=== PATIENT | male | born 1970 | race Asian ===

== ENCOUNTER 2020-07-27 16:44 | Emergency (ER) | payer OTHER, SELFPAY ==
--- NOTE | 2020-07-27 | XR_ITS ---
EXAMINATION: XR CHEST CLINICAL INFORMATION: Chest wall pain. COMPARISON: CT of the chest 07/19/2019 TECHNIQUE: 2 views of the chest were obtained. FINDINGS: No significant abnormality is noted involving the heart, lungs, mediastinum, bony thorax or soft tissues. XR/XR chest 2V IMPRESSION: Unremarkable examination.
[2020-07-27 17:39] VITALS: BP 149/79; PULSE 87; RESP 16; TEMP 36.7; O2SAT 98; BMI 29.5
--- NOTE | 2020-07-27 21:04 | CT_ITS ---
Indication: Pain, hiccups EXAMINATION: Contrast enhanced CT of the chest abdomen pelvis. 85 mL Omnipaque 350. Radiation dose 840 Axial imaging with coronal and sagittal reformatted images. Comparison previous 11/03/2019 and 04/21/2019 CT chest; The thoracic inlet is felt to be within normal limits. The axillary regions are unremarkable. No mediastinal adenopathy. Hilar regions are within normal limits. Imaging lung gandhi. Mild filling defect in the distal right bronchus new from previous. May represent secretion. Measures 1 cm x 6 mm Right lung; No significant infiltrate or effusion. Left lung; No significant infiltrate or effusion. Upper abdomen; Corrugated appearance to the liver. Consistent with cirrhosis. No obvious lesion. The spleen is within normal limits Pancreas within normal limits. Adrenal glands within normal limits. The kidneys are in the neck nephrographic phase. No suspicious finding. The bladder is within normal limits. The abdominal wall shows beginnings of right inguinal hernia stable from previous. The bowel pattern is nonobstructing. No free fluid. The appendix is within normal limits. Prominent prostate is once again noted. The vascular structures are nonaneurysmal. There is no bulky adenopathy. There is no free fluid. Review of the bone windows does not demonstrate evidence for bony lesion. Once again sclerotic change involving the articulating femoral head on the left. This may be degenerative. A vascular necrosis. Consideration. Not significantly changed from previous. CT/CT abdomen pelvis w con IMPRESSION: No acute finding. In the chest no significant infiltrate seen. There is however a density in the distal trachea on the right which could represent a mucosal lesion given the history. Differential would include secretions. This is new from 07/19/2019. Otherwise chronic basilar markings. No acute finding in the abdomen pelvis. Corrugated contour of the liver most consistent with cirrhosis. Sclerotic change in the left femoral head may represent degeneration versus osteonecrosis. Stable from previous
--- NOTE | 2020-07-27 21:04 | ECG_ITS ---
Test Reason : CHEST PAIN Blood Pressure : / mmHG Vent. Rate : 074 BPM Atrial Rate : 074 BPM P-R Int : 138 ms QRS Dur : 080 ms QT Int : 392 ms P-R-T Axes : 053 054 045 degrees QTc Int : 435 ms Normal sinus rhythm Normal ECG No previous ECGs available Referred By: Olga Stubbs Electronically Signed By:SRINIVASA THOMPSON MD
--- NOTE | 2020-07-27 21:27 | ED_ITS ---
HPI - General Adult General Chief complaint: General Medical Stated complaint: hiccups x6days Time Seen by Provider: 07/27/20 18:29 Source: patient Mode of arrival: ambulatory Limitations: no limitations History of Present Illness HPI narrative: hiccups onset 6 days ago, moderate pain, no radiation, started after eating a sandwhich and drinking sprite, worsened hiccups with eating, no relieving factors, no prior episodes Associated symptoms: denies other symptoms Treatments prior to arrival: none Related Data Previous Rx's Medication Instructions Recorded metoclopramide HCl [Reglan] 10 mg PO Q4-6H PRN #30 tab 07/28/20 pantoprazole 40 mg PO DAILY 14 Days #14 tab 07/28/20 Allergies Allergy/AdvReac Type Severity Reaction Status Date / Time ENVIRONMENTAL Allergy Unknown ITCHY/WATERY Uncoded 07/27/20 17:50 EYES Review of Systems Review of Systems: Constitutional : No Weight loss, No Fever, No Chills ENT/Mouth : No sore throat, No Rhinorrhea Eyes: No Swelling, No Redness Cardiovascular : No Chest Pain, No SOB, NoEdema Respiratory : No Cough, No Sputum, No Wheezing Gastrointestinal : Positive Nausea, no Vomiting, no Diarrhea, positive abdominal Pain, No Hematochezia, No Melena Genitourinary : No Dysuria, No Urinary Frequency, No Hematuria, No Urgency Musculoskeletal : No joint pain, No Myalgias, No Joint Swelling Skin : No Skin Lesions, No rash Neuro : No Weakness, No Numbness, No Dizziness, No Headache Psych : No Anxiety/Panic, No Depression Heme/Lymph: No Bruising, No Lymphadenopathy Endocrine : No Polyuria, No Polydipsia All other systems reviewed and are negative. [facility] Past Medical History Attestation statement: The following information was validated with the patient. Medical History No known health problems Social History Social History (Updated 07/27/20 @ 21:28 by Olga Stubbs DO) Smoking Status: Never smoker Use of substances other than those prescribed or required for medical reasons: No Advance Directives: No Advance Directives Information Provided: Yes Physical Exam Vital Signs: Vital Signs: Vital Signs Temp Pulse Resp BP Pulse Ox 07/28/20 01:17 70 114/76 95 07/27/20 23:59 73 16 127/84 97 10/29/20 21:58 81 18 151/92 H 99 07/27/20 17:39 98.0 F 87 16 149/79 H 98 Body Mass Index 29.5 Appearance: Alert. Oriented X3. No acute distress. hiccups intermittent in interview with some belching Eyes: Pupils equal, round and reactive to light. ENT: Pharynx normal. Neck: Normal inspection. Neck supple. CVS: Normal heart rate and rhythm. Pulses normal. Respiratory: No respiratory distress. Breath sounds normal. Abdomen: Soft and mild epigastric ttp Skin: Skin warm and dry. Normal skin color. Normal skin turgor. Extremities: No lower extremity edema. No calf ttp Neuro: Oriented X 3. No motor deficit. No sensory deficit. Course Course Course Narrative: given H2 radha, IV ativan at this time will try reglan and protonix asleep, hiccups stoppped, LFTs at baseline no acute findings on labs, CT scan ?secretion but no hypoxia no WBC count no fevers no cough - will need PCP and thoracic follow up will place on PPI and reglan Medical Decision Making [facility] Narrative Medical decision making narrative: hiccups with some epigastric pain and feeling like spasm in chest - no history of this in past, started after sandlexyich and sprhien, will obtain labs, EKG, CT scans of chest/abdomen for mass, IV ativan Lab Data Result diagrams: 07/27/20 21:49 07/27/20 22:22 Labs: Lab Results 07/27/20 07/27/20 07/27/20 Range/Units 21:49 21:49 21:49 WBC 10.3 (4.8-10.8) X10*3/uL RBC 5.55 (4.60-5.80) X10*6/uL Hgb 15.9 (14.0-18.0) g/dl Hct 47.0 (42-52) % MCV 84.7 (80-98) fL MCH 28.6 (27.0-33.0) pg MCHC 33.8 (31.0-36.0) g/dl RDW 13.9 (11.0-16.0) % Plt Count 209 (160-400) X10*3/uL MPV 11.3 (9.4-12.4) fL Immature Gran % (Auto) 0.6 H (0.0-0.4) % Neut % (Auto) 77.1 H (45-73) % Lymph % (Auto) 13.9 L (20-40) % [place] % (Auto) 8.3 (2-11) % Eos % (Auto) 0.0 (0-4) % Baso % (Auto) 0.1 (0-2) % Lymph # (Auto) 1.4 (1.2-4.9) X10*3/uL [place] # (Auto) 0.9 (0.1-1.2) X10*3/uL Eos # (Auto) 0.0 (0.0-0.4) X10*3/uL Baso # (Auto) 0.0 (0.0-0.2) X10*3/uL Abs Immat Gran (auto) 0.06 H (0.00-0.03) X10*3/uL Absolute Neuts (auto) 8.0 (2.0-8.3) X10*3/uL Absolute Nucleated RBC 0.000 (0.0-0.012) X10*3/uL Nucleated RBC % (auto) 0.0 (0.0-0.2) /100WBC Sodium Cancelled Potassium Cancelled Chloride Cancelled Carbon Dioxide Cancelled Anion Gap Cancelled BUN Cancelled Creatinine Cancelled Estim Creat Clear Calc Cancelled Estimated GFR Cancelled Random Glucose Cancelled Calcium Cancelled Magnesium Cancelled Total Bilirubin Cancelled Direct Bilirubin Cancelled AST Cancelled ALT Cancelled Alkaline Phosphatase Cancelled Troponin I High Sens < 3.5 (<3.5-35.0) ng/L Total Protein Cancelled Albumin Cancelled Lipase Cancelled 07/27/20 07/27/20 Range/Units 22:22 22:22 WBC (4.8-10.8) X10*3/uL RBC (4.60-5.80) X10*6/uL Hgb (14.0-18.0) g/dl Hct (42-52) % MCV (80-98) fL MCH (27.0-33.0) pg MCHC (31.0-36.0) g/dl RDW (11.0-16.0) % Plt Count (160-400) X10*3/uL MPV (9.4-12.4) fL Immature Gran % (Auto) (0.0-0.4) % Neut % (Auto) (45-73) % Lymph % (Auto) (20-40) % [place] % (Auto) (2-11) % Eos % (Auto) (0-4) % Baso % (Auto) (0-2) % Lymph # (Auto) (1.2-4.9) X10*3/uL [place] # (Auto) (0.1-1.2) X10*3/uL Eos # (Auto) (0.0-0.4) X10*3/uL Baso # (Auto) (0.0-0.2) X10*3/uL Abs Immat Gran (auto) (0.00-0.03) X10*3/uL Absolute Neuts (auto) (2.0-8.3) X10*3/uL Absolute Nucleated RBC (0.0-0.012) X10*3/uL Nucleated RBC % (auto) (0.0-0.2) /100WBC Sodium 137 Potassium 4.5 Chloride 107 Carbon Dioxide 21 L Anion Gap 14 BUN 24 H Creatinine 0.92 Estim Creat Clear Calc 96.0 Estimated GFR > 60 Random Glucose 226 H Calcium 8.6 Magnesium 2.5 Total Bilirubin 3.1 H Direct Bilirubin 1.0 H AST 54 H ALT 80 H Alkaline Phosphatase 161 H Troponin I High Sens (<3.5-35.0) ng/L Total Protein 7.0 Albumin 4.1 Lipase 26 ECG Data Attestation: I personally reviewed and interpreted this ECG as follows: Interpretation: Rate: 74 Rhythm: NSR [place]: normal Normal P waves. Normal RASHAAD. Normal QRS complex. ST T wave : normal qTC: normal prior studies: artifact noted, no acute ischemia The study has been interpreted contemporaneously by me. . Discharge Plan Discharge Clinical Impression: Hiccups Patient Disposition: Home, Self-Care Instructions: Hiccups (ED) Additional Instructions: FINDINGS OF CHEST AND ABDOMEN CT SCAN In the chest no significant infiltrate seen. There is however a density in the distal trachea on the right which could represent a mucosal lesion given the history. Differential would include secretions. This is new from 07/19/2019. Otherwise chronic basilar markings. No acute finding in the abdomen pelvis. Corrugated contour of the liver most consistent with cirrhosis. Sclerotic change in the left femoral head may represent degeneration versus osteonecrosis. Stable from previous given the possible density in distal trachea you will need to see your doctor and thoracic surgery to have this further evaluated Prescriptions: New pantoprazole 40 mg tablet,delayed release (DR/EC) 40 mg PO DAILY 14 Days Qty: 14 RF: 0 metoclopramide HCl [Reglan] 10 mg tablet 10 mg PO Q4-6H PRN (Reason: hiccups) Qty: 30 RF: 0 Referrals: Jacki Echavarria MD [Primary Care Provider] - 2 days (call for appointment given lesion seen in trachea) Mari Bell MD [Physician] - 1 week (call for appointment) Stand Alone Forms: Work/School Release Interventions: ED Discharge Assessment Last Done: 07/28/20 01:18 Discharge Date/Time: 07/28/20 01:19
[2020-07-27] MEDS: Famotidine/PF 20 MG/2 ML VIAL IVPUSH (21:42)
[2020-07-27] MEDS: LORazepam 2 MG/ML VIAL 1 MG IVPUSH (21:42)
[2020-07-27 21:55] LABS: MANUAL DIFF FLAG NO
[2020-07-27 21:56] LABS: Basophils Percent Auto 0.1 % (0-2); Hemoglobin 15.9 g/dl (14.0-18.0); Imm Gran Abs Auto 0.06 X10*3/uL (0.00-0.03); Imm Gran Pct Auto 0.6 % (0.0-0.4); Lymphocytes Absolute Auto 1.4 X10*3/uL (1.2-4.9); Lymphocytes Percent Auto 13.9 % (20-40); Mean Corpuscular HGB Conc 33.8 g/dl (31.0-36.0); Mean Corpuscular Hemoglobin 28.6 pg (27.0-33.0); Mean Corpuscular Volume 84.7 fL (80-98); Mean Platelet Volume 11.3 fL (9.4-12.4); Monocytes Absolute Auto 0.9 X10*3/uL (0.1-1.2); Monocytes Percent Auto 8.3 % (2-11); Neutrophils Percent Auto 77.1 % (45-73); Platelet Count 209 X10*3/uL (160-400); Red Blood Count 5.55 X10*6/uL (4.60-5.80); Red Cell Distribution Width 13.9 % (11.0-16.0); White Blood Count 10.3 X10*3/uL (4.8-10.8)
[2020-07-27 21:58] VITALS: BP 151/92; PULSE 81; RESP 18; O2SAT 99
[2020-07-27] MEDS: Pantoprazole Sodium 40 MG/10 ML VIAL IVPUSH (22:10)
[2020-07-27] MEDS: Metoclopramide HCl 10 MG/2 ML VIAL IVPUSH (22:10)
[2020-07-27 22:21] LABS: Troponin-I High Sensitivity < 3.5 ng/L (<3.5-35.0)
--- NOTE | 2020-07-27 22:53 | PC.NURSE ---
pt sleeping, had to shake shoulder hard to wake him. hiccups stopped aprox 20 minutes ago before he fell asleep.
[2020-07-27 23:04] LABS: Alanine Aminotransferase 80 U/L (0-40); Albumin Level 4.1 g/dL (3.5-5.0); Alkaline Phosphatase 161 U/L (39-117); Aspartate Amino Transferase 54 U/L (5-37); Bilirubin Total 3.1 mg/dL (0.0-1.0)
[2020-07-27 23:10] LABS: Anion Gap 14 (12-20); Blood Urea Nitrogen 24 mg/dL (9-16); Calcium 8.6 mg/dL (8.4-10.2); Carbon Dioxide 21 mmol/L (22-29); Chloride 107 mmol/L (96-108); Estimated Glomerular Filt Rate > 60; Glucose Random 226 mg/dL (60-115); Lipase 26 U/L (8-78); Magnesium 2.5 mg/dL (1.6-2.6); Potassium 4.5 mmol/l (3.3-5.1); Sodium 137 mmol/L (135-145)
[2020-07-27] MEDS: iohexoL 350 MG/ML 100 ML INFUS..BTL IV (23:49)
[2020-07-27 23:59] VITALS: BP 127/84; PULSE 73; RESP 16; O2SAT 97
--- NOTE | 2020-07-27 23:59 | PC.NURSE ---
awaiting ct results, pt has been sleeping for the past few hours.
[2020-07-28 01:17] VITALS: BP 114/76; PULSE 70; O2SAT 95
== END 2020-07-28 01:19 | disposition home or self-care (01) ==
PROVIDERS: Emergency Provider Emergency Medicine; PCP Internal Medicine
DX: R06.6 Hiccough (principal); Z79.899 Other long term (current) drug therapy
CPT/HCPCS: 36415; 71046; 71260; 74177; 80048; 80076; 83690; 83735; 84484; 85025; 93005; 96374; 96375; 99284; J2060; J2765; Q9967

== ENCOUNTER → 2020-12-19 09:31 | Outpatient (BNVA) | payer OTHER, SELFPAY | PROVIDERS: PCP Internal Medicine; Visit Provider Surgery | DX: D17.9 Benign lipomatous neoplasm, unspecified (principal) | CPT/HCPCS: 99212 ==

== ENCOUNTER 2020-12-25 09:04 | Day surgery (SDC) | payer OTHER, SELFPAY ==
[2020-12-25] VITALS (8 sets, daily range): BP systolic 144–172; BP diastolic 89–103; PULSE 65–91; RESP 10–20; TEMP 36.3–36.8; O2SAT 97–100; BMI 29.5
[2020-12-25] MEDS: Lactated Ringers 1,000 ML 100 ML IVCONT (09:31)
--- NOTE | 2020-12-25 10:08 | P.CONAN_ITS ---
HPI - Anesthesia Eval Consult details Narrative: 50 yo male patient here for excision of recurrent cyst right post erior neck PMFSH Active Problems Active Problems: All Active Problems (Updated 12/19/20 @ 10:02 by Venkatesh Bal MD) Lipoma (Acute) Past Medical History Medical History (Updated 12/25/20 @ 10:23 by Kaelyn Car) H/O gastroesophageal reflux (GERD) No known health problems Family History Family History Father No problems noted. Mother CVD (cardiovascular disease) Stroke Diabetes mellitus Brother Diabetes mellitus Sister Diabetes mellitus Family history of problems with anesthesia: No Surgical History Surgical History H/O excision of mass (03/24/15) H/O hemorrhoidectomy (02/13/12) H/O hernia repair (1999) History of esophagogastroduodenoscopy (EGD) (02/13/12) Hx of tonsillectomy (1998) Status post excision of lipoma (04/22/19) History of Problems with Anesthesia: No Social History Social History Alcohol intake: never Smoking Status: Never smoker Use of substances other than those prescribed or required for medical reasons: No Have you been hit, kicked, punched, or otherwise hurt by someone within the past year? If so, by whom?: No Advance Directives: No Advance Directives Information Provided: No Meds Allergies Allergy/AdvReac Type Severity Reaction Status Date / Time No Known Allergies Allergy Verified 12/25/20 09:56 Active Medications: Current Medications Generic Name Dose Route Start Last Admin Trade Name Freq PRN Reason Stop Dose Admin Lactated Ringer's 1,000 mls @ 50 mls/hr 12/25/20 07:45 Lr IV .Q20H CORNELIO Lactated Ringer's 1,000 mls @ 100 mls/hr 12/25/20 07:45 12/25/20 09:31 Lr IVCONT 100 mls/hr .Q10H CORNELIO Administration Exam Exam Date and Time: December 25, 2020 1008 Height,Weight and Vital Signs: Height 5 ft 6 in Weight 83 kg Last Vital Signs Temp 98.3 F 12/25/20 09:16 Pulse 71 12/25/20 09:16 Resp 20 12/25/20 09:16 BP 144/95 H 12/25/20 09:16 Pulse Ox 99 12/25/20 09:16 Airway Mallampati Class: II TM Dist: >3cm Neck ROM: Full Heart: RRR Lungs: CTAB Assessment and Plan Assessment Anesthesia Assessment: Anesthesia Plan Discussed and Chart Reviewed Final Anesthetic Review NPO: Yes ASA Class: II Final Preanesthetic Review: No Changes in Pt Med Stat, Meds/Allgs Chart Reviewed, Consent Obtained/Reviewed and Anes Risks/Benef Reviewed Patient Risk: Low Procedure Risk: Low Assessment/Block/Sedation in SS: Assess/Block/Sedation-SS Anesthetic Plan Anesthetic Plan: GA Disposition: Standard PACU
--- NOTE | 2020-12-25 10:16 | MHC.SHP ---
Pre-Procedural Eval Section A The patient is an INPATIENT: No Changes since office visit: Yes Patient answered all questions; No Cold of Flu in the past 2 weeks, No New Medical Problems and No Changes in Medication The History & Physical has been completed within 30 days and I have reviewed it.: Yes Section B Chief Complaint: benign lipomatous neoplasm Allergies: Allergies Allergy/AdvReac Type Severity Reaction Status Date / Time No Known Allergies Allergy Verified 12/25/20 09:56 Plan Diagnosis/Plan: Unchanged I have reviewed the history and physical and performed a pertinent physical examination on my patient. No changes have occurred unless specified.
--- NOTE | 2020-12-25 11:42 | P.OP_ITS ---
Operative Note Operative Note Date of Service: 12/25/20 Narrative: Preoperative diagnosis: Recurrent lipoma posterior right neck Postoperative diagnosis: Same Procedure: Excision of recurrent lipoma posterior right neck Surgeon: Venkatesh Bal MD Window Unit Air Conditioning Mechanic: Louann Lindsey PA-C Anesthesia: General LMA Indications for procedure: 50-year-old male with a previous history of lipoma, of the posterior right neck previously excised now presenting with a recurrent lipoma of the same location measure approximately 3 cm in diameter. Operative findings: Recurrence lipoma of the posterior right neck measuring 3 cm in diameter with scar surrounding Specimen:. Lipoma per steroid neck Estimated blood loss: 5 mL Complications: None Procedure details: Patient was brought to the OR placed in a supine position. After administering general anesthesia he was placed in a left lateral decubitus position. The skin over the lipoma was prepped with ChloraPrep and draped in a sterile fashion. A surgical time-out was called the consent confirmed. Patient received preoperative antibiotics and Venodyne boots were in place. Local anesthesia consisting of 0.75% Sensorcaine with epinephrine was then infiltrated over the lipoma. A transverse incision was then created with a scalpel carried out through subcutaneous tissue. Sharp dissection was then used to dissect the lipoma from the surrounding subcutaneous tissue. The lesion was excised and sent to pathology for additional examination. Hemostasis was assured using electrocautery. Deep subcutaneous tissue was closed using interrupted 3 0 Polysorb sutures. Dermis was reapproximated using interrupted 3 0 Polysorb sutures. Skin was then closed using a running subcuticular 4-0 Polysorb suture. Steri-Strips 2 x 2 gauze and Tegaderm were then applied. The patient tolerated the procedure well. Sponge, instrument, needle counts reported as correct. Patient was transferred to PACU in stable condition.
--- NOTE | 2020-12-25 11:54 | P.BOP_ITS ---
Brief Operative Note Date of Service: 12/25/20 Pre-op diagnosis: recurrent posterior neck lipoma Post-op diagnosis: same Procedure: excision of recurrent posterior neck lipoma Surgeon: GABRIELA TINOCO MD Anesthesia: GLMA Primer Press Operator: Louann Lindsey Estimated blood loss (mL): 5 Pathology: other (POSTERIOR NECK LIPOMA) Condition: stable Disposition: PACU
[2020-12-25] MEDS: oxyCODONE HCl Immed Release 5 MG TABLET PO (12:38)
[2020-12-25] MEDS: Acetaminophen 325 MG TABLET 650 MG PO (12:38)
== END 2020-12-25 13:44 | disposition home or self-care (01) ==
PROVIDERS: PCP Internal Medicine; Visit Provider Surgery
PROC: (CPT 21552; principal; 2020-12-25 10:30)
DX: D17.0 Benign lipomatous neoplasm of skin and subcutaneous tissue of head, face and neck (principal)
CPT/HCPCS: 21552; 88304; J0690; J1100; J1885; J2250; J2405; J3010

== ENCOUNTER → 2021-01-03 09:48 | Outpatient (BNVA) | payer OTHER, SELFPAY | PROVIDERS: PCP Internal Medicine; Visit Provider Surgery | DX: D17.9 Benign lipomatous neoplasm, unspecified (principal) | CPT/HCPCS: 99212 ==

== ENCOUNTER 2021-01-22 11:25 | Outpatient (REF) | payer OTHER, SELFPAY | END 2021-01-22 11:26 | disposition home or self-care (01) | LOC: HO.LAB 11:25 | PROVIDERS: Visit Provider Internal Medicine | DX: Z20.822 Contact with and (suspected) exposure to COVID-19 (principal) | CPT/HCPCS: C9803; U0003; U0005 ==

== ENCOUNTER 2021-03-21 16:08 | Outpatient (REF) | payer OTHER, SELFPAY ==
[2021-03-21 16:43] LABS: MANUAL DIFF FLAG NO
[2021-03-21 16:44] LABS: Basophils Percent Auto 0.1 % (0-2); Eosinophils Percent Auto 0.1 % (0-4); Hematocrit 41.1 % (42-52); Hemoglobin 13.9 g/dl (14.0-18.0); Imm Gran Abs Auto 0.02 X10*3/uL (0.00-0.03); Imm Gran Pct Auto 0.2 % (0.0-0.4); Lymphocytes Absolute Auto 1.6 X10*3/uL (1.2-4.9); Lymphocytes Percent Auto 19.5 % (20-40); Mean Corpuscular HGB Conc 33.8 g/dl (31.0-36.0); Mean Corpuscular Hemoglobin 29.7 pg (27.0-33.0); Mean Corpuscular Volume 87.8 fL (80-98); Mean Platelet Volume 11.7 fL (9.4-12.4); Monocytes Absolute Auto 0.5 X10*3/uL (0.1-1.2); Monocytes Percent Auto 5.7 % (2-11); Neutrophils Percent Auto 74.4 % (45-73); Platelet Count 166 X10*3/uL (160-400); Red Blood Count 4.68 X10*6/uL (4.60-5.80); Red Cell Distribution Width 14.1 % (11.0-16.0); White Blood Count 8.1 X10*3/uL (4.8-10.8)
[2021-03-21 17:11] LABS: Alanine Aminotransferase 104 U/L (0-40); Aspartate Amino Transferase 92 U/L (5-37)
[2021-03-21 17:30] LABS: Thyroid Stimulating Hormone 0.19 uIU/mL (0.32-4.0)
== END 2021-03-21 16:09 | disposition home or self-care (01) ==
LOC: HO.LAB 16:08
PROVIDERS: PCP Internal Medicine; Visit Provider Pediatrics
DX: R53.83 Other fatigue (principal)
CPT/HCPCS: 36415; 84439; 84443; 84450; 84460; 85025

== ENCOUNTER 2021-04-10 09:00 | Outpatient (REF) | payer OTHER, SELFPAY ==
--- NOTE | ~2021-04-10 | CT_ITS ---
EXAMINATION: CT CHEST WITHOUT CONTRAST CLINICAL INFORMATION: Localized enlarged lymph nodes. COMPARISON: CT chest 07/27/2020. TECHNIQUE: Multidetector volumetric CT imaging of the chest was done. Axial MIP volume rendering provided. Sagittal and coronal reformatted images were obtained. This CT examination was performed using dose optimization techniques as appropriate, variously including the following: *Automated exposure control *Adjustment of mA and/or kV according to patient size (this includes techniques or standardized protocols for targeted exams where dose is matched to indication/reason for exam; i.e. extremities or head) *Use of iterative reconstruction technique DLP: 145 mGy-cm FINDINGS: POULTRY FIELD SERVICE TECHNICIAN: Unremarkable food safety coordinator. LUNGS: The lungs are well-expanded and clear of acute pneumonic process. There is bibasilar, right middle lobe and lingular atelectatic changes. No pulmonary nodules, mass or consolidation seen. MEDIASTINUM: The central trachea and bronchi are widely patent. The heart size and the great vessels are normal caliber. There is atherosclerotic calcification of left coronary artery. The thyroid lobes are symmetrical and normal. The thyroid lobes are symmetrical and normal. PLEURA: There is no pleural effusion. No pleural mass or thickening. AXILLA: No abnormal lymphadenopathy. UPPER ABDOMEN: Visualized liver, spleen, pancreas and bilateral adrenal glands are unremarkable. OSSEOUS STRUCTURES: No lytic or sclerotic process seen. There is mild ventral spondylosis upper dorsal spine. CT/CT chest wo con IMPRESSION: Bibasilar, right middle lobe and lingular atelectasis. No pulmonary nodule, mass or consolidation. The bronchial tree is widely patent without any focal secretions or thickening.
== END 2021-04-10 09:01 | disposition home or self-care (01) ==
LOC: HO.CT 09:00
PROVIDERS: Visit Provider Surgery
DX: R59.0 Localized enlarged lymph nodes (principal)
CPT/HCPCS: 71250

== ENCOUNTER → 2021-04-19 11:21 | Outpatient (BNVA) | payer OTHER, SELFPAY | PROVIDERS: PCP Internal Medicine; Referring Provider Internal Medicine; Visit Provider Surgery | DX: K64.8 Other hemorrhoids (principal) | CPT/HCPCS: 99212 ==

== ENCOUNTER → 2021-04-20 10:27 | Outpatient (BNVA) | payer OTHER, SELFPAY | PROVIDERS: PCP Internal Medicine; Visit Provider Surgery | DX: R59.0 Localized enlarged lymph nodes (principal); R91.8 Other nonspecific abnormal finding of lung field; Z79.899 Other long term (current) drug therapy | CPT/HCPCS: 99212 ==

== ENCOUNTER 2021-05-14 08:24 | Day surgery (SDC) | payer OTHER, SELFPAY ==
[2021-05-04 11:25] VITALS: BMI 28.1
--- NOTE | 2021-05-14 08:59 | P.CONAN_ITS ---
REPLACED BY [facility] Active Problems Active Problems: All Active Problems (Updated 05/04/21 @ 11:23 by Cindy faith) Lipoma (Acute) Internal hemorrhoids (Acute) Mediastinal lymphadenopathy (Acute) Multiple pulmonary nodules (Acute) Past Medical History Medical History Endobronchial mass H/O gastroesophageal reflux (GERD) Hilar enlargement Family History Family History Father No problems noted. Mother CVD (cardiovascular disease) Stroke Diabetes mellitus Brother Diabetes mellitus Sister Diabetes mellitus Family history of problems with anesthesia: No Surgical History Surgical History H/O excision of mass (03/24/15) H/O hemorrhoidectomy (02/13/12) H/O hernia repair (1999) History of esophagogastroduodenoscopy (EGD) (02/13/12) Hx of tonsillectomy (1998) Status post excision of lipoma (04/22/19) History of Problems with Anesthesia: No Social History Social History Alcohol intake: never Patient Tobacco Use Status: Never used Tobacco Advance Directives Information Provided: No Meds Allergies Allergy/AdvReac Type Severity Reaction Status Date / Time No Known Allergies Allergy Verified 04/20/21 10:51 Active Medications: Current Medications Generic Name Dose Route Start Last Admin Trade Name Freq PRN Reason Stop Dose Admin Lactated Ringer's 1,000 mls @ 100 mls/hr 05/14/21 09:00 Lr IVCONT .Q10H CORNELIO Cefotetan Disodium 2 gm/ 50 mls @ 100 mls/hr 05/14/21 08:57 Sodium Chloride IV 05/14/21 09:26 PREOP ONE Exam Exam Date and Time: May 14, 2021 0859 Height,Weight and Vital Signs: Height 5 ft 6 in Weight 79.093 kg Airway Mallampati Class: II TM Dist: >3cm Neck ROM: Full Assessment and Plan Assessment Anesthesia Assessment: Anesthesia Plan Discussed and Chart Reviewed Final Anesthetic Review Family History of Problems with Anesthesia: No History of Problems with Anesthesia: No NPO: Yes ASA Class: II Final Preanesthetic Review: No Changes in Pt Med Stat, Meds/Allgs Chart Reviewed, Consent Obtained/Reviewed and Anes Risks/Benef Reviewed Patient Risk: Low Procedure Risk: Low Assessment/Block/Sedation in SS: Assess/Block/Sedation-SS Anesthetic Plan Anesthetic Plan: GA Disposition: Standard PACU
[2021-05-14 09:15] VITALS: BP 134/90; PULSE 71; RESP 16; TEMP 35.9; O2SAT 97
[2021-05-14] MEDS: Lactated Ringers 1,000 ML 100 ML IVCONT (09:31)
--- NOTE | 2021-05-14 09:58 | MHC.SHP ---
Pre-Procedural Eval Section A Date of Service: 05/14/21 The patient is an INPATIENT: No Changes since office visit: Yes Patient answered all questions; No Cold of Flu in the past 2 weeks, No New Medical Problems and No Changes in Medication The History & Physical has been completed within 30 days and I have reviewed it.: Yes Section B Chief Complaint: hemorrhoids Allergies: Allergies Allergy/AdvReac Type Severity Reaction Status Date / Time No Known Allergies Allergy Verified 04/20/21 10:51 Plan Diagnosis/Plan: Unchanged I have reviewed the history and physical and performed a pertinent physical examination on my patient. No changes have occurred unless specified.
--- NOTE | 2021-05-14 10:46 | P.OP_ITS ---
Operative Note Operative Note Date of Service: 05/14/21 Narrative: Preoperative diagnosis: Bleeding prolapsing hemorrhoid grade 3 Postoperative diagnosis: Same Procedure: Hemorrhoidectomy Surgeon: Venkatesh Bal MD Clothing Pattern Preparer: No physician Anesthesia: General LMA Indications for procedure: 50-year-old male patient presenting with recurrent history of bleeding hemorrhoids found on examination to have a prolapsing bleeding internal hemorrhoid grade 3 with ulceration. He presents today for hemorrhoidectomy. Operative findings: Single large hemorrhoid located in the anterior anal wall which easily prolapse through the anal canal but is able to be reduced with light pressure. No active bleeding was noted at the time of surgery. Specimen: Hemorrhoid Estimated blood loss: 10 mL Complications: None Procedure details: Patient was brought to the OR placed in a supine position. He was then placed in a prone position and administered general anesthesia with LMA. The patient's perianal skin was prepped with Betadine and draped in a sterile fashion. A surgical time-out was called and the consent confirmed. Preoperative antibiotics were administered and Venodyne boots were in place. Local anesthesia consisting of 0.25% Sensorcaine with epinephrine was then infiltrated in the perianal skin. Digital rectal examination was performed. No external hemorrhoids were identified. No anal fissure be identified. There was mild hypertrophy of the anal sphincter. Prostate was not enlarged. No palpable rectal masses could be identified. Anoscopic examination was then performed a single enlarged hemorrhoid as noted above was identified in the anterior anal wall. No bleeding was noted at the time of surgery. No other internal hemorrhoids were identified. This was grasped with a triangular clamp and the hemorrhoid clamped using a Keysha clamp. A 2-0 Biosyn suture was then used placed at the base of the hemorrhoid and a baseball-type stitch placed below the Keysha clamp. The hemorrhoid was excised above the Keysha clamp and sent to pathology for further examination. A Keysha clamp was removed and a running locked continuation of the running suture performed from distal to proximal and the suture tied proximally. Excellent hemostasis was noted. Wounds were examined, irrigated and no further hemorrhoids or bleeding could be identified. A packing consisting of a 4 x 4 gauze wrapped in a Xeroform and covered with a Surgicel pad was then applied. This was then with a ABD pad. The patient tolerated the procedure well. Sponge, instrument, and needle counts reported as correct. The patient was transferred to PACU in stable condition.
[2021-05-14 10:55] VITALS: BP 137/75; PULSE 93; RESP 16; TEMP 36.3; O2SAT 96
[2021-05-14 11:00] VITALS: BP 125/74; PULSE 90; RESP 16; O2SAT 95
--- NOTE | 2021-05-14 11:02 | P.OP_ITS ---
Operative Note Operative Note Date of Service: 05/14/21 Narrative: Preoperative diagnosis: Bleeding internal hemorrhoids Postoperative diagnosis: Same Procedure: Hemorrhoidectomy Surgeon: Venkatesh Bal MD Stained Glass Glazier Helper: No physician Anesthesia: General LMA Indications for procedure: 50-year-old male patient presenting with a history of bleeding hemorrhoids prolapsing through the inguinal canal. On examination patient was found to have a single bleeding internal hemorrhoid in the anterior anal wall. He presents today for hemorrhoidectomy. Operative findings: Prolapsing internal hemorrhoid Specimen: Hemorrhoid Estimated blood loss: 10 mL Complications: None Procedure details: Patient was brought to the OR placed in a supine position. He was then rotated into a prone position. General LMA anesthesia was then administered. The perianal skin was prepped with Betadine and draped in a sterile fashion. A surgical time-out was called the consent confirmed. Patient received preoperative antibiotics and Venodyne boots were in place. Local anesthesia consisting of 0.25% Sensorcaine was then infiltrated in the perianal skin. Rectal examination was then performed. No external hemorrhoids were identified. No anal fissure could be identified. Anal sphincter was noted to be somewhat hypertrophic. A small anoscope was then inserted. A single hemorrhoid was noted in the anterior LL anal wall. The bleeding was noted at the time of surgery. Was grasped with a triangular clamp and then with a Keysha clamp below this. A Biosyn suture was then used base all type stitch below the Keysha clamp. The hemorrhoid was then excised above the clamp and a running lock stitch from distal to proximal performed. This was then tied proximally at the base of the hemorrhoid. The specimen was passed off the table and sent to pathology for further examination. Wounds were checked for hemostasis and irrigated with saline solution. Excellent hemostasis was identified. A packing was applied into the canal consisting of a 4 x 4 gauze wrapped with a Xeroform followed by Surgicel. This was left in place to maintain hemostasis. Additional local anesthesia was infiltrated circumferentially and an ABD pad applied. The patient tolerated the procedure well. Sponge, instrument, and needle counts reported as correct. The patient was transferred to PACU in stable condition.
[2021-05-14 11:05] VITALS: BP 124/71; PULSE 90; RESP 16; O2SAT 97
[2021-05-14 11:10] VITALS: BP 123/77; PULSE 91; RESP 16; O2SAT 96
[2021-05-14 11:25] VITALS: BP 145/80; PULSE 77; RESP 16; TEMP 36.3; O2SAT 98
--- NOTE | 2021-05-18 16:21 | W.PM.OPN ---
Operative Note Operative Note Date of Service: 05/14/21 Narrative: Preoperative diagnosis: Bleeding prolapsing internal hemorrhoids Postoperative diagnosis: Same Procedure: Hemorrhoidectomy Surgeon: Venkatesh Bal MD Inventory Controller: No physician Anesthesia: General Indications for procedure: 50-year-old male patient with complaints of bleeding prolapsing hemorrhoids found on examination to have a hemorrhoid at the anterior anal wall. Operative findings: Enlarged inflamed internal hemorrhoid located in the anterior anal wall. No other hemorrhoids, fissure, abscess identified. Specimen: Internal hemorrhoid Estimated blood loss: 10 mL Complications: None Procedure details: Patient was brought to the OR placed in a prone position. He was administered general anesthesia. The patient's perianal skin was prepped with Betadine and draped in a sterile fashion. A surgical time-out was called the consent confirmed. Patient received preoperative antibiotics and Venodyne boots were in place. Digital rectal examination was performed. No thrombosed hemorrhoid, anal fissure, or perianal abscess is identified. Anoscopic examination was then performed and a single hemorrhoid noted in the anterior anal wall. This was noted to be inflamed but not actively bleeding. Hemorrhoid was grasped with a triangular clamp and a Keysha clamp placed below at the base. A chromic suture was placed at the base of the hemorrhoid and a running lock stitch placed below the Keysha clamp. The hemorrhoid was then excised over the Keysha clamp and a Keysha clamp removed. The suture was then used to over sew the base of the hemorrhoid as a running locked suture. This was then tied to the initial not proximally. Excellent hemostasis was achieved. The wounds were irrigated and observe for any bleeding. A packing of Surgicel followed by Xeroform followed by a dry 4 x 4 gauze was applied. This was then covered with an ABD pad. The patient tolerated the procedure well. Sponge, instrument, needle counts reported as correct. The patient was transferred to PACU in stable condition.
== END 2021-05-14 12:00 ==
LOC: HO.SSS 08:25
PROVIDERS: PCP Internal Medicine; Visit Provider Surgery
PROC: (CPT 46255; principal; 2021-05-14 10:00)
DX: K64.8 Other hemorrhoids (principal); K74.60 Unspecified cirrhosis of liver; K21.9 Gastro-esophageal reflux disease without esophagitis
CPT/HCPCS: 46255; 88304; J1100; J2250; J2405; J3010

== ENCOUNTER → 2021-05-22 09:03 | Outpatient (BNVA) | payer OTHER, SELFPAY | PROVIDERS: PCP Internal Medicine; Referring Provider Internal Medicine; Visit Provider Surgery | DX: Z48.815 Encounter for surgical aftercare following surgery on the digestive system (principal); Z87.19 Personal history of other diseases of the digestive system | CPT/HCPCS: 99212 ==

== ENCOUNTER → 2021-05-29 13:02 | Outpatient (BNVA) | payer OTHER, SELFPAY | PROVIDERS: PCP Internal Medicine; Visit Provider Surgery | DX: Z48.815 Encounter for surgical aftercare following surgery on the digestive system (principal); Z87.19 Personal history of other diseases of the digestive system | CPT/HCPCS: 99212 ==

== ENCOUNTER 2021-06-11 09:22 | Outpatient (REF) | payer OTHER, SELFPAY | END 2021-06-11 09:23 | disposition home or self-care (01) | LOC: HO.LAB 09:22 | PROVIDERS: PCP Internal Medicine; Visit Provider Internal Medicine | DX: Z20.822 Contact with and (suspected) exposure to COVID-19 (principal) | CPT/HCPCS: C9803; U0003; U0005 ==

== ENCOUNTER 2021-10-29 11:48 | Outpatient (REF) | payer OTHER, SELFPAY ==
[2021-10-29 13:46] LABS: Estimated Average Glucose 128 mg/dL; Hemoglobin A1c % 6.1 %
[2021-10-29 14:00] LABS: Anion Gap 12 (12-20); Blood Urea Nitrogen 15 mg/dL (9-16); Calcium 9.8 mg/dL (8.4-10.2); Carbon Dioxide 27 mmol/L (22-29); Chloride 107 mmol/L (96-108); Cholesterol 195 mg/dL; Estimated Glomerular Filt Rate > 60; Glucose Random 119 mg/dL (60-115); Potassium 4.7 mmol/L (3.3-5.1); Sodium 141 mmol/L (135-145)
[2021-10-29 14:33] LABS: Prostate Specific Antigen Scr 0.58 ng/mL (<0.05-4.0)
[2021-10-29 14:42] LABS: Free T4 (Free Thyroxine) 1.11 ng/dL (0.71-1.85); Thyroid Stimulating Hormone 0.78 uIU/mL (0.32-4.0)
== END 2021-10-29 11:49 | disposition home or self-care (01) ==
LOC: HO.10HDL 11:48
PROVIDERS: Visit Provider Internal Medicine
DX: Z12.5 Encounter for screening for malignant neoplasm of prostate (principal); R63.4 Abnormal weight loss; R73.03 Prediabetes; R79.89 Other specified abnormal findings of blood chemistry
CPT/HCPCS: 36415; 80048; 82465; 82550; 83036; 84153; 84439; 84443; 86140

== ENCOUNTER 2022-02-21 15:17 | Outpatient (REF) | payer OTHER, SELFPAY ==
[2022-02-21 15:30] LABS: MANUAL DIFF FLAG NO
[2022-02-21 15:57] LABS: Basophils Percent Auto 0.5 % (0-2); Eosinophils Absolute Auto 0.1 X10*3/uL (0.0-0.4); Eosinophils Percent Auto 1.5 % (0-4); Hematocrit 44.4 % (42.0-52.0); Hemoglobin 14.2 g/dl (14.0-18.0); Imm Gran Abs Auto 0.03 X10*3/uL (0.00-0.03); Imm Gran Pct Auto 0.4 % (0.0-0.4); Lymphocytes Absolute Auto 2.8 X10*3/uL (1.2-4.9); Lymphocytes Percent Auto 32.7 % (20-40); Mean Corpuscular Hemoglobin 28.5 pg (27.0-33.0); Mean Platelet Volume 11.3 fL (9.4-12.4); Monocytes Absolute Auto 0.7 X10*3/uL (0.1-1.2); Monocytes Percent Auto 8.8 % (2-11); Neutrophils Absolute Auto 4.7 x10*3/uL (2.0-8.3); Neutrophils Percent Auto 56.1 % (45-73); Platelet Count 183 X10*3/uL (160-400); Red Blood Count 4.99 X10*6/uL (4.60-5.80); Red Cell Distribution Width 13.7 % (11.0-16.0); White Blood Count 8.4 X10*3/uL (4.8-10.8)
[2022-02-21 16:18] LABS: Alanine Aminotransferase 101 U/L (0-40); Albumin Level 4.1 g/dL (3.5-5.0); Alkaline Phosphatase 228 U/L (39-117); Anion Gap 14 (12-20); Aspartate Amino Transferase 73 U/L (5-37); Bilirubin Total 3.1 mg/dL (0.0-1.0); Blood Urea Nitrogen 10 mg/dL (9-16); Calcium 10.1 mg/dL (8.4-10.2); Carbon Dioxide 27 mmol/L (22-29); Chloride 107 mmol/L (96-108); Estimated Glomerular Filt Rate > 60; Glucose Random 130 mg/dL (60-115); Potassium 4.9 mmol/L (3.3-5.1); Sodium 143 mmol/L (135-145); Total Protein 6.9 g/dL (6.5-8.0)
== END 2022-02-21 15:18 | disposition home or self-care (01) ==
LOC: HO.LAB 15:17
PROVIDERS: PCP Internal Medicine; Visit Provider Internal Medicine
DX: Z01.818 Encounter for other preprocedural examination (principal); K21.9 Gastro-esophageal reflux disease without esophagitis
CPT/HCPCS: 36415; 80053; 85025

== ENCOUNTER 2022-11-07 11:16 | Outpatient (REF) | payer OTHER, SELFPAY ==
--- NOTE | ~2022-11-07 | XR_ITS ---
EXAMINATION: XR SINUSES CLINICAL INFORMATION: Sinus pain. COMPARISON: None TECHNIQUE: Diaz, Lemos, lateral, and SMV views of the paranasal sinuses are submitted. FINDINGS: The paranasal sinuses are well aerated and clear. There is frontal and right maxillary sinus mucosal thickening. The ethmoid and sphenoid sinuses are clear. No fractures are identified. There is a mild rightward nasal septal deviation. No radiodense foreign bodies. XR/XR sinus min 3V IMPRESSION: Findings are consistent with frontal and right maxillary sinusitis.
[2022-11-07 11:41] LABS: MANUAL DIFF FLAG NO
[2022-11-07 12:22] LABS: Basophils Percent Auto 0.2 % (0-2); Eosinophils Absolute Auto 0.1 X10*3/uL (0.0-0.4); Hematocrit 31.8 % (42.0-52.0); Hemoglobin 11.1 g/dl (14.0-18.0); Imm Gran Abs Auto 0.01 X10*3/uL (0.00-0.03); Imm Gran Pct Auto 0.2 % (0.0-0.4); Lymphocytes Absolute Auto 2.3 X10*3/uL (1.2-4.9); Lymphocytes Percent Auto 57.1 % (20-40); Mean Corpuscular HGB Conc 34.9 g/dl (31.0-36.0); Mean Corpuscular Hemoglobin 28.5 pg (27.0-33.0); Mean Corpuscular Volume 81.5 fL (80.0-98.0); Mean Platelet Volume 10.1 fL (9.4-12.4); Monocytes Absolute Auto 0.4 X10*3/uL (0.1-1.2); Monocytes Percent Auto 9.6 % (2-11); Neutrophils Absolute Auto 1.3 x10*3/uL (2.0-8.3); Neutrophils Percent Auto 30.9 % (45-73); Platelet Count 201 X10*3/uL (160-400); White Blood Count 4.1 X10*3/uL (4.8-10.8)
[2022-11-07 12:53] LABS: Estimated Average Glucose 111 mg/dL; Hemoglobin A1c % 5.5 %
[2022-11-07 13:08] LABS: Alanine Aminotransferase 52 U/L (0-40); Alkaline Phosphatase 796 U/L (39-117); Anion Gap 17 (12-20); Aspartate Amino Transferase 93 U/L (5-37); Bilirubin Total 1.2 mg/dL (0.0-1.0); Blood Urea Nitrogen 13 mg/dL (9-16); C Reactive Protein 1.54 mg/dL (< or = 0.50); Calcium 9.3 mg/dL (8.4-10.2); Carbon Dioxide 24 mmol/L (22-29); Chloride 91 mmol/L (96-108); Estimated Glomerular Filt Rate 50; Glucose Random 127 mg/dL (60-115); Potassium 3.9 mmol/L (3.3-5.1); Sodium 128 mmol/L (135-145); Total Protein 6.7 g/dL (6.5-8.0)
== END 2022-11-07 11:17 | disposition home or self-care (01) ==
LOC: HO.LAB 11:16
PROVIDERS: PCP Internal Medicine; Visit Provider Internal Medicine
DX: R79.89 Other specified abnormal findings of blood chemistry (principal); E11.22 Type 2 diabetes mellitus with diabetic chronic kidney disease; N18.9 Chronic kidney disease, unspecified; J34.89 Other specified disorders of nose and nasal sinuses
CPT/HCPCS: 36415; 70220; 80053; 83036; 85025; 86140

== ENCOUNTER 2023-01-22 12:23 | Outpatient (REF) | payer OTHER, SELFPAY ==
[2023-01-22 13:38] LABS: MANUAL DIFF FLAG NO
[2023-01-22 13:46] LABS: Basophils Percent Auto 0.5 % (0-2); Eosinophils Percent Auto 0.7 % (0-4); Imm Gran Abs Auto 0.01 X10*3/uL (0.00-0.03); Imm Gran Pct Auto 0.2 % (0.0-0.4); Lymphocytes Absolute Auto 1.9 X10*3/uL (1.2-4.9); Mean Corpuscular HGB Conc 31.7 g/dl (31.0-36.0); Mean Corpuscular Hemoglobin 32.6 pg (27.0-33.0); Mean Platelet Volume 9.9 fL (9.4-12.4); Monocytes Absolute Auto 0.5 X10*3/uL (0.1-1.2); Monocytes Percent Auto 11.3 % (2-11); Neutrophils Absolute Auto 1.9 x10*3/uL (2.0-8.3); Neutrophils Percent Auto 43.3 % (45-73); Platelet Count 221 X10*3/uL (160-400); Red Cell Distribution Width 15.4 % (11.0-16.0); White Blood Count 4.4 X10*3/uL (4.8-10.8)
[2023-01-22 13:47] LABS: Estimated Average Glucose 94 mg/dL; Hemoglobin A1c % 4.9 %
[2023-01-22 14:02] LABS: Hematocrit 27.8 % (42.0-52.0); Hemoglobin 8.8 g/dl (14.0-18.0)
[2023-01-22 14:13] LABS: Alanine Aminotransferase 41 U/L (0-40); Albumin Level 3.5 g/dL (3.5-5.0); Alkaline Phosphatase 817 U/L (39-117); Anion Gap 16 (12-20); Aspartate Amino Transferase 80 U/L (5-37); Blood Urea Nitrogen 30 mg/dL (9-16); Calcium 9.1 mg/dL (8.4-10.2); Carbon Dioxide 25 mmol/L (22-29); Chloride 101 mmol/L (96-108); Estimated Glomerular Filt Rate 42; Glucose Random 104 mg/dL (60-115); Iron 99 mcg/dL (45-160); Percent Iron Saturation 36 % (15-50); Potassium 4.6 mmol/L (3.3-5.1); Sodium 137 mmol/L (135-145); Total Iron Binding Capacity 276 mcg/dL (228-428); Total Protein 6.1 g/dL (6.5-8.0); Unsaturated Iron Binding 177 ug/dL
[2023-01-22 14:35] LABS: Vitamin B12 856 pg/mL (200-900); Vitamin D 25-OH Total 19.3 ng/mL (>30)
== END 2023-01-22 12:24 | disposition home or self-care (01) ==
LOC: HO.10HDL 12:23
PROVIDERS: Visit Provider Internal Medicine
DX: K74.60 Unspecified cirrhosis of liver (principal); E11.9 Type 2 diabetes mellitus without complications; D64.9 Anemia, unspecified; N18.9 Chronic kidney disease, unspecified
CPT/HCPCS: 36415; 80053; 82306; 82607; 83036; 83540; 85025; 87070; 87205

== ENCOUNTER → 2023-01-31 06:58 | Day surgery (SDC) | payer OTHER, SELFPAY ==
--- OUTSIDE RECORDS SUMMARY | 2023-01-31 07:00 | XMS_ITS | Continuity of Care Document ---
Author Name Unknown Organization [facility] Address [address] [place] [address]- Care Team Providers Care Jigman Name Role Phone Nayely QUARLES, Pop Primary Care Physician Encounter [facility] Date(s): 10/19/20 - 11/18/20 [facility] [address], [place] [address] Attending Physician: Santana Marin Admitting Physician: Santana Marin Referring Physician: AdmtrSantana Allergies, Adverse Reactions, Alerts Substance Reaction Severity Status NKA Active Immunizations Given and Recorded Vaccine Date Status Refusal Reason pneumococcal 23-valent vaccine 1 04/11/13 Given Meningococcal Conjugate Vaccine 2 03/28/10 Given Poliovirus Vaccine, Inactivated 03/28/10 Given Typhoid Vaccine, Inactivated 03/28/10 Given Hepatitis A Adult Vaccine 3 03/28/10 Given 1Early/Late Reason: Other : administered at 12:30 2Admin Note: menactra 3Admin Note: HEP a #1 Medications acetaminophen 325 mg oral tablet By Mouth, Every 4 hours, PRN Headache, 0 Refills, Maintenance, Tablet Start Date: 04/13/13 Status: Ordered Omeprazole By Mouth, Daily, 0 Refills, Maintenance, 10/02/20 15:07:00 EST, Partial fill upon patient request if the prescription is for a schedule II opioid drug. Start Date: 10/02/20 Status: Ordered Social History Social History Type Response Smoking Status Never (less than 100 in lifetime) entered on: 07/16/20 Sex
== END ==
PROVIDERS: PCP Internal Medicine; Visit Provider Radiology Diagnostic Radiology
DX: K74.60 Unspecified cirrhosis of liver (principal); Z53.29 Procedure and treatment not carried out because of patient's decision for other reasons

== ENCOUNTER → 2023-02-25 06:34 | Day surgery (SDC) | payer OTHER, SELFPAY ==
--- NOTE | 2023-02-21 11:43 | HO.ANESPROP2 ---
Documented by User: Miriam Wilson NP 02/21/23 11:50 HPI - Anesthesia Eval Consult details Narrative: 52yo M for Upper Endoscopy, Peg Removal cirrhosis r/t BAEZ s/p paracentesis 01/30/23 PMFSH Active Problems Active Problems: All Active Problems (Updated 05/14/21 @ 09:10 by Sarah Greco RN) Lipoma (Acute) Internal hemorrhoids (Acute) Mediastinal lymphadenopathy (Acute) Multiple pulmonary nodules (Acute) Past Medical History Medical History (Updated 05/14/21 @ 09:10 by Sarah Greco RN) Cirrhosis of liver Endobronchial mass H/O gastroesophageal reflux (GERD) Hilar enlargement Family History Family History Father No problems noted. Mother CVD (cardiovascular disease) Stroke Diabetes mellitus Brother Diabetes mellitus Sister Diabetes mellitus Family history of problems with anesthesia: No Surgical History Surgical History H/O excision of mass (03/24/15) H/O hemorrhoidectomy (02/13/12) H/O hernia repair (1999) History of esophagogastroduodenoscopy (EGD) (02/13/12) Hx of tonsillectomy (1998) Status post excision of lipoma (04/22/19) History of Problems with Anesthesia: No Social History Social History Alcohol intake: never Patient Tobacco Use Status: Never used Tobacco Use of substances other than those prescribed or required for medical reasons: No Are you DNR?: No Advance Directives: No Advance Directives Information Provided: Yes Meds Allergies Allergy/AdvReac Type Severity Reaction Status Date / Time No Known Allergies Allergy Verified 04/20/21 10:51 Exam Exam Date and Time: February 21, 2023 1143 Pertinent Lab Results Pertinent Lab Results: Laboratory Tests 01/22/23 01/22/23 12:30 12:30 WBC 4.4 L Hgb 8.8 L D Hct 27.8 L Plt Count 221 Sodium 137 Potassium 4.6 Chloride 101 Carbon Dioxide 25 BUN 30 H Creatinine 1.72 H Assessment and Plan Assessment Anesthesia Assessment: Chart Reviewed Final Anesthetic Review Family History of Problems with Anesthesia: No History of Problems with Anesthesia: No Documented by User: Edmar More MD 02/25/23 07:17 [facility] Past Medical History Medical History (Updated 05/14/21 @ 09:10 by Sarah Greco RN) Cirrhosis of liver Endobronchial mass H/O gastroesophageal reflux (GERD) Hilar enlargement Family History Family History Father No problems noted. Mother CVD (cardiovascular disease) Stroke Diabetes mellitus Brother Diabetes mellitus Sister Diabetes mellitus Surgical History Surgical History H/O excision of mass (03/24/15) H/O hemorrhoidectomy (02/13/12) H/O hernia repair (1999) History of esophagogastroduodenoscopy (EGD) (02/13/12) Hx of tonsillectomy (1998) Status post excision of lipoma (04/22/19) Social History Social History Alcohol intake: never Patient Tobacco Use Status: Never used Tobacco Use of substances other than those prescribed or required for medical reasons: No Are you DNR?: No Advance Directives: No Advance Directives Information Provided: Yes Meds Allergies Allergy/AdvReac Type Severity Reaction Status Date / Time No Known Allergies Allergy Verified 04/20/21 10:51 Exam Airway Mallampati Class: II TM Dist: >3cm Neck ROM: Limited Heart: rr Lungs: cta Assessment and Plan Final Anesthetic Review NPO: Yes ASA Class: III Final Preanesthetic Review: No Changes in Pt Med Stat, Meds/Allgs Chart Reviewed and Anes Risks/Benef Reviewed Patient Risk: Intermediate Procedure Risk: Intermediate Anesthetic Plan Anesthetic Plan: MAC: and Agree w/ Assess. and Plan Disposition: Standard PACU
--- OUTSIDE RECORDS SUMMARY | 2023-02-25 06:35 | XMS_ITS ---
Author Name Po Tapia Address [address] [place] [address] Organization [facility] Address [address] [place] [address] Care Team Providers Care Breaker Hand Name Role Phone Po Tapia Unavailable [phone] PROBLEMS Type Condition ICD9-CM Code UBB40-WD Code Onset Dates Condition Status SNOMED Code Problem Unspecified cirrhosis of liver K74.60 Active Problem Attention to G-tube Z43.1 Active ALLERGIES No Known Allergies ENCOUNTERS Encounter Location Date Diagnosis [facility] Outpatient [address] [place] [id number] January, [facility] [address] [facility] [address] [place] [id number] January, Attention to G-tube Z43.1 and Unspecified cirrhosis of liver K74.60 [facility] [address] [place] [phone] Dec, IMMUNIZATIONS No Known Immunizations SOCIAL HISTORY Qualifiers Date Never Smoker REASON FOR REFERRAL FUNCTIONAL STATUS PLAN OF CARE Activity Details VITAL SIGNS Weight 120 lbs 2023-02-11 Height 66 in 2023-02-11 BMI 19.37 kg/m2 2023-02-11 Temperature 97.8 degrees Fahrenheit Blood pressure systolic 000 mm Hg Blood pressure diastolic 00 mm Hg 2023-01 MEDICATIONS Medication Instructions Dosage Frequency Start Date End Date Duration Status Simethicone 80 MG Orally Four times a day 1 tablet after meals and at bedtime as needed 6h Active Multi Vitamin - Orally Once a day 1 tablet 24h 30 day(s) Active GaviLAX 17 GM/SCOOP 30 Active Thiamine HCl 100 MG 30 Active Furosemide 20 MG 3 TABLETS BY G TUBE ROUTE DAILY 30 Active Sodium Chloride 6 % as directed Active Acetaminophen 325 MG Orally every 4 hrs 1 tablet as needed 4h Active Alcohol Swabs - as directed Active Cresemba 186 MG 30 Active Calcium Carbonate 1250 (500 Ca) MG Orally Twice a day 1 tablet with food 12h 30 day(s) Active metFORMIN HCl 500 MG 90 Not-Taki ng Eliquis 5 MG 30 Act kaylyn Minocycline HCl 100 MG Orally Once a day 1 capsule 24h 10 day(s) Active Chlorhexidine Gluconate 0.12 % as directed A ctive traMADol HCl 50 MG Orally Once a day 1 tablet as needed 24h Active Famotidine 20 MG 30 Active Pantoprazole Sodium 40 MG 90 Active Bisacodyl 10 MG 30 Active Ciprofloxacin HCl 500 MG 30 Active Loratadine 10 MG Orally Once a day 1 tablet 24h 30 day(s) Active Thera M Plus - TAKE 1 TABLET BY G TUBE ROUTE NIGHTLY. 30 Active Vitamin D (Ergocalciferol) 50 MCG (1999 [place]) 30 Act kaylyn Ursodiol 300 MG 30 Active PROCEDURES Procedure Date Ordered Result Body Site BP SCR NOT PRFRM REC REASON NOS February 11, 2023 TOBACCO NON-USER February 11, 2023 DOC MEDS VERIFIED W/PT OR RE February 11, 2023 PT W/DX PAST HX TOTAL COLECTOMY/CRC February 11, 2023 RESULTS No Results REASON FOR VISIT attention to g-tube, Patient presents today for cirrhosis, removal of gtube Insurance Providers Health Insurance Type Health Plan Insurance Address Health Plan Insurance Phone Health Plan Insurance Name Health Plan Coverage Dates Member ID Patient Relationship to Subscriber Patient Address Patient Phone Patient Name Patient Date of Subscriber ID Subscriber Name Subscriber Date of Group No [employer] [facility] [address] [address] [facility] [id number] [facility] [employer] [facility] self [place] [id number]
[2023-02-25 06:56] VITALS: BMI 18.6
[2023-02-25 07:01] VITALS: BP 106/76; PULSE 72; RESP 18; TEMP 36.4; O2SAT 99
--- NOTE | 2023-02-25 07:16 | PC.NURSE ---
pt with g tube in hand wrapped in paper towel, balloon in tact, states accidentally fell out yesterday at 2pm, core text to Dr. Tapia & photo of gtube and peg site (which was pink around site) small bowers stainingon dressing from home, dressing changed and pt advised per dr. tapia to change dressings as needed after applying antibacterial ointment. decision to d/c procedure. team aware.
--- NOTE | 2023-02-25 07:21 | PC.NURSE ---
and see md as needed. no iv started. vss.
== END ==
PROVIDERS: PCP Internal Medicine; Visit Provider Internal Medicine
DX: Z43.1 Encounter for attention to gastrostomy (principal); Z53.8 Procedure and treatment not carried out for other reasons; K74.60 Unspecified cirrhosis of liver

== ENCOUNTER → 2023-04-03 08:11 | Outpatient (BNVA) | payer OTHER, SELFPAY | PROVIDERS: PCP Internal Medicine; Visit Provider Surgery | DX: K64.8 Other hemorrhoids (principal); K40.90 Unilateral inguinal hernia, without obstruction or gangrene, not specified as recurrent; K42.0 Umbilical hernia with obstruction, without gangrene | CPT/HCPCS: 99212 ==

== ENCOUNTER 2023-04-21 09:07 | Day surgery (SDC) | payer OTHER, SELFPAY ==
--- NOTE | 2023-04-04 08:43 | HO.ANESPROP2 ---
HPI - Anesthesia Eval Consult details Narrative: 52yo M for Hernia Repair Inguinal with mesh, Hernia Repair Umbilical with mesh Cirrhosis d/t BAEZ Hx endobronchial mass: Per thoracic CT scan was done on 04/10/2021 shows known nodules no lymphadenopathy and no endobronchial lesions PMFSH Active Problems Active Problems: All Active Problems (Updated 04/03/23 @ 08:44 by Venkatesh Bal MD) Umbilical hernia, incarcerated (Acute) Reducible right inguinal hernia (Acute) Lipoma (Acute) Internal hemorrhoids (Acute) Mediastinal lymphadenopathy (Acute) Multiple pulmonary nodules (Acute) Past Medical History Medical History Cirrhosis of liver Endobronchial mass H/O gastroesophageal reflux (GERD) Hilar enlargement Family History Family History Father No problems noted. Mother CVD (cardiovascular disease) Stroke Diabetes mellitus Brother Diabetes mellitus Sister Diabetes mellitus Family history of problems with anesthesia: No Surgical History Surgical History H/O excision of mass (03/24/15) H/O hemorrhoidectomy (02/13/12) H/O hernia repair (1999) History of back surgery History of esophagogastroduodenoscopy (EGD) (02/13/12) Hx of tonsillectomy (1998) Status post excision of lipoma (04/22/19) History of Problems with Anesthesia: No Social History Social History Alcohol intake: never Patient Tobacco Use Status: Never used Tobacco Meds Allergies Allergy/AdvReac Type Severity Reaction Status Date / Time No Known Allergies Allergy Verified 04/03/23 08:20 Home Medications Medication Instructions Recorded Confirmed Last Taken Type furosemide 20 mg tablet 20 mg PO BID 04/03/23 04/03/23 Unknown History isavuconazonium sulfate 186 mg 372 mg PO DAILY 04/03/23 04/03/23 Unknown History capsule (Cresemba) Exam Exam Date and Time: April 04, 2023 0843 Assessment and Plan Assessment Anesthesia Assessment: Chart Reviewed Final Anesthetic Review Family History of Problems with Anesthesia: No History of Problems with Anesthesia: No
[2023-04-07 06:49] VITALS: BMI 27.8
--- NOTE | 2023-04-18 10:05 | HO.ANESPROP2 ---
Documented by User: Miriam Wilson NP 04/18/23 10:08 HPI - Anesthesia Eval Consult details Narrative: 52yo M for Hernia Repair Inguinal with mesh, Hernia Repair Umbilical with mesh Hx endobronchial mass, resolved by CT Cirrhosis PMFSH Active Problems Active Problems: All Active Problems (Updated 04/03/23 @ 08:44 by Venkatesh Bal MD) Umbilical hernia, incarcerated (Acute) Reducible right inguinal hernia (Acute) Lipoma (Acute) Internal hemorrhoids (Acute) Mediastinal lymphadenopathy (Acute) Multiple pulmonary nodules (Acute) Past Medical History Medical History Cirrhosis of liver Endobronchial mass H/O gastroesophageal reflux (GERD) Hilar enlargement Family History Family History Father No problems noted. Mother CVD (cardiovascular disease) Stroke Diabetes mellitus Brother Diabetes mellitus Sister Diabetes mellitus Family history of problems with anesthesia: No Surgical History Surgical History H/O excision of mass (03/24/15) H/O hemorrhoidectomy (02/13/12) H/O hernia repair (1999) History of back surgery History of esophagogastroduodenoscopy (EGD) (02/13/12) Hx of tonsillectomy (1998) Status post excision of lipoma (04/22/19) History of Problems with Anesthesia: No Social History Social History Alcohol intake: never Patient Tobacco Use Status: Never used Tobacco Use of substances other than those prescribed or required for medical reasons: No Are you DNR?: No Advance Directives: No Advance Directives Information Provided: Yes Recently lost weight without trying: Yes How much weight loss: 24-33 pounds Meds Allergies Allergy/AdvReac Type Severity Reaction Status Date / Time No Known Allergies Allergy Verified 04/03/23 08:20 Home Medications Medication Instructions Recorded Confirmed Last Taken Type furosemide 20 mg tablet 20 mg PO BID 04/03/23 04/03/23 Unknown History isavuconazonium sulfate 186 mg 372 mg PO DAILY 04/03/23 04/03/23 Unknown History capsule (Cresemba) Exam Exam Date and Time: April 18, 2023 1005 Height,Weight and Vital Signs: Height 5 ft 6 in Weight 78.106 kg Assessment and Plan Assessment Anesthesia Assessment: Chart Reviewed Final Anesthetic Review Family History of Problems with Anesthesia: No History of Problems with Anesthesia: No Documented by User: Susana Garcia MD 04/21/23 10:43 PMFSH Past Medical History Medical History Cirrhosis of liver Endobronchial mass H/O gastroesophageal reflux (GERD) Hilar enlargement Family History Family History Father No problems noted. Mother CVD (cardiovascular disease) Stroke Diabetes mellitus Brother Diabetes mellitus Sister Diabetes mellitus Surgical History Surgical History H/O excision of mass (03/24/15) H/O hemorrhoidectomy (02/13/12) H/O hernia repair (1999) History of back surgery History of esophagogastroduodenoscopy (EGD) (02/13/12) Hx of tonsillectomy (1998) Status post excision of lipoma (04/22/19) Social History Social History Alcohol intake: never Patient Tobacco Use Status: Never used Tobacco Use of substances other than those prescribed or required for medical reasons: No Are you DNR?: No Advance Directives: No Advance Directives Information Provided: Yes Recently lost weight without trying: Yes How much weight loss: 24-33 pounds Meds Allergies Allergy/AdvReac Type Severity Reaction Status Date / Time No Known Allergies Allergy Verified 04/03/23 08:20 Home Medications Medication Instructions Recorded Confirmed Last Taken Type furosemide 20 mg tablet 20 mg PO BID 04/03/23 04/03/23 Unknown History isavuconazonium sulfate 186 mg 372 mg PO DAILY 04/03/23 04/03/23 Unknown History capsule (Cresemba) Exam Airway Mallampati Class: II TM Dist: >3cm Neck ROM: Full Heart: rrr Lungs: cta Assessment and Plan Assessment Anesthesia Assessment: Anesthesia Plan Discussed Final Anesthetic Review NPO: Yes ASA Class: II Final Preanesthetic Review: No Changes in Pt Med Stat, Meds/Allgs Chart Reviewed, Consent Obtained/Reviewed and Anes Risks/Benef Reviewed Patient Risk: Low Procedure Risk: Low Anesthetic Plan Anesthetic Plan: GA Disposition: Standard PACU
[2023-04-21] VITALS (11 sets, daily range): BP systolic 124–160; BP diastolic 68–90; PULSE 59–74; RESP 14–18; TEMP 36.2–36.3; O2SAT 100; BMI 19.9
--- OUTSIDE RECORDS SUMMARY | 2023-04-21 09:08 | XMS_ITS | Continuity of Care Document ---
Author Name Unknown Organization [facility] Address [address] [place] [address]- Care Team Providers Care Carpenter Wooden Tank Erecting Name Role Phone Pop Adler MD Primary Care Physician Encounter [facility] Date(s): 07/16/20 - 07/16/[address] [address]- [facility] Encounter Diagnosis Acute bilateral low back pain with right-sided sciatica(Final) - 07/16/20 Discharge Disposition: A-D/C Home Attending Physician: Jeremiah Bai MD Admitting Physician: Jeremiah Bai MD Referring Physician: Not on Staff, Referring MD Allergies, Adverse Reactions, Alerts Substance Reaction Severity [...] Maintenance, Tablet Start Date: 04/13/13 Status: Ordered Bactrim DS Tablet 2, tablet, By Mouth, 2 times a day, Maintenance, 04/13/13 8:03:33 Start Date: 04/13/13 Status: Ordered Results Radiology Reports * Exam Date Time Procedure Performing Provider Status 07/16/20 1:41 PM Lumbar Spine Min 4 Views Sumanth Frias; [place] (Verified) Notes: (Lumbar Spine Min 4 Views) Reason For Exam: Trauma RESULT: Lumbar Spine Min 4 Views Examination: Lumbar spine performed on 07/16/2020. History: Hx of Present Illness: pt reported having lower abck pain 10 days. denied injury. fell down couple stairs 4 days ago. landed on his lower back. worsening lower back pain, milena R sided. radiaitng to his buttock. to his leg when strecheht; Reason: Trauma; Clinical Question(s): Other: Findings: Frontal, lateral, bilateral oblique views of the lumbar spine are compared to a CT dated 08/16/2012. There are five lumbar type nonrib-bearing vertebral bodies. Loss of superior endplate height at theL1 level has progressed slightly since the prior study. No acute fractures or dislocations are present. IMPRESSION: Slight progression of the previously seen L1 superior endplate compression fracture. No acute osseous abnormality is redemonstrated. WSN: [id number] Ordering Physician: Jeremiah Bai Dictated By: Farhana Contreras MD Dictated Date/Time: 07/16/20 1:44 pm Reviewed By: Farhana Contreras MD Signed By: Farhana Contreras MD Signed Date/Time: 07/16/20 1:44 pm Transcribed By: JAMILA Transcribed Date/Time: 07/16/20 1:43 pm Vital Signs Most recent to oldest [Reference Range]: 1 2 Height 172 cm (07/16/20 1:11 PM) Weight 84.5 kg (07/16/20 1:11 PM) Oxygen Saturation [94-100 %] 99 % (07/16/20 1:11 PM) 100 % (07/16/20 1:10 PM) Pulse Rate [55-90 bpm] 89 bpm (07/16/20 1:11 PM) 78 bpm (07/16/20 1:10 PM) Blood Pressure [90-138/55-84 mm Hg] 136/ 85mm Hg (07/16/20 1:10 PM) Respiratory Rate [16-30 br/min] 17 br/mi n (07/16/20 1:11 PM) 17 br/min (07/16/20 1:10 PM) Temperature [96.8-100.4 DegF] 98.2 DegF (07/16/20 1:10 PM) Mode of Delivery (Oxygen) Room air (07/16/20 1:10 PM) Temperature Route Temporal (07/16/20 1:10 PM) Dry Weight 84.5 kg (07/16/20 1:11 PM) Weight Obtained Via Standing scale (07/16/20 1:11 PM) Social History Social History Type Response Smoking Status Never (less than 100 in lifetime) entered on: 07/16/20 Sex
--- OUTSIDE RECORDS SUMMARY | 2023-04-21 09:08 | XMS_ITS | Continuity of Care Document ---
Author Name Unknown Organization [facility] Address [address] [place] [id number]- Care Team Providers Care Manager Intensive Care Name Role Phone Pop Adler MD Primary Care Physician Encounter [facility] Date(s): 09/14/20 - 10/21/[address] [address] Attending Physician: Po Pagan MD Admitting Physician: Po Pagan MD Allergies, Adverse Reactions, Alerts Substance Reaction [...]
--- OUTSIDE RECORDS SUMMARY | 2023-04-21 09:08 | XMS_ITS | Continuity of Care Document ---
Author Name Unknown Organization [facility] ter Address [address] [place] [address]- Care Team Providers Care Electronic Bench Technician Name Role Phone Jb Stewart MD Primary Care Phys[id number] 09/[facility]/21 - 09/03/[address] [address]- Discharge Disposition: A-D/C Home Attending Physician: Tommy Peterson MD Admitting Physician: Tommy Peterson MD Referring Physician: Not on Staff, Referring [...] Maintenance, Tablet Start Date: 04/13/13 Status: Ordered lidocaine 5% topical film 1 patch, Topically, Daily, PRN Pain , Mild, remove after 12 hours, # 13 each, 0 Refills, Maintenance, 09/02/21 23:21:00 EST, Film, [id number], Partial fill upon patient request if the prescription is for a schedule II opioid drug., 1 patch Top... Start Date: 09/02/21 Status: Ordered Omeprazole By Mouth, Daily, 0 Refills, Maintenance, 10/02/20 15:07:00 EST, Partial fill upon patient request if the prescription is for a schedule II opioid drug. Start Date: 10/02/20 Status: Ordered Vital Signs Most recent to oldest [Reference Range]: 1 2 Oxygen Saturation [94-100 %] 98 % (09/02/21 11:55 PM) 98 % (09/02/21 9:35 PM) Pulse Rate [55-90 bpm] 84 bpm (09/02/21 11:55 PM) 86 bpm (09/02/21 9:35 PM) Blood Pressure [90-138/55-84 mm Hg] 154/ 88mm Hg *H* (09/02/21 11:55 PM) 145/86mm Hg *H* (09/02/21 9:35 PM) Respiratory Rate [16-30 br/min] 18 br/mi n (09/02/21 11:55 PM) 18 br/min (09/02/21 9:35 PM) Temperature [96.8-100.4 DegF] 98.8 DegF (09/02/21 11:55 PM) 97.9 DegF (09/02/21 9:35 PM) Mode of Delivery (Oxygen) Room air (09/02/21 11:55 PM) Room air (09/02/21 9:35 PM) Blood pressure sites Arm, right (09/02/21 11:55 PM) Arm, right (09/02/21 9:35 PM) Temperature Route Oral (09/02/21 11:55 PM) Oral (09/02/21 9:35 PM) Social History Social History Type Response Smoking Status Never (less than 100 in lifetime) entered on: 07/16/20 Sex
--- OUTSIDE RECORDS SUMMARY | 2023-04-21 09:08 | XMS_ITS | Continuity of Care Document ---
Author Name Unknown Organization [facility] Address [address] [place] [address] christine, [address] [place] [address]- Care Team Providers Care Fitting Room Maintenance Mechanic Name Role Phone Nayely QUARLES, Pop Primary Care Physician [place] [facility] [place] 09/12/20 - 10/12/20 [facility] [address] [place] [address], [address] [place] [address]- Allergies, Adverse Reactions, Alerts Substance Reaction Severity [...]
--- OUTSIDE RECORDS SUMMARY | 2023-04-21 09:08 | XMS_ITS | Continuity of Care Document ---
Author Name Unknown Organization [facility] ter Address [address] [place] [address]- Care Team Providers Care Cell Reliner Name Role Phone Nayely QUARLES, Pop Primary Care Physician [place] [facility] [place](s[place] 11/30/19 - 11/30/[address] [address]- [facility] Encounter Diagnosis CAP (community acquired pneumonia)(Final) - 11/30/19 Discharge Disposition: A-D/C Home Attending Physician: Zev William MD Admitting Physician: Zev William MD Referring Physician: Not on Staff, Referring [...] Maintenance, Tablet Start Date: 04/13/13 Status: Ordered amoxicillin 500 mg oral capsule 2 capsule = 1,000 mg, By Mouth, 3 times a day, for 7 days, # 42 capsule, 0 Refills, Acute 12/07/19 15:23:00 EDT, 11/30/19 15:23:00 EST, Capsule, [id number], 80, kg, 11/30/19 14:35:00 EST, DryWeight Start Date: 11/30/19 Stop Date: 12/07/19 Status: Ordered Bactrim DS Tablet 2, tablet, By Mouth, 2 times a day, Maintenance, 04/13/13 8:03:33 Start Date: 04/13/13 Status: Ordered doxycycline hyclate 100 mg oral capsule 1 capsule = 100 mg, By Mouth, 2 times a day, for 7 days, # 14 capsule, 0 Refills, Acute 12/07/19 15:22:00 EDT, 11/30/19 15:22:00 EST, Capsule, [id number], 80, kg, 11/30/19 14:35:00 EST, Dry Weight Start Date: 11/30/19 Stop Date: 12/07/19 Status: Ordered Results Radiology Reports * Exam Date Time Procedure Performing Provider Status 11/30/19 2:29 PM Chest 2 Views Frontal and Lat Heather Phillip; [place] (Verified) Notes: (Chest 2 Views Frontal and Lat) Reason For Exam: Fever;Cough RESULT: Chest 2 Views Frontal and Lat Chest 2 Views Frontal and Lat INDICATION: Recently diagnosed Influenza virus. Clinical question: Pneumonia. COMPARISON: None. FINDINGS: LINES AND TUBES: None. LUNGS AND PLEURA: Right lower lobe hazy opacity. No pleural effusion. No pneumothorax. HEART, MEDIASTINUM AND SELENE: Heart is normal in size. Normal mediastinal and hilar contour. BONES AND SOFT TISSUES: No acute abnormality. IMPRESSION: Right lower lobe pneumonia. A Document Only message has been documented in the [employer] system forReferring Not on Staff on 11/30/2019 2:39 PM, Message ID [id number]. I have personally reviewed the images and I agree with this report. WSN: [id number] Dictated By: Marcelo Lennon MD Dictated Date/Time: 11/30/19 2:39 pm Reviewed By: Mandeep Patricio MD Signed By: Mandeep Patricio MD Signed Date/Time: 11/30/19 2:44 pm Transcribed By: JAMILA Transcribed Date/Time: 11/30/19 2:35 pm Vital Signs Most recent to oldest [Reference Range]: 1 2 3 Weight 80.0 kg (11/30/19 2:35 PM) 80.0 kg (11/30/19 11:35 AM) Oxygen Saturation [94-100 %] 99 % (11/30/19 2:35 PM) 100 % (11/30/19 11:35 AM) 100 % (11/30/19 11:29 AM) Pulse Rate [55-90 bpm] 75 bpm (11/30/19 2:35 PM) 97 bpm *H* (11/30/19 11:35 AM) 103 bpm *H* (11/30/19 11:29 AM) Blood Pressure [90-138/55-84 mm Hg] 154/96mm Hg *H* (11/30/19 2:35 PM) 159/82mm Hg *H* (11/30/19 11:35 AM) Respiratory Rate [16-30 br/min] 16 br/min (11/30/19 2:35 PM) 16 br/min (11/30/19 11:35 AM) 17 br/min (11/30/19 11:29 AM) Temperature [96.8-100.4 DegF] 98.4 DegF (11/30/19 2:35 PM) 98.0 DegF (11/30/19 11:35 AM) Mode of Delivery (Oxygen) Room air (11/30/19 2:35 PM) Room air (11/30/19 11:35 AM) Blood pressure sites Arm, left (11/30/19 2:35 PM) Arm, left (11/30/19 11:35 AM) Temperature Route Oral (11/30/19 2:35 PM) Oral (11/30/19 11:35 AM) Dry Weight 80.0 kg (11/30/19 2:35 PM) 80.0 kg (11/30/19 11:35 AM)
--- OUTSIDE RECORDS SUMMARY | 2023-04-21 09:08 | XMS_ITS | Continuity of Care Document ---
Author Name Unknown Organization [facility] Address [address] [place] [address] christine, [address] [place] [address]- Care Team Providers Care School Cafeteria Cook Head Name Role Phone Nayely QUARLES, Pop Primary Care Physician [place] [facility] [place]03[place]20 - 10/10/20 [facility] [address] [place] [address], [address] [place] [address]- Attending Physician: Rusty Sparks MD Referring Physician: Yvonne Martinez Allergies, Adverse Reactions, Alerts Substance Reaction Severity [...] Most recent to oldest [Reference Range]: 1 Height 172 cm (10/02/20 3:06 PM) Weight 84.5 kg (10/02/20 3:06 PM) Body Mass Index [18.5-24.99] 28.56 *H* (10/02/20 3:06 PM) Social History Social History Type Response Smoking Status Never (less than 100 in lifetime) entered on: 07/16/20 Sex
--- OUTSIDE RECORDS SUMMARY | 2023-04-21 09:08 | XMS_ITS | Continuity of Care Document ---
Author Name Unknown Organization [facility] ter Address [address] [place] [address]- Care Team Providers Care Legal Referee Name Role Phone Pop Adler MD Primary Care Physician [place] [facility] [place] Date(s[place] 07/22/20 - 07/22/[address] [address]- [facility] Discharge Disposition: A-D/C Walkout Attending Physician: Not on Staff, Attending MD Admitting Physician: Not on Staff, Admitting MD Referring Physician: Not on Staff, Referring [...] Maintenance, Tablet Start Date: 04/13/13 Status: Ordered Vital Signs Most recent to oldest [Reference Range]: 1 2 Oxygen Saturation [94-100 %] 100 % (07/22/20 3:55 PM) 97 % (07/22/20 1:01 PM) Pulse Rate [55-90 bpm] 74 bpm (07/22/20 3:55 PM) 85 bpm (07/22/20 1:01 PM) Blood Pressure [90-138/55-84 mm Hg] 140/ 78mm Hg *H* (07/22/20 3:55 PM) 146/82mm Hg *H* (07/22/20 1:01 PM) Respiratory Rate [16-30 br/min] 20 br/mi n (07/22/20 3:55 PM) 16 br/min (07/22/20 1:01 PM) Temperature [96.8-100.4 DegF] 97.8 DegF (07/22/20 3:55 PM) 97.9 DegF (07/22/20 1:01 PM) Mode of Delivery (Oxygen) Room air (07/22/20 3:55 PM) Room air (07/22/20 1:01 PM) Blood pressure sites Arm, left (07/22/20 3:55 PM) Arm, right (07/22/20 1:01 PM) Temperature Route Oral (07/22/20 3:55 PM) Oral (07/22/20 1:01 PM) Social History Social History Type Response Smoking Status Never (less than 100 in lifetime) entered on: 07/16/20 Sex
--- OUTSIDE RECORDS SUMMARY | 2023-04-21 09:08 | XMS_ITS | Continuity of Care Document ---
Author Name Unknown Organization [facility] Address [address] [place] [address] christine, [address] [place] [address]- Care Team Providers Care Director Hematology Name Role Phone Nayely QUARLES, Pop Primary Care Physician [phone] Encounter [facility] [place] Date(s): 10/10/20 - 11/09/20 [facility] [address] [place] [address], [address] [place] [address]- Allergies, Adverse Reactions, Alerts Substance Reaction Severity [...]
--- OUTSIDE RECORDS SUMMARY | 2023-04-21 09:08 | XMS_ITS | Continuity of Care Document ---
Author Name Unknown Organization [facility] ter Address [address] [place] [address]- Care Team Providers Care Rim Fire Priming Tool Setter Name Role Phone Pop Adler MD Primary Care Physician [phone] Encounter [facility] [place] Date(s): 10/03/20 - 12/06/[address] [address] Attending Physician: Rusty Sparks MD Admitting Physician: Rusty Sparks MD Allergies, Adverse Reactions, Alerts Substance Reaction [...]
--- OUTSIDE RECORDS SUMMARY | 2023-04-21 09:08 | XMS_ITS | Continuity of Care Document ---
Author Name Unknown Organization [facility] Address [address] [place] [address] christine, [address] [place] [address]- Care Team Providers Care Veterinary Radiologist Name Role Phone Nayely QUARLES, Pop Primary Care Physician [phone] Encounter [facility] [place] Date(s): 12/05/20 - 01/04/21 [facility] [address] [place] [address], [address] [place] [address]- Attending Physician: Admtr, Santana Admitting Physician: Admtr, Ar8 Referring Physician: Admtr, Ar8 Allergies, Adverse Reactions, Alerts Substance Reaction Severity [...]
--- OUTSIDE RECORDS SUMMARY | 2023-04-21 09:08 | XMS_ITS ---
Author Name Po Tapia Address [address] [place] [address] Organization [facility] Address [address] [place] [address] Care Team Providers Care Computer Operator Name Role Phone Po Tapia Unavailable [phone] PROBLEMS Type Condition ICD9-CM Code [id number] Code Onset Dates Condition Status SNOMED Code Problem Unspecified cirrhosis of liver K74.60 Active Problem Attention to G-tube Z43.1 Active ALLERGIES No Known Allergies ENCOUNTERS Encounter Location Date Diagnosis [facility] [address] [place] [phone] January, [facility] [address] [place] [address] January, [facility] [address] [place] [phone] January, Attention to G-tube Z43.1 and Unspecified cirrhosis of liver K74.60 [facility] [address] [place] [phone] Dec, IMMUNIZATIONS No Known Immunizations SOCIAL HISTORY Qualifiers Date Never Smoker REASON FOR REFERRAL FUNCTIONAL STATUS PLAN OF CARE Activity Details VITAL SIGNS Weight 120 lbs 2023-02-11 Height 66 in 2023-02-11 BMI 19.37 kg/m2 2023-02-11 Temperature 97.8 degrees Fahrenheit Blood pressure systolic 000 mm Hg Blood pressure diastolic 00 mm Hg 2023-01 MEDICATIONS Medication Instructions Dosage Frequency Start Date End Date Duration Status Alcohol Swabs - as directed Active Ciprofloxacin HCl 500 MG 30 Active Bisacodyl 10 MG 30 Active Thera M Plus - TAKE 1 TABLET BY G TUBE ROUTE NIGHTLY. 30 Active metFORMIN HCl 500 MG 90 Not-Taki ng GaviLAX 17 GM/SCOOP 30 Active Vitamin D (Ergocalciferol) 50 MCG (1999) 30 Act kaylyn Chlorhexidine Gluconate 0.12 % as directed A ctive Pantoprazole Sodium 40 MG 90 Active traMADol HCl 50 MG Orally Once a day 1 tablet as needed 24h Active Famotidine 20 MG 30 Active Calcium Carbonate 1250 (500 Ca) MG Orally Twice a day 1 tablet with food 12h 30 day(s) Active Simethicone 80 MG Orally Four times a day 1 tablet after meals and at bedtime as needed 6h Active Minocycline HCl 100 MG Orally Once a day 1 capsule 24h 10 day(s) Active Multi Vitamin - Orally Once a day 1 tablet 24h 30 day(s) Active Loratadine 10 MG Orally Once a day 1 tablet 24h 30 day(s) Active Ursodiol 300 MG 30 Active Cresemba 186 MG 30 Active Thiamine HCl 100 MG 30 Active Sodium Chloride 6 % as directed Active Eliquis 5 MG 30 Act kaylyn Furosemide 20 MG 3 TABLETS BY G TUBE ROUTE DAILY 30 Active Acetaminophen 325 MG Orally every 4 hrs 1 tablet as needed 4h Active PROCEDURES Procedure Date Ordered Result Body [...] Subscriber Name Subscriber Date of Group No [employer] [facility] [address] [address] [facility] [id number] [facility] [employer] [facility] self [place] [phone] [id number]
--- NOTE | 2023-04-21 09:43 | PC.NURSE ---
late entry. pt with new onset wienkebache. states ekg 3 months ago normal denies dizziness, chest pain, palpitations 12 lead ekg ordered by dr. Rosado and reviewed by Dr. babb
[2023-04-21 09:58] LABS: Hematocrit 31.1 % (42.0-52.0); Hemoglobin 10.6 g/dl (14.0-18.0); Mean Corpuscular HGB Conc 34.1 g/dl (31.0-36.0); Mean Corpuscular Hemoglobin 33.2 pg (27.0-33.0); Mean Corpuscular Volume 97.5 fL (80.0-98.0); Mean Platelet Volume 9.6 fL (9.4-12.4); Platelet Count 216 X10*3/uL (160-400); Red Blood Count 3.19 X10*6/uL (4.60-5.80); Red Cell Distribution Width 13.2 % (11.0-16.0); White Blood Count 3.6 X10*3/uL (4.8-10.8)
[2023-04-21 10:09] LABS: INTERNATIONAL NORM RATIO 0.9 (0.9-1.1); Prothrombin Time 10.8 SEC (10.0-13.1)
[2023-04-21 10:14] LABS: Alanine Aminotransferase 33 U/L (0-40); Alkaline Phosphatase 616 U/L (39-117); Anion Gap 12 (12-20); Aspartate Amino Transferase 63 U/L (5-37); Bilirubin Total 0.7 mg/dL (0.0-1.0); Blood Urea Nitrogen 40 mg/dL (9-16); Calcium 9.9 mg/dL (8.4-10.2); Carbon Dioxide 26 mmol/L (22-29); Chloride 100 mmol/L (96-108); Creatinine Clr Calc Pharmacy 39.6; Estimated Glomerular Filt Rate 43; Glucose Fasting 130 mg/dL (60-99); Potassium 4.3 mmol/L (3.3-5.1); Sodium 134 mmol/L (135-145); Total Protein 7.5 g/dL (6.5-8.0)
[2023-04-21] MEDS: Lactated Ringers 1,000 ML 100 ML IVCONT (10:18)
--- NOTE | 2023-04-21 10:57 | MHC.SHP ---
Pre-Procedural Eval Section A Date of Service: 04/21/23 The patient is an INPATIENT: No Changes since office visit: Yes Patient answered all questions; No Cold of Flu in the past 2 weeks, No New Medical Problems and No Changes in Medication The History & Physical has been completed within 30 days and I have reviewed it.: Yes Section B Chief Complaint: Umbilical hernia with obstruction, Unilateral Allergies: Allergies Allergy/AdvReac Type Severity Reaction Status Date / Time No Known Allergies Allergy Verified 04/03/23 08:20 Plan Diagnosis/Plan: Unchanged I have reviewed the history and physical and performed a pertinent physical examination on my patient. No changes have occurred unless specified. Time Spent With Patient Time: Total time managing care of this patient today ____ minutes.
--- NOTE | 2023-04-21 11:03 | W.PM.OPN ---
Operative Note Operative Note Date of Service: 04/21/23 Narrative: Preoperative diagnosis: Right inguinal hernia, umbilical hernia Postoperative diagnosis: Same Procedure: Repair of right inguinal hernia and umbilical hernia with mesh Surgeon: Venkatesh Bal MD Wrecking Car Driver: None Anesthesia: General LMA Indications for procedure: 52-year-old male patient presenting with a gradually enlarging right inguinal hernia and umbilical hernia. 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 Presents today for repair of a right inguinal hernia and umbilical hernia. Operative findings: Large direct right inguinal hernia. Small amount of ascites noted within peritoneal sac. Small umbilical hernia measuring 1 cm in diameter, reducible Specimen: None Estimated blood loss: Less than 5 mL Complications: None Procedure details: Patient was brought to the OR placed in a supine position. After administering general anesthesia the patient's abdomen was prepped with ChloraPrep and draped in a sterile fashion. A surgical time-out was called the consent confirmed. Patient received preoperative antibiotics and Venodyne boots were in place. Local anesthesia was infiltrated over the right inguinal ligament. Incision was then made with a scalpel carried out through subcutaneous tissue, past Jamey's fashion up to the external oblique aponeurosis. Additional local was placed below the aponeurosis. This was then incised with the scalpel widened with the Metzenbaum scissors. A large direct hernia was immediately identified. The spermatic cord was dissected free from the hernia sac and the cord retracted using a [place] drain. Fibers of the cremaster muscle were and no indirect hernia could be identified. Fibers of the transversalis aponeurosis and internal oblique aponeurosis were divided and a preperitoneal space created. This was then widened with open Ray-Khadijah sponge. A large PHS mesh was then obtained. The circular underlay was deployed within the preperitoneal space. The overlay was then secured to the pubic tubercle, conjoined tendon, and shelving edge of the inguinal ligament using a 0 Polysorb suture. A slit was made in the mesh the mesh wrapped around the spermatic cord at the internal ring. This was then secured to the shelving edge. The remaining lateral portion of the mesh was then placed below the external oblique aponeurosis. Wounds were then irrigated with saline solution and suctioned dry. External oblique aponeurosis was then closed using a running 2-0 Polysorb suture. Attention was then directed to the umbilical hernia. A curvilinear incision was made below the umbilicus carried out through subcutaneous tissue. Hernia sac was then dissected carefully to avoid entry into the peritoneal cavity. The sac was then dissected down to the fascial edges. The hernia sac was then reduced to the abdominal cavity in a preperitoneal space created. This was done using electrocautery and sharp dissection. A small Ventralex mesh measuring 4.3 cm was then obtained. The mesh was deployed within the preperitoneal space and secured to the fascia using a 0 Ethibond suture. Fascia was closed over the mesh again using the 0 suture. Wounds were irrigated with saline solution. Umbilical skin was then attached to the fascia using a 3-0 Polysorb suture. Dermis was reapproximated using interrupted 3-0 Polysorb sutures. Skin was closed using a running 4-0 Polysorb suture. Attention was then directed to the inguinal incision. Approximately 8 mL of Zenrelef was infiltrated along the undersurface of the external oblique aponeurosis. Jamey's fascia was then reapproximated using interrupted 3-0 Polysorb sutures. Dermis was reapproximated using interrupted 3-0 Polysorb sutures. Skin was then closed using a running subcuticular 4-0 Polysorb suture. Steri-Strips, 4 x 4 gauze and Tegaderm were then applied to both incisions. The patient tolerated the procedure well. Sponge, instrument, needle counts reported as correct. Patient was transferred to PACU in stable condition.
[2023-04-21] MEDS: oxyCODONE HCl Immed Release 5 MG TABLET PO (13:04)
[2023-04-21] MEDS: fentaNYL citrate/PF 100 MCG/2 ML VIAL 50 MCG IVPUSH ×2 (13:04→13:29)
== END 2023-04-21 14:53 | disposition home or self-care (01) ==
PROVIDERS: Nurse Practitioner; PCP Internal Medicine; Visit Provider Surgery
PROC: (CPT 49591; principal; 2023-04-21 11:20)
PROC: (CPT 49591; 2023-04-21 11:20)
DX: K42.9 Umbilical hernia without obstruction or gangrene (principal); K40.90 Unilateral inguinal hernia, without obstruction or gangrene, not specified as recurrent; K74.60 Unspecified cirrhosis of liver; R18.8 Other ascites; K76.0 Fatty (change of) liver, not elsewhere classified
CPT/HCPCS: 49591; 49505; 36415; 80053; 85027; 85610; C1781; C9088; J0131; J0690; J1100; J2405; J3010

== ENCOUNTER → 2023-04-21 09:07 | Outpatient (BNV) | payer OTHER, SELFPAY | PROVIDERS: PCP Internal Medicine; Visit Provider Surgery | DX: K42.0 Umbilical hernia with obstruction, without gangrene (principal) | CPT/HCPCS: 49591 ==

== ENCOUNTER 2023-05-01 11:37 | Outpatient (AMB) | payer OTHER, SELFPAY ==
--- NOTE | 2023-05-01 11:38 | MHC.OFFVIS ---
Intake Vital Signs 05/01/23 11:43 Height 5 ft 6 in Weight 122 lb 2.177 oz BMI 19.7 BP 113/63 Blood Pressure Location Lt brachial Position Sitting Pulse 71 Intake Visit Reasons: S/P RIH & umbilical hernia repair Intake Note: Patient is seen in office for post op assessment post right inguinal and umbilical hernia repair. Patient c/o: denies any concerns at the time of visit Iron Worker Required: No Accompanied by: Family/Other Allergies No Known Allergies Allergy (Verified 05/01/23 11:43) Medication List - Last Reconciled 05/02/23 by Venkatesh Bal MD furosemide 20 mg PO BID hydrocortisone-pramoxine 2.5-1 % 1 appl MO BID PRN isavuconazonium sulfate (Cresemba) 372 mg PO DAILY sitz bath As directed HPI HPI Comments History of Present Illness Details Patient returns 1 week following repair of a right inguinal hernia and umbilical hernia with mesh. He tolerated the procedure well and feels improved today. Did have some perioperative pain in the right groin which is now much improved. He denies any nausea or vomiting. He is moving his bowels with the help of stool softener. [facility] Medical History Cirrhosis of liver Endobronchial mass H/O gastroesophageal reflux (GERD) Hilar enlargement Surgical History H/O excision of mass (03/24/15) H/O hemorrhoidectomy (02/13/12) H/O hernia repair (1999) History of back surgery History of esophagogastroduodenoscopy (EGD) (02/13/12) History of right inguinal hernia repair (04/21/23) Hx of tonsillectomy (1998) Status post excision of lipoma (04/22/19) Family History Father No problems noted. Mother CVD (cardiovascular disease) Stroke Diabetes mellitus Brother Diabetes mellitus Sister Diabetes mellitus Social History Alcohol intake: never Patient Tobacco Use Status: Never used Tobacco Physical Exam Vital Signs: Last Vital Signs Pulse 71 05/01/23 11:43 BP 113/63 05/01/23 11:43 BMI result Body Mass Index 19.7 Const General: healthy appearing Nutritional Appearance: well nourished and thin Orientation/consciousness: patient oriented x3 Limitations: no limitations Resp Effort & Inspection: normal respiratory effort GI Other: Well-healed umbilical and right inguinal incision without redness or discharge. No hernia noted with Valsalva maneuvers. Neuro General: patient oriented x3 Extrem Other: No edema Assessment & Plan Assessment & Plan (1) Umbilical hernia, incarcerated: Code(s): K42.0 - Umbilical hernia with obstruction, without gangrene (2) Reducible right inguinal hernia: Code(s): K40.90 - Unilateral inguinal hernia, without obstruction or gangrene, not specified as recurrent Plan Patient returns 1 week following repair of an umbilical and right inguinal hernia with mesh. His wounds are healing nicely without evidence of infection or leak. He should continue to avoid lifting greater than 10 lb but is encouraged to ambulate daily. He should follow up in 4 weeks for final postoperative visit. He is welcome to call sooner for any new concerns. Coding Level of Care Code Global (10336) Diagnoses Umbilical hernia, incarcerated K42.0 Reducible right inguinal hernia K40.90
[2023-05-01 11:43] VITALS: BP 113/63; PULSE 71; BMI 19.7
== END 2023-05-01 12:05 | disposition home or self-care (01) ==
PROVIDERS: PCP Internal Medicine; Visit Provider Surgery
DX: K42.0 Umbilical hernia with obstruction, without gangrene (principal); K40.90 Unilateral inguinal hernia, without obstruction or gangrene, not specified as recurrent
CPT/HCPCS: 99213

== ENCOUNTER 2023-05-01 11:37 | Outpatient (REF) | payer OTHER, SELFPAY ==
[2023-05-01 13:39] LABS: Estimated Average Glucose 100 mg/dL; Hemoglobin A1c % 5.1 %
[2023-05-01 14:46] LABS: Alanine Aminotransferase 63 U/L (0-40); Albumin Level 4.3 g/dL (3.5-5.0); Alkaline Phosphatase 637 U/L (39-117); Anion Gap 18 (12-20); Aspartate Amino Transferase 72 U/L (5-37); Blood Urea Nitrogen 65 mg/dL (9-16); Calcium 10.2 mg/dL (8.4-10.2); Carbon Dioxide 22 mmol/L (22-29); Chloride 96 mmol/L (96-108); Estimated Glomerular Filt Rate 32; Glucose Random 99 mg/dL (60-115); Potassium 5.4 mmol/L (3.3-5.1); Sodium 131 mmol/L (135-145); Total Protein 7.9 g/dL (6.5-8.0)
== END 2023-05-01 11:38 | disposition home or self-care (01) ==
LOC: HO.LAB 11:37
PROVIDERS: Absent Provider Internal Medicine; PCP Internal Medicine; Visit Provider Surgery
DX: E11.9 Type 2 diabetes mellitus without complications (principal); K42.0 Umbilical hernia with obstruction, without gangrene; K40.90 Unilateral inguinal hernia, without obstruction or gangrene, not specified as recurrent
CPT/HCPCS: 36415; 80053; 83036; 99212

== ENCOUNTER 2023-05-26 13:08 | Outpatient (AMB) | payer OTHER, SELFPAY ==
--- NOTE | 2023-05-26 13:10 | A.OFFVIS_ITS ---
Intake Vital Signs 05/26/23 13:12 Height 5 ft 6 in Weight 128 lb BMI 20.7 BP 117/64 Blood Pressure Location Lt brachial Position Sitting Respiration 14 Pulse 69 Pulse Source Pulse Oximeter Intake Visit Reasons: Left shoulder pain per Dr. Meyers Allergies No Known Allergies Allergy (Verified 05/26/23 13:12) Medication List - Last Reconciled 05/26/23 by Sandra Barrientos LPN furosemide 20 mg PO BID gabapentin 300 mg PO BEDTIME hydrocortisone-pramoxine 2.5-1 % 1 appl MS BID PRN isavuconazonium sulfate (Cresemba) 372 mg PO DAILY sitz bath As directed HPI Left shoulder pain per Dr. Meyers HPI Details 52-year-old male is presenting today for a new patient evaluation of left shoulder pain. The patient reports left sided shoulder pain. He complains of limited ROM. He has been engaged in home exercises without much relief. He is also taking gabapentin 300 milligrams at night. He has not performed physical therapy to date though he continues to engage in stretches and exercises at home. Pain is rated as 6 to 7/10 intensity, worse with movements and interfering with his ADLs. [facility] Medical History Cirrhosis of liver Endobronchial mass H/O gastroesophageal reflux (GERD) Hilar enlargement Surgical History H/O excision of mass (03/24/15) H/O hemorrhoidectomy (02/13/12) H/O hernia repair (1999) History of back surgery History of esophagogastroduodenoscopy (EGD) (02/13/12) History of right inguinal hernia repair (04/21/23) Hx of tonsillectomy (1998) Status post excision of lipoma (04/22/19) Family History Father No problems noted. Mother CVD (cardiovascular disease) Stroke Diabetes mellitus Brother Diabetes mellitus Sister Diabetes mellitus Social History Alcohol intake: never Patient Tobacco Use Status: Never used Tobacco Review of Systems Const All systems reviewed & are unremarkable except as noted in HPI and below Physical Exam Vital Signs: Last Vital Signs Pulse 69 05/26/23 13:12 Resp 14 05/26/23 13:12 BP 117/64 05/26/23 13:12 BMI result Body Mass Index 20.7 General: Appears afebrile. Alert and oriented. Mood and affect appropriate. Follows and participates in conversation appropriately. Respiratory effort is unlabored. Able to transition from sit to stand unassisted. Ambulates with bilaterally normal heel strike and toe off. Shoulder extension is limited. He is unable to abduct the shoulder more than 100 degrees above his head, which reproduces pain in the posterior aspect of the joint. Office Procedures Joint Injection/Drain Joint Injection/Drain Details: Left subacromial shoulder injection Primary Site: left shoulder Prep: site was prepped using aseptic technique and site was prepped using sterile technique Injected: Kenalog (30 mg), with 3 mL of, 1% plain lidocaine, 0.25% bupivacaine and in the subcromial space (on left side) Approach Used: posterolateral Procedure: The patient tolerated the procedure well Coding Details: An ultrasound image of the injection was taken and stored in the permanent record. - Acromioclavicular with ultrasound guidance Procedure code (CPT) selection complete Results Reviewed Results Reviewed: No imaging is available for review. Assessment & Plan Assessment & Plan (1) Left shoulder pain: Code(s): M25.512 - Pain in left shoulder Plan Patient is status post left subacromial shoulder injection. Patient tolerated procedure well and was discharged home in stable condition with discharge instructions. All questions were answered. We will follow-up in two weeks via telephone or in clinic to assess response to therapy. A follow-up appointment was made during today's visit. Scribed for Dr. Meyers by Lennox Munoz, medical office manager, on 05/26/2023. I, Dr. Meyers, have personally reviewed and agree with the information entered by the scribe. Coding Level of Care Code New Pt Level 3 (06110) Diagnoses Left shoulder pain M25.512 CPT Codes Coding - Joint 6: - Acromioclavicular with ultrasound guidance ([id number])
[2023-05-26 13:12] VITALS: BP 117/64; PULSE 69; RESP 14; BMI 20.7
== END 2023-05-26 14:03 | disposition home or self-care (01) ==
PROVIDERS: PCP Internal Medicine; Visit Provider Internal Medicine
DX: M25.512 Pain in left shoulder (principal)
CPT/HCPCS: 20606; 99203

== ENCOUNTER → 2023-05-26 13:08 | Outpatient (BNVA) | payer OTHER, SELFPAY | PROVIDERS: PCP Internal Medicine; Visit Provider Internal Medicine | DX: M25.512 Pain in left shoulder (principal) | CPT/HCPCS: 20606; 99202 ==

== ENCOUNTER 2023-05-30 08:41 | Outpatient (AMB) | payer OTHER, SELFPAY ==
--- NOTE | 2023-05-30 08:42 | MHC.OFFVIS ---
Intake Vital Signs 05/30/23 08:45 Height 5 ft 6 in Weight 123 lb 7.342 oz BMI 19.9 BP 112/72 Blood Pressure Location Lt brachial Position Sitting Intake Visit Reasons: 4 wk check S/P RIH & umbilical hernia repair,NIDDM Intake Note: Patient is seen in office for 4 wks follow up visit, post right inguinal hernia & umbilical hernia repair. 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 He denies any problems since his last visit and feels well. He denies any pain, redness or discharge. [facility] Medical History Cirrhosis of liver Endobronchial mass H/O gastroesophageal reflux (GERD) Hilar enlargement Surgical History H/O excision of mass (03/24/15) H/O hemorrhoidectomy (02/13/12) H/O hernia repair (1999) History of back surgery History of esophagogastroduodenoscopy (EGD) (02/13/12) History of right inguinal hernia repair (04/21/23) Hx of tonsillectomy (1998) Status post excision of lipoma (04/22/19) Family History Father No problems noted. Mother CVD (cardiovascular disease) Stroke Diabetes mellitus Brother Diabetes mellitus Sister Diabetes mellitus Social History Alcohol intake: never Patient Tobacco Use Status: Never used Tobacco Physical Exam Vital Signs: Last Vital Signs BP 112/72 05/30/23 08:45 BMI result Body Mass Index 19.9 Const General: no acute distress Resp Effort & Inspection: normal respiratory effort GI Other: No evidence of ascites. Umbilical and right inguinal incision is clean, dry, and intact without evidence of infection or leakage. No hernia noted with Valsalva maneuvers. Skin General skin exam: no rashes or lesions noted Assessment & Plan Assessment & Plan (1) Umbilical hernia, incarcerated: Code(s): K42.0 - Umbilical hernia with obstruction, without gangrene (2) Reducible right inguinal hernia: Code(s): K40.90 - Unilateral inguinal hernia, without obstruction or gangrene, not specified as recurrent Plan Patient returns 1 month following repair of an umbilical hernia and right inguinal hernia. His wounds are well healed without evidence of recurrence. He may resume normal activity without restriction and should follow up as needed. Coding Level of Care Code Global (88485) Diagnoses Umbilical hernia, incarcerated K42.0 Reducible right inguinal hernia K40.90
[2023-05-30 08:45] VITALS: BP 112/72; BMI 19.9
== END 2023-05-30 08:52 | disposition home or self-care (01) ==
PROVIDERS: PCP Internal Medicine; Visit Provider Surgery
DX: K42.0 Umbilical hernia with obstruction, without gangrene (principal); K40.90 Unilateral inguinal hernia, without obstruction or gangrene, not specified as recurrent
CPT/HCPCS: 99213

== ENCOUNTER → 2023-05-30 08:41 | Outpatient (BNVA) | payer OTHER, SELFPAY | PROVIDERS: PCP Internal Medicine; Visit Provider Surgery | DX: Z48.815 Encounter for surgical aftercare following surgery on the digestive system (principal); Z87.19 Personal history of other diseases of the digestive system | CPT/HCPCS: 99212 ==

== ENCOUNTER 2023-06-04 11:40 | Outpatient (REF) | payer OTHER, SELFPAY ==
[2023-06-04 13:11] LABS: MANUAL DIFF FLAG NO
[2023-06-04 13:28] LABS: Hematocrit 33.4 % (42.0-52.0); Hemoglobin 11.1 g/dl (14.0-18.0); Imm Gran Abs Auto 0.07 X10*3/uL (0.00-0.03); Imm Gran Pct Auto 0.9 % (0.0-0.4); Lymphocytes Absolute Auto 1.4 X10*3/uL (1.2-4.9); Lymphocytes Percent Auto 18.5 % (20-40); Mean Corpuscular HGB Conc 33.2 g/dl (31.0-36.0); Mean Corpuscular Hemoglobin 32.8 pg (27.0-33.0); Mean Corpuscular Volume 98.8 fL (80.0-98.0); Mean Platelet Volume 10.4 fL (9.4-12.4); Monocytes Percent Auto 13.8 % (2-11); Neutrophils Percent Auto 66.8 % (45-73); Platelet Count 289 X10*3/uL (160-400); Red Blood Count 3.38 X10*6/uL (4.60-5.80); Red Cell Distribution Width 15.3 % (11.0-16.0); White Blood Count 7.5 X10*3/uL (4.8-10.8)
[2023-06-04 13:31] LABS: Estimated Average Glucose 108 mg/dL; Hemoglobin A1c % 5.4 % (<6.0)
[2023-06-04 13:44] LABS: Alanine Aminotransferase 60 U/L (0-40); Albumin Level 4.4 g/dL (3.5-5.0); Alkaline Phosphatase 519 U/L (39-117); Amylase 204 U/L (28-100); Anion Gap 14 (12-20); Aspartate Amino Transferase 64 U/L (5-37); Bilirubin Total 1.1 mg/dL (0.0-1.0); Blood Urea Nitrogen 64 mg/dL (9-16); Calcium 10.1 mg/dL (8.4-10.2); Carbon Dioxide 24 mmol/L (22-29); Chloride 98 mmol/L (96-108); Estimated Glomerular Filt Rate 45; Glucose Random 114 mg/dL (60-115); Iron 193 mcg/dL (45-160); Percent Iron Saturation 45 % (15-50); Potassium 5.5 mmol/L (3.3-5.1); Sodium 130 mmol/L (135-145); Total Iron Binding Capacity 432 mcg/dL (228-428); Total Protein 7.9 g/dL (6.5-8.0); Unsaturated Iron Binding 239 ug/dL
[2023-06-04 14:11] LABS: Vitamin B12 325 pg/mL (200-900)
== END 2023-06-04 11:41 | disposition home or self-care (01) ==
LOC: HO.10HDL 11:40
PROVIDERS: Visit Provider Internal Medicine
DX: K21.9 Gastro-esophageal reflux disease without esophagitis (principal); E11.9 Type 2 diabetes mellitus without complications; N18.9 Chronic kidney disease, unspecified; D64.9 Anemia, unspecified
CPT/HCPCS: 36415; 80053; 82150; 82607; 83036; 83540; 85025

== ENCOUNTER 2024-03-10 12:39 | Outpatient (REF) | payer OTHER, SELFPAY ==
[2024-03-10 13:10] LABS: MANUAL DIFF FLAG NO
[2024-03-10 13:41] LABS: Basophils Percent Auto 0.3 % (0-2); Eosinophils Absolute Auto 0.2 X10*3/uL (0.0-0.4); Eosinophils Percent Auto 5.8 % (0-4); Hematocrit 31.4 % (42.0-52.0); Hemoglobin 10.3 g/dl (14.0-18.0); Imm Gran Abs Auto 0.01 X10*3/uL (0.00-0.03); Imm Gran Pct Auto 0.3 % (0.0-0.4); Lymphocytes Absolute Auto 1.5 X10*3/uL (1.2-4.9); Lymphocytes Percent Auto 44.1 % (20-40); Mean Corpuscular HGB Conc 32.8 g/dl (31.0-36.0); Mean Corpuscular Hemoglobin 33.7 pg (27.0-33.0); Mean Corpuscular Volume 102.6 fL (80.0-98.0); Monocytes Absolute Auto 0.3 X10*3/uL (0.1-1.2); Neutrophils Absolute Auto 1.3 x10*3/uL (2.0-8.3); Neutrophils Percent Auto 39.5 % (45-73); Red Blood Count 3.06 X10*6/uL (4.60-5.80); Red Cell Distribution Width 17.5 % (11.0-16.0); White Blood Count 3.3 X10*3/uL (4.8-10.8)
[2024-03-10 13:48] LABS: Platelet Count 129 X10*3/uL (160-400)
[2024-03-10 13:51] LABS: Appearance Urine Clear; Color Urine Dark Yellow; Estimated Average Glucose 111 mg/dL; Glucose Urine UA Negative (Negative); Hemoglobin A1c % 5.5 % (<6.0); Leukocyte Esterase Urine Trace (Negative); Nitrite Urine Negative (Negative); UMIC TRIGGER UA YES; Urine Blood Negative (Negative); Urine Ketones Trace mg/dL (Negative); Urine Protein Negative (Neg-Trace)
[2024-03-10 14:00] LABS: Bacteria Urine None Seen (None Seen); Hyaline Casts Urine 0-2 /LPF (0-2); RBC Urine 0-2 /HPF (0-2); Squamous Epithelial Cell Urine 0-2 /HPF (0-2); WBC Urine 0-5 /HPF (0-5)
[2024-03-10 14:06] LABS: Alanine Aminotransferase 46 U/L (0-40); Albumin Level 3.8 g/dL (3.5-5.0); Alkaline Phosphatase 545 U/L (39-117); Anion Gap 15 (12-20); Aspartate Amino Transferase 107 U/L (5-37); Bilirubin Total 1.2 mg/dL (0.0-1.0); Blood Urea Nitrogen 14 mg/dL (9-16); C Reactive Protein 1.82 mg/dL (< or = 0.50); Calcium 9.4 mg/dL (8.4-10.2); Carbon Dioxide 20 mmol/L (22-29); Chloride 108 mmol/L (96-108); Estimated Glomerular Filt Rate > 60; Glucose Random 139 mg/dL (60-115); Iron 136 mcg/dL (45-160); Percent Iron Saturation 39 % (15-50); Potassium 4.3 mmol/L (3.3-5.1); Sodium 139 mmol/L (135-145); Total Iron Binding Capacity 352 mcg/dL (228-428); Total Protein 6.9 g/dL (6.5-8.0); Unsaturated Iron Binding 216 ug/dL
[2024-03-10 14:11] LABS: Ferritin 54 ng/mL (20-250); Free T4 (Free Thyroxine) 0.86 ng/dL (0.71-1.85); Thyroid Stimulating Hormone 2.17 uIU/mL (0.32-4.0); Vitamin D 25-OH Total 10.9 ng/mL (>30)
[2024-03-10 14:48] LABS: Creatinine Urine 187.69 mg/dL; Microalbum/Creatinine Ratio Ur 4.2 ug/mg cr (<30)
[2024-03-10 15:05] LABS: Vitamin B12 407 pg/mL (200-900)
== END 2024-03-10 12:40 | disposition home or self-care (01) ==
LOC: HO.10HDL 12:39
PROVIDERS: Visit Provider Internal Medicine
DX: E11.9 Type 2 diabetes mellitus without complications (principal); M54.9 Dorsalgia, unspecified; N18.9 Chronic kidney disease, unspecified; R94.5 Abnormal results of liver function studies
CPT/HCPCS: 36415; 80053; 81001; 82043; 82306; 82550; 82570; 82607; 82728; 83036; 83540; 84439; 84443; 85025; 86140

== ENCOUNTER 2024-06-29 09:59 | Outpatient (AMB) | payer OTHER, SELFPAY ==
--- NOTE | 2024-06-29 10:17 | A.OFFVIS_ITS ---
Vital Signs 3 06/29/24 10:22 Height 5 ft 6 in Weight 159 lb 9.835 oz BMI 25.8 Intake Visit Reasons: Skin Cyst right chest wall Intake Note: Patient is seen in office for follow up visit, skin cyst of the right chest wall. Pt c/o: onset 2 months, started smaller has increase in size, painful, denies discharge, redness, swelling Office Specialist Required: No Accompanied by: Daughter Allergies No Known Allergies Allergy (Verified 06/29/24 10:21) Medication List - Last Reconciled 06/29/24 by Venkatesh Bal MD furosemide 20 mg PO BID gabapentin 300 mg PO BEDTIME hydrocortisone-pramoxine 2.5-1 % 1 appl OR BID PRN isavuconazonium sulfate (Cresemba) 372 mg PO DAILY sitz bath As directed HPI Comments Details: 53-year-old male patient with a prior history of an umbilical hernia repair now presenting with a palpable mass below the right nipple she 1st noted several months ago. Reports some pain when the lump is palpated. He denies a history of trauma to the chest and denies any new medications. He is scheduled for a right breast mammogram right breast mammogram in 1 week. He denies a prior history of breast problems or breast surgery. [facility] Medical History Cirrhosis of liver Hilar enlargement Endobronchial mass H/O gastroesophageal reflux (GERD) Surgical History History of right inguinal hernia repair (04/21/23) History of back surgery H/O excision of mass (03/24/15) Status post excision of lipoma (04/22/19) History of esophagogastroduodenoscopy (EGD) (02/13/12) H/O hemorrhoidectomy (02/13/12) H/O hernia repair (1999) Hx of tonsillectomy (1998) Family History Father No problems noted. Mother CVD (cardiovascular disease) Stroke Diabetes mellitus Brother Diabetes mellitus Sister Diabetes mellitus Social History Alcohol intake: never Patient Tobacco Use Status: Never used Tobacco Review of Systems Const All systems reviewed & are unremarkable except as noted in HPI and below Physical Exam Vital Signs: BMI result Body Mass Index 25.8 Const General: cooperative and no acute distress Nutritional Appearance: well nourished Orientation/consciousness: patient oriented x3 Limitations: no limitations HEENT Head: Yes normocephalic and Yes atraumatic Ears: hearing grossly normal bilaterally Chest Other: Palpable mass measuring approximately 2 cm in diameter located directly below the nipple-areolar complex of the right breast mobile within the breast tissue with no overlying skin changes. No palpable masses noted on the left breast. Findings suggestive of gynecomastia. Chest/axillae images: 2 1. Site of palpable mass right breast Resp Effort & Inspection: normal respiratory effort, no audible wheezes, no cough and no respiratory distress Cardio Jugular venous distension: no JVD GI Inspection: Yes normal to inspection Skin Other: Warm, dry, no rash Neuro General: patient oriented x3 Extrem General: Yes no clubbing, cyanosis or edema Assessment & Plan Assessment & Plan (1) Gynecomastia: Code(s): N62 - Hypertrophy of breast Category: Medical Plan 53-year-old male patient presenting with a palpable mass located in the right breast below the nipple-areolar complex suggestive of gynecomastia. No particular inciting event is identified. In addition to the mammogram I would recommend ultrasound of the right breast which has been ordered. He will follow-up after the mammogram and ultrasound to review the results and discuss treatment options. Orders: Orders 2 US breast RT limited Today N62 - Hypertrophy of breast Coding Level of Care Code Est Pt Level 4 (10298) Diagnoses Gynecomastia N62
[2024-06-29 10:22] VITALS: BMI 25.8
== END 2024-06-29 10:40 | disposition home or self-care (01) ==
PROVIDERS: PCP Internal Medicine; Visit Provider Surgery
DX: N62 Hypertrophy of breast (principal)
CPT/HCPCS: 99214

== ENCOUNTER → 2024-06-29 09:59 | Outpatient (BNVA) | payer OTHER, SELFPAY | PROVIDERS: PCP Internal Medicine; Visit Provider Surgery | DX: N62 Hypertrophy of breast (principal) | CPT/HCPCS: 99212 ==

== ENCOUNTER 2024-07-01 09:59 | Outpatient (REF) | payer OTHER, SELFPAY ==
--- NOTE | ~2024-07-01 | XR_ITS ---
EXAMINATION: XR PELVIS CLINICAL INFORMATION: Low back pain SI joints COMPARISON: None available. TECHNIQUE: AP view of the pelvis. FINDINGS: No fracture. Hip joint spaces are maintained. Alignment is anatomic. Sacroiliac joints and pubic symphysis are within normal limits.. No abnormal soft tissue calcifications. XR/XR pelvis 1-2V IMPRESSION: No acute osseous abnormality. Electronically signed by: Temo Lanza MD 07/01/2024 01:01 PM EDT
== END 2024-07-01 10:00 | disposition home or self-care (01) ==
LOC: HO.XRAY 09:59
PROVIDERS: PCP Internal Medicine; Visit Provider Internal Medicine
DX: M54.50 Low back pain, unspecified (principal)
CPT/HCPCS: 72170

== ENCOUNTER → 2024-07-06 14:30 | Outpatient (BNV) | payer OTHER, SELFPAY | PROVIDERS: PCP Internal Medicine; Visit Provider Radiology Diagnostic Radiology | DX: N62 Hypertrophy of breast (principal) | CPT/HCPCS: 76642; 77062; 77066 ==

== ENCOUNTER 2024-07-06 14:35 | Outpatient (REF) | payer OTHER, SELFPAY ==
--- NOTE | ~2024-07-06 | MM_ITS ---
EXAMINATION: MM DIAGNOSTIC DIGITAL BREAST TOMOSYNTHESIS, BILATERAL US BREAST LIMITED, RIGHT MAMMOGRAPHY: CLINICAL INFORMATION: Palpable tender mass retroareolar right breast x2 months. No family history of breast CA. COMPARISON: Mammography: None. Baseline exam. TECHNIQUE: Digital breast tomosynthesis is performed in both the craniocaudal and mediolateral oblique views along with computer-aided detection (CAD). Synthesized 2D images are generated from the tomosynthesis. In addition, added full field left MLO view was obtained, as well as 3-D spot compression right MLO and CC views. FINDINGS: There are scattered areas of fibroglandular density (ACR BI-RADS breast composition Category b). There is moderate right and mild left retroareolar tissue development consistent with male gynecomastia. There is no discrete mass, areas of architectural distortion, or suspicious calcifications in either breast. There is no skin or axillary abnormality. ULTRASOUND: CLINICAL INFORMATION: As above. COMPARISON: None TECHNIQUE: Targeted sonographic evaluation was performed using a high frequency linear transducer. Attention was given to the retroareolar right breast. Retroareolar images left breast obtained for comparison purposes. Selected archived documentation. FINDINGS: RIGHT BREAST: -There is moderate retroareolar right breast tissue development, consistent with male gynecomastia. This correlates with the palpable focus. -There is no associated mass, abnormal shadowing, cystic abnormality, or architectural distortion identified. -Comparison images of the LEFT retroareolar region demonstrate mild left male gynecomastia without suspicious finding. MM/MM tomosynthesis diagnostic BI IMPRESSION: -Moderate right and mild left male gynecomastia. No findings suspicious for malignancy. -Recommend clinical management and follow-up. OVERALL ASSESSMENT: Mammography: BI-RADS 2 - Benign Findings Ultrasound: BI-RADS 2 - Benign Findings RECOMMENDATION: 1. Patient should be managed based on the clinical impression. Electronically signed by: Filipe Bear MD 07/06/2024 03:52 PM EDT
[2024-07-06 17:02] LABS: Imm Gran Abs Auto 0.01 X10*3/uL (0.00-0.03); Imm Gran Pct Auto 0.2 % (0.0-0.4); MANUAL DIFF FLAG SCAN; Mean Corpuscular Volume 100.3 fL (80.0-98.0); SCAN SMEAR FLAG 1
[2024-07-06 17:04] LABS: Basophils Percent Auto 0.5 % (0-2); Eosinophils Absolute Auto 0.1 X10*3/uL (0.0-0.4); Eosinophils Percent Auto 2.7 % (0-4); Hematocrit 33.9 % (42.0-52.0); Hemoglobin 11.1 g/dl (14.0-18.0); Lymphocytes Absolute Auto 1.8 X10*3/uL (1.2-4.9); Lymphocytes Percent Auto 41.3 % (20-40); Mean Corpuscular HGB Conc 32.7 g/dl (31.0-36.0); Mean Corpuscular Hemoglobin 32.8 pg (27.0-33.0); Monocytes Absolute Auto 0.5 X10*3/uL (0.1-1.2); Monocytes Percent Auto 11.2 % (2-11); Neutrophils Absolute Auto 1.9 x10*3/uL (2.0-8.3); Neutrophils Percent Auto 44.1 % (45-73); PLT CLUMP 1; Red Blood Count 3.38 X10*6/uL (4.60-5.80); Red Cell Distribution Width 15.2 % (11.0-16.0)
[2024-07-06 17:06] LABS: PLT ABN DIST 1
[2024-07-06 17:08] LABS: Estimated Average Glucose 111 mg/dL; Hemoglobin A1C 106.6703 umol/L; Hemoglobin A1c % 5.5 % (<6.0); Total Hemoglobin (HGBA1C) 2927.9049 umol/L
[2024-07-06 17:27] LABS: White Blood Count 4.4 X10*3/uL (4.8-10.8)
[2024-07-06 17:28] LABS: Mean Platelet Volume 13.8 fL (9.4-12.4); Platelet Count 100 X10*3/uL (160-400); SLIDE REVIEW VERIFIED
[2024-07-06 17:37] LABS: Alanine Aminotransferase 56 U/L (0-40); Albumin Level 4.1 g/dL (3.5-5.0); Alkaline Phosphatase 467 U/L (39-117); Anion Gap 9 (12-20); Aspartate Amino Transferase 96 U/L (5-37); Bilirubin Total 1.1 mg/dL (0.0-1.0); Blood Urea Nitrogen 15 mg/dL (9-16); Calcium 9.8 mg/dL (8.4-10.2); Carbon Dioxide 25 mmol/L (22-29); Chloride 111 mmol/L (96-108); Estimated Glomerular Filt Rate > 60; Glucose Random 103 mg/dL (60-115); Iron 74 mcg/dL (45-160); Percent Iron Saturation 20 % (15-50); Potassium 4.3 mmol/L (3.3-5.1); Sodium 141 mmol/L (135-145); Total Iron Binding Capacity 368 mcg/dL (228-428); Total Protein 7.5 g/dL (6.5-8.0); Unsaturated Iron Binding 294 ug/dL
[2024-07-06 17:51] LABS: Free T4 (Free Thyroxine) 1.05 ng/dL (0.71-1.85); Thyroid Stimulating Hormone 1.35 uIU/mL (0.32-4.0)
[2024-07-06 17:53] LABS: Vitamin B12 1728 pg/mL (200-900)
== END 2024-07-06 14:36 | disposition home or self-care (01) ==
LOC: HO.MAMMO 14:35
PROVIDERS: PCP Internal Medicine; Visit Provider Internal Medicine
DX: N62 Hypertrophy of breast (principal); D64.9 Anemia, unspecified; E11.9 Type 2 diabetes mellitus without complications; R53.83 Other fatigue
CPT/HCPCS: 36415; 76642; 77062; 77066; 80053; 82607; 83036; 83540; 84439; 84443; 85025

== ENCOUNTER 2024-07-21 10:45 | Outpatient (REF) | payer OTHER, SELFPAY ==
--- NOTE | ~2024-07-21 | US_ITS ---
EXAMINATION: US ABDOMEN COMPLETE CLINICAL INFORMATION: Pancytopenia. COMPARISON: CT abdomen from July 27, 2020 TECHNIQUE: Real-time imaging of the abdominal viscera. FINDINGS: PANCREAS: Normal. ABDOMINAL AORTA: The proximal, mid, and distal segments are normal in caliber. INFERIOR VENA CAVA: Visualized portions are normal. LIVER: Liver is heterogeneous of cirrhotic architecture with nodular contour, with the right lobe of the liver measured 15.12 cm. There are no intrahepatic masses or ductal dilatation and no evidence of ascites. GALLBLADDER: Gallbladder is abnormal with multiple small stones as well as are small stones seen in the gallbladder neck. The wall measured 0.9 cm. Sonographic Hunter sign is reported negative . COMMON BILE DUCT: Normal in caliber measuring 0.3 cm in diameter. RIGHT KIDNEY: There is nonobstructing calculus in interpolar dilated calyx, measured 0.3 x 0.1 x 0.2 cm.. No hydronephrosis, but calyectasis. No focal parenchymal lesions. The kidney measures 10.1 cm in maximum dimension. LEFT KIDNEY: Normal. No hydronephrosis. No renal calculi or focal parenchymal lesions. The kidney measures 11 point cm in maximum dimension. SPLEEN: Mildly enlarged The spleen measures 12.6 cm in maximum dimension. FREE FLUID: None. US/US abdomen complete IMPRESSION: 1. Cholelithiasis and small stones in the gallbladder neck with thickened gallbladder wall. Findings suggestive for acute calculus cholecystitis 2. Nonobstructing calculus in the right kidney. 3. Heterogeneous and nodular liver consistent with cirrhosis. 4. Mild splenomegaly. Electronically signed by: Natasha Yun MD 07/21/2024 03:40 PM EDT
== END 2024-07-21 10:46 | disposition home or self-care (01) ==
LOC: HO.US 10:45
PROVIDERS: PCP Internal Medicine; Visit Provider Internal Medicine Medical Oncology
DX: D61.818 Other pancytopenia (principal); R16.1 Splenomegaly, not elsewhere classified
CPT/HCPCS: 76700

== ENCOUNTER 2024-12-09 10:45 | Outpatient (AMB) | payer OTHER, SELFPAY ==
[2024-12-09 10:51] VITALS: BP 138/82; PULSE 70; RESP 16; TEMP 36.6; O2SAT 99; BMI 22.9
--- NOTE | 2024-12-09 10:51 | A.OFFPC_ITS ---
Vital Signs 12/09/24 10:51 Height 5 ft 6 in Weight 142 lb BMI 22.9 BP 138/82 Respiration 16 Pulse 70 Pulse Source Pulse Oximeter Temp 97.8 F Temp Source Temporal Artery Scan Pulse Oximetry (%) 99 Oxygen Delivery Method Room Air Intake Visit Reasons: Sinus Counter Stacker Required: No Accompanied by: Spouse Allergies No Known Allergies Allergy (Verified 12/09/24 10:51) Medication List - Last Reconciled 12/09/24 by Ailyn Coello MD furosemide 20 mg PO BID gabapentin 300 mg PO BEDTIME sitz bath As directed Tobacco use date assessed: 12/09/24 Dental Screening Dental Screen Date: 12/09/24 Did you have a dental visit in the last 12 months?: Yes Did you have a dental problem in the last 6 months where you did not have access to dental care?: No HPI HPI Comments History of Present Illness Details 54 y/o with pmh diabetes, h/o fungal sin usitis presenting for sinus pain Patient reports 3 week history of headache-frontal, maxillary sinus pressure, teeth pain, ear fullness and discomfort. Was seen in urgent care ~10 days ago received 7 day antibiotic course. There was some improvement while on antibiotics then worsened again off the antibiotic course. Denies fevers. He has a prior history of a fungal sinusitis that was treated with surgery and antifubnal therapy. Follows with Dr Dey. He did have CT sinus last month without evidence of gunal infection. Patient has insulin dependent diabetes mellitus. He is legally blind and has difficulty checking his blood glucose. Requests CGM ROS see HPI PHYSICAL EXAM: GENERAL: Alert and oriented x 3. NAD EYES: EOMI. Anicteric. HENT: Moist mucous membranes. Frontal, maxillary sinus ttp, boggy nasal mucosa LUNGS: Clear to auscultation bilaterally. CARDIOVASCULAR: Regular rate and rhythm. No murmur. No JVD. ABDOMEN: Soft, non-tender +bs EXTREMITIES: No edema. Non-tender. SKIN: No rashes or lesions. Warm. NEUROLOGIC: No focal neurological deficits. CN II-XII grossly intact PSYCHIATRIC: Cooperative. Appropriate mood and affect [facility] Medical History Cirrhosis of liver Hilar enlargement Endobronchial mass H/O gastroesophageal reflux (GERD) Surgical History History of right inguinal hernia repair (04/21/23) History of back surgery H/O excision of mass (03/24/15) Status post excision of lipoma (04/22/19) History of esophagogastroduodenoscopy (EGD) (02/13/12) H/O hemorrhoidectomy (02/13/12) H/O hernia repair (1999) Hx of tonsillectomy (1998) Family History Father No problems noted. Mother CVD (cardiovascular disease) Stroke Diabetes mellitus Brother Diabetes mellitus Sister Diabetes mellitus Social History Housing: House Alcohol intake: never Patient Tobacco Use Status: Never used Tobacco service: No Current occupational status: disabled Cognitive needs: Yes (cane) Hearing needs: No Vision needs: Yes (legally blind) Questionnaire PHQ-9 Over the last 2 weeks, how often have you been bothered by any of the following problems? 1. Little interest or pleasure in doing things: not at all 2. Feeling down, depressed, or hopeless: not at all 3. Trouble falling or staying asleep, or sleeping too much: not at all 4. Feeling tired or having little energy: not at all 5. Poor appetite or overeating: not at all 6. Feeling bad about yourself - or that you are a failure or have let yourself or your family down: not at all 7. Trouble concentrating on things, such as reading the newspaper or watching television: not at all 8. Moving or speaking so slowly that other people could have noticed. Or the opposite - being so fidgety or restless that you have been moving around a lot more than usual: not at all 9. Thoughts that you would be better off or of hurting yourself in some way: not at all Total score: 0 Depression Screening Interpretation: Negative Depression Screening Done: Yes 01277 - PHQ-9 Billing: Yes Source: Developed by Drs. oP Call, Shanice Rojo, Sam Correa and colleagues, with an educational charity from [employer]. Thrive Questionnaire Date Thrive assessed: 12/09/24 I am a: Patient What is your living situation today?: I have a steady place to live Within the past 12 months, did the food you bought not last and you didn't have the money to get more?: Never true Within the past 12 months, did you worry whether your food would run out before you got money to buy more?: Never true Do you have trouble paying for medicines?: No Do you have trouble getting transportation to medical appointments?: No Do you have trouble paying your heating and electricity bill?: No Do you have trouble taking care of your child, family member or friend?: No Do you have trouble with day-to-day activities such as bathing, preparing meals, shopping, managing finances, etc.?: No Are you currently unemployed and looking for a job?: No Are you interested in more education?: No Please select the resources that you would like help with: None THRIVE Score: 0 AUDIT C Alcohol Use Questionnaire (AUDIT-C) 1. How often do you have a drink containing alcohol?: Never 3. How often do you have six or more drinks on one occasion?: Never Total Score: 0 CHANTE-7 AMB Questionnaire CHANTE-7 Date CHANTE - 7 assessed: 12/09/24 Feeling nervous, anxious, or on edge: 0 = Not at all Not being able to stop or control worryin = Not at all Worrying too much about different things: 0 = Not at all Trouble relaxin = Not at all Being so restless that it is hard to sit still: 0 = Not at all Becoming easily annoyed or irritable: 0 = Not at all Feeling afraid as if something awful might happen: 0 = Not at all Total CHANTE-7 score (0-4 normal; 5-9 mild; 10-14 moderate; 15-21 severe): 0 Source: Developed by Drs. Po Call, Shanice Rojo, Sam Correa and colleagues, with an educational charity from [employer]. Physical exam (Primary Care) Vital Signs: Last Vital Signs Temp 97.8 F 12/09/24 10:51 Pulse 70 12/09/24 10:51 Resp 16 12/09/24 10:51 BP 138/82 12/09/24 10:51 Pulse Ox 99 12/09/24 10:51 Oxygen Delivery Method Room Air 12/09/24 10:51 BMI result Body Mass Index 22.9 Tobacco/Smoking Status: Tobacco use Status Tobacco use date assessed 12/09/24 12/09/24 11:00 Patient Tobacco Use Status Never used Tobacco 12/09/24 11:00 PHQ-9: PHQ-9 Score PHQ-9: Total score 0 12/09/24 15:02 Depression Screening Interpretation: Negative Thrive Assessment: Date of Thrive Assessment Date Thrive assessed 12/09/24 12/09/24 11:00 Coding Level of Care Code Est Pt Level 4 (52629) Diagnoses Insulin dependent type 2 diabetes mellitus E11.9; Z79.4 Subacute maxillary sinusitis J01.00 Sinusitis location: maxillary Chronicity: subacute Additional Codes PHQ-9 - 98892 - PHQ-9 Billing: Yes ([id number]) Assessment & Plan Assessment & Plan (1) Insulin dependent type 2 diabetes mellitus: Code(s): E11.9 - Type 2 diabetes mellitus without complications; Z79.4 - rodent exterminator (current) use of insulin Category: Medical Plan: Start levofloxacin, prednisone. Afrin x 3 days Call for persistent or worsening symptoms (2) Sinusitis: Code(s): J32.9 - Chronic sinusitis, unspecified Category: Medical Qualifiers: Sinusitis location: maxillary Chronicity: subacute Qualified Code(s): J01.00 - Acute maxillary sinusitis, unspecified Plan: see above Medications: New levofloxacin 750 mg PO DAILY 10 tabs 0RF FreeStyle Elysia 3 [place] (blood-glucose meter,continuous) As directed 1 ea 0RF NS E11.9 - Type 2 diabetes mellitus without complications, Z79.4 - rodent exterminator (current) use of insulin FreeStyle Elysia 3 Plus Sensor (blood-glucose sensor) every 15 days 6 ea 3RF NS E11.9 - Type 2 diabetes mellitus without complications, Z79.4 - rodent exterminator (current) use of insulin prednisone 40 mg (2 x 20 mg) PO DAILY 5 days 10 tabs 0RF codeine-guaifenesin 10-100 mg/5 mL 5 mL PO Q6H PRN 200 mL 3RF cold symptoms
--- OUTSIDE RECORDS SUMMARY | 2024-12-09 13:39 | XMS_ITS | Patient Health Record ---
Author Organization Po Medeiros III, MD Address [address] [facility] [address] Care Team Providers Care Gas Leak Tester Name Role Phone Jb Stewart MD Primary Care Provider Unavaila Po Nobles Unavailable [phone] Allergies Allergen (clinical drug ingredient) Drug/Non Drug Allergy documented on EMR Reaction Allergy Type Onset Date Status No Known Drug Allergy Unknown Drug Allergy Active Results Component Value Reference Range Notes US abdomen complete Reviewed date:09/20/2024 02:51:20 PM Interpretation: Performing Lab: Notes/Report: [address] [address] Ultrasound Report Signed with Addenda Patient: Saad Meeks MR#: [id number] : 1970 Acct:[id number] Age/Sex: 53 / M ADM Date: 07/21/24 Loc: HO.US Attending Dr: Po Medeiros MD Ordering Physician: Po Medeiros MD Date of Service: 07/21/24 Procedure(s): US abdomen complete Accession Number(s): [id number] cc: Po Medeiros MD; Jb Stewart MD ADDENDUM ADDENDUM #1 Addendum: Findings discussed with Dr. Po Medeiros at 1544 on 07/21/2024 Electronically signed by: Natasha Yun MD 07/21/2024 03:48 PM EDT Addendum Dictated By: Natasha Yun MD Addendum Signed By: <Electronically signed by Natasha Yun MD in OV> 07/21/241547 Addendum Cosigned By: DD/ TD/TT: 07/21/24 EXAMINATION: US ABDOMEN COMPLETE CLINICAL INFORMATION: Pancytopenia. COMPARISON: CT abdomen from July 27, 2020 TECHNIQUE: Real-time imaging of the abdominal viscera. FINDINGS: PANCREAS: Normal. ABDOMINAL AORTA: The proximal, mid, and distal segments are normal in caliber. INFERIOR VENA CAVA: Visualized portions are normal. LIVER: Liver is heterogeneous of cirrhotic architecture with nodular contour, with the right lobe of the liver measured 15.12 cm. There are no intrahepatic masses or ductal dilatation and no evidence of ascites. GALLBLADDER: Gallbladder is abnormal with multiple small stones as well as are small stones seen in the gallbladder neck. The wall measured 0.9 cm. Sonographic Hunter sign is reported negative . COMMON BILE DUCT: Normal in caliber measuring 0.3 cm in diameter. RIGHT KIDNEY: There is nonobstructing calculus in interpolar dilated calyx, measured 0.3 x 0.1 x 0.2 cm.. No hydronephrosis, but calyectasis. No focal parenchymal lesions. The kidney measures 10.1 cm in maximum dimension. LEFT KIDNEY: Normal. No hydronephrosis. No renal calculi or focal parenchymal lesions. The kidney measures 11 point cm in maximum dimension. SPLEEN: Mildly enlarged The spleen measures 12.6 cm in maximum dimension. FREE FLUID: None. US/US abdomen complete IMPRESSION: 1. Cholelithiasis and small stones in the gallbladder neck with thickened gallbladder wall. Findings suggestive for acute calculus cholecystitis 2. Nonobstructing calculus in the right kidney. 3. Heterogeneous and nodular liver consistent with cirrhosis. 4. Mild splenomegaly. Electronically signed by: Natasha Yun MD 07/21/2024 03:40 PM EDT Dictated By: Natasha Yun MD Signed By: <Electronically signed by Natasha Yun MD in OV> 07/21/241539 DD/ 58 TD/TT: 07/21/241115 [employer] Grader: [place] [id number] Ultrasound Report Signed with Addenda Patient: Luan Meeks MR#: [id number] : 1970 Acct:[id number] Age/Sex: 53 / M ADM Date: 07/21/24 Loc: HO.US Attending Dr: Po Medeiros MD Ordering Physician: Po Medeiros MD Date of Service: 07/21/24 Procedure(s): US abd omen complete Accession Number(s): [id number] cc: Po Medeiros MD; Jb Stewart MD ADDENDUM ADDENDUM #1 Addendum: Findings d iscussed with Dr. Po Medeiros at 1544 on 07/21/2024 Electronically kia d by: Natasha Yun MD 07/21/2024 03:48 PM EDT RP Addendum Dictated By : Natasha Yun MD Addendum Signed By: <Electronically signed by Natasha Yun MD in OV> 07/21/24 1548 Addendum Cosigned By: DD/ TD/TT: 07/21/24 EXAMINATION: US ABDOMEN COMPLETE CLINICAL INFORMATION: Pancytopenia. COMPARISON: CT abdomen from 2019 TECHNIQUE: Real-time imaging of the abdominal viscera. FINDINGS: PANCREAS: Normal. ABDOMINAL AORTA: The proximal, mid, and distal segments are normal in caliber. INFERIOR VENA CAVA: Visualized portions are normal. LIVER: Liver is hete rogeneous of cirrhotic architecture with nodular contour, with the ri ght lobe of the liver measured 15.12 cm. There are no intrahepatic mass es or ductal dilatation and no evidence of ascites. GALLBLADDER: Gallbla dder is abnormal with multiple small stones as well as are small stones seen in the gallbladder neck. The wall measured 0.9 cm. Sonographic Murp hy sign is reported negative . COMMON BILE DUCT: No rmal in caliber measuring 0.3 cm in diameter. RIGHT KIDNEY: There is nonobstructing calculus in interpolar dilated calyx, measured 0.3 x 0.1 x 0.2 cm.. No hydronephrosis, but calyectasis. No foca l parenchymal lesions. The kidney measures 10.1 cm in maximum dimension. LEFT KIDNEY: Normal. No hydronephrosis. No renal calculi or focal parenchymal lesions. The kidney measures 11 point cm in maximum dimension. SPLEEN: Mildly enlar ged The spleen measures 12.6 cm in maximum dimension. FREE FLUID: None. U S/US abdomen complete IMPRESSION: 1. Cholelithiasis an d small stones in the gallbladder neck with thickened gallbladde r wall. Findings suggestive for acute calculus cholecystitis 2. Nonobstructing ca lculus in the right kidney. 3. Heterogeneous and nodular liver consistent with cirrhosis. 4. Mild splenomegaly. Electronically kia d by: Natasha Yun MD 07/21/2024 03:40 PM EDT RP Dictated By: Natasha Yun MD Signed By: <Electron icallmadi signed by Natasha Yun MD in OV> 07/21/24 1540 DD/ 1059 TD/TT: 07/21/24 1116 Agricultural Commodities Grader: Reason For Referral No Information Medications Medication SIG (Take, Route, Frequency, Duration) Notes Start Date End Date Status Cyclobenzaprine HCl 10 MG TAKE 1 TABLET BY MOUTH AT BEDTIME NEEDED Oral Active hydrOXYzine HCl 25 MG TAKE 1 TABLET BY M OUTH TWICE A DAY Oral Active Pantoprazole Sodium 40 MG TAKE 1 TABLET BY MOUTH EVERY DAY FOR 90 DAYS Oral Activ e Docusate Sodium 100 MG Oral Active metFORMIN HCl 500 MG TAKE 1 TABLET BY MO UTH TWICE A DAY Oral Active Gabapentin 300 MG TAKE 1 CAPSULE BY MO UTH TWICE A DAY Oral Active Social History Sex Assigned At : Social History Observation Description Sex Assigned At Male Problems Problem Type SNOMED Code ICD Code Onset Dates Problem Status W/U Status Risk Notes Problem Pancytopenia (484640254) Pancytopenia (D61.818) Active confirmed His pancytopenia is mild. It is very likely due to mild splenomegaly. Records from [facility] document a history of portal hypertension and ascites and cirrhosis. An ultrasound has been done to measure the current spleen size. Observation without treatment is indicated. Problem 83641691 Secondary esophageal varices without bleeding (I85.10) Active confirmed Problem 86824859 Other cirrhosis of liver (K74.69) Active confirmed He has a known diagnosis of nonalcoholic cirrhosis which in the past has been complicated by portal hypertension and esophageal varices. Problem 46555878 Portal hypertension (K76.6) Active confirmed Problem 635653712 Environmental allergies (Z91.09) Active confirmed Problem 252303070 Right inguinal hernia (K40.90) Active confirmed This was repaired at [facility] in March 2023. It is currently asymptomatic. Problem 533486714 Type 2 diabetes mellitus without complication, without long-term current use of insulin (E11.9) Active confirmed His diabetes has been treated and seems to be stable. A current A1c is not available. Problem 467783876 Chronic GERD (K21.9) Active confirmed Problem 59908674 Polyp of colon, unspecified part of colon, unspecified type (K63.5) Active confirmed Problem 335380429 Stage 3 chronic kidney disease, unspecified whether stage 3a or 3b CKD (N18.30) Active confirmed His renal function has been stable and is under the care of primary care. Problem 514834742 Asymptomatic cholelithiasis (K80.20) Active confirmed Ultrasound of the abdomen to measure the spleen has been ordered which will also study the gallbladder. 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 Problem 17439525 Legally blind (H54.8) Active confirmed Vital Signs Heart Rate 90 /min 07/20/2024 Temperature 99.9 degrees Fahrenheit 07/20/2024 Blood pressure diastolic 87 mm Hg 07/20/2024 Height 5'6 in 07/20/2024 Blood pressure systolic 143 mm Hg 07/20/2024 Weight 154 lbs 07/20/2024 BMI 24.85 kg/m2 07/20/2024 Encounters Encounter Location Date Provider Diagnosis Po Medeiros III, MD [address] [place] [address] [facility] [place] [address] 07/20/2024 Po Medeiros Pancytopenia D61.818 ; Splenomegaly [...] Treat ment Notes Treatment Clinical Notes 07/20/2024 Splenomegaly (ICD-10 - R16.1) An ultrasound of the abdomen to measure the size of the spleen to evaluate the pancytopenia for hypersplenism has been ordered. 07/20/2024 Pancytopenia (ICD-10 - D61.818) His pancytopenia is mild. It is very likely due to mild splenomegaly. Records from [facility] document a history of portal hypertension and ascites and cirrhosis. An ultrasound has been done to measure the current spleen size. Observation without treatment is indicated. 07/20/2024 Mucormycosis (ICD-10 - B46.5) The osteomyelitis [...] (ICD-10 - K40.90) This was repaired at [facility] in March 2023. It is currently asymptomatic. Plan Of Treatment Pending Test Test Name Order Date US ABD 07/20/2024 Insurance Providers Payer Name Payer Address Payer Phone Subscriber Number Group Number Insured Name Patient Relationship to Insured Coverage Start Date Coverage End Date [employer] [address] [address] [place] [address] [id number] SAAD MEEKS Self - patient is the insured MEDICAID [address] [place], [place] [id number] [phone] [id number] ISAURO, SAAD Self - patient is the insured Medical (General) History Medical History History ICD Code Pancytopenia D61.818 mucor osteomyelitis right maxilla 2022 Hepatic cirrhosis secondary to steatosis Portal hypertension 2022 [facility] Esophageal varices 2022 [facility] NIDDM CKD Allergies Colonic polyps 2020 Cholelithiasis 2022 [facility] Peripheral neuropathy ED Legally blind Cholelithiasis Splenomegaly 12.6 cm June 2024 Right inguinal hernia, repair March 2023 [facility] Surgical History Surgery Date(Month/Year) Right inguinal herniorrhaphy 2022 Colonoscopy positive for polyps 2020 Right maxillary biopsy 2022 Herniorrhaphy 2022 Back surgery 2019 Hospitalization History Reason Date(Month/Year) The patient was hospitalized for eight months due to Mucor osteomyelitis of the right maxilla
--- OUTSIDE RECORDS SUMMARY | 2024-12-09 13:39 | XMS_ITS ---
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 Problem 39521687 Other cirrhosis of liver (K74.69) Active confirmed He has a known diagnosis of nonalcoholic cirrhosis which in the past has been complicated by portal hypertension and esophageal varices. Problem 25573785 Portal hypertension (K76.6) Active confirmed Problem 77914406 Secondary esophageal varices without bleeding (I85.10) Active confirmed Problem 555064902 Type 2 diabetes mellitus without complication, without long-term current use of insulin (E11.9) Active confirmed His diabetes has been treated and seems to be stable. A current A1c is not available. Problem 498485579 Stage 3 chronic kidney disease, unspecified whether stage 3a or 3b CKD (N18.30) Active confirmed His renal function has been stable and is under the care of primary care. Problem 738169264 Asymptomatic cholelithiasis (K80.20) Active confirmed Ultrasound of the abdomen to measure the spleen has been ordered which will also study the gallbladder. Problem 651304708 Chronic GERD (K21.9) Active confirmed Problem 81300842 Legally blind (H54.8) Active confirmed Problem 222194221 Environmental allergies (Z91.09) Active confirmed Problem 92974401 Polyp of colon, unspecified part of colon, unspecified type (K63.5) Active confirmed Problem 022338651 Right inguinal hernia (K40.90) Active confirmed This was repaired at [facility] in March 2023. It is currently asymptomatic. Vital Signs Temperature 99.9 degrees Fahrenheit 07/20/20 24 Blood pressure systolic 143 mm Hg 07/20/20 24 Blood pressure diastolic 87 mm Hg 024 Heart Rate 90 /min 07/20/2024 Height 5'6 in 07/20/2024 Weight 154 lbs 07/20/2024 BMI 24.85 kg/m2 07/20/2024 Encounters Encounter Location Date Provider Diagnosis Po Medeiros III, MD [address] [place] [address] [place] [address] 07/20/2024 Po Medeiros Pancytopenia D61.818 ; Splenomegaly [...] likely due to mild splenomegaly. Records from [facility] document a history of portal hypertension [...] (ICD-10 - K40.90) This was repaired at [facility] in March 2023. It is currently [...] Notes * ALTAF MEEKSOB:1970 (53 yo M)Acc No.[id number]:07/20/2024 Progress Notes Patient:?TYLER MEEKS Provider:?Po Medeiros MD :1970???Age:53 Y???Sex:Male Nick e:07/20/2024 Address:[address] [place] [id number] Pcp:Jb Stewart MD Subjective: * Chief Complaints: * ???Pancytopenia * HPI: ???COVID-19 Screening:?Questions?Have you experienced fever, chills, cough, sore throat, shortness of breath, difficulty breathing, muscle aches, loss of taste or smell??No ?Have you been exposed to the virus within the last 10 days??No ?Have you travelled internationally in the last 10 days??No ?Have you been exposed to COVID-19 in the past??Yes ???:?The patient, a 53-year-old male, presented with a [...] disease. He is referred for evaluation of pancytopenia.? Review of old records shows that in 2022 he was found to have portal hypertension and ascites.? No mention is made of spleen size.? He has known hepatic cirrhosis from nonalcoholic causes primarily steatosis.? He has known esophageal varices.? Old records contain mention of cholelithiasis.? 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 That infection is now resolved.? He has had no recent major infections or bleeding episodes. A CBC done July 06, 2024 showed white count 4.4 with a normal differential, hematocrit 33.9, mean cell volume 100.3, platelets 100,000. * ROS:?General/Constitutional:?Admits?pain,?only normal aches and pains.?Chills?denies.?Fatigue?admits.?Fever?denies.?ENT:?Decreased hearing?denies.?Respiratory:?Cough?denies.?Cardiovascular:?Chest pain with exertion?denies.?Dyspnea on exertion?denies.?Shortness of breath?denies.?Gastrointestinal:?Constipation?occasional.?Decreased appetite?denies.?Diarrhea?denies.?Heartburn?occasional.?Nausea?denies.?Rectal bleeding?denies.?Vomiting?denies.?Hematology:?bruising?denies.?petechiae?denies.?Swollen glands?none have been noted.?Genitourinary:?Frequent urination?once a night.?Musculoskeletal:?Muscle aches?denies.?Painful joints?denies.?Sciatica?denies.?Weakness?denies.?Skin:?Itching?denies.?Rash?denies.?Skin lesion(s)?denies.?Neurologic:?Difficulty speaking?denies.?Dizziness?denies.?Headache?denies.?Low back pain?denies.?Psychiatric:?Depressed mood?denies.? * Medical History:? * Surgical History:?Back surge ry 2019Herniorrhaphy 2022Right maxillary biopsy olonoscopy positive for polyps ight inguinal herniorrhaphy 2022 * Hospitalization/Major Diagno stic Procedure:?The patient was hospitalized for eight months due to Mucor osteomyelitis of the right maxilla * Family History:?1 daughter(s ) . .?Non-Contributory.? He is not aware of any family history of mental illness or substance abuse or addiction. * Social History:?Tobacco Use:?Tobacco Use/Smoking?.?The patient reported that he has never smoked or drank alcohol in his life. He is a practicing Caodaism.? His born in [place] about [place].? His jackson language is Estonian. * Medications:?TakingCyclobenz aprine HCl 10 MG Tablet TAKE 1 TABLET [...] reviewed and reconciled with the patient * Allergies:?No Known Drug All ergyno[Allergies Verified] Objective: * Vitals:?Ht: 5'6 , Wt: 154, B IN:24.85, BP: 143/87, HR: 90, Temp: 99.9, Ht-cm: 167.64, Wt-k.85. * Examination: ???General Examination: ?GENERAL APPEARANCE:?pleasant, well nourished, well developed, in no acute distress, calm and relaxed, man.?HEAD:?atraumatic, normocephalic.?EYES:?eomi, perrla, anicteric, conjugate.?EARS:?normal.?NOSE:?septum intact.?ORAL CAVITY:?Edentulous maxilla.?NECK/THYROID:?no jugular venous distention, no carotid bruit, thyroid normal.?LYMPH NODES:?no enlarged lymph nodes,spleen Not palpable.?SKIN:?no suspicious lesions, anicteric.?HEART:?no clicks, gallops, murmurs, or rubs, regular rhythm, S1, S2 normal, no s3, or vascular bruits.?LUNGS:?clear to auscultation .?BREASTS:??no masses palpable bilaterally.?ABDOMEN:?no ascites, no guarding or rigidity, Herniorrhaphy scar right groin,, soft, nontender, nondistended, no rebound tenderness, Liver edge palpable spleen not palpable.?RECTAL EXAM:?not examined.?MUSCULOSKELETAL:?extremities unremarkable, no clubbing, cyanosis or edema.?PERIPHERAL PULSES:?normal.?NEUROLOGIC:?alert and oriented, cranial nerves 2-12 grossly intact, deep tendon reflexes 2+ symmetrical, motor strength normal upper and lower extremities, sensory exam intact.?PSYCH:?alert, oriented, cognitive function intact, cooperative with exam, good eye contact, mood/affect full range, speech clear, thought process logical, goal directed.? : ???Eardrum:Looks good, Mouth: Denture fits OK, Skin: Looks good, Lungs: Normal, Spleen: Normal. ??? Assessment: * Assessment: 1.?Pancytopenia - D61.818 (P rimary)???Notes :His pancytopenia is mild.? It is very likely due to mild splenomegaly.? Records from [facility] document a history of portal hypertension and ascites and cirrhosis.? An ultrasound has been done to measure the current spleen size.? Observation without treatment is indicated.???2.?Splenomegaly - R16.1???Notes :An ultrasound of the abdomen to measure the size of the spleen to evaluate the pancytopenia for hypersplenism has been ordered.???3.?Mucormycosis - B46.5???Notes :The osteomyelitis of the right jaw has resolved and is no longer an active problem.???4.?Other cirrhosis of liver - K74.69???Notes :He has a known diagnosis of nonalcoholic cirrhosis which in the past has been complicated by portal hypertension and esophageal varices.???5.?Type 2 diabetes mellitus without complication, without long-term current use of insulin - E11.9???Notes :His diabetes has been treated and seems to be stable.? A current A1c is not available.???6.?Stage 3 chronic kidney disease, unspecified whether stage 3a or 3b CKD - N18.30???Notes :His renal function has been stable and is under the care of primary care.???7.?Asymptomatic cholelithiasis - K80.20???Notes :Ultrasound of the abdomen to measure the spleen has been ordered which will also study the gallbladder.???8.?Right inguinal hernia - K40.90???Notes :This was repaired at [facility] in March 2023.? It is currently asymptomatic.??? Plan: * Treatment: 2.?Splenomegaly?Imaging: US ABD * Procedure Codes:? * Preventive Medicine:? ??DM Care Plan:?Patient Lifestyle Goals?Patient wants to be able to manage diabetes without too much effort.?Treatment Goals?HbA1C < 7.0, Blood Sugars less than < 115.?Barriers?no barriers.?Self-Managment Goals?Stop drinking juice and/or soda, replace with more water.? * Follow Up:?To be scheduled ( Reason: To discuss ultrasound results) * Images: * Sign off status: Completed true * Provider:?Po Medeiros MD Date:?06/30 Generated for Latai reg/Dashawn/eTransmitting on:?12/09/2024 01:38 PM EDT History and Physical Notes * HPI (History of Present Illness) Category Sub-Category Detail Notes COVID-19 Screening Questions Have you had any new onset fever, chills, cough, congestion, sore throat, shortness of breath, muscle aches?: No Have you been exposed to the virus withi n the last 10 days?: No Have you travelled internationally in [facility] last 10 days?: No Have you been [...]
--- OUTSIDE RECORDS SUMMARY | 2024-12-09 13:39 | XMS_ITS ---
Author Name [facility] Unknown History of Medication Use Medication Directions Dispensed Refills Start Date End Date Stat loratadine (CLARITIN) 10 MG tablet Take 1 tablet (10 mg total) by mouth daily. 09/26/2022 3 active Protonix TBEC Protonix TBEC Refills: 0Active completed PANTOprazole (PROTONIX) 40 MG EC tablet Take 1 tablet (40 mg total) by mouth daily. 09/26/2022 3 active furosemide (LASIX) 20 MG tablet 3 tablets (60 mg total) by G Tube route daily. 01/07/2023 3 active furosemide (LASIX) 40 MG tablet Take 1 tablet (40 mg total) by mouth daily. Do not start before December 20, 2022. 12/20/2022 3 active Alcohol Swabs 70 % Pads Use as directed 4 times a day before blood sugar checks 09/26/2022 active famotidine (PEPCID) 20 MG tablet 1 tablet (20 mg total) by G Tube route daily. Do not start before January 07, 2023. 01/07/2023 3 active magnesium oxide 400 (240 Mg) MG Tab tablet 1 tablet (400 mg total) by G Tube route daily. Take 2 hours apart from other medications; take with food Do not start before December 23, 2022. 12/23/2022 3 active acetaminophen (TYLENOL) 325 MG tablet Take 1 tablet (325 mg total) by mouth 4 times daily (every 6 hours) as needed for mild pain, headaches or fever. 10/31/2022 3 active posaconazole (NOXAFIL) 100 MG delayed release tablet Take 3 tablets (300 mg total) by mouth daily. Do not start before November 10, 2022. 10/31/2022 3 suspended acetaminophen (TYLENOL) 160 mg/5 mL solution 20.3125 mL (650 mg total) by G Tube route 4 times daily (every 6 hours) as needed for moderate pain, mild pain, headaches or fever. 01/06/2023 3 active simethicone (MYLICON) 80 MG chewable tablet 1 tablet (80 mg total) by G Tube route 4 times daily (every 6 hours) as needed for flatulence. 09/26/2022 3 active saliva substitute (MOUTH KOTE/BIOTENE) Solution Apply 3 sprays to the mouth or throat every 15 (fifteen) minutes as needed (dry mouth). 12/20/2022 3 active ursodiol (ACTIGALL) 300 MG capsule 1 capsule (300 mg total) by G Tube route 2 (two) times a day. 01/06/2023 3 active spironolactone (ALDACTONE) 100 MG tablet Take 1 tablet (100 mg total) by mouth every morning with breakfast. Do not start before December 20, 2022. 12/20/2022 3 active calcium carbonate (TUMS) 500 MG chewable tablet Chew 2 tablets (1,000 mg total) 2 times daily (every 12 hours) as needed for indigestion or heartburn. 09/26/2022 3 active amoxicillin-clavulana te (AUGMENTIN) 875-125 MG per tablet Take 1 tablet by mouth every 12 (twelve) hours around the clock. 09/04/2022 3 active multivitamin with minerals Tab tablet 1 tablet by G Tube route nightly. 09/26/2022 3 active metFORMIN (GLUCOPHAGE) 500 MG tablet Take 1 tablet (500 mg total) by mouth 2 (two) times a day. 09/04/2022 3 active folic acid (FOLVITE) 1 MG tablet 1 tablet (1 mg total) by G Tube route nightly. 11/01/2022 3 active isavuconazonium sulfate (Cresemba) 186 MG capsule 372 mg po Q8hr x 6 doses, then 372 mg po daily x 6 weeks Do not start before September 27, 2022. 09/27/2022 active chlorhexidine (PERIDEX) 0.12 % oral solution Apply 15 mL to the mouth or throat 2 (two) times a day. 09/04/2022 3 active Problems Problem Status Onset Date Problem Type Date of Resoluti on Source Low back pain active 2020-08-03 ProblemAct [facility] Osteomyelitis of jaw active 2022-09-01 ProblemAct [facility] Mucormycosis rhinosinusitis active 2022-09-14 ProblemAct [facility] Hyponatremia active 2022-09-02 ProblemAct [facility] Fluid overload active 2023-01-[address] [facility] Encounter for assessment of ascites active 2023-01-28 ProblemAct [facility] Type 2 diabetes mellitus, without long-term current use of insulin active 2022-09-02 ProblemAct [facility] Metabolic acidosis active 2022-12-02 ProblemAct [facility] Gilbert's syndrome active 2022-11-30 ProblemAct [facility] Severe protein-calorie malnutrition active 2022-11-10 ProblemAct [facility] Difficult intubation active 2020-10-05 ProblemAct [facility] Hyperkalemia active 2022-12-29 ProblemAct [facility] Invasive fungal sinusitis active 2022-11-30 ProblemAct [facility] Lumbar radiculopathy active 2020-08-03 ProblemAct [facility] Cholelithiasis active 2022-11-[address] [facility] 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 active 2020-08-03 ProblemAct [facility] Liver cirrhosis active 2022-10-28 ProblemAct [facility] GERD (gastroesophageal reflux disease) active 2022-09-20 ProblemAct [facility] Osteomyelitis active 2022-09-13 ProblemAct 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, without long-term current use of insulin active 2022-10-07 ProblemAct [facility] BPH (benign prostatic hyperplasia) active 2022-11-30 ProblemAct [facility] Encounters Encounter Type Encounter Reason Primary Diagnosis Location Date Ambulatory Mucormycosis, unspecified Mucormycosis, unspecified [facility] 08/04/2023 Ambulatory Mucormycosis, unspecified [facility] 03/17/2023 Ambulatory Mucormycosis, unspecified [facility] 03/03/2023 Ambulatory Mucormycosis, unspecified [facility] 02/27/2023 Ambulatory Mucormycosis, unspecified [facility] 02/26/2023 Ambulatory Mucormycosis, unspecified [facility] 02/25/2023 Emergency Displacement of other gastrointestinal prosthetic devices, implants and grafts, initial encounter [facility] 02/24/2023 Ambulatory Mucormycosis, unspecified [facility] 02/21/2023 Ambulatory Mucormycosis, unspecified [facility] 02/20/2023 Ambulatory Mucormycosis, unspecified [facility] 02/14/2023 Inpatient Other ascites [facility] 01/27/2023 Inpatient Shortness of breath [facility] 01/12/2023 Ambulatory Mucormycosis, unspecified [facility] 01/10/2023 Inpatient Hyperkalemia [facility] 12/28/2022 Ambulatory Mucormycosis, unspecified [facility] 12/24/2022 Inpatient Osteomyelitis, unspecified [facility] 11/07/2022 Inpatient Unspecified abdo madeleine pain [facility] 10/28/2022 Ambulatory Mucormycosis, unspecified [facility] 10/07/2022 Ambulatory [facility] 09/16/2022 Inpatient Mucormycosis, unspecified [facility] 09/13/2022 Inpatient Osteomyelitis, unspecified [facility] 09/01/2022 Care Team Organization Name Specialty Phone Email Start Date End Da te [facility] J[facility] THOMPSON [facility] 10/07/2022 [facility] 10/03/2022 10/03/2022 [facility] Jorge Luis Dorsey [facility] 09/16/2022 06/03/2024 [facility] Thompson [facility] 09/01/2022 11/18/19 [facility] 09/01/2022
--- OUTSIDE RECORDS SUMMARY | 2024-12-09 13:39 | XMS_ITS | Patient Health Record ---
Author Organization [facility] Address [address] [place] [address] Care Team Providers Care Gis Database Administrator Name Role Phone Jb Stewart MD Primary Care Provider Po Pacheco [phone] Allergies No Known Allergies Reason For Referral No Information Medications Medication SIG (Take, Route, Frequency, Duration) Notes Start Date End Date Status GaviLAX 17 GM/SCOOP Oral for 30 Active Eliquis 5 MG Oral for 30 Activ e Alcohol Swabs - as directed Ac tive Bisacodyl 10 MG Rectal for 30 Active Calcium Carbonate 1250 (500 Ca) MG 1 tablet with food Orally Twice a day for 30 day(s) Active Vitamin D (Ergocalciferol) 50 MCG (2000 UT) Oral for 30 Active Thiamine HCl 100 MG Oral for 30 Active Loratadine 10 MG 1 tablet Orally Once a day for 30 day(s) Active Minocycline HCl 100 MG 1 capsule Orally Once a day for 10 day(s) Active Pantoprazole Sodium 40 MG Oral for 90 Active Multi Vitamin - 1 tablet Orally Once a day for 30 day(s) Active metFORMIN HCl 500 MG Oral for 90 Not-Taking Simethicone 80 MG 1 tablet after meals and at bedtime as needed Orally Four times a day Active Ursodiol 300 MG Oral for 30 Ac tive Sodium Chloride 6 % as directed Inhalation Active Thera M Plus - TAKE 1 TABLET BY G TUBE ROUTE NIGHTLY. Oral for 30 Active traMADol HCl 50 MG 1 tablet as needed Orally Once a day Active Furosemide 20 MG 3 TABLETS BY G TUBE ROUTE DAILY Oral for 30 Active Chlorhexidine Gluconate 0.12 % as directed Mouth/Throat Active Cresemba 186 MG Oral for 30 Ac tive Acetaminophen 325 MG 1 tablet as needed Orally every 4 hrs Active Ciprofloxacin HCl 500 MG Oral for 30 Active Famotidine 20 MG Oral for 30 A ctive Immunizations Vaccine Route Administration Date Status Comme nts Influenza Unknown 02/11/2023 Refused Social History Tobacco Use: Social History Observation Description Date Details (start date - stop date) Never Smoker NA - NA Tobacco Use/Smoking Question Answer Notes Patient is a nonsmoker Alcohol Screen Question Answer Notes Did you have a drink containing alcohol in the p ast year? No Points 0 Interpretation Negative Section Notes: Nonsmoker; no alcohol Problems Problem Type SNOMED Code ICD Code Onset Dates Problem Status W/U Status Risk Notes Problem Unspecified cirrhosis of liver (K74.60) Active confirmed Problem 619855599 Attention to G-tube (Z43.1) Active confirmed Plan Of Treatment Pending Test Test Name Order Date CHEM 7 PROFILE 02/11/2023 LIVER PROFILE 02/11/2023 CBC w DIFF 02/11/2023 PROTHROMBIN TIME (PT, INR) 02/11/2023 Future Test Test Name Order Date UPPER GI ENDOSCOPY 02/11/2023 Insurance Providers Payer Name Payer Address Payer Phone Subscriber Number Group Number Insured Name Patient Relationship to Insured Coverage Start Date Coverage End Date [facility] [address] [address] [place], [place] [phone] [id number] [employer] Self - patient is the insured Medical (General) History Medical History History ICD Code Diet-controlled DM Cirrhosis. The patient descr ibes a diagnosis of fatty liver with cirrhosis on that basis. He describes a previous liver biopsy. He has had issues with ascites and underwent a large-volume paracentesis as recently as 02/06/2023. He is followed by Dr. Aldo Aguilar at [facility]. He does not have a local GI MD nor Glove Cutter. DVT in RLE Denies GA,Lung disease,renal disease 2022---Fungal(Mucor) infecti on in right jaw--treated with surgical and medical therapy at [facility]--during his treatments he required placement of a PEG for nutritional support as he could not eat adequately. 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 This was done at [facility]. 2022 Hernia left inguinal Hemorrhoids-Dr. Bal.
--- OUTSIDE RECORDS SUMMARY | 2024-12-09 13:39 | XMS_ITS | Data Portability ---
Author Organization [place] [facility], Allergy Address [address] [place] [id number] Care Team Providers Care Blood Bank Assistant Name Role Phone ANTONIO THOMPSON Referring Provider Assessment No assessment recorded. Plan of Treatment Reminders Order Date Submit Date Provider Last Modified By Organization Details Last Modified Time Details Appointments Establish ed 30 2024 02:00P M BYRON Corea MD Not available Not available Not available Lab None recorded. Referral None recorded. Procedures None recorded. Surgeries None recorded. Imaging MRI, sinuses, w/ contrast - urgent. hx of invasive fungal sinusitis s/p surgery (not recent), with new symptoms. Please evaluate for invasive fungal sinusitis 2024 025 [facility], [address] [place] [address], [id number], 11/04/2024 12:44:06 Medication Orders None recorded. Patient TargetsNo targets recorded. Patient InstructionsNo instructions recorded. Reason for Referral None Reported. Results Created Date Observation Date Name Description Value Unit Range Abnormal Flag Note LastModifiedBy Organization Detail LastModifiedTime 11/04/19 25 11/02/2024 MRI, sinus es, w/ contr ast No observ ation record ed. [facility] [address] [place] [address] [place], [address], 11/04/2024 13:54:21 11/10/19 25 MRI, sinus es, w/ contr ast No observ ation record ed. [email or web address] [facility] [address] [place] [address], [id number], 11/10/2024 08:11:00 11/10/19 MRI, sinus es, w/ contr ast No observ ation record ed. [facility] [address] [facility], [place], [address], 11/11/2024 10:06:42 11/10/19 25 11/02/2024 MRI, brain , w/wo contr ast No observ ation record ed. [email or web address] Not Available 10/30 11:17:07 Result Notes None recorded. 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 Procedures Surgical History Date Name Laterality Status Provider Name and Address Organization Details Recorded Time 11/01/2024 NasalEndos copy_DP completed BYRON KEE MD [address] [place] [address], [place], [address], [facility] 11/01/2024 11:12:53 04/23/2024 NasalEndos copy_DP completed BYRON KEE MD [address] [place] [address], [place], [address], [place] [facility] 04/23/2024 10:17:48 Imaging Results Imaging Date Name Status LastModified by Organiz ation Details LastModified Time 11/02/2024 MRI, sinuses, w/ contrast completed [email or web address] [address] [place] [address] [place], [address], 11/04/2024 13:54:21 11/10/2024 MRI, sinuses, w/ contrast completed [email or web address] [address] [place] [address], [address], 11/10/2024 08:11:00 11/10/2024 MRI, sinuses, w/ contrast completed [email or web address] [address] [place] [address], [id number], 11/11/2024 10:06:42 11/02/2024 MRI, brain, w/wo contrast completed [email or web address] Information not available 11/10/2024 11:17:07 Procedure Notes None recorded. Medical Equipment None Reported. Medications Name Sig Start Date Stop Date Status Note LastModified by Organization Details LastModified Time multivitam in tablet TAKE 1 TABLET BY MOUTH EVERY DAY active Not Available Not Available No t Available cyclobenza venancio 10 mg tablet TAKE 1 TABLET BY MOUTH AT BEDTIME NEEDED active Not Available Not Available No t Available amoxicilli n 500 mg capsule TAKE 1 CAPSULE BY MOUTH 3 TIMES A DAY active Not Available Not Available No t Available metformin 500 mg tablet TAKE 1 TABLET BY MOUTH TWICE A DAY active Not Available Not Available No t Available nystatin 100,000 unit/mL oral suspension TAKE 15 ML BY MOUTH SWISH AND SWALLOW FOUR TIMES A DAY active Not Available Not Available No t Available acetaminop hen 325 mg tablet active Medicatio n ID: [id number] Br and Name: acetamino phen Send Method: E-Prescri bed Subs Allowed: subs OK Medica tionGener icName: acetamino phen Not Available Not Available Not Available loperamide 2 mg capsule active Medicatio n ID: [id number] Br and Name: loperamid e Send Method: E-Prescri bed Subs Allowed: subs OK Medica tionGener icName: loperamid e Not Available Not Available Not Available Lidocaine Viscous 2 % mucosal solution TAKE 1/2 TABLESPOO NFUL MIX WITH 3 OZ OF WATER GARGLE AND SPIT EVERY 2 HOURS NEEDED active Not Available Not Available No t Available senna 8.6 mg tablet TAKE 2 TABLETS BY MOUTH ONCE A DAY AT BEDTIME NEEDED FOR CONSTIPAT ION active Not Available Not Available No t Available sucralfate 1 gram tablet TAKE 1 TABLET BY MOUTH THREE TIMES A DAY NEEDED OK TO CRUSH AND USE WITH ICE CHIPS active Not Available Not Available No t Available FreeStyle Lancets 28 gauge TEST BLOOD GLUCOSE 2 TIMES DAILY OR INSTRUCTE D. active Not Available Not Available No t Available ondansetro n HCl 4 mg tablet active Medicatio n ID: [id number] Br and Name: ondansetr on HCl Send Method: E-Prescri bed Subs Allowed: subs OK [facility] ic[facility]: ondansetr on HCl Not Available Not Available Not Available cyanocobal rubio (vit B-12) 1,000 mcg tablet active Medicatio n ID: [id number] Br and Name: cyanocoba sudarshan (vitamin B-12) Sen d Method: E-Prescri bed Subs Allowed: subs OK Medica tionGener icName: cyanocoba sudarshan (vitamin B-12) Not Available Not Available Not Available thiamine HCl (vitamin B1) 100 mg tablet active Medicatio n ID: [id number] Br and Name: thiamine HCl (vitamin B1) Send Method: E-Prescri bed Subs Allowed: subs OK Medica tionGener icName: thiamine HCl (vitamin B1) Not Available Not Available Not Available ciprofloxa jolanta 500 mg tablet active Medicatio n ID: [id number] Br and Name: ciproflox acin HCl Send Method: E-Prescri bed Subs Allowed: subs OK Medica tionGener icName: ciproflox acin HCl Not Available Not Available Not Available sildenafil 100 mg tablet TAKE 1 TABLET(S) BY MOUTH NEEDED active Not Available Not Available No t Available carvedilol 3.125 mg tablet TAKE 1 TABLET BY MOUTH TWICE A DAY WITH MEALS active Not Available Not Available No t Available famotidine 20 mg tablet active Medicatio n ID: [id number] Br and Name: famotidin e Send Method: E-Prescri bed Subs Allowed: subs [place] [facility] famotidin e Not Available Not Available Not Available magnesium oxide 400 mg (241.3 mg magnesium) tablet active Medicatio n ID: [id number] Br and Name: magnesium oxide Sen d Method: E-Prescri bed Subs Allowed: subs OK [facility] icName: magnesium oxide Not Available Not Available Not Available sodium bicarbonat e 650 mg tablet TAKE 1 TABLET (650 MG TOTAL) BY MOUTH 3 (THREE) TIMES A DAY active Not Available Not Available No t Available pantoprazo le 40 mg tablet,del ayed release TAKE 1 TABLET BY MOUTH EVERY DAY FOR 90 DAYS active Not Available Not Available No t Available ursodiol 300 mg capsule active Medicatio n ID: [id number] Br and Name: ursodiol Send Method: E-Prescri bed Subs Allowed: subs OK [facility] icName: ursodiol Not Available Not Available Not Available docusate sodium 100 mg capsule TAKE 1 CAPSULE BY MOUTH TWICE A DAY NEEDED FOR CONSTIPAT ION active Not Available Not Available No t Available gabapentin 300 mg capsule TAKE 1 CAPSULE BY MOUTH TWICE A DAY active Not Available Not Available No t Available Banophen 25 mg capsule active Medicatio n ID: [id number] Br and Name: Banophen Send Method: E-Prescri bed Subs Allowed: subs OK [facility] icName: Banophen Not Available Not Available Not Available folic acid 1 mg tablet active Medicatio n ID: [id number] Br and Name: folic acid Send Method: E-Prescri bed Subs Allowed: subs OK [facility] icName: folic acid Not Available Not Available Not Available hydroxyzin e HCl 25 mg tablet TAKE 1 TABLET BY MOUTH TWICE A DAY active Not Available Not Available No t Available alcohol swabs active Medicatio n ID: [id number] Br and Name: alcohol swabs Sen d Method: E-Prescri bed Subs Allowed: subs OK [facility] icName: alcohol swabs Not Available Not Available Not Available furosemide 20 mg tablet TAKE 1 TABLET BY MOUTH EVERY DAY active Not Available Not Available No t Available spironolac tone 50 mg tablet TAKE 1 TABLET BY MOUTH EVERY DAY active Not Available Not Available No t Available Lotemax 0.5 % eye drops,susp ension INSTILL 1 DROP INTO BOTH EYES 3 TIMES A DAY active Not Available Not Available No t Available Senna Plus 8.6 mg-50 mg tablet active Medicatio n ID: [id number] Br and Name: Senna Plus Send Method: E-Prescri bed Subs Allowed: subs OK Medica tionGener icName: Senna Plus Not Available Not Available Not Available cholestyra mine (with sugar) 4 gram powder for susp in a packet TAKE 1 PACKET BY MOUTH 2 TIMES A DAY. active Not Available Not Available No t Available metoprolol tartrate 25 mg tablet TAKE 1 TABLET BY MOUTH TWICE A DAY active Not Available Not Available No t Available FreeStyle Lite Strips USE 1 EACH 4 TIMES A DAY BEFORE MEALS AND AT NIGHTLY active Not Available Not Available No t Available FreeStyle [place] Lite kit USE DIRECTED. active Not Available Not Available No t Available Gavilax 17 gram/dose oral powder active Medicatio n ID: [id number] Br and Name: Gavilax S end Method: E-Prescri bed Subs Allowed: subs OK Medica tionGener icName: Gavilax Not Available Not Available Not Available Purelax 17 gram oral powder packet active Medicatio n ID: [id number] Br and Name: Purelax S end Method: E-Prescri bed Subs Allowed: subs OK Medica tionGener icName: Purelax Not Available Not Available Not Available Eliquis 5 mg tablet active Medicatio n ID: [id number] Br and Name: Eliquis S end Method: E-Prescri bed Subs Allowed: subs OK Medica tionGener icName: Eliquis Not Available Not Available Not Available posaconazo le 100 mg tablet,del ayed release active Medicatio n ID: [id number] Br and Name: posaconaz ole Send Method: E-Prescri bed Subs Allowed: subs OK Medica tionGener icName: posaconaz ole Not Available Not Available Not Available Thera M Plus (ferrous fumarate) 9 mg iron-400 mcg tablet active Medicatio n ID: [id number] Br and Name: Thera M Plus (ferrous fumarat) Send Method: E-Prescri bed Subs Allowed: subs OK Medica tionGener icName: Thera M Plus (ferrous fumarat) Not Available Not Available Not Available Cresemba 186 mg capsule TAKE 2 CAPSULES (372 MG TOTAL) BY MOUTH DAILY. active Not Available Not Available No t Available ergocalcif israel (vitamin D2) 50 mcg (2,000 unit) capsule active Medicatio n ID: [id number] Br and Name: ergocalgayatri ferol (vitamin D2) Send Method: E-Prescri bed Subs Allowed: subs OK Medica tionGener icName: ergocalci ferol (vitamin D2) Not Available Not Available Not Available BD Fara 2nd Gen Pen Needle 32 gauge x 5/32 1 EACH BY MISCELLAN EOUS ROUTE NIGHTLY AT BEDTIME. active Not Available Not Available No t Available insulin glargine-y fgn (U-100) 100 unit/mL (3 mL) subcutaneo us pen INJECT 5 UNITS UNDER THE SKIN NIGHTLY AT BEDTIME. active Not Available Not Available No t Available glipizide 2.5 mg tablet TAKE 1 TAB BY MOUTH DAILY BEFORE BREAKFAST . active Not Available Not Available No t Available Vitals Date Recorded Body height Body mass index (BMI) Body weight Provider Name and Address Organization Details Last Updated DateTime 04/23/2024 167.64 cm 24.2 kg/m2 13233.86 g Casi Lauren [facility] 04/23/2024 09:56:40 Date Recorded Body height Body mass index (BMI) Body weight Provider Name and Address Organization Details Last Updated DateTime 11/01/2024 167.64 cm 24.2 kg/m2 64680.86 g Casi Lauren [facility] 11/01/2024 10:15:56 Social History None recorded. Functional Status None recorded. Mental Status None recorded. Family History Nothing Reported. Medical History No medical history recorded. Past Encounters Encounter ID Performer Location Encounter Start Date Encounter Closed Date Diagnosis/Indication Diagnosis SNOMED-CT Code Diagnosis ICD10 Code Diagnosis Note [id number] BYRON KEE MD [facility] on [address] [place] [address] 04/23/2024 09:45:08 04/23/2024 13:59:09 Invasive fungal sinusitis 580536970 B49 history of. No sign of invasive disease today. mucosa is normal. F/u 3 months for routine surveillan ce. 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 continue gabapentin Chronic pansinusitis 888 48550 J32.4 not present today [id number] BYRON KEE MD [facility] on [address] [place] [address] 11/01/2024 10:06:32 11/01/2024 11:10:52 Invasive fungal sinusitis 081814199 B49 history of. No sign of necrdosis today but mucosa is pale. Given his history I will try to obtain an urgent MRI to exclude invasive fungal disease. I will expedite and call him with results. If his symptoms worsen I told him to go to the ER. F/u 6 months for routine surveillan ce if MRI is negative. Atypical facial pain 713 05412 G50.1 not present today. continue gabapentin Chronic pansinusitis 888 15741 J32.4 not present today Health Concerns Section Related Observation LastModified by Organization Detai ls LastModified Time None Recorded Concern Status LastModified by Organization Details LastModified Time None Recorded Advance Directives Directive None Recorded Payers Encounter Date Sequence Insurance Name Policy Number Policy Rodriguez Covered Member ID Rodriguez Member ID Guarantor Name 04/23/2024 1 [employer] (MEDICAID HMO) [id number] Saad U Constantino [id number] Saad U Constantino 11/01/2024 1 [employer] (MEDICAID HMO) [id number] Saad U Constantino [id number] Saad U Constantino Notes Date Note Type Note Provider Name and Address Organization Details Recorded Time 04/23/2024 text/html sinus [id number] yo male here for f/u for invasive fungal infection of the sinus. Had 4 surgeries by OMFS and ENT including removal of part of jaw and part of sinus in [place]. OnCresemba. Hx of HBO with associated visual loss. Saw retina specialist in [place]. Nasal endo was reassuring after the last visit however given his pain I suggested urgent imaging. [place] [facility] and had an [place] (I don't have access to report) but he said there was no change and his pain was not related to sinusitis and subsequently since the last visit it has resolved. BYRON KEE MD [address] [facility],[place] [address], [place], [address], [place] [facility] 04/23/2024 10:20:10 11/01/2024 text/html sinus [id number] yo male here for f/u for invasive fungal infection of the sinus. Had 4 surgeries by OMFS and ENT including removal of part of jaw and part of sinus in [place]. He has stopped Cresemba. Hx of HBO with associated visual loss. He has felt some heaviness in his right cheek for the past 4 weeks but he denies pain. BYRON KEE MD [address] [facility],[place] [address], [place], [address], [place] [facility] 11/01/2024 11:15:44
== END 2024-12-09 11:37 | disposition home or self-care (01) ==
LOC: HO.HMCHD 10:45
PROVIDERS: PCP Internal Medicine; Visit Provider Internal Medicine
DX: E11.9 Type 2 diabetes mellitus without complications (principal); Z79.4 Long term (current) use of insulin; J01.00 Acute maxillary sinusitis, unspecified

== ENCOUNTER → 2024-12-09 10:45 | Outpatient (BNVA) | payer OTHER, SELFPAY | PROVIDERS: PCP Internal Medicine; Visit Provider Internal Medicine | DX: E11.9 Type 2 diabetes mellitus without complications (principal); J01.00 Acute maxillary sinusitis, unspecified; Z79.4 Long term (current) use of insulin | CPT/HCPCS: 96127; 99212 ==

== ENCOUNTER → 2025-02-15 13:44 | Outpatient (BNV) | payer OTHER, SELFPAY | PROVIDERS: PCP Internal Medicine; Referring Provider Internal Medicine; Visit Provider Internal Medicine Medical Oncology | DX: D61.818 Other pancytopenia (principal) | CPT/HCPCS: 99214 ==

== ENCOUNTER 2025-06-09 15:53 | Outpatient (AMB) | payer OTHER, SELFPAY ==
--- OUTSIDE RECORDS SUMMARY | 2024-07-20 10:15 | XMS_ITS ---
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 Problem 67272149 Other cirrhosis of liver (K74.69) Active confirmed He has a known diagnosis of nonalcoholic cirrhosis which in the past has been complicated by portal hypertension and esophageal varices. Problem 02677528 Portal hypertension (K76.6) Active confirmed Problem 42799611 Secondary esophageal varices without bleeding (I85.10) Active confirmed Problem 614662563 Type 2 diabetes mellitus without complication, without long-term current use of insulin (E11.9) Active confirmed His diabetes has been treated and seems to be stable. A current A1c is not available. Problem 487932316 Stage 3 chronic kidney disease, unspecified whether stage 3a or 3b CKD (N18.30) Active confirmed His renal function has been stable and is under the care of primary care. Problem 366888285 Asymptomatic cholelithiasis (K80.20) Active confirmed Ultrasound of the abdomen to measure the spleen has been ordered which will also study the gallbladder. Problem 103410783 Chronic GERD (K21.9) Active confirmed Problem 13947767 Legally blind (H54.8) Active confirmed Problem 172603917 Environmental allergies (Z91.09) Active confirmed Problem 74454869 Polyp of colon, unspecified part of colon, unspecified type (K63.5) Active confirmed Problem 132447150 Right inguinal hernia (K40.90) Active confirmed This was repaired at [facility] in March 2023. It is currently asymptomatic. Vital Signs Temperature 99.9 degrees Fahrenheit 07/20/20 24 Blood pressure systolic 143 mm Hg 07/20/20 24 Blood pressure diastolic 87 mm Hg 024 Heart Rate 90 /min 07/20/2024 Height 5'6 in 07/20/2024 Weight 154 lbs 07/20/2024 BMI 24.85 kg/m2 07/20/2024 Encounters Encounter Location Date Provider Diagnosis Po Medeiros III, MD [address] [place] [address] [place] [address] 07/20/2024 Po Medeiros Pancytopenia D61.818 ; Splenomegaly [...] likely due to mild splenomegaly. Records from [facility] document a history of portal hypertension and [...] (ICD-10 - K40.90) This was repaired at [facility] in March 2023. It is currently asymptomatic. Plan Of Treatment Medication Medication Name Sig Start Date Stop Date Notes Cyclobenzaprine HCl 10 MG TAKE 1 TABLET BY MOUTH AT BEDTIME NEEDED Oral Pantoprazole Sodium 40 MG TAKE 1 TABLET BY MOUTH EVERY DAY FOR 90 DAYS Oral Docusate Sodium 100 MG Oral metFORMIN HCl 500 MG TAKE 1 TABLET BY MO UT TWICE A DAY Oral Gabapentin 300 MG TAKE 1 CAPSULE BY MO UT TWICE A DAY Oral hydrOXYzine HCl 25 MG TAKE 1 TABLET BY M OUT TWICE A DAY Oral Pending Test Test Name Order Date US ABD 07/20/2024 Next Appt Details Follow Up: To be scheduled, Reason: To discuss ultrasound results Progress Notes * ALTAF MEEKSOB:1970 (53 yo M)Acc No.[id number]:07/20/2024 Progress Notes Patient: TYLER WHITE Provider: Anmol Medeiros MD :1970 A ge:53 Y S ex:Male Date:07/20/2024 Address:[address] [place] [phone] Pcp:Jb Stewart MD Subjective: * Chief Complaints: [...] in his life. He is a practicing [employer]. His born in [place] about [place]. His [place] language is Uzbek. * Medications: T akingCyclobenzaprine HCl 10 MG [...] likely due to mild splenomegaly. Records from [facility] document a history of portal hypertension and [...] K40.90 N otes :This was repaired at [facility] in March 2023. It is currently [...] Medeiros MD Date: 1 Generated for Printi ng/Fachristophg/eTransmitting on: 0 06/09/2025 06:50 PM EDT History and Physical Notes * HPI (History of Present Illness) Category Sub-Category Detail Notes COVID-19 Screening Questions Have you had any new onset fever, chills, cough, congestion, sore throat, shortness of breath, muscle aches?: No Have you been exposed to the virus withi n the last 10 days?: No Have you travelled internationally in [facility] last 10 days?: No Have you [...]
--- NOTE | 2025-06-09 15:54 | A.OFFPC_ITS ---
Vital Signs 06/09/25 16:01 Height 5 ft 10 in Weight 149 lb 8 oz BMI 21.4 BP 115/59 L Blood Pressure Location Rt brachial Position Sitting Respiration 16 Pulse 65 Pulse Source Pulse Oximeter Temp 97.7 F Temp Source Oral Pulse Oximetry (%) 99 Oxygen Delivery Method Room Air Intake Visit Reasons: CHAIM from [address] Intake Note: patient here for CHAIM from [address] Steam Press Operator Required: No Steam Press Operator Name: w/daughter Information Interpreted: non-clinical & clinical Accompanied by: Daughter Allergies No Known Allergies Allergy (Verified 06/09/25 15:57) Medication List - Last Reconciled 06/10/25 by Ailyn Coello MD alcohol swabs (Alcohol Prep Pads) pad topical DAILY benzonatate 200 mg PO TID blood sugar diagnostic (FreeStyle Lite Strips) As directed carvedilol 3.125 mg PO BID codeine-guaifenesin 10-100 mg/5 mL 5 mL PO Q6H PRN FreeStyle Elysia 3 Plus Sensor (blood-glucose sensor) every 15 days NS FreeStyle Elysia 3 Carmichael (blood-glucose,feed mill manager,cont) As directed NS furosemide 20 mg PO BID gabapentin 300 mg PO BEDTIME insulin glargine-yfgn 5 units subcut BEDTIME lancets (FreeStyle Lancets) As directed pen needle, diabetic (Fara 2nd Gen Pen Needle) As directed sitz bath As directed Tobacco use date assessed: 06/09/25 Dental Screening Dental Screen Date: 06/09/25 Did you have a dental visit in the last 12 months?: Yes Did you have a dental problem in the last 6 months where you did not have access to dental care?: No Was dental information given to patient?: Patient has dentist HPI HPI Comments History of Present Illness Details 54 y/o with pmh diabetes, h/o fungal sin usitis, liver cirrhosis presenting for follow up. He transferred from [place] but found todays drive too long so plans to transfer back Diabetes-IDDM followed by endocrine. He has maintained good control. He is legally blind and has difficulty checking his blood glucose. Requests CGM Liver cirrhosis-Follows with Dr Rod-approximately every six months. Recently seen in heme/onc for panyctopenia. He has a history of fungal sinusitis and has followed with ENT ROS see HPI PHYSICAL EXAM: GENERAL: Alert and oriented x 3. NAD EYES: EOMI. Anicteric. HENT: Moist mucous membranes. Frontal, maxillary sinus ttp, boggy nasal mucosa LUNGS: Clear to auscultation bilaterally. CARDIOVASCULAR: Regular rate and rhythm. No murmur. No JVD. ABDOMEN: Soft, non-tender +bs EXTREMITIES: No edema. Non-tender. SKIN: No rashes or lesions. Warm. NEUROLOGIC: No focal neurological deficits. CN II-XII grossly intact PSYCHIATRIC: Cooperative. Appropriate mood and affect [facility] Medical History (Updated 06/10/25 @ 13:11 by Ailyn Coello MD) Cirrhosis of liver Hilar enlargement Endobronchial mass H/O gastroesophageal reflux (GERD) Surgical History History of colonoscopy (~11/2020) History of right inguinal hernia repair (04/21/23) History of back surgery H/O excision of mass (03/24/15) Status post excision of lipoma (04/22/19) History of esophagogastroduodenoscopy (EGD) (02/13/12) H/O hemorrhoidectomy (02/13/12) H/O hernia repair (1999) Hx of tonsillectomy (1998) Family History Father No problems noted. Mother CVD (cardiovascular disease) Stroke Diabetes mellitus Brother Diabetes mellitus Sister Diabetes mellitus Social History Household Members: Spouse and Family Housing: House Are you a primary aged or disabled carer to a significant other at home: No Alcohol intake: never Patient Tobacco Use Status: Never used Tobacco e-Cigarette/Vaping Use: Never Used Second Hand Smoke Exposure: No service: No Current occupational status: disabled Current occupational exposures/hazards: No Cognitive needs: Yes (cane) Hearing needs: No Vision needs: Yes (legally blind) Questionnaire PHQ-9 Over the last 2 weeks, how often have you been bothered by any of the following problems? 1. Little interest or pleasure in doing things: not at all 2. Feeling down, depressed, or hopeless: not at all 3. Trouble falling or staying asleep, or sleeping too much: not at all 4. Feeling tired or having little energy: not at all 5. Poor appetite or overeating: not at all 6. Feeling bad about yourself - or that you are a failure or have let yourself or your family down: not at all 7. Trouble concentrating on things, such as reading the newspaper or watching television: not at all 8. Moving or speaking so slowly that other people could have noticed. Or the opposite - being so fidgety or restless that you have been moving around a lot more than usual: not at all 9. Thoughts that you would be better off or of hurting yourself in some way: not at all Total score: 0 Depression Screening Interpretation: Negative Depression Screening Done: Yes 00365 - PHQ-9 Billing: Yes Source: Developed by Drs. Po Call, Shanice Rojo, Sam Correa and colleagues, with an educational charity from [employer]. Thrive Questionnaire Date Thrive assessed: 06/09/25 I am a: Patient What is your living situation today?: I have a steady place to live Within the past 12 months, did the food you bought not last and you didn't have the money to get more?: Never true Within the past 12 months, did you worry whether your food would run out before you got money to buy more?: Never true Do you have trouble paying for medicines?: No Do you have trouble getting transportation to medical appointments?: No Do you have trouble paying your heating and electricity bill?: No Do you have trouble taking care of your child, family member or friend?: No Do you have trouble with day-to-day activities such as bathing, preparing meals, shopping, managing finances, etc.?: No Are you currently unemployed and looking for a job?: No Are you interested in more education?: No Please select the resources that you would like help with: None Currently or been in a relationship where the following occur: No concerns reported THRIVE Score: 0 AUDIT C Alcohol Use Questionnaire (AUDIT-C) 1. How often do you have a drink containing alcohol?: Never Total Score: 0 CHANTE-7 AMB Questionnaire CHANTE-7 Date CHANTE - 7 assessed: 06/09/25 Feeling nervous, anxious, or on edge: 0 = Not at all Not being able to stop or control worryin = Not at all Worrying too much about different things: 0 = Not at all Trouble relaxin = Not at all Being so restless that it is hard to sit still: 0 = Not at all Becoming easily annoyed or irritable: 0 = Not at all Feeling afraid as if something awful might happen: 0 = Not at all Total CHANTE-7 score (0-4 normal; 5-9 mild; 10-14 moderate; 15-21 severe): 0 Source: Developed by Drs. Po Call, Shanice Rojo, Sam Correa and colleagues, with an educational charity from [employer]. CHANTE-7 Assessment Billing CHANTE-7 Assessment Tool: CHANTE-7 Assessment 30106 Physical exam (Primary Care) Vital Signs: Last Vital Signs Temp 97.7 F 06/09/25 16:01 Pulse 65 06/09/25 16:01 Resp 16 06/09/25 16:01 BP 115/59 L 06/09/25 16:01 Pulse Ox 99 06/09/25 16:01 Oxygen Delivery Method Room Air 06/09/25 16:01 BMI result Body Mass Index 21.4 Tobacco/Smoking Status: Tobacco use Status Tobacco use date assessed 06/09/25 06/09/25 16:04 Patient Tobacco Use Status Never used Tobacco 06/09/25 15:56 e-Cigarette/Vaping Use Never Used 06/09/25 16:04 PHQ-9: PHQ-9 Score PHQ-9: Total score 0 06/09/25 16:11 Depression Screening Interpretation: Negative Thrive Assessment: Date of Thrive Assessment Date Thrive assessed 06/09/25 06/09/25 16:06 Currently or been in a relationship where the following occur: No concerns reported Coding Level of Care Code Est Pt Level 4 (19506) Diagnoses Insulin dependent type 2 diabetes mellitus E11.9; Z79.4 Pancytopenia D61.818 Additional Codes CHANTE-7 Assessment Billing - CHANTE-7 Assessment Tool: CHANTE-7 Assessment 37557 ([id number]) PHQ-9 - 60946 - PHQ-9 Billing: Yes ([id number]) Assessment & Plan Assessment & Plan (1) Insulin dependent type 2 diabetes mellitus: Code(s): E11.9 - Type 2 diabetes mellitus without complications; Z79.4 - ocean transportation intermediary (current) use of insulin Category: Medical (2) Pancytopenia: Code(s): D61.818 - Other pancytopenia Category: Medical Plan DM-continue endocrine follow up. he has been well controlled Liver cirrhosis-patient continues GI follow up Labs ordered Patient would like to return to [place] office this is far from him home Orders: Orders Lipid Panel 06/09/25 D61.818 - Other pancytopenia, E11.9 - Type 2 diabetes mellitus without complications, R53.83 - Other fatigue, R68.89 - Other general symptoms and signs, Z79.4 - prison (current) use of insulin Complete Blood Count Auto Diff 06/09/25 D61.818 - Other pancytopenia, E11.9 - Type 2 diabetes mellitus without complications, R53.83 - Other fatigue, R68.89 - Other general symptoms and signs, Z79.4 - prison (current) use of insulin Comprehensive Met. Panel 06/09/25 D61.818 - Other pancytopenia, E11.9 - Type 2 diabetes mellitus without complications, R53.83 - Other fatigue, R68.89 - Other general symptoms and signs, Z79.4 - ocean transportation intermediary (current) use of insulin IRON PROFILE 06/09/25 D61.818 - Other pancytopenia, E11.9 - Type 2 diabetes mellitus without complications, R53.83 - Other fatigue, R68.89 - Other general symptoms and signs, Z79.4 - ocean transportation intermediary (current) use of insulin Pathologist Review - CBC 06/09/25 D61.818 - Other pancytopenia, E11.9 - Type 2 diabetes mellitus without complications, R53.83 - Other fatigue, R68.89 - Other general symptoms and signs, Z79.4 - ocean transportation intermediary (current) use of insulin Vitamin B12 and Folate 06/09/25 D61.818 - Other pancytopenia, E11.9 - Type 2 diabetes mellitus without complications, R53.83 - Other fatigue, R68.89 - Other general symptoms and signs, Z79.4 - ocean transportation intermediary (current) use of insulin Prostate Specific Antigen 06/09/25 D61.818 - Other pancytopenia, E11.9 - Type 2 diabetes mellitus without complications, R53.83 - Other fatigue, R68.89 - Other general symptoms and signs, Z79.4 - ocean transportation intermediary (current) use of insulin TSH reflex Free T4 06/09/25 D61.818 - Other pancytopenia, E11.9 - Type 2 diabetes mellitus without complications, R53.83 - Other fatigue, R68.89 - Other general symptoms and signs, Z79.4 - ocean transportation intermediary (current) use of insulin
[2025-06-09 16:01] VITALS: BP 115/59; PULSE 65; RESP 16; TEMP 36.5; O2SAT 99; BMI 21.4
--- OUTSIDE RECORDS SUMMARY | 2025-06-09 18:49 | XMS_ITS | Encounter Summary ---
Author Organization [facility] Address [address] [place] [address] Phone Care Team Providers Care Steel Pourer Helper Name Role Phone Jb Stewart MD Primary Care Provider Ailyn García MD Primary Care Provider [phone] Encounter Details Date Type Department Care Team (Late st Contact Info) Description 07/27/2024 Procedure Pass [facility] Endoscopy Admitting Dept Virtual Department [address] [place] [address] Social History Tobacco Use Types Packs/Day Years Used Date Smoking Tobacco: Never Smokeless Tobacco: Never Alcohol Use Standard Drinks/Week Comments Never 0 (1 standard drink = 0.6 oz pur e alcohol) Education Answer Date Recorded Are you interested in more education? Not on everton e 01/25/2023 Are you concerned about learning? Not on file 01/25/2023 No 01/25/2023 No 01/25/2023 Digital Access Answer Date Recorded No 02/18/2023 No 02/18/2023 Reliable internet access at home? Not on file 02/18/2023 Device with a working camera? Not on file Sex and Gender Information Value Date Recorded Sex Assigned at Male 11/19/2022 12:49 PM EST Legal Sex Male 4:01 PM EST Gender Identity Male 11/19/2022 12:49 PM EST Sexual Orientation Straight 08/11/2024 9: 34 AM EST documented as of this encounter Plan of Treatment Upcoming Encounters Date Type Department Care Team (Late st Contact Info) Description 07/18/2025 11:00 AM EDT Office Visit [facility] Endocr[facility]ology [place] [address] [place] [phone] Cindy Tillman PA-C 22 [place] [address] [email or web address] 08/30/2025 3:00 PM EST Office Visit [facility] 55 [facility], 5th [place] [address] Aldo Aguilar MD [address] [address] [email or web address] 10/11/2025 3:30 PM EST Office Visit [facility] 243 [facility] 9th [place] [address] Marco Macedo MD, MS 243 [place] [address] [email or web address] 11/17/2025 1:00 PM EST Nutrition [facility] 40 [place] [phone] Dolores Fuller LDN [address] [facility], 1st [place] [address] [email or web address] 01/16/2026 11:20 AM EDT Office Visit [facility] Endocrinology [place] [address] [place] [phone] Nora Gomes MD [address] [place] [address] [email or web address] documented as of this encounter Visit Diagnoses Not on filedocumented in this encounter Additional Health Concerns Infection Onset Date Last Indicated Resolved Time MRSA 08/04/2024 08/04/2024 documented as of this encounter Care Teams Steel Pourer Helper Relationship Specialty Start Date End Date Jb Stewart MD [address] [place] [address] [place] [address] PCP - General Internal Medicine 04/29/22 04/03/25 Ailyn García MD [address] [place] [address] [place] [address] PCP - General Internal Medicine 04/04/25 documented as of this encounter Additional Source Comments The information contained in this document represents components of the legal health record. It is not the complete legal health record.[facility]
--- OUTSIDE RECORDS SUMMARY | 2025-06-09 18:49 | XMS_ITS | Encounter Summary ---
Author Organization [facility] Address [address] [place] [address] Phone Care Team Providers Care Fuel Cell Systems Engineer Name Role Phone Jb Stewart MD Primary Care Provider Ailyn Garcaí MD Primary Care Provider [phone] Encounter Details Date Type Department Care Team (Late st Contact Info) Description 05/20/2024 Procedure Pass [facility] Endoscopy Admitting Dept Virtual Department [address] [place] [address] Social History Tobacco Use Types Packs/Day Years [...] Description 07/18/2025 11:00 AM EDT Office Visit [facility] Endocrinology [place] 40 [place] [phone] Cindy Tillman PA-C 22 [place] [address] [email or web address] 08/30/2025 3:00 PM EST Office Visit [facility] 55 [facility], 5th [place] [address] Aldo Aguilar MD [address] [address] [email or web address] 10/11/2025 3:30 PM EST Office Visit [facility] 243 [facility] 9th [place] [address] Marco Macedo MD, MS 243 [place] [address] [email or web address] 11/17/2025 1:00 PM EST Nutrition [facility] 40 [place] [phone] Dolores Fuller LDN 22 [facility], 1st [place] [address] [email or web address] 01/16/2026 11:20 AM EDT Office Visit [facility] Endocrinology [place] [address] [place] [phone] Nora Gomes MD [address] [place] [address] [email or web address] documented as of this encounter Visit Diagnoses Not on filedocumented in this encounter Additional Health Concerns Infection Onset Date Last Indicated Resolved Time MRSA 08/04/2024 08/04/2024 documented as of this encounter Care Teams Fuel Cell Systems Engineer Relationship Specialty Start Date End Date Jb Stewart MD [address] [place] [address] [place] [address] PCP - General Internal Medicine 04/29/22 04/03/25 Ailyn García MD [address] [place] [address] [place] [address] PCP - General Internal Medicine 04/04/25 documented as of this encounter Additional Source Comments The information contained in this document represents components of the legal health record. It is not the complete legal health record.[facility]
--- OUTSIDE RECORDS SUMMARY | 2025-06-09 18:49 | XMS_ITS | Encounter Summary ---
Author Organization [facility] Address [address] [place] [address] [place] [address] Phone Care Team Providers Care Hall Coordinator Name Role Phone Jb Stewart MD Primary Care Provider Ailyn García MD Primary Care Provider Encounter Details Date Type Department Care Team (Late st Contact Info) Description 08/11/2024 Procedure Pass [facility], [address] [address] Social History Tobacco Use Types Packs/Day Years Used Date Smoking Tobacco: Never Smokeless Tobacco: Never Alcohol Use Standard Drinks/Week Comments Never 0 (1 standard drink = 0.6 oz pur e alcohol) Education Answer Date Recorded Are you interested in more education? Not on everton e 01/25/2023 Are you concerned about learning? Not on file 01/25/2023 No 01/25/2023 No 01/25/2023 Food Answer Date Recorded Within the past 6 months we worried whether our food would run out before we got money to buy more. Never True 08/11/2024 Within the past 6 months the food we bought just didn't last and we didn't have enough money to get more. Never True Residential Stability Answer Date Recor ded What is your housing situation today? I have macey matthews 08/11/2024 How many times have you move d in the past 12 months? Zero (I did not move) 08/11/2024 Paying for Meds Answer Date Recorded Do you have trouble paying for medicines? No 08/11/2024 Paying Utility Bills Answer Date Record ed Do you have trouble paying your heating or elect ricity bill? No 08/11/2024 Transportation Answer Date Recorded Has the lack of transportati on kept you from medical appointments or from getting medications? No 08/11/2024 Digital Access Answer Date Recorded No 08/11/2024 Yes 08/11/2024 Do you have reliable internet access at home? Ye s 08/11/2024 Do you have a device (e.g., phone, tablet, computer) with a working camera? Yes 08/11/2024 Sex and Gender Information Value Date Recorded Sex Assigned at Male 11/19/2022 12:49 PM EST Legal Sex Male 4:01 PM EST Gender Identity Male 11/19/2022 12:49 PM EST Sexual Orientation Straight 08/11/2024 9: 34 AM EST documented as of this encounter Plan of Treatment Upcoming Encounters Date Type Department Care Team (Late st Contact Info) Description 07/18/2025 11:00 AM EDT Office Visit [facility] Endocrinology [address] [phone] Cindy Tillman PA-C [address] [place] [address] 08/30/2025 3:00 PM EST Office Visit [facility] 55 [facility], 5th [place] [address] Aldo Aguilar MD [address] [address] [email or web address] 10/11/2025 3:30 PM EST Office Visit [address] [address] Marco Macedo MD, MS 243 [place] [address] [email or web address] 11/17/2025 1:00 PM EST Nutrition [facility] 40 [place] [phone] Dolores Fuller LDN [address] [address] 01/16/2026 11:20 AM EDT Office Visit [facility] Endocrinology [place] 40 [place] [phone] Nora Gomes MD [address] [address] documented as of this encounter Visit Diagnoses Not on filedocumented in this encounter Additional Health Concerns Infection Onset Date Last Indicated Resolved Time MRSA 08/04/2024 08/04/2024 documented as of this encounter Care Teams Hall Coordinator Relationship Specialty Start Date End Date Jb Stewart MD [address] [place] [address] [place] [address] PCP - General Internal Medicine 04/29/22 04/03/25 Ailyn García MD [address] [place] [address] [place] [address] PCP - General Internal Medicine 04/04/25 documented as of this encounter Additional Source Comments The information contained in this document represents components of the legal health record. It is not the complete legal health record.[facility]
--- OUTSIDE RECORDS SUMMARY | 2025-06-09 18:49 | XMS_ITS | Encounter Summary ---
Author Organization [facility] Address [address] [place] [address] Phone Care Team Providers Care Proj Engineer Name Role Phone Jb Stewart MD Primary Care Provider Ailyn García MD Primary Care Provider [phone] Encounter Details Date Type Department Care Team (Late st Contact Info) Description 12/03/2022 Procedure Pass [facility] [address] [facility] [facility], 4th [place] [address] Social History Tobacco Use Types Packs/Day Years Used Date Smoking Tobacco: Never Smokeless Tobacco: Never Alcohol Use Standard Drinks/Week Comments Never 0 (1 standard drink = 0.6 oz pur e alcohol) Sex and Gender Information Value Date Recorded Sex Assigned at Male 11/19/2022 12:49 PM EST Legal Sex Male 4:01 PM EST Gender Identity Male 11/19/2022 12:49 PM EST Sexual Orientation Straight 08/11/2024 9: 34 AM EST documented as of this encounter Plan of Treatment Upcoming Encounters Date Type Department Care Team (Late st Contact Info) Description 07/18/2025 11:00 AM EDT Office Visit [facility] Endocrinology [address] [phone] Cindy Tillman PA-C 22 [place] [address] [email or web address] 08/30/2025 3:00 PM EST Office Visit [facility] [address] [facility], 5th [place] [address] Aldo Aguilar MD 55 [facility] 456 [place] [address] [email or web address] 10/11/2025 3:30 PM EST Office Visit [facility] 243 [facility] 9th [place] [address] Marco Macedo MD, MS 243 [place] [address] [email or web address] 11/17/2025 1:00 PM EST Nutrition [facility] 40 [place] [phone] Dolores Fuller LDN [address] [address] [email or web address] 01/16/2026 11:20 AM EDT Office Visit [facility]ocrinology [place] 40 [place] [phone] Nora Gomes MD 22 [facility] 3rd [place] [address] [email or web address] documented as of this encounter Visit Diagnoses Not on filedocumented in this encounter Additional Health Concerns Infection Onset Date Last Indicated Resolved Time MRSA 08/04/2024 08/04/2024 documented as of this encounter Care Teams Proj Engineer Relationship Specialty Start Date End Date Jb Stewart MD [address] [place] [address] [place] [address] PCP - General Internal Medicine 04/29/22 04/03/25 Ailyn García MD [address] [place] [address] [place] [address] PCP - General Internal Medicine 04/04/25 documented as of this encounter Additional Source Comments The information contained in this document represents components of the legal health record. It is not the complete legal health record.[facility]
--- OUTSIDE RECORDS SUMMARY | 2025-06-09 18:49 | XMS_ITS | Encounter Summary ---
Author Organization [facility] Address [address] [place] [address] [place] [address] Phone Care Team Providers Care Gear Lapping Machine Operator Name Role Phone Jb Stewart MD Primary Care Provider Ailyn García MD Primary Care Provider Encounter Details Date Type Department Care Team (Late st Contact Info) Description 08/03/2024 Procedure Pass [facility], [address] [address] Social History Tobacco Use Types Packs/Day Years [...] got money to buy more. Never True 08/03/2024 Within the past 6 months the food we bought just didn't last and we didn't have enough money to get more. Never True Residential Stability Answer Date Recor ded What is your housing situation today? I have macey matthews 08/03/2024 How many times have you move d in the past 12 months? Zero (I did not move) 08/03/2024 Paying for Meds Answer Date Recorded Do you have trouble paying for medicines? No 08/03/2024 Paying Utility Bills Answer Date Record ed Do you have trouble paying your heating or elect ricity bill? No 08/03/2024 Transportation Answer Date Recorded Has the lack of transportati on kept you from medical appointments or from getting medications? No 08/03/2024 Digital Access Answer Date Recorded No 08/03/2024 Yes 08/03/2024 Do you have reliable internet access at home? Ye s 08/03/2024 Do you have a device (e.g., phone, tablet, computer) with a working camera? Yes 08/03/2024 Sex and Gender Information Value Date Recorded Sex Assigned at Male 11/19/2022 12:49 PM EST Legal Sex Male 4:01 PM EST Gender Identity Male 11/19/2022 12:49 PM EST Sexual Orientation Straight 08/11/2024 9: 34 AM EST documented as of this encounter Functional Status * Calculated C-SSRS Risk Score (Lifetime/Recent) Answer Date of Assessment Author No Risk Indicated 08/03/2024 11:41 AM Kenn Williamson RN * [place] Suicide Severity Rating Scale (Screener/Recent Self-Report) Question Answer Date of Assessment Author 1. Wish to be (Past 1 Month) No 08/03/2024 11:41 AM Jarrell Milan RN 2. Non-Specific Active Suici mary Thoughts (Past 1 Month) No 08/03/2024 11:41 AM Cornelius Milan RN 6. Suicidal Behavior (Lifetime) No 11:41 AM Kenn Milan, SETVE documented as of this encounter Plan of Treatment Upcoming Encounters Date Type Department Care Team (Late st Contact Info) Description 07/18/2025 11:00 AM EDT Office Visit [facility] Endocrinology [address] [place] [address] Cindy Tillman PA-C 22 [place] [address] [email or web address] 08/30/2025 3:00 PM EST Office Visit [facility] 55 [facility], 5th [place] [address] Aldo Aguilar MD 55 [facility] 456 [place] [address] [email or web address] 10/11/2025 3:30 PM EST Office Visit [facility] 243 [facility] 9th [place] [address] aMrco Macedo MD, MS 243 [place] [address] [email or web address] 11/17/2025 1:00 PM EST Nutrition [facility] 40 [place] [address] Dolores Fuller LDN [address] [address] [email or web address] 01/16/2026 11:20 AM EDT Office Visit [facility] [place] 40 [place] [address] Nora Gomes MD [address] 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 It is not the complete legal health record.[facility]
--- OUTSIDE RECORDS SUMMARY | 2025-06-09 18:49 | XMS_ITS | Encounter Summary ---
Author Organization [facility] Address [address] [place] [address] [place] [address] Phone Care Team Providers Care Engagement Mgr Name Role Phone Jb Stewart MD Primary Care Provider Ailyn García MD Primary Care Provider Encounter Details Date Type Department Care Team (Late st Contact Info) Description 08/03/2024 Procedure Pass [facility], Ct Scan - [address] [address] Social History Tobacco Use Types Packs/Day Years [...] enough money to get more. Never True 11/05/202 4 Residential Stability Answer Date Recor ded What [...] 08/03/2024 11:41 AM Kenn Williamson RN * [place] Suicide Severity Rating Scale (Screener/Recent Self-Report) Question Answer Date of Assessment Author 1. Wish to be (Past 1 Month) No 08/03/2024 11:41 AM Jarrell Milan RN 2. Non-Specific Active Suici mary Thoughts (Past 1 Month) No 08/03/2024 11:41 AM Cornelius Milan RN 6. Suicidal Behavior (Lifetime) No 11:41 AM Kenn Milan, STEVE documented as of this encounter Plan of Treatment Upcoming Encounters Date Type Department Care Team (Late st Contact Info) Description 07/18/2025 11:00 AM EDT Office Visit [facility] Endocrinology [address] [place] [address] Cindy Tillman PA-C 22 [place] [address] [email or web address] 08/30/2025 3:00 PM EST Office Visit [facility] 55 [facility], 5th [place] [address] Aldo Aguilar MD 55 [facility] 456 [place] [address] [email or web address] 10/11/2025 3:30 PM EST Office Visit [facility] 243 [facility] 9th [place] [address] Marco Macedo MD, MS 243 [place] [address] [email or web address] 11/17/2025 1:00 PM EST Nutrition [facility] 40 [place] [address] Dolores Fuller LDN [address] [address] [email or web address] 01/16/2026 11:20 AM EDT Office Visit [facility] Endocrinology [place] 40 [place] [address] Nora Gomes MD 22 [facility] 3rd [place] [address] [email or web address] documented as of this encounter Visit Diagnoses Not on filedocumented in this encounter Additional Health Concerns Infection Onset Date Last Indicated Resolved Time MRSA 08/04/2024 08/04/2024 documented as of this encounter Care Teams Engagement Mgr Relationship Specialty Start Date End Date Jb Stewart MD [address] [place] [address] Dr [place], [place] [address] PCP - General Internal Medicine 04/29/22 04/03/25 Ailyn García MD [address] [place] [address] [place] [address] PCP - General Internal Medicine 04/04/25 documented as of this encounter Additional Source Comments The information contained in this document represents components of the legal health record. It is not the complete legal health record.[facility]
--- OUTSIDE RECORDS SUMMARY | 2025-06-09 18:49 | XMS_ITS | Encounter Summary ---
Author Organization [facility] Address [address] [place] [address] [place] [address] Phone Care Team Providers Care Orthopedic Podiatrist Name Role Phone Jb Stewart MD Primary Care Provider Ailyn García MD Primary Care Provider Encounter Details Date Type Department Care Team (Late st Contact Info) Description 08/10/2024 Procedure Pass [facility], Ct Scan - [address] [address] Social History Tobacco Use Types Packs/Day Years [...] enough money to get more. Never True 11/13/202 4 Residential Stability Answer Date Recor ded [...] Date of Assessment Author No Risk Indicated 08/10/2024 5:54 PM EST Bridget Dorsey RN * [place] Suicide Severity Rating Scale (Screener/Recent Self-Report) Question Answer Date of Assessment Author 1. Wish to be (Past 1 Month) No 024 5:54 PM Bridget Traore, STEVE 2. Non-Specific Active Suici mary Thoughts (Past 1 Month) No 08/10/2024 5:54 PM EST Bridget Dorsey, RN 6. Suicidal Behavior (Lifetime) No 4 5:54 PM Bridget Traore, RN documented as of this encounter Plan of Treatment Upcoming Encounters Date Type Department Care Team (Late st Contact Info) Description 07/18/2025 11:00 AM EDT Office Visit [facility] Endocrinology [address] [address] Cindy Tlilman PA-C 22 [place] [address] 08/30/2025 3:00 PM EST Office Visit [facility] 55 [facility], 5th [place] [address] Aldo Aguilar MD 55 [facility] 456 [place] [address] [email or web address] 10/11/2025 3:30 PM EST Office Visit [facility] 243 [facility] 9th [place] [address] Marco Macedo MD, MS 243 [place] [address] [email or web address] 11/17/2025 1:00 PM EST Nutrition [facility] 40 [place] [phone] Dolores Fuller LDN [address] [address] [email or web address] 01/16/2026 11:20 AM EDT Office Visit [facility] Endocrinology [place] 40 [place] [address] Nora Gomes MD 22 [facility] 3rd [place] [address] [email or web address] documented as of this encounter Visit Diagnoses Not on filedocumented in this encounter Additional Health Concerns Infection Onset Date Last Indicated Resolved Time MRSA 08/04/2024 08/04/2024 documented as of this encounter Care Teams Orthopedic Podiatrist Relationship Specialty Start Date End Date Jb Stewart MD [address] [place] [address] [place] [address] PCP - General Internal Medicine 04/29/22 04/03/25 Ailyn García MD [address] [place] [address] [place] [address] PCP - General Internal Medicine 04/04/25 documented as of this encounter Additional Source Comments The information contained in this document represents components of the legal health record. It is not the complete legal health record.[facility]
--- OUTSIDE RECORDS SUMMARY | 2025-06-09 18:49 | XMS_ITS | Encounter Summary ---
Author Organization [facility] Address [address] [place] [address] [place] [address] Phone Care Team Providers Care Medical Asst Name Role Phone Jb Stewart MD Primary Care Provider Ailyn García MD Primary Care Provider [phone] Encounter Details Date Type Department Care Team (Late st Contact Info) Description 08/03/2024 Transcribe Orders [facility] Specimen Processing 30 [place] [address] Jb Stewart MD [address] [place] [address] [place] [address] Social History Tobacco Use Types Packs/Day Years [...] 08/03/2024 11:41 AM Kenn Williamson RN * [place] Suicide Severity Rating Scale (Screener/Recent Self-Report) Question Answer Date of Assessment Author 1. Wish to be (Past 1 Month) No 08/03/2024 11:41 AM Jarrell Milan RN 2. Non-Specific Active Suici mary Thoughts (Past 1 Month) No 08/03/2024 11:41 AM Cornelius Milan, STEVE 6. Suicidal Behavior (Lifetime) No 11:41 AM Kenn Milan, STEVE documented as of this encounter Plan of Treatment Upcoming Encounters Date Type Department Care Team (Late st Contact Info) Description 07/18/2025 11:00 AM EDT Office Visit [facility] Endocrinology [place] [address] [place] [phone] Cindy Tillman PA-C 22 [place] [address] 08/30/2025 3:00 PM EST Office [facility] 55 [facility], 5th [place] [address] Aldo Aguilar MD 55 [facility] 456 [place] [address] [email or web address] 10/11/2025 3:30 PM EST Office Visit [facility] 243 [facility] 9th [place] [address] Marco Macedo MD, MS 243 [place] [address] [email or web address] 11/17/2025 1:00 PM EST Nutrition [facility] 40 [place] [phone] Dolores Fuller LDN [address] [address] 01/16/2026 11:20 AM EDT Office Visit [facility] Endocrinology [place] 40 [place] [phone] Nora Gomes MD 22 [facility] 3rd [place] [address] [email or web address] documented as of this encounter Visit Diagnoses Not on filedocumented in this encounter Additional Health Concerns Infection Onset Date Last Indicated Resolved Time MRSA 08/04/2024 08/04/2024 documented as of this encounter Care Teams Medical Asst Relationship Specialty Start Date End Date Jb Stewart MD [address] [place] [address] [place] [address] PCP - General Internal Medicine 04/29/22 04/03/25 Ailyn García MD [address] [place] [address] [place] [address] PCP - General Internal Medicine 04/04/25 documented as of this encounter Additional Source Comments The information contained in this document represents components of the legal health record. It is not the complete legal health record.[facility]
--- OUTSIDE RECORDS SUMMARY | 2025-06-09 18:49 | XMS_ITS | Encounter Summary ---
Author Organization [facility] Address [address] [place] [address] [place] [address] Phone Care Team Providers Care Automotive Instructor Name Role Phone Jb Stewart MD Primary Care Provider Ailyn García MD Primary Care Provider Encounter Details Date Type Department Care Team (Late st Contact Info) Description 08/03/2024 Procedure Pass [facility], Ct Scan - [address] [address] Social History Tobacco Use Types Packs/Day Years [...] 08/03/2024 11:41 AM Kenn Williamson RN * [place] Suicide Severity Rating Scale (Screener/Recent Self-Report) Question [...] 07/18/2025 11:00 AM EDT Office Visit [facility] Endocrinology [address] [place] [address] Cindy Tillman PA-C 22 [place] [address] [email or web address] 08/30/2025 3:00 PM EST Office Visit [facility] 55 [employer], 5th [place] [address] Aldo Aguilar MD 55 [facility] 456 [place] [address] [email or web address] 10/11/2025 3:30 PM EST Office Visit [facility] 243 [facility] 9th [place] [address] Marco Macedo MD, MS 243 [place] [address] [email or web address] 11/17/2025 1:00 PM EST Nutrition [facility] 40 [place] [address] Dolores Fuller LDN [address] [address] [email or web address] 01/16/2026 11:20 AM EDT Office Visit [facility] Endocrinology [place] 40 [place] [address] Nora Gomes MD 22 [facility] 3rd [place] [address] [email or web address] documented as of this encounter Visit Diagnoses Not on filedocumented in this encounter Additional Health Concerns Infection Onset Date Last Indicated Resolved Time MRSA 08/04/2024 08/04/2024 documented as of this encounter Care Teams Automotive Instructor Relationship Specialty Start Date End Date Jb Stewart MD [address] [place] [address] Dr [place], [place] [address] PCP - General Internal Medicine 04/29/22 04/03/25 Ailyn García MD [address] [place] [address] [place] [address] PCP - General Internal Medicine 04/04/25 documented as of this encounter Additional Source Comments The information contained in this document represents components of the legal health record. It is not the complete legal health record.[facility]
--- OUTSIDE RECORDS SUMMARY | 2025-06-09 18:49 | XMS_ITS | Encounter Summary ---
Author Organization [facility] Address [address] [place] [address] Phone Care Team Providers Care Bench Examiner Name Role Phone Jb Stewart MD Primary Care Provider Ailyn García MD Primary Care Provider Encounter Details Date Type Department Care Team (Late st Contact Info) Description 08/25/2022 Procedure Pass [facility], Ct Scan - [address] [address] Social History Tobacco Use Types Packs/Day Years [...] Date of Assessment Author No Risk Indicated 08/25/2022 5:55 AM EST Romi Martin RN * [place] Suicide Severity Rating Scale (Screener/Recent Self-Report) Question Answer Date of Assessment Author 1. Wish to be (Past 1 Month) No 08/25/2022 5:55 AM Thomas Cheung RN 2. Non-Specific Active Suici mary Thoughts (Past 1 Month) No 08/25/2022 5:55 AM Dominick Cheung, STEVE 6. Suicidal Behavior (Lifetime) No 5:55 AM Romi Cheung, STEVE documented as of this encounter Plan of Treatment Upcoming Encounters Date Type Department Care Team (Late st Contact Info) Description 07/18/2025 11:00 AM EDT Office Visit [facility] Endocrinology [place] 40 [place] [phone] Cindy Tillman PA-C 22 [place] [address] [email or web address] 08/30/2025 3:00 PM EST Office Visit [facility] 55 [facility], 5th [place] [address] Aldo Aguilar MD [address] [address] [email or web address] 10/11/2025 3:30 PM EST Office Visit [facility] 243 [facility] 9th [place] [address] Marco Macedo MD, MS 243 [place] [address] [email or web address] 11/17/2025 1:00 PM EST Nutrition [facility] 40 [place] [phone] Dolores Fuller LDN 22 [facility], 1st [place] [address] 01/16/2026 11:20 AM EDT Office Visit [facility] Endocrinology [address] [place] [address] Nora Gomes MD [address] [place] [address] documented as of this encounter Visit Diagnoses Not on filedocumented in this encounter Additional Health Concerns Infection Onset Date Last Indicated Resolved Time MRSA 08/04/2024 08/04/2024 documented as of this encounter Care Teams Bench Examiner Relationship Specialty Start Date End Date Jb Stewart MD [address] [place] [address] [place] [address] PCP - General Internal Medicine 04/29/22 04/03/25 Ailyn García MD [address] [place] [address] [place] [address] PCP - General Internal Medicine 04/04/25 documented as of this encounter Additional Source Comments The information contained in this document represents components of the legal health record. It is not the complete legal health record.[facility]
--- OUTSIDE RECORDS SUMMARY | 2025-06-09 18:49 | XMS_ITS | Encounter Summary ---
Author Organization [facility] Address [address] [place] [address] [place] [address] Phone Care Team Providers Care Chief Of Anesthesiology Name Role Phone Jb Stewart MD Primary Care Provider Ailyn García MD Primary Care Provider Encounter Details Date Type Department Care Team (Late st Contact Info) Description 08/03/2024 Procedure Pass [facility], Ct Scan - [address] [address] Social History Tobacco Use Types Packs/Day Years [...] 08/03/2024 11:41 AM Kenn Williamson RN * [place] Suicide Severity Rating Scale (Screener/Recent Self-Report) Question [...] 07/18/2025 11:00 AM EDT Office Visit [facility] Endocrinology [address] [place] [address] Cindy Tillman PA-C 22 [place] [address] [email or web address] 08/30/2025 3:00 PM EST Office Visit [facility] 55 [facility], 5th [place] [address] Aldo Aguilar MD 55 [facility] 456 [place] [address] [email or web address] 10/11/2025 3:30 PM EST Office Visit [facility] 243 [facility] 9th [place] [address] Marco Macedo MD, MS 243 [place] [address] [email or web address] 11/17/2025 1:00 PM EST Nutrition [facility] 40 [place] [address] Dolores Fuller LDN [address] [address] [email or web address] 01/16/2026 11:20 AM EDT Office Visit [facility] Endocrinology [place] 40 [place] [address] Nora Gomes MD 22 [facility] 3rd [place] [address] [email or web address] documented as of this encounter Visit Diagnoses Not on filedocumented in this encounter Additional Health Concerns Infection Onset Date Last Indicated Resolved Time MRSA 08/04/2024 08/04/2024 documented as of this encounter Care Teams Chief Of Anesthesiology Relationship Specialty Start Date End Date Jb Stewart MD [address] [place] [address] Dr [place], [place] [address] PCP - General Internal Medicine 04/29/22 04/03/25 Ailyn García MD [address] [place] [address] [place] [address] PCP - General Internal Medicine 04/04/25 documented as of this encounter Additional Source Comments The information contained in this document represents components of the legal health record. It is not the complete legal health record.[facility]
--- OUTSIDE RECORDS SUMMARY | 2025-06-09 18:49 | XMS_ITS | Encounter Summary ---
Author Organization [facility] Address [address] [place] [address] Phone Care Team Providers Care Computer Science Intern Name Role Phone Jb Stewart MD Primary Care Provider Ailyn García MD Primary Care Provider Encounter Details Date Type Department Care Team (Late st Contact Info) Description 01/09/2023 Procedure Pass [facility], Ct Scan - [address] [address] Social History Tobacco Use Types Packs/Day Years [...] Date of Assessment Author No Risk Indicated 01/09/2023 9:05 PM EDT Gaston Duarte RN * [place] Suicide Severity Rating Scale (Screener/Recent Self-Report) Question Answer Date of Assessment Author 1. Wish to be (Past 1 Month) No 023 9:05 PM EDT Gaston Duarte, RN 2. Non-Specific Active Suici mary Thoughts (Past 1 Month) No 01/09/2023 9:05 PM EDT Adam Duarte, RN 6. Suicidal Behavior (Lifetime) No 9:05 PM EDT Gaston Duarte, RN documented as of this encounter Plan of Treatment Upcoming Encounters Date Type Department Care Team (Late st Contact Info) Description 07/18/2025 11:00 AM EDT Office Visit [facility] Endocrinology [place] 40 [place] [phone] Cindy Tillman PA-C 22 [place] [address] [email or web address] 08/30/2025 3:00 PM EST Office Visit [facility] 55 [facility], 5th [place] [address] Aldo Aguilar MD [address] [address] [email or web address] 10/11/2025 3:30 PM EST Office Visit [facility] 243 [facility] 9th [place] [address] Marco Macedo MD, MS 243 [place] [address] [email or web address] 11/17/2025 1:00 PM EST Nutrition [facility] Diabetes [place] 40 [place] [phone] Dolores Fuller LDN 22 [facility], 1st [place] [address] 01/16/2026 11:20 AM EDT Office Visit [facility] Endocrinology [address] [place] [address] Nora Gomes MD [address] [place] [address] documented as of this encounter Visit Diagnoses Not on filedocumented in this encounter Additional Health Concerns Infection Onset Date Last Indicated Resolved Time MRSA 08/04/2024 08/04/2024 documented as of this encounter Care Teams Computer Science Intern Relationship Specialty Start Date End Date Jb Stewart MD [address] [place] [address] [place] [address] PCP - General Internal Medicine 04/29/22 04/03/25 Ailyn García MD [address] [place] [address] [place] [address] PCP - General Internal Medicine 04/04/25 documented as of this encounter Additional Source Comments The information contained in this document represents components of the legal health record. It is not the complete legal health record.[facility]
--- OUTSIDE RECORDS SUMMARY | 2025-06-09 18:50 | XMS_ITS | Encounter Summary ---
Author Organization [facility] Address [address] [place] [address] Phone Care Team Providers Care Rn Cardiovascular Icu Name Role Phone Jb Stewart MD Primary Care Provider Ailyn García MD Primary Care Provider [phone] Encounter Details Date Type Department Care Team (Late st Contact Info) Description 02/10/2023 Procedure Pass [facility] Endoscopy Admitting Dept Virtual Department [address] [place] [address] Social History Tobacco Use Types Packs/Day Years Used Date Smoking Tobacco: Never Smokeless Tobacco: Never Alcohol Use Standard Drinks/Week Comments Never 0 (1 standard drink = 0.6 oz pur e alcohol) Education Answer Date Recorded Are you interested in more education? Not on everton e 01/25/2023 Are you concerned about learning? Not on file 01/25/2023 No 01/25/2023 No 01/25/2023 Sex and Gender Information Value Date Recorded Sex Assigned at Male 11/19/2022 12:49 PM EST Legal Sex Male 4:01 PM EST Gender Identity Male 11/19/2022 12:49 PM EST Sexual Orientation Straight 08/11/2024 9: 34 AM EST documented as of this encounter Plan of Treatment Upcoming Encounters Date Type Department Care Team (Late st Contact Info) Description 07/18/2025 11:00 AM EDT Office Visit [facility] Endocrinology [place] 40 [place] [phone] Cindy Tillman PA-C 22 [place] [address] 08/30/2025 3:00 PM EST Office Visit [facility] 55 [facility], 5th [place] [address] Aldo Aguilar MD [address] [address] [email or web address] 10/11/2025 3:30 PM EST Office Visit [facility] 243 [facility] 9th [place] [address] Marco Macedo MD, MS 243 [place] [address] [email or web address] 11/17/2025 1:00 PM EST Nutrition [facility] Diabetes Center 40 [place] [phone] Dolores Fuller LDN 22 [facility], 1st [place] [address] 01/16/2026 11:20 AM EDT Office Visit [facility] Endocrinology [place] 40 [place] [phone] Nora Gomes MD 22 [facility] 3rd [place] [address] documented as of this encounter Visit Diagnoses Not on filedocumented in this encounter Additional Health Concerns Infection Onset Date Last Indicated Resolved Time MRSA 08/04/2024 08/04/2024 documented as of this encounter Care Teams Rn Cardiovascular Icu Relationship Specialty Start Date End Date Jb Stewart MD [address] [place] [address] [place] [address] PCP - General Internal Medicine 04/29/22 04/03/25 Ailyn García MD [address] [place] [address] [place] [address] PCP - General Internal Medicine 04/04/25 documented as of this encounter Additional Source Comments The information contained in this document represents components of the legal health record. It is not the complete legal health record.[facility]
--- OUTSIDE RECORDS SUMMARY | 2025-06-09 18:50 | XMS_ITS | Encounter Summary ---
Author Organization [facility] Address [address] [place] [address] Phone Care Team Providers Care Gas Dispenser Name Role Phone Jb Stewart MD Primary Care Provider Ailyn García MD Primary Care Provider Encounter Details Date Type Department Care Team ([facility] Contact Info) Description 02/06/2023 Procedure Pass [facility] Cardiovascular And Interventional Radiology 30 [place] [address] Social History Tobacco Use Types Packs/Day Years [...] Description 07/18/2025 11:00 AM EDT Office Visit [facility] Endocrinology [place] 40 [place] [phone] Cindy Tillman PA-C 22 [place] [address] 08/30/2025 3:00 PM EST Office Visit [facility] 55 [facility], 5th [place] [address] Aldo Aguilar MD [address] [address] [email or web address] 10/11/2025 3:30 PM EST Office Visit [facility] 243 [facility] 9th [place] [address] Marco Macedo MD, MS 243 [place] [address] [email or web address] 11/17/2025 1:00 PM EST Nutrition [facility] Diabetes Center 40 [place] [phone] Dolores Fuller LDN 22 [facility], 1st [place] [address] 01/16/2026 11:20 AM EDT Office Visit [facility] Endocrinology [place] 40 [place] [phone] Nora Gomes MD [address] [facility] 3rd [place] [address] documented as of this encounter Visit Diagnoses Not on filedocumented in this encounter Additional Health Concerns Infection Onset Date Last Indicated Resolved Time MRSA 08/04/2024 08/04/2024 documented as of this encounter Care Teams Gas Dispenser Relationship Specialty Start Date End Date Jb Stewart MD [address] [place] [address] [place] [address] PCP - General Internal Medicine 04/29/22 04/03/25 Ailyn García MD [address] [place] [address] [place] [address] PCP - General Internal Medicine 04/04/25 documented as of this encounter Additional Source Comments The information contained in this document represents components of the legal health record. It is not the complete legal health record.[facility]
--- OUTSIDE RECORDS SUMMARY | 2025-06-09 18:50 | XMS_ITS | Patient Health Record ---
Author Organization [facility] Address [address] [place] [address] Care Team Providers Care Generator Repairer Name Role Phone Terry (RETIRED) Jb QUARLES Primary Care Provide r Unavailable Po Tapia Unavailable [phone] Allergies No Known Allergies Reason For Referral [...] cirrhosis of liver (K74.60) Active confirmed Problem [id number] Attention to G-tube (Z43.1) Active confirmed Plan [...] Insured Coverage Start Date Coverage End Date [facility] [employer] [facility] [address] [address] [place], [place] [id number] TYLER BOX Self - patient is the insured Medical (General) History Medical History History ICD Code Diet-controlled DM Cirrhosis. The patient descr ibes a diagnosis of fatty liver with cirrhosis on that basis. He describes a previous liver biopsy. He has had issues with ascites and underwent a large-volume paracentesis as recently as 02/06/2023. He is followed by Dr. Aldo Aguilar at [facility]. He does not have a local GI MD nor Ceramic Plater. 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
--- OUTSIDE RECORDS SUMMARY | 2025-06-09 18:50 | XMS_ITS | Encounter Summary ---
Author Organization [facility] Address [address] [place] [address] Phone Care Team Providers Care Completion Manager Name Role Phone Jb Stewart MD Primary Care Provider Ailyn García MD Primary Care Provider [phone] Encounter Details Date Type Department Care Team (Late st Contact Info) Description 03/21/2023 Procedure Pass [facility] Endoscopy Admitting Dept Virtual Department [address] [place] [address] Social History Tobacco Use Types Packs/Day Years [...] Description 07/18/2025 11:00 AM EDT Office Visit [facility] Endocrinology [place] 40 [place] [phone] Cindy Tillman PA-C 22 [place] [address] [email or web address] 08/30/2025 3:00 PM EST Office Visit [facility] 55 [facility], 5th [place] [address] Aldo Aguilar MD [address] [address] [email or web address] 10/11/2025 3:30 PM EST Office Visit [facility] 243 [facility] 9th [place] [address] Marco Macedo MD, MS 243 [place] [address] [email or web address] 11/17/2025 1:00 PM EST Nutrition [facility] 40 [place] [phone] Dolores Fuller LDN 22 [facility], 1st [place] [address] [email or web address] 01/16/2026 11:20 AM EDT Office Visit [facility] Endocrinology [place] 40 [place] [phone] Nora Gomes MD [address] [place] [address] [email or web address] documented as of this encounter Visit Diagnoses Not on filedocumented in this encounter Additional Health Concerns Infection Onset Date Last Indicated Resolved Time MRSA 08/04/2024 08/04/2024 documented as of this encounter Care Teams Completion Manager Relationship Specialty Start Date End Date Jb Stewart MD [address] [place] [address] [place] [address] PCP - General Internal Medicine 04/29/22 04/03/25 Ailyn García MD [address] [place] [address] [place] [address] PCP - General Internal Medicine 04/04/25 documented as of this encounter Additional Source Comments The information contained in this document represents components of the legal health record. It is not the complete legal health record.[facility]
--- OUTSIDE RECORDS SUMMARY | 2025-06-09 18:50 | XMS_ITS | Encounter Summary ---
Author Organization [facility] Address [address] [place] [address] Phone Care Team Providers Care General Counsel Name Role Phone Pop Adler MD Primary Care Provider [phone] Pop Adler MD Primary Care Provider [phone] Jb Stewart MD Primary Care Provider Ye Batista MD Primary Care Provider Ye Batista MD Primary Care Provider [phone] Jb Stewart MD Primary Care Provider Ye Batista MD Primary Care Provider [phone] Unknown, Unknown Primary Care Provider Jb Hood MD Primary Care Provider Ailyn García MD Primary Care Provider [phone] Encounter Details Date Type Department Care Team (Late st Contact Info) Description 10/05/2020 Procedure Pass [facility] 75 [place] [address] Social History Tobacco Use Types Packs/Day Years Used Date Smoking Tobacco: Never Smokeless Tobacco: Never Sex and Gender Information Value Date Recorded Sex Assigned at Male 11/19/2022 12:49 PM EST Legal Sex Male 4:01 PM EST Gender Identity Male 11/19/2022 12:49 PM EST Sexual Orientation Straight 08/11/2024 9: 34 AM EST documented as of this encounter Plan of Treatment Upcoming Encounters Date Type Department Care Team (Late st Contact Info) Description 07/18/2025 11:00 AM EDT Office Visit [facility] Endocrinology [place] 40 [place] [phone] Cindy Tillman PA-C 22 [place] [address] [email or web address] 08/30/2025 3:00 PM EST Office Visit [facility] 55 [facility], 5th [place] [address] Aldo Aguilar MD [address] [address] [email or web address] 10/11/2025 3:30 PM EST Office Visit [facility] 243 [facility] 9th [place] [address] Marco Macedo MD, MS 243 [place] [address] [email or web address] 11/17/2025 1:00 PM EST Nutrition [facility] 40 [place] [phone] Dolores Fuller LDN 22 [facility], 1st [place] [address] [email or web address] 01/16/2026 11:20 AM EDT Office Visit [facility] Endocrinology [place] 40 [place] [address] Nora Gomes MD [address] [place] [address] [email or web address] documented as of this encounter Visit Diagnoses Not on filedocumented in this encounter Additional Health Concerns Infection Onset Date Last Indicated Resolved Time CoV-Risk 02/04/2022 02/04/2022 02/15/2022 1:24 AM EDT MRSA 08/04/2024 08/04/2024 documented as of this encounter Care Teams General Counsel Relationship Specialty Start Date End Date Pop Adler MD [address] [place] [address] Dr STEVENS [address] [place] [address] PCP - General Internal Medicine 09/11/20 12/05/20 Pop Adler MD [address] [place] [address] Dr STEVENS [address] [place] [address] PCP - General Internal Medicine 04/03/21 04/24/21 Jb Stewart MD [address] [place] [address] Dr STEVENS [address] [place] [address] PCP - General Internal Medicine 04/25/21 12/09/21 eY Batista MD [address] [place] [address] [email or web address] PCP - General Internal Medicine 12/10/21 12/16/21 Ye Batista MD [address] [place] [address] [email or web address] PCP - General Internal Medicine 12/17/21 12/17/21 Jb Stewart MD [address] [place] [address] [place] [address] PCP - General Internal Medicine 12/18/21 12/24/21 Ye Batista MD [address] [place] [address] [email or web address] PCP - General Internal Medicine 12/25/21 04/01/22 Unknown, Kaveh, PCP - General 04/02/22 04/28/22 Jb Stewart MD [address] [place] [address] [place] [address] PCP - General Internal Medicine 04/29/22 04/03/25 Ailyn García MD [address] [place] [address] [place] [address] PCP - General Internal Medicine 04/04/25 documented as of this encounter Additional Source Comments The information contained in this document represents components of the legal health record. It is not the complete legal health record.[facility]
--- OUTSIDE RECORDS SUMMARY | 2025-06-09 18:50 | XMS_ITS | Encounter Summary ---
Author Organization [facility] Address [address] [place] [address] [place] [address] Phone Care Team Providers Care Vaccine Customer Representative Name Role Phone Jb Stewart MD Primary Care Provider Ailyn García MD Primary Care Provider Encounter Details Date Type Department Care Team ([facility] st Contact Info) Description 09/03/2024 Transcribe Orders [facility] Laboratory [address] [address] Shanice Elias, [place] 10 [place] [address] Social History Tobacco Use Types Packs/Day Years Used Date Smoking Tobacco: Never Smokeless Tobacco: Never Alcohol Use Standard Drinks/Week Comments Never 0 (1 standard drink = 0.6 oz pur e alcohol) Home Health Assessment: Transportation Answer Date Recorded Lack of Transportation (Medical) No 08/18/2024 Lack of Transportation (Non-Medical) No 08/18/2024 Patient Unable or Declines to Respond No 08/18/2024 Education Answer Date Recorded Are you interested [...] computer) with a working camera? Yes 08/11/2024 Intimate Partner Violence Answer Date R ecorded Are you denied basic needs s uch as food, clothing, or medical care? No 09/06/2024 In the past 12 months have y ou been in a relationship with a person who hurts, threatens, or tries to control you? No 09/06/2024 Are you denied basic needs s uch as food, clothing, or medical care? No 09/06/2024 In the past 12 months have y ou been in a relationship with a person who hurts, threatens, or tries to control you? No 09/06/2024 Sex and Gender Information Value Date Recorded Sex Assigned at Male 11/19/2022 12:49 PM EST Legal Sex Male 4:01 PM EST Gender Identity Male 11/19/2022 12:49 PM EST Sexual Orientation Straight 08/11/2024 9: 34 AM EST documented as of this encounter Plan of Treatment Upcoming Encounters Date Type Department Care Team (Late st Contact Info) Description 07/18/2025 11:00 AM EDT Office Visit [facility] Endocrinology [place] 40 [place] [phone] Cindy Tillman PA-C 22 [place] [address] 08/30/2025 3:00 PM EST Office [facility] 55 [facility], 5th [place] [address] Aldo Aguilar MD [address] [address] [email or web address] 10/11/2025 3:30 PM EST Office Visit [facility] 243 [facility] 9th [place] [address] Marco Macedo MD, MS 243 [place] [address] [email or web address] 11/17/2025 1:00 PM EST Nutrition [facility] 40 [place] [phone] Dolores Fuller LDN [address] [address] 01/16/2026 11:20 AM EDT Office Visit [facility] Endocrinology [place] 40 [place] [phone] Nora Gomes MD [address] [address] [email or web address] documented as of this encounter Visit Diagnoses Not on filedocumented in this encounter Additional Health Concerns Infection Onset Date Last Indicated Resolved Time MRSA 08/04/2024 08/04/2024 documented as of this encounter Care Teams Vaccine Customer Representative Relationship Specialty Start Date End Date Jb Stewart MD [address] [place] [address] [place] [address] PCP - General Internal Medicine 04/29/22 04/03/25 Ailyn García MD [address] [place] [address] [place] [address] PCP - General Internal Medicine 04/04/25 documented as of this encounter Additional Source Comments The information contained in this document represents components of the legal health record. It is not the complete legal health record[facility]
--- OUTSIDE RECORDS SUMMARY | 2025-06-09 18:50 | XMS_ITS | Encounter Summary ---
Author Organization [facility] Address [address] [place] [address] [place] [address] Phone Care Team Providers Care Secondary Connector Armature Name Role Phone Ailyn García MD Primary Care Provider Encounter Details Date Type Department Care Team (Late st Contact Info) Description 04/04/2025 Procedure Pass [facility] Endoscopy Admitting Dept Virtual Department [address] [place] [address] Social History Tobacco Use Types Packs/Day Years Used Date Smoking Tobacco: Never Smokeless Tobacco: Never Alcohol Use Standard Drinks/Week Comments Never 0 (1 standard drink = 0.6 oz pur e alcohol) Home Health Assessment: Transportation Answer Date Recorded Lack of Transportation (Medical) No 09/14/2024 Lack of Transportation (Non-Medical) No 09/14/2024 Patient Unable or Declines to Respond No 09/14/2024 Education Answer Date Recorded Are you interested [...] as food, clothing, or medical care? No 04/04/2025 In the past 12 months have y ou been in a relationship with a person who hurts, threatens, or tries to control you? No 04/04/2025 Are you denied basic needs s uch as food, clothing, or medical care? No 04/04/2025 In the past 12 months have y ou been in a relationship with a person who hurts, threatens, or tries to control you? No 04/04/2025 Sex and Gender Information Value Date Recorded Sex Assigned at Male 11/19/2022 12:49 PM EST Legal Sex Male 4:01 PM EST Gender Identity Male 11/19/2022 12:49 PM EST Sexual Orientation Straight 08/11/2024 9: 34 AM EST documented as of this encounter Plan of Treatment Upcoming Encounters Date Type Department Care Team (Late st Contact Info) Description 07/18/2025 11:00 AM EDT Office Visit [facility] Endocrinology [address] [address] Cindy Tillman PA-C [address] [place] [address] 08/30/2025 3:00 PM EST Office Visit [facility] [address] [facility], 5th [place] [address] Aldo Aguilar MD 55 [facility] 456 [place] [address] [email or web address] 10/11/2025 3:30 PM EST Office Visit [facility] [address] [facility] 9th [place] [address] Marco Macedo MD, MS 243 [place] [address] [email or web address] 11/17/2025 1:00 PM EST Nutrition [facility] [address] [place] [phone] Dolores Fuller LDN [address] [address] [email or web address] 01/16/2026 11:20 AM EDT Office Visit [facility] Endocrinology [place] [address] [place] [address] Nora Gomes MD 22 [facility] 3rd [place] [address] [email or web address] documented as of this encounter Visit Diagnoses Not on filedocumented in this encounter Additional Health Concerns Infection Onset Date Last Indicated Resolved Time MRSA 08/04/2024 08/04/2024 documented as of this encounter Care Teams Secondary Connector Armature Relationship Specialty Start Date End Date Ailyn García MD NPI: [id number] [place] [address] [place] [address] PCP - General Internal Medicine 04/04/25 documented as of this encounter Additional Source Comments The information contained in this document represents components of the legal health record. It is not the complete legal health record.[facility]
--- OUTSIDE RECORDS SUMMARY | 2025-06-09 18:50 | XMS_ITS | Encounter Summary ---
Author Organization [facility] Address [address] [place] [address] Phone Care Team Providers Care Licensed Sales Assistant Name Role Phone Pop Adler MD Primary Care Provider [phone] Pop Adler MD Primary Care Provider [phone] Jb Stewart MD Primary Care Provider Ye Batista MD Primary Care Provider Ye Batista MD Primary Care Provider [phone] Jb Stewart MD Primary Care Provider Ye Batista MD Primary Care Provider [phone] Unknown, Unknown Primary Care Provider Jb Hood MD Primary Care Provider Ailyn García MD Primary Care Provider [phone] Encounter Details Date Type Department Care Team (Late st Contact Info) Description 09/13/2020 Procedure Pass [facility] Imaging - RF/IR [address] [place] [address] Social History Tobacco Use Types Packs/Day Years [...] Description 07/18/2025 11:00 AM EDT Office Visit [facility] Endocrinology [place] [address] [place] [phone] Cindy Tillman PA-C 22 [place] [address] [email or web address] 08/30/2025 3:00 PM EST Office Visit [facility] 55 [facility], 5th [place] [address] Aldo Aguilar MD [address] [address] [email or web address] 10/11/2025 3:30 PM EST Office Visit [facility] [address] [facility] 9th [place] [address] Marco Macedo MD, MS 243 [place] [address] [email or web address] 11/17/2025 1:00 PM EST Nutrition [facility] [address] [place] [phone] Dolores Fuller LDN 22 [facility], 1st [place] [address] [email or web address] 01/16/2026 11:20 AM EDT Office Visit [facility] Endocrinology [place] [address] [place] [address] Nora Gomes MD [address] [place] [address] [email or web address] documented as of this encounter Visit Diagnoses Not on filedocumented in this encounter Additional Health Concerns Infection Onset Date Last Indicated Resolved Time CoV-Risk 02/04/2022 02/04/2022 02/15/2022 1:24 AM EDT MRSA 08/04/2024 08/04/2024 documented as of this encounter Care Teams Licensed Sales Assistant Relationship Specialty Start Date End Date Pop Adler MD [address] [place] [address] Dr STEVENS [address] [place] [address] PCP - General Internal Medicine 09/11/20 12/05/20 Pop Adler MD [address] [place] [address] Dr STEVENS [address] [place] [address] PCP - General Internal Medicine 04/03/21 04/24/21 Jb Stewart MD [address] [place] [address] Dr STEVENS [facility] [place] [address] PCP - General Internal Medicine 04/25/21 12/09/21 Ye Batista MD [address] [place] [address] [email or web address] PCP - General Internal Medicine 12/10/21 12/16/21 Ye Batista MD [address] [place] [address] PCP - General Internal Medicine 12/17/21 12/17/21 Jb Stewart MD [address] [place] [address] [place] [address] PCP - General Internal Medicine 12/18/21 12/24/21 Ye Batista MD [address] [place] [address] [email or web address] PCP - General Internal Medicine 12/25/21 04/01/22 Unknown, Kaveh, PCP - General 04/02/22 04/28/22 Jb Stewart MD [address] [place] [address] [facility] [place] [address] PCP - General Internal Medicine 04/29/22 04/03/25 Ailyn García MD [address] [place] [address] [place] [address] PCP - General Internal Medicine 04/04/25 documented as of this encounter Additional Source Comments The information contained in this document represents components of the legal health record. It is not the complete legal health record.[facility]
--- OUTSIDE RECORDS SUMMARY | 2025-06-09 18:50 | XMS_ITS | Encounter Summary ---
Author Organization [facility] Address [address] [place] [address] [place] [address] Phone Care Team Providers Care Receiving Dock Checker Name Role Phone Jb Stewart MD Primary Care Provider Ailyn García MD Primary Care Provider [phone] Encounter Details Date Type Department Care Team (Late st Contact Info) Description 04/07/2023 Procedure Pass [facility] Imaging - MRI, [facility] [address] [place] [address] Social History Tobacco Use Types Packs/Day Years [...] Date of Assessment Author No Risk Indicated 04/07/2023 12:[address] RN * [place] Suicide Severity Rating Scale (Screener/Recent Self-Report) Question Answer Date of Assessment Author 1. Wish to be (Past 1 Month) No 023 12:36 PM EDT Hazel Yeung RN 2. Non-Specific Active Suici mary Thoughts (Past 1 Month) No 04/07/2023 12:36 PM EDT Melani Yeung RN 6. Suicidal Behavior (Lifetime) No 12:36 PM EDT Hazel Yeung RN documented as of this encounter Plan of Treatment Upcoming Encounters Date Type Department Care Team (Late st Contact Info) Description 07/18/2025 11:00 AM EDT Office Visit [facility] Endocrinology [address] [phone] Cindy Tillman PA-C [address] [place] [address] 08/30/2025 3:00 PM EST Office [facility] 55 [facility], 5th [place] [address] Aldo Aguilar MD [address] [address] [email or web address] 10/11/2025 3:30 PM EST [facility] [address] [facility] 9th [place] [address] Marco Macedo MD, MS 243 [place] [address] [email or web address] 11/17/2025 1:00 PM EST Nutrition [facility] 40 [facility] [place] [phone] Dolores Fuller LDN [address] [address] 01/16/2026 11:20 AM EDT Office Visit [facility] Endocrinology [place] 40 [facility] [place] [phone] Nora Gomes MD [address] [place] [address] documented as of this encounter Visit Diagnoses Not on filedocumented in this encounter Additional Health Concerns Infection Onset Date Last Indicated Resolved Time MRSA 08/04/2024 08/04/2024 documented as of this encounter Care Teams Receiving Dock Checker Relationship Specialty Start Date End Date Jb Stewart MD [address] [place] [address] [place] [address] PCP - General Internal Medicine 04/29/22 04/03/25 Ailyn García MD [address] [place] [address] [place] [address] PCP - General Internal Medicine 04/04/25 documented as of this encounter Additional Source Comments The information contained in this document represents components of the legal health record. It is not the complete legal health record.[facility]
--- OUTSIDE RECORDS SUMMARY | 2025-06-09 18:50 | XMS_ITS | Patient Health Record ---
Author Organization Po Medeiros III, MD Address [address] [facility] [place] [facility] [address] Care Team Providers Care Shore Working Supervisor Name Role Phone Jb Stewart MD Primary Care Provider Unavaila felisha Po Medeiros Unavailable [phone] Allergies Allergen (clinical drug ingredient) Drug/Non Drug Allergy documented on EMR Reaction Allergy Type Onset Date Status No Known Drug Allergy Unknown Drug Allergy Active Results Component Value Reference Range Notes US abdomen complete Reviewed date:09/20/2024 02:51:20 PM Interpretation: Performing Lab: Notes/Report: [address] [address] Ultrasound Report Signed with Addenda Patient: Saad Meeks MR#: [id number] : 1970 Acct:[id number] Age/Sex: 53 / M ADM Date: 07/21/24 Loc: HO.US Attending Dr: Po Medeiros MD Ordering Physician: Po Medeiros MD Date of Service: 07/21/24 Procedure(s): US abdomen complete Accession Number(s): [id number] cc: Po Medeiros MD; Jb Stewart MD [...] in OV> 07/21/241539 DD/ 58 TD/TT: 07/21/241115 Post Acute Care Nurse Practitioner: [place] [address] Ultrasound Report Signed with Addenda Patient: Luan Meeks MR#: [id number] : 1970 Acct:[id number] Age/Sex: 53 / M ADM Date: 07/21/24 Loc: HO.US Attending Dr: Po Medeiros MD Ordering Physician: Po Medeiros MD Date of Service: 07/21/24 Procedure(s): US abd omen complete Accession Number(s): [id number] cc: Po Medeiros MD; Jb Stewart MD [...] 07/21/24 1540 DD/ 1059 TD/TT: 07/21/24 1116 Post Acute Care Nurse Practitioner: Reason For Referral No Information Medications Medication [...] Status W/U Status Risk Notes Problem Pancytopenia (579661621) Pancytopenia (D61.818) Active confirmed His pancytopenia is mild. It is very likely due to mild splenomegaly. Records from [facility] document a history of portal hypertension and ascites and cirrhosis. An ultrasound has been done to measure the current spleen size. Observation without treatment is indicated. Problem 87651660 Secondary esophageal varices without bleeding (I85.10) Active confirmed Problem 71586083 Other cirrhosis of liver (K74.69) Active confirmed He has a known diagnosis of nonalcoholic cirrhosis which in the past has been complicated by portal hypertension and esophageal varices. Problem 78609342 Portal hypertension (K76.6) Active confirmed Problem 183147178 Environmental allergies (Z91.09) Active confirmed Problem 228906654 Right inguinal hernia (K40.90) Active confirmed This was repaired at [facility] in March 2023. It is currently asymptomatic. Problem 301411981 Type 2 diabetes mellitus without complication, without long-term current use of insulin (E11.9) Active confirmed His diabetes has been treated and seems to be stable. A current A1c is not available. Problem 676071288 Chronic GERD (K21.9) Active confirmed Problem 02556876 Polyp of colon, unspecified part of colon, unspecified type (K63.5) Active confirmed Problem 858867007 Stage 3 chronic kidney disease, unspecified whether stage 3a or 3b CKD (N18.30) Active confirmed His renal function has been stable and is under the care of primary care. Problem 786896274 Asymptomatic cholelithiasis (K80.20) Active confirmed Ultrasound of the abdomen to measure the spleen has been ordered which will also study the gallbladder. 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 Problem 33834840 Legally blind (H54.8) Active confirmed Vital Signs Heart Rate 90 /min 07/20/2024 Temperature 99.9 degrees Fahrenheit 07/20/2024 Blood pressure diastolic 87 mm Hg 07/20/2024 Height 5'6 in 07/20/2024 Blood pressure systolic 143 mm Hg 07/20/2024 Weight 154 lbs 07/20/2024 BMI 24.85 kg/m2 07/20/2024 Encounters Encounter Location Date Provider Diagnosis Po Medeiros III, MD [address] [place] [address] [place] [address] 07/20/2024 Po Medeiros Pancytopenia D61.818 ; Splenomegaly [...] likely due to mild splenomegaly. Records from [facility] document a history of portal hypertension [...] (ICD-10 - K40.90) This was repaired at [facility] in March 2023. It is currently asymptomatic. 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.818 mucor osteomyelitis right maxilla 2022 Hepatic cirrhosis secondary to steatosis Portal hypertension 2022 [facility] Esophageal varices 2022 [facility] NIDDM CKD Allergies Colonic polyps 2020 Cholelithiasis 2022 [facility] Peripheral neuropathy ED Legally blind Cholelithiasis Splenomegaly 12.6 cm June 2024 Right inguinal hernia, repair March 2023 [facility] Surgical History Surgery Date(Month/Year) Right inguinal herniorrhaphy 2022 Colonoscopy positive for polyps 2020 Right maxillary biopsy 2022 Herniorrhaphy 2022 Back surgery 2019 Hospitalization History Reason Date(Month/Year) The patient was hospitalized for eight months due to Mucor osteomyelitis of the right maxilla
--- OUTSIDE RECORDS SUMMARY | 2025-06-09 18:50 | XMS_ITS | Clinical Summary ---
Author Organization [facility] Address [address] [place] [phone] Phone Care Team Providers Care Manager Utilities Name Role Phone Ailyn García MD Primary Care Provider Allergies No known active allergies Medications blood-glucose meter,continuo us (FREESTYLE ROBERT 3 READER) MiscIndication s:Type 2 diabetes mellitus with peripheral neuropathy Use as directed to monitor glucose 1 each 4 Active furosemide (LASIX) 20 MG tabletIndicati ons:Encounter for monitoring diuretic therapy Take 1 tablet (20 mg total) by mouth daily. 30 tablet 2 4 Active spironolactone (ALDACTONE) 50 MG tabletIndicati ons:Encounter for monitoring diuretic therapy Take 1 tablet (50 mg total) by mouth daily. 30 tablet 2 4 09/01/20 25 Active Additional Information Patient not taking.Reported on 05/23/2025 carvedilol (COREG) 3.125 MG tablet Take 1 tablet (3.125 mg total) by mouth 2 (two) times a day with meals. 60 tablet 11 5 Active gabapentin (NEURONTIN) 300 MG capsule Take 300 mg by mouth 2 (two) times a day. Active loperamide (IMODIUM) 2 mg capsule 4 (four) times a day as needed. Active metoprolol tartrate (LOPRESSOR) 25 MG tablet Take 25 mg by mouth 2 (two) times a day. Active omeprazole (PRILOSEC) 20 MG tablet Take 20 mg by mouth daily. Active insulin glargine 100 unit/mL (3 mL) InPn injection penIndications :Type 2 diabetes mellitus with peripheral neuropathy Inject 6 Units under the skin nightly at bedtime. 15 mL 1 5 Active blood-glucose sensor (FREESTYLE ROBERT 3 PLUS SENSOR) DeviIndication s:Type 2 diabetes mellitus with peripheral neuropathy Use as directed to monitor glucose, change every 15 days 6 each 3 5 Active alcohol PadMIndication s:Type 2 diabetes mellitus with peripheral neuropathy Apply 1 Application topically daily. To clean insulin injection site 100 each 3 5 Active FREESTYLE 28 gauge lancetsIndicat ions:Type 2 diabetes mellitus with peripheral neuropathy Inject 1 each under the skin every morning. 100 each 3 5 Active FREESTYLE LITE Strp stripsIndicati ons:Type 2 diabetes mellitus with peripheral neuropathy Inject 1 each under the skin every morning. 100 strip 3 5 Active BD GEE 2ND GEN PEN NEEDLE 32 gauge x NdleIndication s:Type 2 diabetes mellitus with peripheral neuropathy Inject 1 each as directed every morning. 100 each 3 5 Active insulin glargine 100 unit/mL (3 mL) InPn injection pen Inject 5 Units under the skin nightly at bedtime. 3 mL 4 05/23/20 25 Discontin ued(Reord er) blood-glucose sensor (FREESTYLE ROBERT 3 PLUS SENSOR) DeviIndication s:Type 2 diabetes mellitus with peripheral neuropathy Use as directed to monitor glucose, change every 15 days 6 each 3 5 05/23/20 25 Discontin ued(Reord er) BD GEE 2ND GEN PEN NEEDLE 32 gauge x 32 Ndle 1 each every morning. 05/23/20 25 Discontin ued(Reord er) alcohol PadM Apply 1 Application topically daily. 05/23/20 25 Discontin ued(Reord er) FREESTYLE 28 gauge lancets 1 each every morning. 05/23/20 25 Discontin ued(Reord er) FREESTYLE LITE Strp strips 1 each every morning. 05/23/20 25 Discontin ued(Reord er) Active Problems Problem Noted Date Diagnosed Date Type 2 diabetes mellitus with peripheral neuropa thy 08/30/2024 Assessment & Plan (05/23/2025 9:49 AM EDT): Control is unknown as the patient forgot his freestyle robert reader today. No frequent or severe hypoglycemia. He questions his glucose levels going up to 180-200, 20-30 minutes after eating. Discussed how his glucose levels with fluctuate with timing of his food. Discussed checking his glucose levels 2 hours after meals, reviewed 2 hour post prandial glucose goals of 180 or less. Will maintain his insulin dosing for now. Continue to work on eating healthy and being active. To call or message with any issues managing his glucose levels. Up to date with ophtho. Labs ordered Assessment & Plan (08/30/2024 5:02 PM EST): 53 y.o. man with diabetes since at least 2020. Control has been suboptimal by hx. Current SMBG reasonable given intercurrent issues. Recent lactic acidosis, ? Due to metformin vs other. No frequent or severe hypoglycemia. Discussed rationale & goals for control. Role of & goals for SMBG. Would continue with insulin in avoid other agents given co-morbidities. Will continue current dose for now. Discussed site rotation. Will refer to RD/CDE to help with dietary & general education. Will send rx for robert 3 plus to see if covered, affordable & if so to see GUERO Hernández to learn how to use. Continue to work on eating healthy & keeping active, as able. To call or send in log with problems with glucose control. Foot & nail care good. BP well controlled. Low serum cortisol level 08/30/2024 Assessment & Plan (08/30/2024 4:53 PM EST): Likely due to exogenous steroids shortly before testing. Would avoid steroids for now. Will repeat cortisol 8-9 am, fasting. Hyperkalemia 08/30/2024 Assessment & Plan (08/30/2024 4:58 PM EST): With acidosis. Hyperkalemia seems to have been recurrent. Off of metformin, on bicarbonate. Will check labs. If these are ongoing issues he might benefit from ongoing renal involvement. Abnormal thyroid function test 08/30/2024 Assessment & Plan (08/30/2024 4:52 PM EST): Low T3 during hospitalization w/ nl TSH/free T4, ? Due to intercurrent illness. Will repeat. Metabolic acidosis, normal anion gap (NAG) 08/14 Altered mental status 08/14/2024 Type 2 diabetes mellitus wit h hyperglycemia, without long-term current use of insulin 08/11/2024 High anion gap metabolic acidosis 08/03/2024 ESTEFANY (acute kidney injury) 08/03/2024 Transaminitis 08/03/2024 Alkaline phosphatase elevation 08/03/2024 Orbital pain, right 04/07/2023 Immunization due 03/30/2023 Overview (03/29/2024): Needs Shingrix #2, flu and COVID this fall Immunization History Administered Date(s) Administered COVID-19 Moderna Spikevax Vaccine 12+ ([id number]) 07/18/2023 COVID-19 Moderna Vaccine, mRNA, PF 11/11/2020, 12/09/2020, 10/20/2021 COVID-19 Pfizer Vaccine, Bivalent 12+ 03/28/2023 Hepatitis A, Adult 03/28/2010 Hepatitis B CpG 03/28/2023 Influenza Quadrivalent Preservative Free IM 06/04/2017, 07/27/2019, 06/04/2021, 10/21/2021, 07/18/2023 Influenza Quadrivalent w/ Preservative IM 06/16/2019 Influenza Recombinant Quadrivalent Preservative Free IM 07/04/2020 Meningococcal ACWY, unspecified formulation 03/28/2010 Meningococcal MCV4P 09/03/2016 Pneumococcal conjugate PCV20 03/28/2023 Pneumococcal polysaccharide PPSV23 04/11/2013 Polio - IPV 03/28/2010 Typhoid, ViCPs 03/28/2010 Zoster recombinant 10/21/2021 Assessment & Plan (05/10/2024 1:21 PM EDT): I recommended that he get updated vaccines this fall including influenza and COVID-19. Needs another dose of the Shingrix vaccine. Many of his other vaccines are up to date. Assessment & Plan (11/05/2023 2:24 PM EST): 11/05/2023 He is up-to-date on his COVID-19 and influenza vaccines. 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 We obtained T spot, HIV, and Strongyloides given epidemiologic history. Diabetes mellitus with complication 03/28/2023 Overview (03/28/2023): Lab Results Component Value Date GHBA1C 4.8 12/29/2022 GHBA1C 5.6 10/28/2022 GHBA1C 12.8 (H) 09/02/2022 Assessment & Plan (03/28/2023 10:19 AM EDT): Not on diabetes medications, needs sliding scale very infrequently now that he has lost significant weight. We discussed that as he regains weight his A1c may go back up so his diabetes should be monitored. 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 To summarize his pertinent history, Mr Constantino had uncontrolled diabetes (peak A1c was ~12% in 08/2022; A1c in 04/2021 was ~8% but patient and daughter report not being aware of a diagnosis of DM at the time). He and his went on a cultural zoroastrianism trip to [place] [facility] [place] in 07/2022 and towards the end of the trip he started experiencing right maxillary swelling and numbness. He was initially diagnosed with trigeminal neuralgia at [facility] ED, but his family took him to [facility] well and he was diagnosed with an invasive infection with Mucor soon thereafter. He had serial debridements and right maxillectomy and debridement of infratemporal fossa (09/15/2022, 11/13/2022, 11/21/22) and each time there were aseptate hyphae on the fungal prep but no growth in the cultures. 11/13: Pathology: Retromaxillary tissue with aggregates of fungal organisms morphologically consistent with Mucor. According to the daughter, they could not achieve clean margins, and at some point enucleation of the right eye was discussed but it was ultimately deemed unnecessary. 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 For antifungal therapy he received 6 weeks of amphotericin B (completed on 12/21/22) followed by isavuconazole which he remains on (he was briefly on posaconazole for 2 weeks). He also received antibacterials for bacterial pathogens that grew from the debridement cultures (those included Kleb oxytoca, MDM producing E. Coli, S epi, Pseudomonas, VRE). He was diagnosed with decompensated cirrhosis and was started on diuretics and K+ supplementation. His course was also complicated by cardiac arrest 2/2 iatrogenic hyperkalemia from which he recovered well. He also completed 5 sessions of hyperbaric oxygen which was complicated by blurry vision and was thus stopped. INTERVAL HISTORY: -04/07: Seen in ED by Dr. Mane where he complained of numbness and burning in his eye for two weeks which resolved. MRI was performed which upon review with the [facility] [place]ologist did not reveal any new or progressive disease.ENT performed endoscopic exam which was normal. He was counseled to continue isavuconazole. -04/10: Retinal home health travel pt appointment: pt reported vision loss after 5th hyperbaric oxygen therapy on 01/2023. Exam revealed normal Optical coherence tomography. A referral was sent to a subspecialist for concern for optic neuropathy -04/11: ENT appointment: Endoscopy without evidence of necrosis. Dehiscence of orbit seen but well mucosalized. There was no evidence of recurrent invasive fungal sinusitis. 05/16 retinal specialist: Vision stable. No sign of optic nerve enhancement on MRI. Exam concerning for central retina etiology rather than optic nerve. Opted to monitor. 06/20/23: ENT: No crusting, discolored drainage, or evidence of necrosis. Maxillary sinus with healthy mucosa. No evidence of fungal disease 07/18/23: he discussed his frustrations and shared he often feels down regarding his diagnosis and visual loss. His daughter mentioned he had stopped taking isavuconazole for two weeks and started to feel unwell and tremulous. He resumed taking the medications then began to feel better. Today (08/15), he returns after seeing his ID specialist in [place], [place]. Saad was concerned his infection was back. However, his exam was unchanged. He describes an increased burning sensation, as well as some pain. His son states he has been experiencing these symptoms for awhile. He recently decreased his gabapentin dose to once daily, rather than 300mg twice daily. His son wonders if this is what caused his increased discomfort. We examined his cranial nerves and evaluated and palpated his maxillary region. We were not concerned for new or relapsed infection. We discussed trialing increasing the dose of gabapentin in the evening to 600mg. The morning dose will stay at 300mg. We also discussed the importance of continuing the isavuconazole daily. Assessment & Plan (05/10/2024 1:24 PM EDT): 11/05/2023 in person visit I saw him today with his . He had seen neuro-ophthalmology in early September here and his understanding was that the neuro-home health travel pt was saying that the isavuconazole could be causing his vision changes, so he stopped his isavuconazole and has been off it over the past month. He now has somewhat worse facial pain on the right side, with some swelling, overall relatively mild. He said that he and his family called my office many times but we never called him back, which is unusual as we call back same day with all messages. We talked about how I had recommended he be on antifungal therapy for life, but he stopped the treatment. I paged the doctor from neuro-ophthalmology during this visit who confirmed that he did not recommend stopping the antifungal therapy. His called their daughter who was on the phone during this call. The family expressed frustration over the fact that he does what he wants to do and felt as though he was not listening to them. They plan on going to [place] in a month where he will be there for 2 months. I told him that I am extremely worried about him being off therapy, having somewhat progressive facial pain, and that if this got worse in [place] it would likely be highly mortal process with progressive mucormycosis. He said that he would reinitiate therapy. I suggested he take a loading dose. I also suggested that if he felt that his facial pain was truly worse, he should go to the [facility] either today or at any point for further rapid workup. We would not be able to get an MRI before his travel to [facility] and realistically if we thought this was progressive mucormycosis that should be done on a more urgent basis and we can do as an outpatient. He expressed a clear understanding. I expressed concern about the ability to get a long course of isavuconazole as insurance might not cover for his entire time in [place] and they should plan ahead for that by talking to the insurance company. He tells me that his diabetes has been under much better control and he is being followed by a nurse locally for that. In speaking with the neuro-home health travel pt he thought that perhaps the optic neuropathy was from some type of toxic metabolic insult such as we see with ethambutol and other similar medications, and this has been reported in the package insert although not further published for isavuconazole, so we do not think it is very frequent and I certainly have not seen this in the past. It has been a longstanding process seemingly before he started on any of the oral antifungals. Posaconazole is not covered by his insurance. We do not have alternative options so I strongly recommended he restart isavuconazole. He will follow-up with the neuro-home health travel pt in January and they may do genetic screening for optic neuropathy at that point, we reviewed the chart together and it does not look like it was sent after the last visit. [facility]. He is asking if he can have surgery to repair the defect in his mouth, but my understanding is that cannot do that while he is on antifungal therapy. I certainly would not do it now while he has been off antifungal therapy. I will ask for follow-up to be booked with me when he has other [facility] appointments in the near future, after he returns from [place]. I gave them several copies of my business card to ensure that they have the correct phone numbers to call if they have questions. May 10, 2024 He came to a visit with me today. He has missed multiple visits with me over the past few months. His daughter brought him today. He reports that he had a wonderful trip back to [facility]. No health issues. I am glad to hear that. He felt itchy from the isavuconazole so stopped it about 5 months ago. He has taken it occasionally since that time but not much at all. He feels stable. He still feels pressure around his right eye, same as always, no change. No change in vision. He saw Dr. Macedo in ENT who thought that things looked stable by exam. At this point, he seems to be stable off of therapy. His diabetes is in good control. I discussed with Dr. Macedo and we do not feel the need to do repeat MRI if he is clinically stable. Dr. Macedo told me he could follow-up with a local ENT or he would be happy to see him. I told him and his daughter several times in person and then by Deville messaging that if things were to worsen clinically, more pressure in his head, change in vision, pain, fevers, other symptoms he should seek medical attention immediately, probably by coming here to the emergency room. I gave him my business card again. I mentioned that given his liver disease he might eventually be evaluated for liver transplant, and it would be optimal if he were both compliant with medications and with doctors visits. They expressed a clear understanding. Overall I am glad to see him doing so well a year and a half after life- threatening rhinal cerebral mucormycosis. I would be happy to see him again as needed. Assessment & Plan (11/05/2023 2:24 PM EST): 11/05/2023 in person visit I saw him today with his . He had seen neuro-ophthalmology in early September here and his understanding was that the neuro-home health travel pt was saying that the isavuconazole could be causing his vision changes, so he stopped his isavuconazole and has been off it over the past month. He now has somewhat worse facial pain on the right side, with some swelling, overall relatively mild. He said that he and his family called my office many times but we never called him back, which is unusual as we call back same day with all messages. We talked about how I had recommended he be on antifungal therapy for life, but he stopped the treatment. I paged the doctor from neuro-ophthalmology during this visit who confirmed that he did not recommend stopping the antifungal therapy. His called their daughter who was on the phone during this call. The family expressed frustration over the fact that he does what he wants to do and felt as though he was not listening to them. They plan on going to [place] in a month where he will be there for 2 months. I told him that I am extremely worried about him being off therapy, having somewhat progressive facial pain, and that if this got worse in [place] it would likely be highly mortal process with progressive mucormycosis. He said that he would reinitiate therapy. I suggested he take a loading dose. I also suggested that if he felt that his facial pain was truly worse, he should go to the [facility] either today or at any point for further rapid workup. We would not be able to get an MRI before his travel to [place] and realistically if we thought this was progressive mucormycosis that should be done on a more urgent basis and we can do as an outpatient. He expressed a clear understanding. I expressed concern about the ability to get a long course of isavuconazole as insurance might not cover for his entire time in [place] and they should plan ahead for that by talking to the insurance company. He tells me that his diabetes has been under much better control and he is being followed by a nurse locally for that. In speaking with the neuro-home health travel pt he thought that perhaps the optic neuropathy was from some type of toxic metabolic insult such as we see with ethambutol and other similar medications, and this has been reported in the package insert although not further published for isavuconazole, so we do not think it is very frequent and I certainly have not seen this in the past. It has been a longstanding process seemingly before he started on any of the oral antifungals. Posaconazole is not covered by his insurance. We do not have alternative options so I strongly recommended he restart isavuconazole. He will follow-up with the neuro-home health travel pt in January and they may do genetic screening for optic neuropathy at that point, we reviewed the chart together and it does not look like it was sent after the last visit. He will follow-up with the ENT at [facility] in 2 weeks. He is asking if he can have surgery to repair the defect in his mouth, but my understanding is that cannot do that while he is on antifungal therapy. I certainly would not do it now while he has been off antifungal therapy. I will ask for follow-up to be booked with me when he has other [facility] appointments in the near future, after he returns from [facility]. I gave them several copies of my business card to ensure that they have the correct phone numbers to call if they have questions. Assessment & Plan (08/15/2023 8:28 PM EST): Stable. No concern for new or recurrent infection at this time, though patient notes a burning sensation and some maxillary region pain, though in the setting of decreasing his gabapentin dose -Recommend gabapentin 600mg before bed and continuing to take 300mg in the morning -Will discuss case with retinal specialist and ENT after their follow-ups -Discussed likely need for indefinite need for isavuconazole given aggressive nature of mucormycosis and unclear confirmation of source control -continue isavuconazole daily Assessment & Plan (07/24/2023 12:33 AM EDT): Stable. No concern for new or recurrent infection at this time. MRI stable. -Discussed likely need for indefinite need for isavuconazole given aggressive nature of mucormycosis and unclear confirmation of source control -Will get CBC, CMP, HgbA1c -covid-19 and influenza vaccine Assessment & Plan (03/28/2023 10:23 AM EDT): -Continue isavuconazole, for years possibly indefinitely, as he didn't have clean margins. We reordered isavuconazole prescription -Cheking LFTs today as they were elevated earlier this month. 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 -Will defer adrenal insufficiency management to ICU and endocrinology team. -Continue to follow transaminitis rest of the workup in progress -Nephrology team will sign off for now. Assessment & Plan (08/12/2024 9:41 AM EST): -Labs pending today, Continue with fluid resuscitation as is. -Likely adrenal insufficiency playing a role would likely benefit from therapy. -Expand workup including JOHN Sjogren antibodies, alpha-fetoprotein, antimitochondrial and anti-smooth muscle antibodies. Ceruloplasmin level. -Transaminitis, consider further imaging of liver, rule out other viral forms hepatitis BC CMV COVID influenza and consider GI consultation. -Monitor respiratory status as per ICU protocol, strict I/Os, daily weights, please avoid nephrotoxins. Lactic acidosis 08/03/2024 08/06/2024 Acute hyperkalemia 08/03/2024 4 Low back pain 08/03/2020 03/28/2023 Elevated LFTs 09/25/2020 Encounters Date Type Department Care Team Description 9:00 AM EDT Office Visit [facility] [address] [place] [phone] Cindy Tillman PA-C Type 2 diabetes mellitus with peripheral neuropathy (Primary Dx) 5 1:00 PM EDT Nutrition [facility] [address] [facility] [place] [phone] Dolores Fuller, RD Dolores Fuller, LDN Type 2 diabetes mellitus with hyperglycemia, without long-term current use of insulin (Primary Dx) 5 10:15 AM EDT - 5 10:30 AM EDT Surgery [facility] Admitting Dept Virtual Department [address] [place] [address] Ty Rod MD ESOPHAGOGASTRODUODENOSCOPY 5 9:55 AM EDT Anesthesia Event [facility] Admitting Dept Virtual Department [address] [place] [address] Moni Morrow MD 5 8:48 AM EDT - 5 11:06 AM EDT Hospital Encounter [facility] Virtual Department [address] [place] [address] Ty Rod MD Discharge Disposition: Home or Self Care 5 Procedure Pass [facility] Admitting Dept Virtual Department [address] [place] [address] 5 3:45 PM EDT Pre-Admission Testing Pre Procedure Evaluation [address] [place] [address] Ty Rod MD 5 3:15 PM EDT Office Visit [facility] [address] [address] Marco Macedo MD, MS Chronic maxillary sinusitis (Primary Dx) from Last 3 Months Immunizations Immunization Administration Dates Next Due COVID-19 (Pre-07/21) Pfizer Vaccine, Bivalent 12+ 03/28/2023 COVID-19 Moderna Spikevax Vaccine 12+ 07/18/2023 Hepatitis A, Adult 03/28/2010 Hepatitis B CpG 03/28/2023 INFLUENZA, SPLIT VIRUS, TRIVALENT PF ,08/06/2024(Deferred: Patient Refused) IPV 03/28/2010 Influenza Quadrivalent Prese rvative Free IM 07/18/2023,10/21/2021,06/04/2021,07/27,06/04/2017 Influenza Quadrivalent w/ Pr eservative IM 06/16/2019 Influenza Recombinant Jillian valent Preservative Free IM 07/04/2020 Meningococcal ACWY, unspecif ied formulation 03/28/2010 Meningococcal MCV4P 09/03/2016 Pneumococcal conjugate PCV20 03/28/2023 Pneumococcal polysaccharide PPSV23 04/11/2013 Typhoid, ViCPs 03/28/2010 Zoster recombinant 10/21/2021 Family History Medical History Relation Comments Diabetes Mother Diabetes Sibling Relation Status Comments Father Mother Sibling Social History Tobacco Use Types Packs/Day Years Used Date Smoking Tobacco: Never Smokeless Tobacco: Never Tobacco Cessation:Counseling Given: Not Answered Alcohol Use Standard Drinks/Week Comments Never 0 [...] your housing situation today? I have macey sing 08/11/2024 How many times have you move [...] Orientation Straight 08/11/2024 9: 34 AM EST Last Filed Vital Signs Vital Sign Reading Time Taken Comments Blood Pressure 120/70 05/23/2025 9:15 AM EDT Pulse 72 05/23/2025 9:15 AM EDT Temperature 35.8 C (96.5 F) 04/04/2025 10:08 AM EDT Respiratory Rate 18 04/04/2025 10:16 AM EDT Oxygen Saturation 97% 05/23/2025 9:15 AM EDT Inhaled Oxygen Concentration - - Weight 67.1 kg (148 lb) 05/23/2025 9:15 AM EDT Height 172.2 cm (5' 7.8 ) 05/23/2025 9:15 AM EDT Body Mass Index 22.64 05/23/2025 9:15 AM EDT Plan of Treatment Upcoming Encounters Date Type Department Care Team (Late st Contact Info) Description 07/18/2025 11:00 AM EDT Office Visit [facility] End[facility] [place] [address] [place] [phone] Cindy Tillman PA-C 22 [place] [address] 08/30/2025 3:00 PM EST Office Visit [facility] [address] [facility], 5th [place] [address] Aldo Aguilar MD 55 [facility] [address] [place] [address] [email or web address] 10/11/2025 3:30 PM EST Office Visit [facility] [address] [facility] 9th [place] [address] Marco Macedo MD, MS [address] [place] [address] [email or web address] 11/17/2025 1:00 PM EST Nutrition [facility] [address] [place] [phone] Dolores Fuller LDN [address] [address] [email or web address] 01/16/2026 11:20 AM EDT Office Visit [facility] [place] [address] [place] [phone] Nora Gomes MD [address] [address] [email or web address] Health Maintenance Due Date Last Done Comments Adult Td,Tdap Booster 1970 DEPRESSION SCREENING 1980 COLOGUARD 2013 FOBT 2013 SIGMOIDOSCOPY 2013 VIRTUAL COLONOSCOPY 2013 ZOSTER VACCINES (2 of 2) 12/16/2021 10/21/2021 FIT TEST 02/08/2024 02/07/2023 INFLUENZA VACCINE (#1) 2025 , 07/18/2023, 10/21/2021, Additional history exists DIABETIC EYE EXAM 05/10/2025 05/10/2024, , 05/10/2024, Additional history exists COVID-19 VACCINE ( season) 2025 07/18/2023, 03/28/2023, 10/20/2021, Additional history exists HEMOGLOBIN A1C 07/08/2025 01/06/2025, 1101/2024, 07/18/2023, Additional history exists URINE MICROALBUMIN/CREATININE RATIO 08/05/2025 08/05/2024, 01/28/2023, 01/13/2023, Additional history exists LIPID PANEL 08/11/2025 08/11/2024, 04/25/2021 POTASSIUM LEVEL 09/03/2025 09/03/2024, 120 11/2023, 08/15/2024, Additional history exists BLOOD PRESSURE 11/23/2025 05/23/2025 COLONOSCOPY 03/21/2033 03/21/2023, 12/07/2020 COLORECTAL CANCER SCREENING 03/21/2033 MENINGOCOCCAL VACCINES (ACWY) Aged Out 09/03/2016, 03/28/2010 No longer eligibl e based on patient's age to complete this topic HEPATITIS C SCREENING Completed 10/28/2022, 020 HIV ONE-TIME SCREENING (18-65 YEARS) Completed 03/28/2023 PNEUMOCOCCAL VACCINES (50+ years) Completed 03/28/2023, 04/11/2013 SMOKING STATUS SCREENING (Once After 26 Yrs) Completed 04/04/2025 HIB VACCINES Aged Out No longer eligi ble based on patient's age to complete this topic MENINGOCOCCAL VACCINES (B) Aged Out N o longer eligible based on patient's age to complete this topic Medical Devices Not on file Procedures Procedure Name Priority Date/Time Associated Diagnosis Comments MN EGD ABLATE TUMOR POLYP/LESION W/DILATION& WIRE 04/04/2025 9:56 AM EDT Other cirrhosis of liver Special Needs Blind / sees shadows, IDDM, freestyle robert divi, Hx diff intubation, Guillain [place], MN EDG TRANSORAL BIOPSY SINGLE/MULTIPLE 04/04/2025 9:56 AM EDT Other cirrhosis of liver Special Needs Blind / sees shadows, IDDM, freestyle robert divi, Hx diff intubation, Guillain [place], MN ESOPHAGOGASTRODUODENOSCOP Y TRANSORAL DIAGNOSTIC 04/04/2025 9:56 AM EDT Other cirrhosis of liver Special Needs Blind / sees shadows, IDDM, freestyle robert divi, Hx diff intubation, Guillain Sayre, ENDOSCOPY PROCEDURE 04/04/2025 9:52 AM EDT POCT GLUCOSE Routine 04/04/2025 9:37 AM EDT POCT HEMOGLOBIN A1C Routine 01/06/2025 10:21 AM EDT Type 2 diabetes mellitus with hyperglycemia, without long-term current use of insulin COMPREHENSIVE METABOLIC PANEL Routine 8:58 AM EST Abnormal thyroid function test LIPID PANEL Routine 08/11/2024 3:46 AM EST MICROALBUMIN/CREATININE RATI O, RANDOM URINE Routine 08/05/2024 4:27 PM EST ENDOSCOPY, COLON 03/21/2023 8:51 AM EDT HC BLOOD OCCULT FECAL HGB DETER IA QUAL FECES 1-3 Routine 02/07/2023 3:59 PM EDT Elevated alkaline phosphatase level HEPATITIS C ANTIBODY, QUALITATIVE Routine 09/13/2020 11:29 AM EST Elevated LFTs from Last 3 Months or Most Recently Relevant to Health Maintenance Results * ENDOSCOPY PROCEDURE (04/04/2025 9:52 AM EDT) Narrative Transcriptions Ty Rod MD - 04/04/2025 9:52 AM EDT [facility] Patient Name: Saad Kenyon Constantino Attending MD:: TY ROD MD, Procedure Date: 04/04/2025 9:52 AM Date of : 1970 Age: 54 Admit Type: Outpatient Gender: Male Room: [place] [address] Referring MD: Ailyn García Exam Type: Upper GI endoscopy Indications: Cirrhosis with suspected esophageal varices,Follow-up of esophageal varices Medications: Monitored Anesthesia Care Procedure: Informed consent was obtained from the patientafter discussion of the indications, limitations, alternatives, benefits, and risks of the procedure. Risks specifically discussed include but are not limited to medication reactions, missed lesions, bleeding, perforation, or the need for emergent surgery. Throughout the procedure, the patient's blood pressure, pulse, end-tidal CO2, and oxygensaturations were monitored continuously. The Olympus gastroscope [id number]-HQ190 # 5 wasintroduced through the mouth, and advanced to the second partof duodenum. The upper GI endoscopy was accomplished without difficulty. The patient tolerated the procedure fairly well. Complications: No immediate complications. Estimated blood loss:None. Findings: A post variceal banding scar was found in the lower third of the esophagus, 35-37 cm from theincisors. The Z-line was regular and was found 40 cm from the incisors. Mild portal hypertensive gastropathy was found inthe cardia. The examined duodenum was normal. The exam was otherwise without abnormality. Impression: - Scar in the lower third of the esophagus. - Z-line regular, 40 cm from the incisors. - Portal hypertensive gastropathy. - Normal examined duodenum. - The examination was otherwise normal. - No specimens collected. Recommendation: - Continue present medications. - Repeat upper endoscopy in 1 year for surveillance. TY ROD MD 04/04/2025 10:07:40 AM This report has been signed electronically. Number of Addenda: 0 Note Initiated On: 04/04/2025 9:52 AM Procedure Code(s): --- Professional --- 09556, Esophagogastroduodenoscopy, flexible, transoral; diagnostic, including collection of specimen(s) by brushing or washing, when performed (separate procedure) --- Technical --- 57074, Esophagogastroduodenoscopy, flexible, transoral; diagnostic, including collection of specimen(s) by brushing or washing, when performed (separate procedure) Diagnosis Code(s): --- Professional --- K22.89, Other specified disease of esophagus K76.6, Portal hypertension K31.89, Other diseases of stomach and duodenum K74.60, Unspecified cirrhosis of liver I85.00, Esophageal varices without bleeding --- Technical --- K22.89, Other specified disease of esophagus K76.6, Portal hypertension K31.89, Other diseases of stomach and duodenum K74.60, Unspecified cirrhosis of liver I85.00, Esophageal varices without bleeding CPT copyright 2021 [employer]. All rights reserved. The codes documented in this report are preliminary and upon publishing manager reviewmay be revised to meet current compliance requirements. Procedure Date: 04/04/2025 9:52:38 AM [address] [place] [address] us Ailyn García MD GI PROCEDURE ORDERABLES Shelley caldera Result * POCT Glucose (04/04/2025 9:37 AM EDT) Glucose, POCT 98 70 - 100 mg/dL [facility] 04/04/2025 9:37 AM EDT 04/04/2025 9:43 AM EDT us Ty Rod MD POINT OF CARE TEST ORDERABLES Final Result [facility] [address] [place] [address] * (ABNORMAL) POCT Hemoglobin A1c (01/06/2025 10:21 AM EDT) Hemoglobin A1c 5.9(A) 4.2 - 5.6 % Other 01/06/2025 10:2 1 AM EDT Lianet Richardson MD POINT OF CARE TEST ORDERABLES F inal Result * (ABNORMAL) Comprehensive metabolic panel (09/03/2024 8:58 AM EST) SODIUM 138 133 - 146 mmol/L [facility] POTASSIUM 4.8 3.3 - 5.1 mmol/L [facility] CHLORIDE 106 96 - 108 mmol/L [facility] CO2 23 21 - 35 mmol/L [facility] BUN 22(H) 6 - 19 mg/dL [facility] CREATININE 0.90 0.5 - 1.5 mg/dL [facility] GLUCOSE 121(H) 70 - 99 mg/dL [facility] ALBUMIN 3.6(L) 3.9 - 4.8 g/dL [facility] TOTAL PROTEIN 6.1(L) 6.5 - 8.0 g/dL [facility] CALCIUM 9.1 8.4 - 10.3 mg/dL [facility] ALKALINE PHOSPHATASE 406(H) 39 - 117 U/L [facility] TOTAL BILIRUBIN 1.0 0.0 - 1.2 mg/dL [facility] AST 93(H) 0 - 37 U/L [facility] ALT 105(H) 0 - 40 U/L [facility] GLOBULIN 2.5 1 - 4.8 g/dL [facility] EGFR 101 >59 mL/min/1.7 3m2 [facility] Comment:Estimated glomerular filtration rate calculated using the CKD-EPI refit equation. ANION GAP 14 10 - 20 mmol/L [facility] Blood 09/03/2024 8:58 AM EST 09/03/2024 11:44 AM EST us Shanice Elias [facility] BLOOD ORDERABLES Shelley l Result Performing Organization Address City/[facility] Co de Phone Number [address] [address] * (ABNORMAL) Lipid panel (08/11/2024 3:46 AM EST) HDL 77 mg/dL [facility] Comment: Interpretation <40 mg/dL: Low HDL cholesterol (major risk factor for CHD) Greater than or equal to 60 mg/dL: High HDL cholesterol ( negative risk factor for CHD) HDL - cholesterol is affected by a number of factors, e.g. smoking, excerise, hormones, sex and age. CHOLESTEROL 221 0 - 240 mg/dL [facility] TRIGLYCERIDES 93 30 - 160 mg/dL [facility] LDL 125 50 - 129 mg/dL [facility] Comment: LDL levels in terms of risk for coronary heart disease: <100 mg/dL: Optimal 100-129 mg/dL: Near or above optimal 130-159 mg/dL: Borderline high 160-189 mg/dL: High >190 mg/dL: Very High CARDIAC RISK RATIO 2.9(L) 3.4 - 5.0 C [facility] Blood 08/11/2024 3:46 AM EST 08/11/2024 3:57 AM EST us Filipe Nguyen [facility] BLOOD ORDERABLES Final Resul t Performing Organization Address City/[facility]/ZIP Co de Phone Number [address] [address] * Microalbumin/creatinine ratio, random urine (08/05/2024 4:27 PM EST) URINE MICROALBUMIN <1.2 0 - 2.3 mg/dL [facility] URINE CREATININE 54 mg/dL [facility] MICROALB/CRE RATIO NOT CALCULATED 0 - 20 mg/g Cre [facility] Comment:due to Microalbumin <1.2 Urine (Urine) 08/05/2024 4:2 7 PM EST 08/05/2024 4:48 PM EST Andrews Cagle MD URINE ORDERABLES Final Resul t [facility] [address] [place] [address] * ENDOSCOPY, COLON (03/21/2023 8:51 AM EDT) Narrative Transcriptions Ty Rod MD - 03/21/2023 8:51 AM EDT [facility] Patient Name: Gayle Meeks Attending MD:: TY ROD MD, Procedure Date: 03/21/2023 8:51 AM Date of : 1970 Age: 52 Admit Type: Outpatient Gender: Male Room: [place] [address] Referring MD: ALDO MCKEON Exam Type: Colonoscopy Indications: Last colonoscopy: 2020, Heme positive stool, Iron deficiency anemia secondary to chronic blood loss, Cirrhosis Medications: Propofol per Anesthesia Procedure: Informed consent was obtained from the patientafter discussion of the indications, limitations, alternatives, benefits, and risks of the procedure. Risks specifically discussed include but are not limited to medication reactions, missed lesions, bleeding, perforation, or the need for emergent surgery. Throughout the procedure, the patient's blood pressure, pulse, end-tidal CO2, and oxygensaturations were monitored continuously. The Olympus pediatric variable [id number]-[id number] #2 was introduced through the anus and advanced tothe cecum, identified by the appendiceal orifice, ileocecal valve and palpation. The colonoscopy was performed without difficulty. The patient tolerated the procedure fairly well. The quality of the bowel preparation was good. The ileocecal valve,appendiceal orifice, and rectum were photographed. Complications: No immediate complications. Estimated blood loss:None. Findings: The perianal and digital rectal examinations were normal. Pertinent negatives include normalsphincter tone. A diffuse area of moderately congested and granular mucosa was found in the ascending colon consistent with portal hypertensive colopathy Retroflexion in the right colon was performed. There is no endoscopic evidence of bleeding orpolyps in the entire colon. The exam was otherwise without abnormality ondirect and retroflexion views. Impression: - Congested and granular mucosa in the ascendingcolon. - The examination was otherwise normal on directand retroflexion views. - No specimens collected. Recommendation: - Continue present medications. - Repeat colonoscopy in 10 years for screening purposes. - Patient has a contact number available for emergencies. The signs and symptoms of potential delayed complications were discussed with thepatient. Return to normal activities tomorrow. Written discharge instructions were provided to thepatient. TY ROD MD 03/21/2023 9:28:11 AM This report has been signed electronically. Number of Addenda: 0 Note Initiated On: 03/21/2023 8:51 AM Procedure Code(s): --- Professional --- 31512, Colonoscopy, flexible; diagnostic, including collection of specimen(s) by brushing or washing, when performed (separateprocedure) --- Technical --- 36411, Colonoscopy, flexible; diagnostic, including collection of specimen(s) by brushing or washing, when performed (separateprocedure) Diagnosis Code(s): --- Professional --- K63.89, Other specified diseases of intestine R19.5, Other fecal abnormalities D50.0, Iron deficiency anemia secondary to bloodloss (chronic) --- Technical --- K63.89, Other specified diseases of intestine R19.5, Other fecal abnormalities D50.0, Iron deficiency anemia secondary to bloodloss (chronic) CPT copyright 2021 [employer]. All rights reserved. The codes documented in this report are preliminary and upon publishing manager reviewmay be revised to meet current compliance requirements. Procedure Date: 03/21/2023 8:51:[address] [place] [address] us Aldo Aguilar MD GI PROCEDURE ORDERABLES Final Result * (ABNORMAL) Fecal immunochemical test x1 (FIT) (02/07/2023 3:59 PM EDT) Immuno Fecal Occult Positive(A ) Negative [facility] Stool (Stool) 02/07/2023 3:5 9 PM EDT 02/07/2023 4:01 PM EDT us Shanice Elias NP BODY FLUIDS AND STOOLS OR DERABLES Final Result [facility] [address] [place] [address] * Hepatitis C antibody, qualitative (09/13/2020 11:29 AM EST) HCV ANTIBODY Negative Negative [facility] Comment:Antibodies to HCV no t detected. Does not exclude the possibility of exposure to HCV. 09/13/2020 11:2 9 AM EST 09/13/2020 3:24 PM EST us Gemma Wright MD LAB BLOOD ORDERABLES Final Resu lt [address] [address] from Last 3 Months or Most Recently Relevant to Health Maintenance Additional Health Concerns Infection Onset Date Last Indicated MRSA 08/04/2024 08/04/[address] [place] [place] [address] [place] [address] [place] [place] [address] [place] [address] [place] [address] ACO Advance Directives For more information, please contact: [phone] (9AM - 5PM [facility], Friday-Friday) Documents on File Type Date Recorded Patient Contact Center Professional Expl anation Healthcare Proxy 08/09/2024 4:16 PM * Full Code (Latest Code Status on File) Date Activated Date Inactivated Comments 08/11/2024 4:06 AM Question Answer Comments Code Status Confirmed With: Patient * Full Code Date Activated Date Inactivated Comments 08/03/2024 12:45 PM 08/11/2024 4:06 AM Question Answer Comments Code Status Confirmed With: PatientFamily Code Status Communicated To: Inpatient Attending * Full Code Date Activated Date Inactivated Comments 10/05/2020 7:29 PM 12/07/2020 10:19 AM Question Answer Comments Code Status Confirmed With: Patient Healthcare Agents on File Name Relationship Healthcare Agent Relationshi p Communication Mussarad Constantino Spouse .Primary Health Care Agent (Proxy form on file) Jaclyn Constantino Daughter Alternate Health care Agent (Proxy form on file) Care Teams Manager Utilities Relationship Specialty Start Date End Date Ailyn García MD [address] [place] [address] [place] [address] PCP - General Internal Medicine 04/04/25 Additional Source Comments The information contained in this document represents components of the legal health record. It is not the complete legal health record.[facility]
--- OUTSIDE RECORDS SUMMARY | 2025-06-09 18:50 | XMS_ITS | Encounter Summary ---
Author Organization [facility] Address [address] [place] [address] [place] [address] Phone Care Team Providers Care Workers Compensation Claims Specialist Name Role Phone Jb Stewart MD Primary Care Provider Ailyn García MD Primary Care Provider [phone] Encounter Details Date Type Department Care Team (Late st Contact Info) Description 04/07/2023 Ophth Exam [facility] Emergency Department [address] [place] [address] Amada Stratton MD [address] [place] [address] [email or web address] Social History Tobacco Use Types Packs/Day Years [...] 12:[address] RN * [place] Suicide Severity Rating Scale (Screener/Recent Self-Report) Question Answer Date of Assessment Author 1. Wish to be (Past 1 Month) No 023 12:36 PM EDT Hazel Yeung, STEVE 2. Non-Specific Active Suici mary Thoughts (Past 1 Month) No 04/07/2023 12:36 PM EDT Melani Yeung RN 6. Suicidal Behavior (Lifetime) No 12:36 PM EDT Hazel Yeung RN documented as of this encounter Plan of Treatment Upcoming Encounters Date Type Department Care Team (Late st Contact Info) Description 07/18/2025 11:00 AM EDT Office Visit [facility] Endocrinology [address] [phone] Cindy Tillman PA-C [address] [place] [address] 08/30/2025 3:00 PM EST Office Visit [facility] [address] [facility], 5th [place] [address] Aldo Aguilar MD [address] [address] [email or web address] 10/11/2025 3:30 PM EST Office Visit [address] [place] [address] Marco Macedo MD, MS [address] [place] [address] [email or web address] 11/17/2025 1:00 PM EST Nutrition [facility] [address] [place] [phone] Dolores Fuller LDN [address] [address] 01/16/2026 11:20 AM EDT Office Visit [facility] Endocrinology [place] [address] [place] [phone] Nora Gomes MD [address] [address] documented as of this encounter Visit Diagnoses Not on filedocumented in this encounter Additional Health Concerns Infection Onset Date Last Indicated Resolved Time MRSA 08/04/2024 08/04/2024 documented as of this encounter Care Teams Workers Compensation Claims Specialist Relationship Specialty Start Date End Date Jb Stewart MD [address] [place] [address] [place] [address] PCP - General Internal Medicine 04/29/22 04/03/25 Ailyn García MD [address] [place] [address] [place] [address] PCP - General Internal Medicine 04/04/25 documented as of this encounter Additional Source Comments The information contained in this document represents components of the legal health record. It is not the complete legal health record.[facility]
--- OUTSIDE RECORDS SUMMARY | 2025-06-09 18:50 | XMS_ITS | Encounter Summary ---
Author Organization [facility] Address [address] [place] [address] Phone Care Team Providers Care Binding Bench Worker Name Role Phone Pop Adler MD Primary Care Provider [phone] Pop Adler MD Primary Care Provider [phone] Jb Stewart MD Primary Care Provider Ye Batista MD Primary Care Provider [phone] Ye Batista MD Primary Care Provider [phone] Jb Stewart MD Primary Care Provider Ye Batista MD Primary Care Provider [phone] Unknown, Unknown Primary Care Provider Jb Hood MD Primary Care Provider Ailyn García MD Primary Care Provider [phone] Encounter Details Date Type Department Care Team (Late st Contact Info) Description 10/05/2020 Procedure Pass [facility] Periop [address] [place] [address] Social History Tobacco Use Types Packs/Day Years [...] Description 07/18/2025 11:00 AM EDT Office Visit [facility] Endocrinology [place] [address] [place] [address] Cindy Tillman PA-C 22 [place] [address] [email or web address] 08/30/2025 3:00 PM EST Office Visit [facility] 55 [facility], 5th [place] [address] Aldo Aguilar MD [address] [address] [email or web address] 10/11/2025 3:30 PM EST Office Visit [facility] 243 [facility] 9th [place] [address] Marco Macedo MD, MS 243 [place] [address] [email or web address] 11/17/2025 1:00 PM EST Nutrition [facility] 40 [place] [address] Dolores Fuller LDN 22 [facility], 1st [place] [address] [email or web address] 01/16/2026 11:20 AM EDT Office Visit [facility] Endocrinology [place] [address] [place] [address] Nora Gomes MD [address] [place] [address] [email or web address] documented as of this encounter Visit Diagnoses Not on filedocumented in this encounter Additional Health Concerns Infection Onset Date Last Indicated Resolved Time CoV-Risk 02/04/2022 02/04/2022 02/15/2022 1:24 AM EDT MRSA 08/04/2024 08/04/2024 documented as of this encounter Care Teams Binding Bench Worker Relationship Specialty Start Date End Date Pop Adler MD [address] [place] [address] [place] [address] PCP - General Internal Medicine 09/11/20 12/05/20 Pop Adler MD [address] [place] [address] Dr ST[place]ENS [address] [place] [address] PCP - General Internal Medicine 04/03/21 04/24/21 Jb Stewart MD [address] [place] [address] Dr ST[place]ENS [facility] [place] [address] PCP - General Internal Medicine 04/25/21 12/09/21 Ye Batista MD 40 [place], [place] [email or web address] PCP - General Internal Medicine 12/10/21 12/16/21 Ye Batista MD 40 [place], [place] [email or web address] PCP - General Internal Medicine 12/17/21 12/17/21 Jb Stewart MD [address] [place] [address] Dr [place]ENS [facility] [place] [address] PCP - General Internal Medicine 12/18/21 12/24/21 Ye Batista MD [address] [place] [address] [email or web address] PCP - General Internal Medicine 12/25/21 04/01/22 Unknown, Kaveh, PCP - General 04/02/22 04/28/22 Jb Stewart MD [address] [place] [address] [place] [address] PCP - General Internal Medicine 04/29/22 04/03/25 Ailyn García MD [address] [place] [address] [place] [address] PCP - General Internal Medicine 04/04/25 documented as of this encounter Additional Source Comments The information contained in this document represents components of the legal health record. It is not the complete legal health record.[facility]
--- OUTSIDE RECORDS SUMMARY | 2025-06-09 18:50 | XMS_ITS | Encounter Summary ---
Author Organization [facility] Address [address] [place] [address] [place] [address] Phone Care Team Providers Care Harmonic Analyst Name Role Phone Jb Stewart MD Primary Care Provider Ailyn García MD Primary Care Provider [phone] Encounter Details Date Type Department Care Team (Late st Contact Info) Description 09/06/2024 Procedure Pass [facility] Endoscopy Admitting Dept Virtual Department [address] [place] [address] Social History Tobacco Use Types Packs/Day Years [...] Upcoming Encounters Date Type Department Care Team (Spencer st Contact Info) Description 07/18/2025 11:00 AM EDT Office Visit [facility] Endocrinology [address] [place] [address] Cindy Tillman PA-C 22 [place] [address] [email or web address] 08/30/2025 3:00 PM EST Office Visit [facility] 55 [facility], 5th [place] [address] Aldo Aguilar MD 55 [facility] 456 [place] [address] [email or web address] 10/11/2025 3:30 PM EST Office Visit [facility] 243 [facility] 9th [place] [address] Marco Macedo MD, MS 243 [place] [address] [email or web address] 11/17/2025 1:00 PM EST Nutrition [facility] 40 [place] [phone] Dolores Fuller LDN [address] [address] [email or web address] 01/16/2026 11:20 AM EDT Office Visit [facility] Endocrinology [place] 40 [place] [phone] Nora Gomes MD 22 [facility] 3rd [place] [address] [email or web address] documented as of this encounter Visit Diagnoses Not on filedocumented in this encounter Additional Health Concerns Infection Onset Date Last Indicated Resolved Time MRSA 08/04/2024 08/04/2024 documented as of this encounter Care Teams Harmonic Analyst Relationship Specialty Start Date End Date Jb Stewart MD [address] [place] [address] [place] [address] PCP - General Internal Medicine 04/29/22 04/03/25 Ailyn García MD [address] [place] [address] [place] [address] PCP - General Internal Medicine 04/04/25 documented as of this encounter Additional Source Comments The information contained in this document represents components of the legal health record. It is not the complete legal health record.[facility]
--- OUTSIDE RECORDS SUMMARY | 2025-06-09 18:51 | XMS_ITS | Encounter Summary ---
Author Organization [facility] Address [address] [place] [address] Phone Care Team Providers Care Steel Placer Name Role Phone Pop Adler MD Primary Care Provider Jb Stewart MD Primary Care Provider Ye Batista MD Primary Care Provider [phone] Ye Batisat MD Primary Care Provider [phone] Jb Stewart MD Primary Care Provider Ye Batista MD Primary Care Provider [phone] Unknown, Unknown Primary Care Provider Jb Hood MD Primary Care Provider Ailyn García MD Primary Care Provider [phone] Encounter Details Date Type Department Care Team (Late st Contact Info) Description 12/07/2020 Procedure Pass [facility] ENDO [facility]PT 55 [facility], 4th [place] [address] Social History Tobacco Use Types Packs/Day Years [...] Description 07/18/2025 11:00 AM EDT Office Visit [facility] Endocrinology [place] 40 [place] [address] Cindy Tillman PA-C 22 [place] [address] [email or web address] 08/30/2025 3:00 PM EST Office Visit [facility] 55 [facility], 5th [place] [address] Aldo Aguilar MD [address] [address] [email or web address] 10/11/2025 3:30 PM EST Office Visit [facility] 243 [facility] 9th [place] [address] Marco Macedo MD, MS 243 [place] [address] [email or web address] 11/17/2025 1:00 PM EST Nutrition [facility] Diabetes [place] 40 [place] [address] Dolores Fuller LDN 22 [facility], 1st [place] [address] 01/16/2026 11:20 AM EDT Office Visit [facility] Endocrinology [place] 40 [place] [address] Nora Gomes MD [address] [place] [address] documented as of this encounter Visit Diagnoses Not on filedocumented in this encounter Additional Health Concerns Infection Onset Date Last Indicated Resolved Time CoV-Risk 02/04/2022 02/04/2022 02/15/2022 1:24 AM EDT MRSA 08/04/2024 08/04/2024 documented as of this encounter Care Teams Steel Placer Relationship Specialty Start Date End Date Pop Adler MD [address] [place] [address] [address] PCP - General Internal Medicine 04/03/21 04/24/21 Jb Stewart MD [address] [place] [address] [address] PCP - General Internal Medicine 04/25/21 12/09/21 Ye Batista MD [address] [place] [address] [email or web address] PCP - General Internal Medicine 12/10/21 12/16/21 Ye Batista MD [address] [place] [address] [email or web address] PCP - General Internal Medicine 12/17/21 12/17/21 Jb Stewart MD [address] [place] [address] [address] PCP - General Internal Medicine 12/18/21 12/24/21 Ye Batista MD [address] [place] [address] [place] [address] [email or web address] PCP - General Internal Medicine 12/25/21 04/01/22 Unknown, Kaveh, PCP - General 04/02/22 04/28/22 Jb Stewart MD [address] [place] [address] [place] [address] PCP - General Internal Medicine 04/29/22 04/03/25 Ailyn García MD [address] [place] [address] [place] [address] PCP - General Internal Medicine 04/04/25 documented as of this encounter Additional Source Comments The information contained in this document represents components of the legal health record. It is not the complete legal health record.[facility]
--- OUTSIDE RECORDS SUMMARY | 2025-06-09 18:51 | XMS_ITS | Encounter Summary ---
Author Organization [facility] Address [address] [place] [address] Phone Care Team Providers Care Hotel Front Desk Clerk Name Role Phone Jb Stewart MD Primary Care Provider Ailyn García MD Primary Care Provider [phone] Encounter Details Date Type Department Care Team (Late st Contact Info) Description 04/17/2023 Procedure Pass [facility] 30 [place] [address] Social History Tobacco Use Types Packs/Day Years [...] Description 07/18/2025 11:00 AM EDT Office Visit [facility] Endocrinology [place] 40 [place] [phone] Cindy Tillman PA-C 22 [place] [address] [email or web address] 08/30/2025 3:00 PM EST Office Visit [facility] 55 [facility], 5th [place] [address] Aldo Aguilar MD [address] [address] [email or web address] 10/11/2025 3:30 PM EST Office Visit [facility] 243 [facility] 9th [place] [address] Marco Macedo MD, MS 243 [place] [address] [email or web address] 11/17/2025 1:00 PM EST Nutrition [facility] 40 [place] [phone] Dolores Fuller LDN 22 [facility], 1st [place] [address] [email or web address] 01/16/2026 11:20 AM EDT Office Visit [facility] Endocrinology [place] 40 [place] [phone] Nora Gomes MD [address] [place] [address] [email or web address] documented as of this encounter Visit Diagnoses Not on filedocumented in this encounter Additional Health Concerns Infection Onset Date Last Indicated Resolved Time MRSA 08/04/2024 08/04/2024 documented as of this encounter Care Teams Hotel Front Desk Clerk Relationship Specialty Start Date End Date Jb Stewart MD [address] [place] [address] [place] [address] PCP - General Internal Medicine 04/29/22 04/03/25 Ailyn García MD [address] [place] [address] [place] [address] PCP - General Internal Medicine 04/04/25 documented as of this encounter Additional Source Comments The information contained in this document represents components of the legal health record. It is not the complete legal health record.[facility]
--- OUTSIDE RECORDS SUMMARY | 2025-06-09 18:51 | XMS_ITS | Encounter Summary ---
Author Organization [facility] Address [address] [place] [address] Phone Care Team Providers Care Range Master Name Role Phone Jb Stewart MD Primary Care Provider Ye Batista MD Primary Care Provider Ye Batista MD Primary Care Provider [phone] Jb Stewart MD Primary Care Provider Ye Batista MD Primary Care Provider [phone] Unknown, Unknown Primary Care Provider Jb Hood MD Primary Care Provider Ailyn García MD Primary Care Provider [phone] Encounter Details Date Type Department Care Team (Late st Contact Info) Description 11/05/2021 Procedure Pass [facility] Periop 75 [place] [address] Social History Tobacco Use Types Packs/Day Years [...] Description 07/18/2025 11:00 AM EDT Office Visit [facility] Endocrinology [place] 40 [place] [phone] Cindy Tillman PA-C 22 [place] [address] [email or web address] 08/30/2025 3:00 PM EST Office Visit [facility] 55 [facility], 5th [place] [address] Aldo Aguilar MD [address] [address] [email or web address] 10/11/2025 3:30 PM EST Office Visit [facility] 243 [facility] 9th [place] [address] Marco Macedo MD, MS 243 [place] [address] [email or web address] 11/17/2025 1:00 PM EST Nutrition [facility] 40 [place] [phone] Dolores Fuller LDN 22 [facility], 1st [place] [address] [email or web address] 01/16/2026 11:20 AM EDT Office Visit [facility] Endocrinology [place] 40 [place] [phone] Nora Gomes MD [address] [place] [address] [email or web address] documented as of this encounter Visit Diagnoses Not on filedocumented in this encounter Additional Health Concerns Infection Onset Date Last Indicated Resolved Time CoV-Risk 02/04/2022 02/04/2022 02/15/2022 1:24 AM EDT MRSA 08/04/2024 08/04/2024 documented as of this encounter Care Teams Range Master Relationship Specialty Start Date End Date Jb Stewart MD [address] [place] [address] [place] [address] PCP - General Internal Medicine 04/25/21 12/09/21 Ye Batista MD 40 [place] [address] [email or web address] PCP - General Internal Medicine 12/10/21 12/16/21 Ye Batista MD 40 [place] [address] [email or web address] PCP - General Internal Medicine 12/17/21 12/17/21 Jb Stewart MD [address] [place] [address] [place] [address] PCP - General Internal Medicine 12/18/21 12/24/21 Ye Batista MD 40 [place] [address] [email or web address] PCP - General Internal Medicine 12/25/21 04/01/22 Unknown, Kaveh, MD PCP - General 04/02/22 04/28/22 Jb Stewart MD [address] [place] [address] [place] [address] PCP - General Internal Medicine 04/29/22 04/03/25 Ailyn García MD [address] [place] [address] [place] [address] PCP - General Internal Medicine 04/04/25 documented as of this encounter Additional Source Comments The information contained in this document represents components of the legal health record. It is not the complete legal health record.[facility]
--- OUTSIDE RECORDS SUMMARY | 2025-06-09 18:51 | XMS_ITS | Encounter Summary ---
Author Organization [facility] Address [address] [place] [address] Phone Care Team Providers Care Corporate Traffic Manager Name Role Phone Jb Stewart MD Primary Care Provider Ailyn García MD Primary Care Provider [phone] Encounter Details Date Type Department Care Team (Late st Contact Info) Description 10/07/2023 Procedure Pass [facility], [address] [address] Social History Tobacco Use Types Packs/Day Years [...] Description 07/18/2025 11:00 AM EDT Office Visit [facility] Endocrinology [place] 40 [place] [phone] Cindy Tillman PA-C 22 [place] [address] [email or web address] 08/30/2025 3:00 PM EST Office Visit [facility] 55 [facility], 5th [place] [address] Aldo Aguilar MD [address] [address] [email or web address] 10/11/2025 3:30 PM EST Office Visit [facility] 243 [facility] 9th [place] [address] Marco Macedo MD, MS 243 [place] [address] [email or web address] 11/17/2025 1:00 PM EST Nutrition [facility] 40 [place] [phone] Dolores Fuller LDN 22 [facility], 1st [place] [address] [email or web address] 01/16/2026 11:20 AM EDT Office Visit [facility] Endocrinology [place] 40 [place] [phone] Nora Gomes MD [address] [place] [address] [email or web address] documented as of this encounter Visit Diagnoses Not on filedocumented in this encounter Additional Health Concerns Infection Onset Date Last Indicated Resolved Time MRSA 08/04/2024 08/04/2024 documented as of this encounter Care Teams Corporate Traffic Manager Relationship Specialty Start Date End Date Jb Stewart MD [address] [place] [address] [place] [address] PCP - General Internal Medicine 04/29/22 04/03/25 Ailyn García MD [address] [place] [address] [place] [address] PCP - General Internal Medicine 04/04/25 documented as of this encounter Additional Source Comments The information contained in this document represents components of the legal health record. It is not the complete legal health record.[facility]
--- OUTSIDE RECORDS SUMMARY | 2025-06-09 18:51 | XMS_ITS | Encounter Summary ---
Author Organization [facility] Address [address] [place] [address] Phone Care Team Providers Care Quality Engineer Name Role Phone Jb Stewart MD Primary Care Provider Ailyn García MD Primary Care Provider Encounter Details Date Type Department Care Team (Late st Contact Info) Description 02/05/2023 Procedure Pass [facility], [address] [address] Social History Tobacco Use Types Packs/Day Years [...] Description 07/18/2025 11:00 AM EDT Office Visit [facility] Endocrinology [place] 40 [place] [phone] Cindy Tillman PA-C 22 [place] [address] 08/30/2025 3:00 PM EST Office Visit [facility] 55 [facility], 5th [place] [address] Aldo Aguilar MD [address] [address] [email or web address] 10/11/2025 3:30 PM EST Office [facility] 243 [facility] 9th [place] [address] Marco Macedo MD, MS 243 [place] [address] [email or web address] 11/17/2025 1:00 PM EST Nutrition [facility] 40 [place] [phone] Dolores Fuller LDN 22 [facility], 1st [place] [address] 01/16/2026 11:20 AM EDT Office Visit [facility] Endocrinology [place] 40 [place] [phone] Nora Gomes MD 22 [facility] 3rd [place] [address] [email or web address] documented as of this encounter Visit Diagnoses Not on filedocumented in this encounter Additional Health Concerns Infection Onset Date Last Indicated Resolved Time MRSA 08/04/2024 08/04/2024 documented as of this encounter Care Teams Quality Engineer Relationship Specialty Start Date End Date Jb Stewart MD [address] [place] [address] [place] [address] PCP - General Internal Medicine 04/29/22 04/03/25 Ailyn García MD [address] [place] [address] [place] [address] PCP - General Internal Medicine 04/04/25 documented as of this encounter Additional Source Comments The information contained in this document represents components of the legal health record. It is not the complete legal health record.[facility]
--- OUTSIDE RECORDS SUMMARY | 2025-06-09 18:51 | XMS_ITS | Encounter Summary ---
Author Organization [facility] Address [address] [place] [address] Phone Care Team Providers Care Station Cleaning Porter Name Role Phone Jb Stewart MD Primary Care Provider Ye Batista MD Primary Care Provider Ye Batista MD Primary Care Provider Jb Stewart MD Primary Care Provider Ye Batista MD Primary Care Provider Unknown, Unknown Primary Care Provider Jb Hood MD Primary Care Provider Ailyn García MD Primary Care Provider [phone] Encounter Details Date Type Department Care Team (Late st Contact Info) Description 08/13/2021 Procedure Pass [facility] Periop [address] [place] [address] Social History Tobacco Use Types Packs/Day Years [...] Description 07/18/2025 11:00 AM EDT Office Visit [facility] Endocrinology [place] 40 [place] [phone] Cindy Tillman PA-C 22 [place] [address] [email or web address] 08/30/2025 3:00 PM EST Office Visit [facility] 55 [facility], 5th [place] [address] Aldo Aguilar MD [address] [address] [email or web address] 10/11/2025 3:30 PM EST Office Visit [facility] 243 [facility] 9th [place] [address] Marco Macedo MD, MS 243 [place] [address] [email or web address] 11/17/2025 1:00 PM EST Nutrition [facility] Diabetes Center 40 [place] [phone] Dolores Fuller LDN 22 [facility], 1st [place] [address] [email or web address] 01/16/2026 11:20 AM EDT Office Visit [facility] Endocrinology [place] 40 [place] [phone] Nora Gomes MD [address] [place] [address] [email or web address] documented as of this encounter Visit Diagnoses Not on filedocumented in this encounter Additional Health Concerns Infection Onset Date Last Indicated Resolved Time CoV-Risk 02/04/2022 02/04/2022 02/15/2022 1:24 AM EDT MRSA 08/04/2024 08/04/2024 documented as of this encounter Care Teams Station Cleaning Porter Relationship Specialty Start Date End Date Jb Stewart MD [address] [place] [address] [place] [address] PCP - General Internal Medicine 04/25/21 12/09/21 Ye Batista MD 40 [place] [address] [email or web address] PCP - General Internal Medicine 12/10/21 12/16/21 Ye Batista MD 40 [place] [address] [email or web address] PCP - General Internal Medicine 12/17/21 12/17/21 Jb Stewart MD [address] [place] [address] [place] [address] PCP - General Internal Medicine 12/18/21 12/24/21 Ye Batista MD 40 [place] [address] [email or web address] PCP - General Internal Medicine 12/25/21 04/01/22 Unknown, Kaveh, MD PCP - General 04/02/22 04/28/22 Jb Stewart MD [address] [place] [address] [place] [address] PCP - General Internal Medicine 04/29/22 04/03/25 Ailyn García MD [address] [place] [address] [place] [address] PCP - General Internal Medicine 04/04/25 documented as of this encounter Additional Source Comments The information contained in this document represents components of the legal health record. It is not the complete legal health record.[facility]
--- OUTSIDE RECORDS SUMMARY | 2025-06-09 18:51 | XMS_ITS | Encounter Summary ---
Author Organization [facility] Address [address] [place] [address] Phone Care Team Providers Care Sales And Marketing Assistant Name Role Phone Jb Stewart MD Primary Care Provider Ailyn García MD Primary Care Provider [phone] Encounter Details Date Type Department Care Team (Late st Contact Info) Description 03/03/2023 Procedure Pass [facility]ventional Rad[facility] 30 [place] [address] Social History Tobacco Use Types Packs/Day Years [...] Description 07/18/2025 11:00 AM EDT Office Visit [facility] Endocrinology [place] 40 [place] [phone] Cindy Tillman PA-C 22 [place] [address] [email or web address] 08/30/2025 3:00 PM EST Office Visit [facility] 55 [facility], 5th [place] [address] Aldo Aguilar MD [address] [address] [email or web address] 10/11/2025 3:30 PM EST Office Visit [facility] 243 [facility] 9th [place] [address] Marco Macedo MD, MS 243 [place] [address] [email or web address] 11/17/2025 1:00 PM EST Nutrition [facility] Diabetes Center 40 [place] [phone] Dolores Fuller LDN 22 [facility], 1st [place] [address] [email or web address] 01/16/2026 11:20 AM EDT Office Visit [facility] Endocrinology [place] 40 [place] [phone] Nora Gomes MD [address] [place] [address] [email or web address] documented as of this encounter Visit Diagnoses Not on filedocumented in this encounter Additional Health Concerns Infection Onset Date Last Indicated Resolved Time MRSA 08/04/2024 08/04/2024 documented as of this encounter Care Teams Sales And Marketing Assistant Relationship Specialty Start Date End Date Jb Stewart MD [address] [place] [address] [place] [address] PCP - General Internal Medicine 04/29/22 04/03/25 Ailyn García MD [address] [place] [address] [place] [address] PCP - General Internal Medicine 04/04/25 documented as of this encounter Additional Source Comments The information contained in this document represents components of the legal health record. It is not the complete legal health record.[facility]
--- OUTSIDE RECORDS SUMMARY | 2025-06-09 18:51 | XMS_ITS | Encounter Summary ---
Author Organization [facility] Address [address] [place] [address] Phone Care Team Providers Care Frit Coater Name Role Phone Jb Stewart MD Primary Care Provider Ye Batista MD Primary Care Provider Unknown, Unknown Primary Care Provider Jb Hood MD Primary Care Provider Ailyn García MD Primary Care Provider [phone] Encounter Details Date Type Department Care Team (Late st Contact Info) Description 12/20/2021 Procedure Pass [facility] JUVE 4 ENDO DEPT 55 [facility], 4th [place] [address] Social History Tobacco Use Types Packs/Day Years [...] Description 07/18/2025 11:00 AM EDT Office Visit [facility] Endocrinology [place] 40 [place] [phone] Cindy Tillman PA-C 22 [place] [address] 08/30/2025 3:00 PM EST Office Visit [facility] 55 [facility], 5th [place] [address] Aldo Aguilar MD [address] [address] [email or web address] 10/11/2025 3:30 PM EST Office Visit [facility] 243 [facility] 9th [place] [address] Marco Macedo MD, MS 243 [place] [address] [email or web address] 11/17/2025 1:00 PM EST Nutrition [facility] Diabetes Center 40 [place] [phone] Dolores Fuller LDN 22 [facility], 1st [place] [address] [email or web address] 01/16/2026 11:20 AM EDT Office Visit [facility] Endocrinology [place] 40 [place] [phone] Nora Gomes MD 22 [facility] 3rd [place] [address] [email or web address] documented as of this encounter Visit Diagnoses Not on filedocumented in this encounter Additional Health Concerns Infection Onset Date Last Indicated Resolved Time CoV-Risk 02/04/2022 02/04/2022 02/15/2022 1:24 AM EDT MRSA 08/04/2024 08/04/2024 documented as of this encounter Care Teams Frit Coater Relationship Specialty Start Date End Date Jb Stewart MD [address] [place] [address] [place] [address] PCP - General Internal Medicine 12/18/21 12/24/21 Ye Batista MD [address] [place] [address] [email or web address] PCP - General Internal Medicine 12/25/21 04/01/22 Unknown, Kaveh, MD PCP - General 04/02/22 04/28/22 Jb Stewart MD [address] [place] [address] [place] [address] PCP - General Internal Medicine 04/29/22 04/03/25 Ailyn García MD [address] [place] [address] [place] [address] PCP - General Internal Medicine 04/04/25 documented as of this encounter Additional Source Comments The information contained in this document represents components of the legal health record. It is not the complete legal health record.[facility]
--- OUTSIDE RECORDS SUMMARY | 2025-06-09 18:51 | XMS_ITS | Encounter Summary ---
Author Organization [facility] Address [address] [place] [address] Phone Care Team Providers Care Digital Marketing Lead Name Role Phone Jb Stewart MD Primary Care Provider Ye Batista MD Primary Care Provider Ye Batista MD Primary Care Provider Jb Stewart MD Primary Care Provider Ye Batista MD Primary Care Provider [phone] Unknown, Unknown Primary Care Provider Jb Hood MD Primary Care Provider Ailyn García MD Primary Care Provider [phone] Encounter Details Date Type Department Care Team (Late st Contact Info) Description 10/18/2021 Telephone [facility] Pain Management [address] [facility] [address] [place] [address] Nilay Bland 60 [place] [address] [email or web address] Social History Tobacco Use Types Packs/Day Years [...] EDT Office Visit [facility] Endocrinology [place] 40 [place] [phone] Cindy Tillman PA-C 22 [place] [address] [email or web address] 08/30/2025 3:00 PM EST Office Visit [facility] 55 [facility], 5th [place] [address] Aldo Aguilar MD [address] [address] [email or web address] 10/11/2025 3:30 PM EST Office Visit [facility] 243 [facility] 9th [place] [address] Marco Macedo MD, MS 243 [place] [address] [email or web address] 11/17/2025 1:00 PM EST Nutrition [facility] Diabetes [place] 40 [place] [phone] Dolores Fuller LDN 22 [facility], 1st [place] [address] 01/16/2026 11:20 AM EDT Office Visit [facility] Endocrinology [place] 40 [place] [phone] Nora Gomes MD [address] [place] [address] documented as of this encounter Visit Diagnoses Not on filedocumented in this encounter Additional Health Concerns Infection Onset Date Last Indicated Resolved Time CoV-Risk 02/04/2022 02/04/2022 02/15/2022 1:24 AM EDT MRSA 08/04/2024 08/04/2024 documented as of this encounter Care Teams Digital Marketing Lead Relationship Specialty Start Date End Date Jb Stewart MD [address] [place] [address] [place] [address] PCP - General Internal Medicine 04/25/21 12/09/21 Ye Batista MD [address] [place] [address] PCP - General Internal Medicine 12/10/21 12/16/21 Ye Batista MD [address] [place] [address] PCP - General Internal Medicine 12/17/21 12/17/21 Jb Stewart MD [address] [place] [address] [place] [address] PCP - General Internal Medicine 12/18/21 12/24/21 Ye Batista MD [address] [place] [address] PCP - General Internal Medicine 12/25/21 04/01/22 Unknown, Unknown, PCP - General 04/02/22 04/28/22 Jb Stewart MD [address] [place] [address] [place] [address] PCP - General Internal Medicine 04/29/22 04/03/25 Ailyn García MD [address] [place] [address] [place] [address] PCP - General Internal Medicine 04/04/25 documented as of this encounter Additional Source Comments The information contained in this document represents components of the legal health record. It is not the complete legal health record.[facility]
--- OUTSIDE RECORDS SUMMARY | 2025-06-09 18:51 | XMS_ITS | Encounter Summary ---
Author Organization [facility] Address [address] [place] [address] [place] [address] Phone Care Team Providers Care Gang Miner Name Role Phone Jb Stewart MD Primary Care Provider Ailyn García MD Primary Care Provider Encounter Details Date Type Department Care Team (Late st Contact Info) Description 11/12/2023 Procedure Pass [facility], [facility] 243 [place] [address] Social History Tobacco Use Types Packs/Day Years [...] Date of Assessment Author No Risk Indicated 11/12/2023 12:07 PM EST Bam Prado, STEVE * Craig Suicide Severity Rating Scale (Screener/Recent Self-Report) Question Answer Date of Assessment Author 1. Wish to be (Past 1 Month) No 024 12:07 PM EST Bam Beckwith RN 2. Non-Specific Active Suici mary Thoughts (Past 1 Month) No 11/12/2023 12:07 PM EST Jesus Beckwith RN 6. Suicidal Behavior (Lifetime) No 12:07 PM EST Bam Beckwith, STEVE documented as of this encounter Plan of Treatment Upcoming Encounters Date Type Department Care Team (Late st Contact Info) Description 07/18/2025 11:00 AM EDT Office Visit [facility] Endocrinology [address] [address] Cindy Tillman PA-C [address] [place] [address] 08/30/2025 3:00 PM EST Office Visit [facility] 55 [facility], 5th [place] [address] Aldo Aguilar MD [address] [address] [email or web address] 10/11/2025 3:30 PM EST Office Visit [facility] [address] [facility] 9th [place] [address] Marco Macedo MD, MS 243 [place] [address] [email or web address] 11/17/2025 1:00 PM EST Nutrition [facility] 40 [place] [phone] Dolores Fuller LDN [address] [address] 01/16/2026 11:20 AM EDT Office Visit [facility] Endocrinology [place] 40 [place] [phone] Nora Gomes MD [address] [place] [address] documented as of this encounter Visit Diagnoses Not on filedocumented in this encounter Additional Health Concerns Infection Onset Date Last Indicated Resolved Time MRSA 08/04/2024 08/04/2024 documented as of this encounter Care Teams Gang Miner Relationship Specialty Start Date End Date Jb Stewart MD [address] [place] [address] [place] [address] PCP - General Internal Medicine 04/29/22 04/03/25 Ailyn García MD [address] [place] [address] [place] [address] PCP - General Internal Medicine 04/04/25 documented as of this encounter Additional Source Comments The information contained in this document represents components of the legal health record. It is not the complete legal health record.[facility]
--- OUTSIDE RECORDS SUMMARY | 2025-06-09 18:51 | XMS_ITS | Encounter Summary ---
Author Organization [facility] Address [address] [place] [address] Phone Care Team Providers Care Osteology Teacher Name Role Phone Jb Stewart MD Primary Care Provider Ye Batista MD Primary Care Provider Ye Batista MD Primary Care Provider Jb Stewart MD Primary Care Provider Ye Batista MD Primary Care Provider [phone] Unknown, Unknown Primary Care Provider Jb Hood MD Primary Care Provider Ailyn García MD Primary Care Provider [phone] Reason for Visit * Reason Comments Medication Refill Encounter Details Date Type Department Care Team (Late st Contact Info) Description 09/04/[address] [facility] Department of Neurosurgery 60 [place] [address] Caty Flynn PA-C 60 [place] [address] [email or web address] Medication Refill Social History Tobacco Use Types Packs/Day Years [...] Description 07/18/2025 11:00 AM EDT Office Visit [facility] Endocrinology [place] 40 [place] [phone] Cindy Tillman PA-C 22 [place] [address] [email or web address] 08/30/2025 3:00 PM EST Office Visit [facility] 55 [facility], 5th [place] [address] Aldo Aguilar MD [address] [address] [email or web address] 10/11/2025 3:30 PM EST Office Visit [facility] 243 [facility] 9th [place] [address] Marco Macedo MD, MS 243 [place] [address] [email or web address] 11/17/2025 1:00 PM EST Nutrition [facility] Diabetes [place] 40 [place] [phone] Dolores Fuller LDN 22 [facility], 1st [place] [address] 01/16/2026 11:20 AM EDT Office Visit [facility] Endocrinology [place] 40 [place] [address] Nora Gomes MD [address] [place] [address] documented as of this encounter Visit Diagnoses Not on filedocumented in this encounter Additional Health Concerns Infection Onset Date Last Indicated Resolved Time CoV-Risk 02/04/2022 02/04/2022 02/15/2022 1:24 AM EDT MRSA 08/04/2024 08/04/2024 documented as of this encounter Care Teams Osteology Teacher Relationship Specialty Start Date End Date bJ Stewart MD [address] [place] [address] [place] [id number] PCP - General Internal Medicine 04/25/21 12/09/21 Ye Batista MD 40 [place] [address] [email or web address] PCP - General Internal Medicine 12/10/21 12/16/21 Ye Batista MD 40 [place] [address] [email or web address] PCP - General Internal Medicine 12/17/21 12/17/21 Jb Stewart MD [address] [place] [address] [place] [id number] PCP - General Internal Medicine 12/18/21 12/24/21 Ye Batista MD 40 [place] [address] [email or web address] PCP - General Internal Medicine 12/25/21 04/01/22 Unknown, Kaveh, PCP - General 04/02/22 04/28/22 Jb Stewart MD [address] [place] [address] [place] [id number] PCP - General Internal Medicine 04/29/22 04/03/25 Ailyn García MD [address] [place] [address] [place] [address] PCP - General Internal Medicine 04/04/25 documented as of this encounter Additional Source Comments The information contained in this document represents components of the legal health record. It is not the complete legal health record.[facility]
--- OUTSIDE RECORDS SUMMARY | 2025-06-09 18:51 | XMS_ITS | Encounter Summary ---
Author Organization [facility] Address [address] [place] [address] [place] [address] Phone Care Team Providers Care Seasoning Mixer Name Role Phone Jb Stewart MD Primary Care Provider Ailyn García MD Primary Care Provider [phone] Encounter Details Date Type Department Care Team (Late st Contact Info) Description 11/01/2024 Procedure Pass [address] [place] [address] Social History Tobacco Use Types Packs/Day Years [...] 11:00 AM EDT Office Visit [facility] Endocrinology [address] [place] [phone] Cindy Tillman PA-C 22 [place] [address] [email or web address] 08/30/2025 3:00 PM EST Office Visit [facility] 55 [facility], 5th [place] [address] Aldo Aguilar MD 55 [facility] 456 [place] [address] [email or web address] 10/11/2025 3:30 PM EST Office Visit [facility] 243 [facility] 9th [place] [address] Marco Macedo MD, MS 243 [place] [address] [email or web address] 11/17/2025 1:00 PM EST Nutrition [facility] Diabetes Center 40 [place] [phone] Dolores Fuller LDN [address] [address] [email or web address] 01/16/2026 11:20 AM EDT Office Visit [facility] Endocrinology [place] 40 [place] [phone] Nora Gomes MD 22 [facility] 3rd [place] [address] [email or web address] documented as of this encounter Visit Diagnoses Not on filedocumented in this encounter Additional Health Concerns Infection Onset Date Last Indicated Resolved Time MRSA 08/04/2024 08/04/2024 documented as of this encounter Care Teams Seasoning Mixer Relationship Specialty Start Date End Date Jb Stewart MD [address] [place] [address] [place] [address] PCP - General Internal Medicine 04/29/22 04/03/25 Ailyn García MD [address] [place] [address] [place] [address] PCP - General Internal Medicine 04/04/25 documented as of this encounter Additional Source Comments The information contained in this document represents components of the legal health record. It is not the complete legal health record.[facility]
--- OUTSIDE RECORDS SUMMARY | 2025-06-09 18:51 | XMS_ITS ---
[facility] Name [facility] Organization Unknown History of Medication Use Medication Directions Dispensed Refills Start Date End Date Stat furosemide (LASIX) 20 MG tablet 3 tablets (60 mg total) by G Tube route daily. 01/07/2023 3 active famotidine (PEPCID) 20 MG tablet 1 tablet (20 mg total) by G Tube route daily. Do not start before January 07, 2023. 01/07/2023 3 active acetaminophen (TYLENOL) 160 mg/5 mL solution 20.3125 mL (650 mg total) by G Tube route 4 times daily (every 6 hours) as needed for moderate pain, mild pain, headaches or fever. 01/06/2023 3 active ursodiol (ACTIGALL) 300 MG capsule 1 capsule (300 mg total) by G Tube route 2 (two) times a day. 01/06/2023 3 active magnesium oxide 400 (240 Mg) MG Tab tablet 1 tablet (400 mg total) by G Tube route daily. Take 2 hours apart from other medications; take with food Do not start before December 23, 2022. 12/23/2022 3 active furosemide (LASIX) 40 MG tablet Take 1 tablet (40 mg total) by mouth daily. Do not start before December 20, 2022. 12/20/2022 3 active saliva substitute (MOUTH KOTE/BIOTENE) Solution Apply 3 sprays to the mouth or throat every 15 (fifteen) minutes as needed (dry mouth). 12/20/2022 3 active spironolactone (ALDACTONE) 100 MG tablet Take 1 tablet (100 mg total) by mouth every morning with breakfast. Do not start before December 20, 2022. 12/20/2022 3 active folic acid (FOLVITE) 1 MG tablet 1 tablet (1 mg total) by G Tube route nightly. 11/01/2022 3 active acetaminophen (TYLENOL) 325 MG tablet Take 1 tablet (325 mg total) by mouth 4 times daily (every 6 hours) as needed for mild pain, headaches or fever. 10/31/2022 3 active posaconazole (NOXAFIL) 100 MG delayed release tablet Take 3 tablets (300 mg total) by mouth daily. Do not start before November 10, 2022. 10/31/2022 3 suspended isavuconazonium sulfate (Cresemba) 186 MG capsule 372 mg po Q8hr x 6 doses, then 372 mg po daily x 6 weeks Do not start before September 27, 2022. 09/27/2022 active multivitamin with minerals Tab tablet 1 tablet by G Tube route nightly. 09/26/2022 3 active simethicone (MYLICON) 80 MG chewable tablet 1 tablet (80 mg total) by G Tube route 4 times daily (every 6 hours) as needed for flatulence. 09/26/2022 3 active calcium carbonate (TUMS) 500 MG chewable tablet Chew 2 tablets (1,000 mg total) 2 times daily (every 12 hours) as needed for indigestion or heartburn. 09/26/2022 3 active loratadine (CLARITIN) 10 MG tablet Take 1 tablet (10 mg total) by mouth daily. 09/26/2022 3 active PANTOprazole (PROTONIX) 40 MG EC tablet Take 1 tablet (40 mg total) by mouth daily. 09/26/2022 3 active Alcohol Swabs 70 % Pads Use as directed 4 times a day before blood sugar checks 09/26/2022 active amoxicillin-clavulana te (AUGMENTIN) 875-125 MG per tablet Take 1 tablet by mouth every 12 (twelve) hours around the clock. 09/04/2022 3 active metFORMIN (GLUCOPHAGE) 500 MG tablet Take 1 tablet (500 mg total) by mouth 2 (two) times a day. 09/04/2022 3 active chlorhexidine (PERIDEX) 0.12 % oral solution Apply 15 mL to the mouth or throat 2 (two) times a day. 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 ProblemAct [facility] Hyponatremia active 2022-09-02 ProblemAct [facility] Fluid overload active 2023-01-[address] Difficult intubation active 2020-10-05 ProblemAct [facility] Lumbar radiculopathy active 2020-08-03 ProblemAct [facility] Cholelithiasis active 2022-11-[address] Hyperkalemia active 2022-12-29 ProblemAct [facility] Invasive fungal sinusitis active 2022-11-30 ProblemAct [facility] Encounter for assessment of ascites active 2023-01-28 ProblemAct [facility] 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 active 2020-08-03 ProblemAct [facility] Type 2 diabetes mellitus, without long-term current use of insulin active 2022-09-02 ProblemAct [facility] BPH (benign prostatic hyperplasia) active 2022-11-30 ProblemAct [facility] Liver cirrhosis active 2022-10-28 ProblemAct [facility] Gilbert's syndrome active 2022-11-30 ProblemAct [facility] Metabolic acidosis active 2022-12-02 ProblemAct [facility] GERD (gastroesophageal reflux disease) active 2022-09-20 ProblemAct [facility] Osteomyelitis active 2022-09-13 ProblemAct [facility] 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, without long-term current use of insulin active 2022-10-07 ProblemAct [facility] Encounters Encounter Type Encounter Reason Primary Diagnosis Location Date Ambulatory Mucormycosis, unspecified Mucormycosis, unspecified [facility] 08/04/2023 Ambulatory Mucormycosis, unspecified [facility] 03/17/2023 Ambulatory Mucormycosis, unspecified [facility] 03/03/2023 Ambulatory Mucormycosis, unspecified [facility] 02/27/2023 Ambulatory Mucormycosis, unspecified [facility] 02/26/2023 Ambulatory Mucormycosis, unspecified [facility] 02/25/2023 Emergency Displacement of other gastrointestinal prosthetic devices, implants and grafts, initial encounter [facility] 02/24/2023 Ambulatory Mucormycosis, unspecified [facility] 02/21/2023 Ambulatory Mucormycosis, unspecified [facility] 02/20/2023 Ambulatory Mucormycosis, unspecified [facility] 02/14/2023 Inpatient Other ascites [facility] 01/27/2023 Inpatient Shortness of breath [facility] 01/12/2023 Ambulatory Mucormycosis, unspecified [facility] 01/10/2023 Inpatient Hyperkalemia [facility] 12/28/2022 Ambulatory Mucormycosis, unspecified [facility] 12/24/2022 Inpatient Osteomyelitis, unspecified [facility] 11/07/2022 Inpatient Unspecified abdo madeleine pain [facility] 10/28/2022 Ambulatory Mucormycosis, unspecified [facility] 10/07/2022 Ambulatory [facility] 09/16/2022 Inpatient Mucormycosis, unspecified [facility] 09/13/2022 Inpatient Osteomyelitis, unspecified [facility] 09/01/2022 Care Team Organization Name Specialty Phone Email Start Date End Da te [facility] 10/07/2022 12/16/19 25 [facility] 10/03/2022 10/03/2022 [facility] Jorge Luis Dorsey [facility] 09/16/2022 06/03/2024 [facility] 09/01/2022 12/15/2024 [facility] 09/01/2022 11/18/19 23
--- OUTSIDE RECORDS SUMMARY | 2025-06-09 18:51 | XMS_ITS | Encounter Summary ---
Author Organization [facility] Address [address] [place] [address] Phone Care Team Providers Care Molding Plasterer Name Role Phone Jb Stewart MD Primary Care Provider Ailyn García MD Primary Care Provider [phone] Encounter Details Date Type Department Care Team (Late st Contact Info) Description 07/23/2023 Procedure Pass [facility] [address] [place] [address] Social History Tobacco Use Types Packs/Day Years [...] 07/18/2025 11:00 AM EDT Office Visit [facility]ology [place] [address] [place] [phone] Cindy Tillman PA-C [address] [place] [address] [email or web address] 08/30/2025 3:00 PM EST Office Visit [facility] [address] [facility], 5th [place] [address] Aldo Aguilar MD [address] [address] [email or web address] 10/11/2025 3:30 PM EST Office Visit [facility] 243 [facility] 9th [place] [address] Marco Macedo MD, MS [address] [place] [address] [email or web address] 11/17/2025 1:00 PM EST Nutrition [facility] [address] [place] [phone] Dolores Fuller LDN 22 [facility], 1st [place] [address] [email or web address] 01/16/2026 11:20 AM EDT Office Visit [facility] [place] [address] [place] [phone] Nora Gomes MD [address] [place] [address] [email or web address] documented as of this encounter Visit Diagnoses Not on filedocumented in this encounter Additional Health Concerns Infection Onset Date Last Indicated Resolved Time MRSA 08/04/2024 08/04/2024 documented as of this encounter Care Teams Molding Plasterer Relationship Specialty Start Date End Date Jb Stewart MD [address] [place] [address] [place] [address] PCP - General Internal Medicine 04/29/22 04/03/25 Ailyn García MD [address] [place] [address] [place] [address] PCP - General Internal Medicine 04/04/25 documented as of this encounter Additional Source Comments The information contained in this document represents components of the legal health record. It is not the complete legal health record.[facility]
--- OUTSIDE RECORDS SUMMARY | 2025-06-09 18:51 | XMS_ITS | Encounter Summary ---
Author Organization [facility] Address [address] [place] [address] Phone Care Team Providers Care Print Color Matcher Name Role Phone Jb Stewart MD Primary Care Provider Ailyn García MD Primary Care Provider [phone] Encounter Details Date Type Department Care Team (Late st Contact Info) Description 08/05/2023 Procedure Pass [facility], [address] [address] Social History Tobacco Use Types Packs/Day Years [...] Description 07/18/2025 11:00 AM EDT Office Visit [facility] Endocrinology [place] [address] [place] [phone] Cindy Tillman PA-C 22 [place] [address] [email or web address] 08/30/2025 3:00 PM EST Office Visit [facility] 55 [facility], 5th [place] [address] Aldo Aguilar MD [address] [address] [email or web address] 10/11/2025 3:30 PM EST Office Visit [facility] 243 [facility] 9th [place] [address] Marco aMcedo MD, MS 243 [place] [address] [email or web address] 11/17/2025 1:00 PM EST Nutrition [facility] [address] [place] [phone] Dolores Fuller LDN 22 [facility], 1st [place] [address] [email or web address] 01/16/2026 11:20 AM EDT Office Visit [facility] Endocrinology [place] [address] [place] [phone] Nora Gomes MD [address] [place] [phone] [email or web address] documented as of this encounter Visit Diagnoses Not on filedocumented in this encounter Additional Health Concerns Infection Onset Date Last Indicated Resolved Time MRSA 08/04/2024 08/04/2024 documented as of this encounter Care Teams Print Color Matcher Relationship Specialty Start Date End Date Jb Stewart MD [address] [place] [address] [place] [address] PCP - General Internal Medicine 04/29/22 04/03/25 Ailyn García MD [address] [place] [address] [place] [address] PCP - General Internal Medicine 04/04/25 documented as of this encounter Additional Source Comments The information contained in this document represents components of the legal health record. It is not the complete legal health record.[facility]
--- OUTSIDE RECORDS SUMMARY | 2025-06-09 18:51 | XMS_ITS | Encounter Summary ---
Author Organization [facility] Address [address] [place] [address] [place] [address] Phone Care Team Providers Care Automation Tester Name Role Phone Jb Stewart MD Primary Care Provider Ailyn García MD Primary Care Provider Encounter Details Date Type Department Care Team (Latest Contact Info) Description 03/11/2023 Transcribe Orders [facility] Laboratory [address] [address] Shanice Elias, [place] 10 [place] [address] Cirrhosis of liver without ascites, unspecified hepatic cirrhosis type (Primary Dx); Nonspecific abnormal results of liver function study; Heme positive stool Social History Tobacco Use Types Packs/Day Years [...] Description 07/18/2025 11:00 AM EDT Office Visit [facility] Endocrinology [place] 40 [place] [phone] Cindy Tillman PA-C 22 [place] [address] 08/30/2025 3:00 PM EST Office Visit [facility] 55 [facility], 5th [place] [address] Aldo Aguilar MD [address] [address] [email or web address] 10/11/2025 3:30 PM EST Office Visit [facility] [address] [facility] 9th [place] [address] Marco Macedo MD, MS 243 [place] [address] [email or web address] 11/17/2025 1:00 PM EST Nutrition [facility] Diabetes [place] 40 [place] [phone] Dolores Fuller LDN 22 [facility], 1st [place] [address] 01/16/2026 11:20 AM EDT Office Visit [facility] Endocrinology [place] [address] [facility] [place] [phone] Nora Gomes MD [address] [place] [address] documented as of this encounter Results * Vitamin B12 (03/11/2023 10:03 AM EDT) VITAMIN B12 775 232 - 1,245 pg/mL [facility] Blood 03/11/2023 10:0 3 AM EDT 03/11/2023 10:08 AM EDT Shanice Elias PRODUCT GRADER LAB BLOOD ORDERABLES Shelley l Result [address] [address] * Ferritin (03/11/2023 10:03 AM EDT) FERRITIN 156 30 - 400 ug/L [facility] Blood 03/11/2023 10:0 3 AM EDT 03/11/2023 10:08 AM EDT us Shanice Elias PRODUCT GRADER LAB BLOOD ORDERABLES Shelley l Result [address] [address] * Folate (03/11/2023 10:03 AM EDT) FOLIC ACID 18.9 4.2 - 19.9 ng/mL [facility] Blood 03/11/2023 10:0 3 AM EDT 03/11/2023 10:08 AM EDT us Shanice Elias NP LAB BLOOD ORDERABLES Shelley l Result Performing Organization Address City/[facility]/ZIP Co de Phone Number [address] [address] * Iron and iron binding capacity (03/11/2023 10:03 AM EDT) IRON 85 45 - 160 ug/dL [facility] IRON BINDING CAPACITY 376 228 - 428 ug/dL [facility] TRANSFERRIN SATURAT. 23 20 - 55 % [facility] Blood 03/11/2023 10:0 3 AM EDT 03/11/2023 10:08 AM EDT Shanice Elias NP LAB BLOOD ORDERABLES Shelley l Result Performing Organization Address [facility] Co de Phone Number [address] [address] * Hepatitis B surface antibody (03/11/2023 10:03 AM EDT) HBV SURFACE ANTIBODY Negative [facility] Comment: Unvaccinated: Negative Vaccinated: Positive Blood 03/11/2023 10:0 3 AM EDT 03/11/2023 10:08 AM EDT us Shanice Elias NP LAB BLOOD ORDERABLES Shelley l Result Performing Organization Address [facility]/ZIP Co de Phone Number [address] [address] * Hepatitis B surface antigen (03/11/2023 10:03 AM EDT) HBV SURFACE ANTIGEN NON-REACTI VE NON-REACTI VE [facility] Blood 03/11/2023 10:0 3 AM EDT 03/11/2023 10:08 AM EDT us Shanice Elias NP LAB BLOOD ORDERABLES Shelley l Result [address] [address] * Hepatitis B core antibody, total (03/11/2023 10:03 AM EDT) HEP B CORE AB, TOT NON-REACTI VE NON-REACTI VE [facility] Blood 03/11/2023 10:0 3 AM EDT 03/11/2023 10:08 AM EDT Shanice Elias NP LAB BLOOD ORDERABLES Shelley l Result Performing Organization Address City/[facility]/ZIP Co de Phone Number [address] [address] * (ABNORMAL) GGT (Gamma glutamyl transferase) (03/11/2023 10:03 AM EDT) GGT 1,172(H) 11 - 51 U/L [facility] Blood 03/11/2023 10:0 3 AM EDT 03/11/2023 10:08 AM EDT Shanice Elias NP LAB BLOOD ORDERABLES Shelley l Result Performing Organization Address [facility]/ZIP Co de Phone Number [address] [address] * (ABNORMAL) C-Reactive Protein (03/11/2023 10:03 AM EDT) C REACTIVE PROTEIN 7.5(H) 0.0 - 4.0 mg/L [facility] Blood 03/11/2023 10:0 3 AM EDT 03/11/2023 10:08 AM EDT Shanice Elias NP LAB BLOOD ORDERABLES Shelley l Result Performing Organization Address City/[facility]/ZIP Co de Phone Number [address] [address] * (ABNORMAL) Comprehensive metabolic panel (03/11/2023 10:03 AM EDT) SODIUM 133 133 - 146 mmol/L [facility] POTASSIUM 4.7 3.3 - 5.1 mmol/L [facility] CHLORIDE 95(L) 96 - 108 mmol/L [facility] CO2 25 21 - 35 mmol/L [facility] BUN 40(H) 6 - 19 mg/dL [facility] CREATININE 1.60(H) 0.5 - 1.5 mg/dL [facility] GLUCOSE 101(H) 70 - 99 mg/dL [facility] ALBUMIN 4.0 3.9 - 4.8 g/dL [facility] TOTAL PROTEIN 7.1 6.5 - 8.0 g/dL [facility] CALCIUM 9.5 8.4 - 10.3 mg/dL [facility] ALKALINE PHOSPHATASE 798(HH) 39 - 117 U/L [facility] Comment: Critical value: Results called to and read back by: DR TY MILLS [id number] 18[address] [facility] TOTAL BILIRUBIN 0.6 0.0 - 1.2 mg/dL [facility] AST 99(H) 0 - 37 U/L [facility] ALT 49(H) 0 - 40 U/L [facility] GLOBULIN 3.1 1 - 4.8 g/dL [facility] EGFR 51(L) >59 mL/min/1.7 3m2 [facility] Comment:Estimated glomerular filtration rate calculated using the CKD-EPI refit equation. ANION GAP 18 10 - 20 mmol/L [facility] Blood 03/11/2023 10:0 3 AM EDT 03/11/2023 10:08 AM EDT us Shanice Elias NP LAB BLOOD ORDERABLES Shelley l Result [facility] [address] [place] [address] * (ABNORMAL) CBC (03/11/2023 10:03 AM EDT) WBC 3.44(L) 4.00 - 11.00 K/uL [facility] RBC 2.93(L) 4.23 - 5.82 M/uL [facility] HGB 9.8(L) 13.4 - 17.5 g/dL [facility] HCT 30.4(L) 37.0 - 51.0 % [facility] PLT 262 140 - 430 K/uL [facility] MCV 103.8(H) 78.0 - 97.0 fL [facility] MCH 33.4(H) 25.0 - 33.0 pg [facility] MCHC 32.2 32.0 - 36.0 g/dL [facility] RDW 15.0 11.0 - 15.0 % [facility] MPV 10.5 8.4 - 12.8 fl [facility] Blood 03/11/2023 10:0 3 AM EDT 03/11/2023 10:08 AM EDT Shanice Elias PRODUCT GRADER LAB BLOOD ORDERABLES Shelley l Result Performing Organization Address City/[facility]/ZIP Co de Phone Number [facility] [address] [place] [address] * Anti-Mitochondrial Antibody (AMA) (03/11/2023 10:03 AM EDT) MITOCHONDRIAL AB NEGATIVE AT 1:20 [facility] Comment: Sridhar Oliver M.D., Director Clinical Immunology Laboratory [id number] Normal: Negative at 1:20 Blood 03/11/2023 10:0 3 AM EDT 03/11/2023 10:08 AM EDT Shanice Elias PRODUCT GRADER LAB BLOOD ORDERABLES Shelley l Result [address] [address] * Smooth Muscle Antibody (03/11/2023 10:03 AM EDT) SMOOTH MUSCLE AB POSITIVE AT 1:40 [facility] Comment: Sridhar Oliver M.D., Director Clinical Immunology Laboratory [id number] Normal: Negative at 1:20 Blood 03/11/2023 10:0 3 AM EDT 03/11/2023 10:08 AM EDT us Shanice Elias PRODUCT GRADER LAB BLOOD ORDERABLES Shelley l Result [address] [address] * (ABNORMAL) Antinuclear antibody (JOHN) (03/11/2023 10:03 AM EDT) JOHN SCREEN ON HEP 2 Positive(A ) Negative [facility] Comment:An JOHN Titer has bee n reflexed. The results will follow. Blood 03/11/2023 10:0 3 AM EDT 03/11/2023 10:08 AM EDT Shanice Elias PRODUCT GRADER LAB BLOOD ORDERABLES Shelley l Result Performing Organization Address City/[facility]/ZIP Co de Phone Number [address] [address] documented in this encounter Visit Diagnoses Diagnosis Cirrhosis of liver without ascites, unspecified hepatic cirrhosis type- Primary Nonspecific abnormal results of liver function study Heme positive stool Nonspecific abnormal finding in stool contents documented in this encounter Additional Health Concerns Infection Onset Date Last Indicated Resolved Time MRSA 08/04/2024 08/04/2024 documented as of this encounter Care Teams Automation Tester Relationship Specialty Start Date End Date Jb Stewart MD [address] [place] [address] [place] [address] PCP - General Internal Medicine 04/29/22 04/03/25 Ailyn García MD [address] [place] [address] [place] [address] PCP - General Internal Medicine 04/04/25 documented as of this encounter Additional Source Comments The information contained in this document represents components of the legal health record. It is not the complete legal health record.[facility]
--- OUTSIDE RECORDS SUMMARY | 2025-06-09 18:51 | XMS_ITS | Encounter Summary ---
Author Organization [facility] Address [address] [place] [address] Phone Care Team Providers Care Senior Project Accountant Name Role Phone Jb Stewart MD Primary Care Provider Ailyn García MD Primary Care Provider [phone] Encounter Details Date Type Department Care Team (Latest Contact Info) Description 11/13/2023 Transcribe Orders Virtual Department 30 [place] [address] Shanice Elias, CHIRAG 10 [place] [address] Hepatic cirrhosis, unspecified hepatic cirrhosis type, unspecified whether ascites present (Primary Dx); Fatty liver Social History Tobacco Use Types Packs/Day Years [...] Description 07/18/2025 11:00 AM EDT Office Visit [facility] Endocrinology [place] 40 [place] [phone] Cindy Tillman PA-C 22 [place] [address] [email or web address] 08/30/2025 3:00 PM EST Office Visit [facility] 55 [facility], 5th [place] [address] Aldo Aguilar MD [address] [place] [address] [email or web address] 10/11/2025 3:30 PM EST Office Visit [facility] 243 [facility] 9th [place] [address] Marco Macedo MD, MS 243 [place] [address] [email or web address] 11/17/2025 1:00 PM EST Nutrition [facility] Diabetes [place] 40 [place] [phone] Dolores Fuller LDN 22 [facility], 1st [place] [address] 01/16/2026 11:20 AM EDT Office Visit [facility] Endocrinology [place] [address] [place] [phone] Nora Gomes MD [address] [place] [address] documented as of this encounter Results * US ABDOMEN LIMITED RIGHT UPPER QUADRANT (03/08/2024 1:30 PM EDT) Anatomical Region Laterality Modality Abdomen Ultrasound 03/08/2024 7:52 PM EDT Impressions 03/09/2024 5:55 AM EDT No suspicious focal hepatic lesion. Cirrhotic liver. Cholelithiasis. Narrative 03/09/2024 5:55 AM EDT US ABDOMEN LIMITED RIGHT UPPER QUADRANT Referring clinician's provided indication for this examination in Epic: Outside Radiology Order; cirrhosis TECHNIQUE: US Abdominal limited right upper quadrant. COMPARISON: MRI CHOLANGIOPANCREATOGRAPHY (MRCP) WITH AND WITHOUT CONTRAST FINDINGS: Liver: Cirrhotic morphology/echotexture. No suspicious focal lesion. Main Portal Vein: Patent with normal direction of flow. Gallbladder: Layering echogenic shadowing gallstones. No abnormal gallbladder distention. Borderline nonspecific gallbladder wall thickening may be reactive to liver disease. Biliary: No intrahepatic or extrahepatic biliary ductal dilatation. The common bile duct measures 4 mm. Procedure Note Bill Avila MD - 03/09/2024 US ABDOMEN LIMITED RIGHT UPPER QUADRANT Referring clinician's provided indication for this examination in [facility]:Outside Radiology Order; cirrhosis TECHNIQUE: US Abdominal limited right upper quadrant. COMPARISON: MRI CHOLANGIOPANCREATOGRAPHY (MRCP) WITH AND WITHOUT [id number] FINDINGS: Liver: Cirrhotic morphology/echotexture. No suspicious focal lesion. Main Portal Vein: Patent with normal direction of flow. Gallbladder: Layering echogenic shadowing gallstones. No abnormalgallbladder distention. Borderline nonspecific gallbladder wall thickeningmay be reactive to liver disease. Biliary: No intrahepatic or extrahepatic biliary ductal dilatation. The common bile duct measures 4 mm. IMPRESSION: No suspicious focal hepatic lesion. Cirrhotic liver. Cholelithiasis. Shanice Lidia Elias KEEPER HELPER IMG US ABDOMEN Final Res ult documented in this encounter Visit Diagnoses Diagnosis Hepatic cirrhosis, unspecified hepatic cirrhosis type, unspecified whether ascites present- Primary Fatty liver Other chronic nonalcoholic liver disease Hepatic cirrhosis, unspecified hepatic cirrhosis type, unspecified whether ascites present Fatty liver Other chronic nonalcoholic liver disease documented in this encounter Additional Health Concerns Infection Onset Date Last Indicated Resolved Time MRSA 08/04/2024 08/04/2024 documented as of this encounter Care Teams Senior Project Accountant Relationship Specialty Start Date End Date Jb Stewart MD [address] [place] [address] [place] [address] PCP - General Internal Medicine 04/29/22 04/03/25 Ailyn García MD [address] [place] [address] [place] [address] PCP - General Internal Medicine 04/04/25 documented as of this encounter Additional Source Comments The information contained in this document represents components of the legal health record. It is not the complete legal health record.[facility]
--- OUTSIDE RECORDS SUMMARY | 2025-06-09 18:51 | XMS_ITS | Encounter Summary ---
Author Organization [facility] Address [address] [place] [address] Phone Care Team Providers Care Beach Attendant Name Role Phone Jb Stewart MD Primary Care Provider Ailyn García MD Primary Care Provider [phone] Encounter Details Date Type Department Care Team (Late st Contact Info) Description 06/20/2023 Procedure Pass [facility] 30 [place] [address] Social History Tobacco Use Types Packs/Day Years [...] Description 07/18/2025 11:00 AM EDT Office Visit [facility] Endocrinology [place] 40 [place] [phone] Cindy Tillman PA-C 22 [place] [address] [email or web address] 08/30/2025 3:00 PM EST Office Visit [facility] 55 [facility], 5th [place] [address] Aldo Aguilar MD [address] [address] [email or web address] 10/11/2025 3:30 PM EST Office Visit [facility] [address] [facility] 9th [place] [address] Marco Macedo MD, MS 243 [place] [address] [email or web address] 11/17/2025 1:00 PM EST Nutrition [facility] 40 [place] [phone] Dolores Fuller LDN 22 [facility], 1st [place] [address] [email or web address] 01/16/2026 11:20 AM EDT Office Visit [facility] Endocrinology [place] 40 [place] [phone] Nora Gomes MD [address] [place] [address] [email or web address] documented as of this encounter Visit Diagnoses Not on filedocumented in this encounter Additional Health Concerns Infection Onset Date Last Indicated Resolved Time MRSA 08/04/2024 08/04/2024 documented as of this encounter Care Teams Beach Attendant Relationship Specialty Start Date End Date Jb Stewart MD [address] [place] [address] [place] [address] PCP - General Internal Medicine 04/29/22 04/03/25 Ailyn García MD [address] [place] [address] [place] [address] PCP - General Internal Medicine 04/04/25 documented as of this encounter Additional Source Comments The information contained in this document represents components of the legal health record. It is not the complete legal health record.[facility]
--- OUTSIDE RECORDS SUMMARY | 2025-06-09 18:51 | XMS_ITS | Encounter Summary ---
Author Organization [facility] Address [address] [place] [address] [place] [address] Phone Care Team Providers Care Chronic Disease Epidemiologist Name Role Phone Jb Stewart MD Primary Care Provider Ailyn García MD Primary Care Provider [phone] Reason for Referral * MRI/CAT Scan - Closed Specialty Diagnoses / Procedures Referred By Radha greer Referred To Contact Radiology Diagnoses Unspecified mycosis Procedures MRI Face CHG MRI, FACE, NECK, COMBO Po Dey MD [address] [employer] [place], [address] [address] Phone: tel: fax: [email or web address] Referral ID Status Reason Start Date Expiration Date Visits Re quested Visits Authorized [id number] Closed 11/01/2024 12/31/2024 1 1 Encounter Details Date Type Department Care Team (Latest Contact Info) Description 11/01/2024 Transcribe Orders [address] [address] Po Dey MD [address] [place], [address] [place] [address] [email or web address] Unspecified mycosis (Primary Dx) Social History Tobacco Use Types Packs/Day Years [...] EDT Office Visit [facility] Endocrinology [place] 40 [place] [phone] Cindy Tillman PA-C [address] [place] [address] [email or web address] 08/30/2025 3:00 PM EST Office Visit [facility] 55 [facility], 5th [place] [address] Aldo Aguilar MD [address] [address] [email or web address] 10/11/2025 3:30 PM EST Office Visit [facility] 243 [facility] 9th [place] [address] Marco Macedo MD, MS 243 [place] [address] [email or web address] 11/17/2025 1:00 PM EST Nutrition [facility] Diabetes [place] 40 [place] [phone] Dolores Fuller LDN 22 [facility], [address] [place] [address] [email or web address] 01/16/2026 11:20 AM EDT Office Visit [facility] Endocrinology [address] [place] [address] Nora Gomes MD [address] [place] [address] documented as of this encounter Results * MRI FACE (SINUS) WITH AND WITHOUT CONTRAST (11/02/2024 4:48 PM EST) Anatomical Region Laterality Modality Face Magnetic Resonan ce 11/04/2024 12:0 0 PM EST Impressions 11/04/2024 12:39 PM EST 1. 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 There is residual mucosal thickening and enhancement along the anterolateral right maxillary sinus, which is likely postoperative in nature. 2. Unchanged mild residual dural thickening and enhancement along the floor of the right middle cranial fossa. 3. Persistent asymmetric enhancement of the right V2 branch. 4. Bilateral T1 hyperintensity of the globus pallidus is nonspecific but can be seen in the setting of chronic liver disease. Narrative 11/04/2024 12:39 PM EST MRI FACE (SINUS) WITH AND WITHOUT CONTRAST Referring clinician's provided indication for this examination in Epic: Outside Radiology Order; Unspecified mycosis TECHNIQUE: Multi-sequence, multi-planar MRI of the face with focus on the paranasal sinuses was performed before and after intravenous contrast. COMPARISON: MRI FACE (SINUS) WITH AND WITHOUT CONTRAST FINDINGS: Paranasal sinuses: There are changes status post right maxillectomy and partial rib resection and debridement of previously described invasive mucomycosis.. Nonenhancing soft tissue effacement of the right retromaxillary fat pad appears unchanged, likely postsurgical in nature. There is residual mucosal thickening in enhancement along the anterolateral and superior aspects of the right maxillary sinus (series 13 images 18 through 23). Unchanged mild residual dural thickening and enhancement along the posterior medial right middle cranial fossa floor (series 13 image 33). There is persistent asymmetric enhancement of the right V2 branch. 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 Mastoid air cells and middle ear cavities: Normal. No effusion. Petrous Apices, Clivus, Basilar Cisterns, Cavernous Sinuses, Sella, Cranial Nerves, Jugular foramina and Poststyloid parapharyngeal spaces: Normal. No skull base mass. Brain: There is bilateral T1 hyperintensity involving the globus pallidus. Orbits and globes: Normal. No abnormality. Procedure Note Vj Galaviz MD - 11/04/2024 MRI FACE (SINUS) WITH AND WITHOUT CONTRAST Referring clinician's provided indication for this examination in Epic:Outside Radiology Order; Unspecified mycosis TECHNIQUE: Multi-sequence, multi-planar MRI of the face with focus on theparanasal sinuses was performed before and after intravenous contrast. COMPARISON: MRI FACE (SINUS) WITH AND WITHOUT CONTRAST FINDINGS: Paranasal sinuses: There are changes status post right maxillectomy andpartial rib resection and debridement of previously described invasivemucomycosis.. Nonenhancing soft tissue effacement of the rightretromaxillary fat pad appears unchanged, likely postsurgical in nature. There is residual mucosal thickening in enhancement along theanterolateral and superior aspects of the right maxillary sinus (series 13images 18 through 23). Unchanged mild residual dural thickening and enhancement along theposterior medial right middle cranial fossa floor (series 13 image 33). There is persistent asymmetric enhancement of the right V2 branch. Nasal cavity: Status post right-sided multilevel turbinectomy. There is apersistent oroantral fistula into the right isra-sinus. Mastoid air cells and middle ear cavities: Normal. No effusion. Petrous Apices, Clivus, Basilar Cisterns, Cavernous Sinuses, Sella,Cranial Nerves, Jugular foramina and Poststyloid parapharyngeal spaces:Normal. No skull base mass. Brain: There is bilateral T1 hyperintensity involving the globuspallidus. Orbits and globes: Normal. No abnormality. IMPRESSION: 1. Status post right maxillectomy and debridement of previously seeninvasive mucomycosis. There is residual mucosal thickening and enhancementalong the anterolateral right maxillary sinus, which is likelypostoperative in nature. 2. Unchanged mild residual dural thickening and enhancement along thefloor of the right middle cranial fossa. 3. Persistent asymmetric enhancement of the right V2 branch. 4. Bilateral T1 hyperintensity of the globus pallidus is nonspecific butcan be seen in the setting of chronic liver disease. Po Dey MD IMG MR HEAD/NECK Final Re sult documented in this encounter Visit Diagnoses Diagnosis Unspecified mycosis- Primary Unspecified mycosis documented in this encounter Additional Health Concerns Infection Onset Date Last Indicated Resolved Time MRSA 08/04/2024 08/04/2024 documented as of this encounter Care Teams Chronic Disease Epidemiologist Relationship Specialty Start Date End Date Jb Stewart MD [address] [place] [address] [place] [address] PCP - General Internal Medicine 04/29/22 04/03/25 Ailyn García MD [address] [place] [address] [place] [address] PCP - General Internal Medicine 04/04/25 documented as of this encounter Additional Source Comments The information contained in this document represents components of the legal health record. It is not the complete legal health record.[facility]
--- OUTSIDE RECORDS SUMMARY | 2025-06-09 18:51 | XMS_ITS | Encounter Summary ---
Author Organization [facility] Address [address] [place] [address] Phone Care Team Providers Care Fabricator Special Items Name Role Phone Jacki Echavarria MD Primary Care Provider Mele Sepulveda MD Primary Care Provide r Pop Adler MD Primary Care Provider [phone] Pop Adler MD Primary Care Provider [phone] Jb Stewart MD Primary Care Provider Ye Batista MD Primary Care Provider [phone] Ye Batista MD Primary Care Provider [phone] Jb Stewart MD Primary Care Provider Ye Batista MD Primary Care Provider [phone] Unknown, Unknown Primary Care Provider Jb Hood MD Primary Care Provider Ailyn García MD Primary Care Provider [phone] Reason for Referral * Consultation (Within 1 month) - Closed Specialty Diagnoses / Procedures Referred By Radha greer Referred To Contact Gastroenterology Diagnoses Elevated LFTs Aldo Aguilar MD Phone: tel: fax: mailto:[email or web address] [address] Phone: tel: Referral ID Status Reason Start Date Expiration Date Visits Re quested Visits Authorized [id number] Closed 07/18/2020 07/18/2021 1 1 Encounter Details Date Type Department Care Team (Latest Contact Info) Description 07/18/2020 Transcribe Orders [facility] [address] [place] [address], [address]th [place] [address] Aldo Aguilar MD [address] [place] [address] [email or web address] Elevated LFTs (Primary Dx) Social History Tobacco Use Types Packs/Day Years Used Date Smoking Tobacco: Never Assessed Sex and Gender Information Value Date Recorded Sex Assigned at Male 11/19/2022 12:49 PM EST Legal Sex Male 4:01 PM EST Gender Identity Male 11/19/2022 12:49 PM EST Sexual Orientation Straight 08/11/2024 9: 34 AM EST documented as of this encounter Plan of Treatment Upcoming Encounters Date Type Department Care Team (Late st Contact Info) Description 07/18/2025 11:00 AM EDT Office Visit [facility] Endocrinology [address] [phone] Cindy Tillman PA-C [address] [place] [address] 08/30/2025 3:00 PM EST Office Visit [facility] [address] [place] [address], [address] [place] [address] Aldo [facility]ilar MD [facility] [address] [place] [address] [email or web address] 10/11/2025 3:30 PM EST Office Visit [facility] Main [place] [address] 9th [place] [address] Marco Macedo MD, MS [address] [facility] [place] [address] [email or web address] 11/17/2025 1:00 PM EST Nutrition [facility] 40 [place] [phone] Dolores Fuller LDN [address] [address] [email or web address] 01/16/2026 11:20 AM EDT Office Visit [facility] Endocrinology [place] 40 [place] [phone] Nora Gomes MD [address] [address] [email or web address] Scheduled Referrals Name Type Priority Associated Diagnoses Order Schedule Ambulatory referral to [facility] G[facility]ology (Consult Requests Only) Outpatient Referral Routine Elevated LFTs Ordered: 07/18/2020 documented as of this encounter Visit Diagnoses Diagnosis Elevated LFTs- Primary Other abnormal blood chemistry documented in this encounter Additional Health Concerns Infection Onset Date Last Indicated Resolved Time CoV-Risk 02/04/2022 02/04/2022 02/15/2022 1:24 AM EDT MRSA 08/04/2024 08/04/2024 documented as of this encounter Care Teams Fabricator Special Items Relationship Specialty Start Date End Date Jacki Echavarria MD [facility] Dr Maryellen [place] [phone] PCP - General Internal Medicine 07/14/20 08/16/20 Mele Sepulveda MD [address] [place] [address] PCP - General Internal Medicine 08/17/20 09/10/20 Ppo Adler MD [address] [place] [address] [place] [address] PCP - General Internal Medicine 09/11/20 12/05/20 Pop Adler MD [address] [place] [address] [place] [address] PCP - General Internal Medicine 04/03/21 04/24/21 bJ Stewart MD [address] [place] [address] Dr STEVENS [address] [place] [address] PCP - General Internal Medicine 04/25/21 12/09/21 Ye Batista MD [address] [place] [address] [email or web address] PCP - General Internal Medicine 12/10/21 12/16/21 Ye Batista MD [address] [place] [address] [email or web address] PCP - General Internal Medicine 12/17/21 12/17/21 Jb Stewart MD [address] [place] [address] Dr STEVENS [address] [place] [address] PCP - General Internal Medicine 12/18/21 12/24/21 Ye Batista MD [address] [place] [address] [place] [address] [email or web address] PCP - General Internal Medicine 12/25/21 04/01/22 Unknown, Kaveh, PCP - General 04/02/22 04/28/22 Jb Stewart MD [address] [place] [address] [place] [address] PCP - General Internal Medicine 04/29/22 04/03/25 Ailyn García MD [address] [place] [address] [place] [address] PCP - General Internal Medicine 04/04/25 documented as of this encounter Additional Source Comments The information contained in this document represents components of the legal health record. It is not the complete legal health record.[facility]
--- OUTSIDE RECORDS SUMMARY | 2025-06-09 18:51 | XMS_ITS | Encounter Summary ---
Author Organization [facility] Address [address] [place] [address] Phone Care Team Providers Care Development Technologist Name Role Phone Jb Stewart MD Primary Care Provider Ailyn García MD Primary Care Provider [phone] Encounter Details Date Type Department Care Team (Late st Contact Info) Description 02/09/2024 Procedure Pass [facility] Endoscopy Admitting Dept Virtual Department [address] [place] [address] Social History Tobacco Use Types Packs/Day Years [...] Description 07/18/2025 11:00 AM EDT Office Visit [facility] Endocrinology [place] 40 [place] [phone] Cindy Tillman PA-C 22 [place] [address] [email or web address] 08/30/2025 3:00 PM EST Office Visit [facility] 55 [facility], 5th [place] [address] Aldo Aguilar MD [address] [address] [email or web address] 10/11/2025 3:30 PM EST Office Visit [facility] 243 [facility] 9th [place] [address] Marco Macedo MD, MS 243 [place] [address] [email or web address] 11/17/2025 1:00 PM EST Nutrition [facility] 40 [place] [phone] Dolores Fuller LDN 22 [facility], 1st [place] [address] [email or web address] 01/16/2026 11:20 AM EDT Office Visit [facility] Endocrinology [place] 40 [place] [phone] Nora Gomes MD [address] [place] [address] [email or web address] documented as of this encounter Visit Diagnoses Not on filedocumented in this encounter Additional Health Concerns Infection Onset Date Last Indicated Resolved Time MRSA 08/04/2024 08/04/2024 documented as of this encounter Care Teams Development Technologist Relationship Specialty Start Date End Date Jb Stewart MD [address] [place] [address] [place] [address] PCP - General Internal Medicine 04/29/22 04/03/25 Ailyn García MD [address] [place] [address] [place] [address] PCP - General Internal Medicine 04/04/25 documented as of this encounter Additional Source Comments The information contained in this document represents components of the legal health record. It is not the complete legal health record.[facility]
--- OUTSIDE RECORDS SUMMARY | 2025-06-09 18:51 | XMS_ITS | Encounter Summary ---
Author Organization [facility] Address [address] [place] [address] Phone Care Team Providers Care Health Teacher Name Role Phone Jb Stewart MD Primary Care Provider Ye Batista MD Primary Care Provider [phone] Ye Batista MD Primary Care Provider Jb Stewart MD Primary Care Provider Ye Batista MD Primary Care Provider [phone] Unknown, Unknown Primary Care Provider Jb Hood MD Primary Care Provider Ailyn García MD Primary Care Provider [phone] Encounter Details Date Type Department Care Team (Late st Contact Info) Description 09/11/2021 Procedure Pass [facility] [address] [place], [place] [phone] Social History Tobacco Use Types Packs/Day Years [...] Description 07/18/2025 11:00 AM EDT Office Visit [facility] Endocrinology [place] 40 [place] [phone] Cindy Tillman PA-C 22 [place] [address] [email or web address] 08/30/2025 3:00 PM EST Office Visit [facility] 55 [facility], 5th [place] [address] Aldo Aguilar MD [address] [address] [email or web address] 10/11/2025 3:30 PM EST Office Visit [facility] 243 [facility] 9th [place] [address] Marco Macedo MD, MS 243 [place] [address] [email or web address] 11/17/2025 1:00 PM EST Nutrition [facility] 40 [place] [phone] Dolores Fuller LDN 22 [facility], 1st [place] [address] [email or web address] 01/16/2026 11:20 AM EDT Office Visit [facility] Endocrinology [place] 40 [place] [phone] Nora Gomes MD [address] [place] [address] [email or web address] documented as of this encounter Visit Diagnoses Not on filedocumented in this encounter Additional Health Concerns Infection Onset Date Last Indicated Resolved Time CoV-Risk 02/04/2022 02/04/2022 02/15/2022 1:24 AM EDT MRSA 08/04/2024 08/04/2024 documented as of this encounter Care Teams Health Teacher Relationship Specialty Start Date End Date Jb Stewart MD [address] [place] [address] [place] [address] PCP - General Internal Medicine 04/25/21 12/09/21 Ye Batista MD 40 [place] [address] [email or web address] PCP - General Internal Medicine 12/10/21 12/16/21 Ye Batista MD 40 [place] [address] [email or web address] PCP - General Internal Medicine 12/17/21 12/17/21 Jb Stewart MD [address] [place] [address] [place] [address] PCP - General Internal Medicine 12/18/21 12/24/21 Ye Batista MD 40 [place] [address] [email or web address] PCP - General Internal Medicine 12/25/21 04/01/22 Unknown, Unknown, MD PCP - General 04/02/22 04/28/22 Jb Stewart MD [address] [place] [address] [place] [address] PCP - General Internal Medicine 04/29/22 04/03/25 Ailyn García MD [address] [place] [address] [place] [address] PCP - General Internal Medicine 04/04/25 documented as of this encounter Additional Source Comments The information contained in this document represents components of the legal health record. It is not the complete legal health record.[facility]
--- OUTSIDE RECORDS SUMMARY | 2025-06-09 18:51 | XMS_ITS | Encounter Summary ---
Author Organization [facility] Address [address] [place] [address] [place] [address] Phone Care Team Providers Care Abrasive Grader Name Role Phone Jb Stewart MD Primary Care Provider Ailyn García MD Primary Care Provider Encounter Details Date Type Department Care Team (Late st Contact Info) Description 11/12/2023 Ophth Exam [facility] Emergency Department 243 [place] [address] Real Bass MD [address] [place] [address] [email or web address] Social History Tobacco Use Types Packs/Day Years [...] Risk Indicated 11/12/2023 12:07 PM EST Bam Prado RN * Rabun Suicide Severity Rating Scale (Screener/Recent Self-Report) Question Answer Date of Assessment Author 1. Wish to be (Past 1 Month) No 024 12:07 PM Bam Abreu RN 2. Non-Specific Active Suici mary Thoughts (Past 1 Month) No 11/12/2023 12:07 PM EST Jesus Beckwith RN 6. Suicidal Behavior (Lifetime) No 12:07 PM EST Bam Beckwith RN documented as of this encounter Plan of Treatment Upcoming Encounters Date Type Department Care Team (Late st Contact Info) Description 07/18/2025 11:00 AM EDT Office Visit [facility] Endocrinology [address] [phone] Cindy Tillman PA-C [address] [place] [address] 08/30/2025 3:00 PM EST Office [place] [facility] 55 [facility], 5th [place] [address] Aldo Aguilar MD [address] [address] [email or web address] 10/11/2025 3:30 PM EST Office Visit [address] 9th [place] [address] Mraco Macedo MD, MS 243 [facility] [place] [address] [email or web address] 11/17/2025 1:00 PM EST Nutrition [facility] Diabetes Center 40 [place] [phone] Dolores Fuller LDN [address] [address] 01/16/2026 11:20 AM EDT Office Visit [facility] Endocrinology [place] 40 [place] [phone] Nora Gomes MD [address] [address] documented as of this encounter Visit Diagnoses Not on filedocumented in this encounter Additional Health Concerns Infection Onset Date Last Indicated Resolved Time MRSA 08/04/2024 08/04/2024 documented as of this encounter Care Teams Abrasive Grader Relationship Specialty Start Date End Date Jb Stewart MD [address] [place] [address] [place] [address] PCP - General Internal Medicine 04/29/22 04/03/25 Ailyn García MD [address] [place] [address] [place] [address] PCP - General Internal Medicine 04/04/25 documented as of this encounter Additional Source Comments The information contained in this document represents components of the legal health record. It is not the complete legal health record.[facility]
--- OUTSIDE RECORDS SUMMARY | 2025-06-09 18:51 | XMS_ITS | Encounter Summary ---
Author Organization [facility] Address [address] [place] [address] Phone Care Team Providers Care Agribusiness Professor Name Role Phone Pop Adler MD Primary Care Provider Jb Stewart MD Primary Care Provider Ye Batista MD Primary Care Provider Ye Batista MD Primary Care Provider Jb Stewart MD Primary Care Provider Ye Batista MD Primary Care Provider Unknown, Unknown Primary Care Provider Jb Hood MD Primary Care Provider Ailyn García MD Primary Care Provider [phone] Encounter Details Date Type Department Care Team (Late st Contact Info) Description 03/27/2021 Procedure Pass [facility] [place] [facility] [address] [place] [address] Social History Tobacco Use Types Packs/Day Years [...] AM EDT Office Visit [facility] Endocrinology [place] 40 [place] [address] Cindy Tillman PA-C 22 [place] [address] [email or web address] 08/30/2025 3:00 PM EST Office Visit [facility] 55 [facility], 5th [place] [address] Aldo Aguilar MD [address] [address] [email or web address] 10/11/2025 3:30 PM EST Office Visit [facility] 243 [facility] 9th [place] [address] Marco Macedo MD, MS 243 [place] [address] [email or web address] 11/17/2025 1:00 PM EST Nutrition [facility] Diabetes [place] 40 [place] [phone] Dolores Fuller LDN 22 [facility], 1st [place] [address] [email or web address] 01/16/2026 11:20 AM EDT Office Visit [facility] Endocrinology [place] 40 [place] [address] Nora Gomes MD [address] [place] [address] [email or web address] documented as of this encounter Visit Diagnoses Not on filedocumented in this encounter Additional Health Concerns Infection Onset Date Last Indicated Resolved Time CoV-Risk 02/04/2022 02/04/2022 02/15/2022 1:24 AM EDT MRSA 08/04/2024 08/04/2024 documented as of this encounter Care Teams Agribusiness Professor Relationship Specialty Start Date End Date Pop Adler MD [address] [place] [address] [address] PCP - General Internal Medicine 04/03/21 04/24/21 Jb Stewart MD [address] [place] [address] [address] PCP - General Internal Medicine 04/25/21 12/09/21 Ye Batista MD [address] [place] [address] [email or web address] PCP - General Internal Medicine 12/10/21 12/16/21 Ye Batista MD [address] [place] [address] [email or web address] PCP - General Internal Medicine 12/17/21 12/17/21 Jb Stewart MD [address] [place] [address] [address] PCP - General Internal Medicine 12/18/21 12/24/21 Ye Batista MD [address] [place], [place] [address]KIM maria [address] [email or web address] PCP - General Internal Medicine 12/25/21 04/01/22 Unknown, Kaveh, PCP - General 04/02/22 04/28/22 Jb Stewart MD [address] [place] [address] [place] [address] PCP - General Internal Medicine 04/29/22 04/03/25 Ailyn García MD [address] [place] [address] [place] [address] PCP - General Internal Medicine 04/04/25 documented as of this encounter Additional Source Comments The information contained in this document represents components of the legal health record. It is not the complete legal health record.[facility]
--- OUTSIDE RECORDS SUMMARY | 2025-06-09 18:51 | XMS_ITS | Encounter Summary ---
Author Organization [facility] Address [address] [place] [address] Phone Care Team Providers Care Med Spa Manager Name Role Phone Pop Adler MD Primary Care Provider Jb Stewart MD Primary Care Provider Ye Batista MD Primary Care Provider Ye Batista MD Primary Care Provider Jb Stewart MD Primary Care Provider Ye Batista MD Primary Care Provider Unknown, Unknown Primary Care Provider Jb Hood MD Primary Care Provider Ailyn García MD Primary Care Provider [phone] Encounter Details Date Type Department Care Team (Late st Contact Info) Description 03/21/2021 Procedure Pass [facility] 70 [place] [address] Social History Tobacco Use Types Packs/Day Years [...] Description 07/18/2025 11:00 AM EDT Office Visit [facility] Endocrinology [place] 40 [place] [phone] Cindy Tillman PA-C 22 [place] [address] [email or web address] 08/30/2025 3:00 PM EST Office [facility] 55 [facility], 5th [place] [address] Aldo Aguilar MD [address] [address] [email or web address] 10/11/2025 3:30 PM EST Office Visit [facility] 243 [facility] 9th [place] [address] Marco Macedo MD, MS 243 [place] [address] [email or web address] 11/17/2025 1:00 PM EST Nutrition [facility] Diabetes Center 40 [place] [phone] Dolores Fuller LDN 22 [facility], 1st [place] [address] [email or web address] 01/16/2026 11:20 AM EDT Office Visit [facility] Endocrinology [place] 40 [place] [address] Nora Gomes MD [address] [place] [address] [email or web address] documented as of this encounter Visit Diagnoses Not on filedocumented in this encounter Additional Health Concerns Infection Onset Date Last Indicated Resolved Time CoV-Risk 02/04/2022 02/04/2022 02/15/2022 1:24 AM EDT MRSA 08/04/2024 08/04/2024 documented as of this encounter Care Teams Med Spa Manager Relationship Specialty Start Date End Date Pop Adler MD [address] [place] [address] Dr STEVENS [address] [place] [address] PCP - General Internal Medicine 04/03/21 04/24/21 Jb Stewart MD [address] [place] [address] Dr [place] [address] PCP - General Internal Medicine 04/25/21 12/09/21 Ye Batista MD [address] [place] [address] [email or web address] PCP - General Internal Medicine 12/10/21 12/16/21 Ye Batista MD [address] [place] [address] [email or web address] PCP - General Internal Medicine 12/17/21 12/17/21 Jb Stewart MD [address] [place] [address] Dr STEVENS [facility] [place] [address] PCP - General Internal Medicine 12/18/21 12/24/21 Ye Batista MD [address] [place] [address] [email or web address] PCP - General Internal Medicine 12/25/21 04/01/22 Unknown, Kaveh, PCP - General 04/02/22 04/28/22 Jb Stewart MD [address] [place] [address] [place] [address] PCP - General Internal Medicine 04/29/22 04/03/25 Ailyn García MD [address] [place] [address] [place] [address] PCP - General Internal Medicine 04/04/25 documented as of this encounter Additional Source Comments The information contained in this document represents components of the legal health record. It is not the complete legal health record.[facility]
--- OUTSIDE RECORDS SUMMARY | 2025-06-09 18:51 | XMS_ITS | Encounter Summary ---
Author Organization [facility] Address [address] [place] [address] [place] [address] Phone Care Team Providers Care Central Office Supervisor Name Role Phone Jb Stewart MD Primary Care Provider Ailyn García MD Primary Care Provider [phone] Encounter Details Date Type Department Care Team (Late st Contact Info) Description 09/07/2024 Procedure Pass [facility] 30 [place] [address] Social History Tobacco Use Types Packs/Day Years [...] 11:00 AM EDT Office Visit [facility] Endocrinology [address] [place] [address] Cindy Tillman PA-C 22 [place] [address] [email or web address] 08/30/2025 3:00 PM EST Office Visit [facility] 55 [facility], 5th [place] [address] Aldo Aguilar MD 55 [facility] 456 [place] [address] [email or web address] 10/11/2025 3:30 PM EST Office Visit [facility] 243 [facility] 9th [place] [address] Marco Macedo MD, MS 243 [place] [address] [email or web address] 11/17/2025 1:00 PM EST Nutrition [facility] Diabetes Center 40 [place] [phone] Dolores Fuller LDN [address] [address] [email or web address] 01/16/2026 11:20 AM EDT Office Visit [facility] Endocrinology [place] 40 [place] [phone] Nora Gomes MD [address] [facility] 3rd [place] [address] [email or web address] documented as of this encounter Visit Diagnoses Not on filedocumented in this encounter Additional Health Concerns Infection Onset Date Last Indicated Resolved Time MRSA 08/04/2024 08/04/2024 documented as of this encounter Care Teams Central Office Supervisor Relationship Specialty Start Date End Date Jb Stewart MD [address] [place] [address] Dr VannyoKIM head [address] PCP - General Internal Medicine 04/29/22 04/03/25 Ailyn García MD [address] [place] [address] [place] [address] PCP - General Internal Medicine 04/04/25 documented as of this encounter Additional Source Comments The information contained in this document represents components of the legal health record. It is not the complete legal health record.[facility]
--- OUTSIDE RECORDS SUMMARY | 2025-06-09 18:51 | XMS_ITS | Encounter Summary ---
Author Organization [facility] Address [address] [place] [address] [place] [address] Phone Care Team Providers Care Mortgage Loan Interviewer Name Role Phone Jb Stewart MD Primary Care Provider Ye Batista MD Primary Care Provider [phone] Ye Batista MD Primary Care Provider [phone] Jb Stewart MD Primary Care Provider Ye Batista MD Primary Care Provider [phone] Unknown, Unknown Primary Care Provider Jb Hood MD Primary Care Provider Ailyn García MD Primary Care Provider [phone] Encounter Details Date Type Department Care Team (Late st Contact Info) Description 04/25/2021 Procedure Pass MRI, [facility] - [address], [address] [place] [address] Social History Tobacco Use Types Packs/Day Years [...] Description 07/18/2025 11:00 AM EDT Office Visit [facility] Endocrinology [place] 40 [place] [phone] Cnidy Tillman PA-C 22 [place] [address] [email or web address] 08/30/2025 3:00 PM EST Office [place] [facility] 55 [facility], 5th [place] [address] Aldo Aguilar MD [address] [address] [email or web address] 10/11/2025 3:30 PM EST Office Visit [facility] 243 [facility] 9th [place] [address] Marco Macedo MD, MS 243 [place] [address] [email or web address] 11/17/2025 1:00 PM EST Nutrition [facility] Diabetes Center 40 [place] [phone] Dolores Fuller LDN 22 [facility], 1st [place] [address] 01/16/2026 11:20 AM EDT Office Visit [facility] Endocrinology [place] 40 [place] [address] Nora Gomes MD [address] [place] [address] [email or web address] documented as of this encounter Visit Diagnoses Not on filedocumented in this encounter Additional Health Concerns Infection Onset Date Last Indicated Resolved Time CoV-Risk 02/04/2022 02/04/2022 02/15/2022 1:24 AM EDT MRSA 08/04/2024 08/04/2024 documented as of this encounter Care Teams Mortgage Loan Interviewer Relationship Specialty Start Date End Date Jb Stewart MD [address] [place] [address] [place] [address] PCP - General Internal Medicine 04/25/21 12/09/21 Ye Batista MD 40 [place] [address] [email or web address] PCP - General Internal Medicine 12/10/21 12/16/21 Ye Batista MD [address] [place] [address] [email or web address] PCP - General Internal Medicine 12/17/21 12/17/21 Jb Stewart MD [address] [place] [address] [place] [address] PCP - General Internal Medicine 12/18/21 12/24/21 Ye Batista MD [address] [place] [address] [email or web address] PCP - General Internal Medicine 12/25/21 04/01/22 Unknown, Kaveh, PCP - General 04/02/22 04/28/22 Jb Stewart MD [address] [place] [address] [place] [address] PCP - General Internal Medicine 04/29/22 04/03/25 Ailyn García MD [address] [place] [address] [place] [address] PCP - General Internal Medicine 04/04/25 documented as of this encounter Additional Source Comments The information contained in this document represents components of the legal health record. It is not the complete legal health record.[facility]
== END 2025-06-09 16:44 | disposition home or self-care (01) ==
LOC: HO.HMCFM 15:54
PROVIDERS: PCP Internal Medicine; Visit Provider Internal Medicine
DX: E11.9 Type 2 diabetes mellitus without complications (principal); Z79.4 Long term (current) use of insulin; D61.818 Other pancytopenia

== ENCOUNTER 2025-06-09 15:53 | Outpatient (REF) | payer OTHER, SELFPAY ==
[2025-06-09 17:04] LABS: MANUAL DIFF FLAG NO
[2025-06-09 17:14] LABS: Hematocrit 35.4 % (42.0-52.0); Hemoglobin 11.2 g/dl (14.0-18.0); Imm Gran Abs Auto 0.01 X10*3/uL (0.00-0.03); Imm Gran Pct Auto 0.2 % (0.0-0.4); Lymphocytes Absolute Auto 2.1 X10*3/uL (1.2-4.9); Mean Corpuscular HGB Conc 31.6 g/dl (31.0-36.0); Mean Corpuscular Hemoglobin 27.1 pg (27.0-33.0); Mean Corpuscular Volume 85.7 fL (80.0-98.0); NRBC Abs Auto 0.000 X10*3/uL (0.0-0.012); NRBC Pct Auto 0.0 /100WBC (0.0-0.2); Red Blood Count 4.13 X10*6/uL (4.60-5.80); White Blood Count 4.3 X10*3/uL (4.8-10.8)
[2025-06-09 17:25] LABS: Platelet Count 96 X10*3/uL (160-400)
[2025-06-09 18:01] LABS: Alanine Aminotransferase 78 U/L (0-40); Albumin Level 4.1 g/dL (3.5-5.0); Alkaline Phosphatase 251 U/L (39-117); Anion Gap 12 (12-20); Aspartate Amino Transferase 71 U/L (5-37); Blood Urea Nitrogen 22 mg/dL (9-16); Calcium 9.0 mg/dL (8.4-10.2); Carbon Dioxide 25 mmol/L (22-29); Chloride 108 mmol/L (96-108); Cholesterol 168 mg/dL (<200); Estimated Glomerular Filt Rate 52; HDL Cholesterol 59 mg/dL (>40); Iron 47 mcg/dL (45-160); Percent Iron Saturation 13 % (15-50); Potassium 4.6 mmol/L (3.3-5.1); Sodium 140 mmol/L (135-145); Total Iron Binding Capacity 370 mcg/dL (228-428); Total Protein 6.9 g/dL (6.5-8.0); Triglycerides 150 mg/dL (<150); Unsaturated Iron Binding 323 ug/dL
[2025-06-09 18:37] LABS: Folate 8.3 ng/mL (> or = 4.0); Prostate Specific Antigen 1.31 ng/mL (<0.05-4.0); Vitamin B12 562 pg/mL (200-900)
== END 2025-06-09 15:54 | disposition home or self-care (01) ==
LOC: HO.LAB 15:53
PROVIDERS: PCP Internal Medicine; Visit Provider Internal Medicine
DX: D61.818 Other pancytopenia (principal); R68.89 Other general symptoms and signs; R53.83 Other fatigue; E11.9 Type 2 diabetes mellitus without complications; Z79.4 Long term (current) use of insulin; Z79.899 Other long term (current) drug therapy
CPT/HCPCS: 80053; 80061; 82607; 82746; 83540; 84153; 84443; 85025; 96127; 99212

== ENCOUNTER 2025-09-15 13:08 | Outpatient (AMB) | payer OTHER, SELFPAY ==
--- OUTSIDE RECORDS SUMMARY | 2024-07-20 09:15 | XMS_ITS ---
Author Organization Po Medeiros III, MD Address [address] [place] [address] [place] [address] Care Team Providers Care Dual Rate Dealer Name Role Phone Jb Stewart MD Primary Care Provider Dr. Po Acevedo III Unavailable Allergies Allergen (clinical drug ingredient) Drug/Non Drug Allergy documented on EMR Reaction Allergy Type Onset Date Status No Known Drug Allergy Unknown Drug Allergy Active REASON FOR VISIT Pancytopenia Medications Medication SIG (Take, Route, Frequency, Duration) Notes Start Date End Date Status Cyclobenzaprine HCl 10 MG TAKE 1 TABLET BY MOUTH AT BEDTIME NEEDED Oral Active Pantoprazole Sodium 40 MG TAKE 1 TABLET BY MOUTH EVERY DAY FOR 90 DAYS Oral Activ e Docusate Sodium 100 MG Oral Active metFORMIN HCl 500 MG TAKE 1 TABLET BY MO UTH TWICE A DAY Oral Active Gabapentin 300 MG TAKE 1 CAPSULE BY MO UTH TWICE A DAY Oral Active hydrOXYzine HCl 25 MG TAKE 1 TABLET BY M OUT TWICE A DAY Oral Active Social History Sex Assigned At : Social History Observation Description Sex Assigned At Male Problems Problem Type SNOMED Code ICD Code Onset Dates Problem Status W/U Status Risk Notes Problem 69958503 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 Problem 08198036 Other cirrhosis of liver (K74.69) Active confirmed He has a known diagnosis of nonalcoholic cirrhosis which in the past has been complicated by portal hypertension and esophageal varices. Problem 15113825 Portal hypertension (K76.6) Active confirmed Problem 99784414 Secondary esophageal varices without bleeding (I85.10) Active confirmed Problem 742254703 Type 2 diabetes mellitus without complication, without long-term current use of insulin (E11.9) Active confirmed His diabetes has been treated and seems to be stable. A current A1c is not available. Problem 294179283 Stage 3 chronic kidney disease, unspecified whether stage 3a or 3b CKD (N18.30) Active confirmed His renal function has been stable and is under the care of primary care. Problem 787246096 Asymptomatic cholelithiasis (K80.20) Active confirmed Ultrasound of the abdomen to measure the spleen has been ordered which will also study the gallbladder. Problem 083539094 Chronic GERD (K21.9) Active confirmed Problem 93465469 Legally blind (H54.8) Active confirmed Problem 938064734 Environmental allergies (Z91.09) Active confirmed Problem 86245202 Polyp of colon, unspecified part of colon, unspecified type (K63.5) Active confirmed Problem 326243968 Right inguinal hernia (K40.90) Active confirmed This was repaired at [facility] in March 2023. It is currently asymptomatic. Vital Signs Temperature 99.9 degrees Fahrenheit 07/20/20 24 Blood pressure systolic 143 mm Hg 07/20/20 24 Blood pressure diastolic 87 mm Hg 024 Heart Rate 90 /min 07/20/2024 Height 5'6 in 07/20/2024 Weight 154 lbs 07/20/2024 BMI 24.85 kg/m2 07/20/2024 Encounters Encounter Location Date Provider Diagnosis Po Medeiros III, MD [address] [place] [address] [place] [address] 07/20/2024 Po Medeiros Pancytopenia D61.818 ; Splenomegaly R16.1 ; Mucormycosis B46.5 ; Other cirrhosis of liver K74.69 ; Type 2 diabetes mellitus without complication, without long-term current use of insulin E11.9 ; Stage 3 chronic kidney disease, unspecified whether stage 3a or 3b CKD N18.30 ; Asymptomatic cholelithiasis K80.20 and Right inguinal hernia K40.90 Assessments Encounter Date Diagnosis (ICD Code) Assessment Notes Treat ment Notes Treatment Clinical Notes 07/20/2024 Pancytopenia (ICD-10 - D61.818) His pancytopenia is mild. It is very likely due to mild splenomegaly. Records from [facility] document a history of portal hypertension and ascites and cirrhosis. An ultrasound has been done to measure the current spleen size. Observation without treatment is indicated. 07/20/2024 Splenomegaly (ICD-10 - R16.1) An ultrasound of the abdomen to measure the size of the spleen to evaluate the pancytopenia for hypersplenism has been ordered. 07/20/2024 Mucormycosis (ICD-10 - B46.5) The osteomyelitis of the right jaw has resolved and is no longer an active problem. 07/20/2024 Other cirrhosis of liver (ICD-10 - K74.69) He has a known diagnosis of nonalcoholic cirrhosis which in the past has been complicated by portal hypertension and esophageal varices. 07/20/2024 Type 2 diabetes mellitus without complication, without long-term current use of insulin (ICD-10 - E11.9) His diabetes has been treated and seems to be stable. A current A1c is not available. 07/20/2024 Stage 3 chronic kidney disease, unspecified whether stage 3a or 3b CKD (ICD-10 - N18.30) His renal function has been stable and is under the care of primary care. 07/20/2024 Asymptomatic cholelithiasis (ICD-10 - K80.20) Ultrasound of the abdomen to measure the spleen has been ordered which will also study the gallbladder. 07/20/2024 Right inguinal herni a (ICD-10 - K40.90) This was repaired at [facility] in March 2023. It is currently asymptomatic. Plan Of Treatment Medication Medication Name Sig Start Date Stop Date Notes Cyclobenzaprine HCl 10 MG TAKE 1 TABLET BY MOUTH AT BEDTIME NEEDED Oral Pantoprazole Sodium 40 MG TAKE 1 TABLET BY MOUTH EVERY DAY FOR 90 DAYS Oral Docusate Sodium 100 MG Oral metFORMIN HCl 500 MG TAKE 1 TABLET BY MO UTH TWICE A DAY Oral Gabapentin 300 MG TAKE 1 CAPSULE BY MO UTH TWICE A DAY Oral hydrOXYzine HCl 25 MG TAKE 1 TABLET BY M OUTH TWICE A DAY Oral Pending Test Test Name Order Date US ABD 07/20/2024 Next Appt Details Follow Up: To be scheduled, Reason: To discuss ultrasound results Progress Notes * ALTAF MEKESOB:1970 (53 yo M)Acc No.[id number]:07/20/2024 Progress Notes Patient: Anmol TYLER CHOE Provider: Anmol Medeiros MD :1970 A ge:53 Y S ex:Male Date:07/20/2024 Address:[address] [place] [id number] Pcp:Jb Stewart MD Subjective: * Chief Complaints: * P ancytopenia * HPI: C OVID-19 Screening: Questions H ave you experienced fever, chills, cough, sore throat, shortness of breath, difficulty breathing, muscle aches, loss of taste or smell? N o H ave you been exposed to the virus within the last 10 days? N o H ave you travelled internationally in the last 10 days? N o H ave you been exposed to COVID-19 in the past? Y es * : The patient, a 53-year-old male, presented with a history of mucormycosis infection in his mouth, which had been treated and was no longer present. The infection had caused significant tissue damage, leading to numbness in the patient's cheek, nose, and lips. The patient also reported vision loss, which was attributed to optic nerve damage. The patient had stopped taking prednisone due to severe itching. He also reported having liver cirrhosis and fatty liver. The patient's blood work showed fluctuating values, with some being too high or too low. The patient also reported pain in his breast tissue, which was attributed to increased estrogen levels due to liver disease. He is referred for evaluation of pancytopenia. Review of old records shows that in 2022 he was found to have portal hypertension and ascites. No mention is made of spleen size. He has known hepatic cirrhosis from nonalcoholic causes primarily steatosis. He has known esophageal varices. Old records contain mention of cholelithiasis. 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 That infection is now resolved. He has had no recent major infections or bleeding episodes. A CBC done July 06, 2024 showed white count 4.4 with a normal differential, hematocrit 33.9, mean cell volume 100.3, platelets 100,000. * ROS: G eneral/Constitutional: Admits p ain, o nly normal aches and pains. C hills?denies. F atigue a dmits. F ever d enies. E NT: Decreased hearing d enies. R espiratory: Cough d enies. C ardiovascular: Chest pain with exertion d enies. D yspnea on exertion?denies. S hortness of breath d enies. G astrointestinal: Constipation o ccasional. D ecreased appetite d enies. D iarrhea d enies. H eartburn o ccasional. N ausea d enies. R ectal bleeding d enies. V omiting d enies. H ematology: bruising d enies. p etechiae d enies. S wollen glands n one have been noted. G enitourinary: Frequent urination o nce a night. M usculoskeletal: Muscle aches d enies. P ainful joints d enies. S ciatica d enies. W eakness d enies. S kin: Itching d enies. R zahraa d enies. S kin lesion(s)?denies. N eurologic: Difficulty speaking d enies. D izziness d enies.?Headache d enies. L ow back pain d enies. P sychiatric: Depressed mood d enies. * Medical History: * Surgical History: B ack surgery 2019Herniorrhaphy 2022Right maxillary biopsy olonoscopy positive for polyps ight inguinal herniorrhaphy 2022 * Hospitalization/Major Diagno stic Procedure: T he patient was hospitalized for eight months due to Mucor osteomyelitis of the right maxilla * Family History: 1 daughter(s) . . N on-Contributory. He is not aware of any family history of mental illness or substance abuse or addiction. * Social History: T obacco Use: T obacco Use/Smoking . T he patient reported that he has never smoked or drank alcohol in his life. 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 His born in his [place] about [place]. His [place] language is Italian. * Medications: T akingCyclobenzaprine HCl 10 MG Tablet TAKE 1 TABLET BY MOUTH AT BEDTIME NEEDED Oral hydrOXYzine HCl 25 MG Tablet TAKE 1 TABLET BY MOUTH TWICE A DAY Oral metFORMIN HCl 500 MG Tablet TAKE 1 TABLET BY MOUTH TWICE A DAY Oral Gabapentin 300 MG Capsule TAKE 1 CAPSULE BY MOUTH TWICE A DAY Oral Pantoprazole Sodium 40 MG Tablet Delayed Release TAKE 1 TABLET BY MOUTH EVERY DAY FOR 90 DAYS Oral Docusate Sodium 100 MG Capsule Oral Medication List reviewed and reconciled with the patientTaking Cyclobenzaprine HCl 10 MG Tablet TAKE 1 TABLET BY MOUTH AT BEDTIME NEEDED Oral Taking hydrOXYzine HCl 25 MG Tablet TAKE 1 TABLET BY MOUTH TWICE A DAY Oral Taking metFORMIN HCl 500 MG Tablet TAKE 1 TABLET BY MOUTH TWICE A DAY Oral Taking Gabapentin 300 MG Capsule TAKE 1 CAPSULE BY MOUTH TWICE A DAY Oral Taking Pantoprazole Sodium 40 MG Tablet Delayed Release TAKE 1 TABLET BY MOUTH EVERY DAY FOR 90 DAYS Oral Taking Docusate Sodium 100 MG Capsule Oral Medication List reviewed and reconciled with the patient * Allergies: N o Known Drug Allergyno[Allergies Verified] Objective: * Vitals: H t: 5'6 , Wt: 154, BMI:24.85, BP: 143/87, HR: 90, Temp: 99.9, Ht-cm: 167.64, Wt- k.85. * Examination: G eneral Examination: GENERAL APPEARANCE: p leasant, well nourished, well developed, in no acute distress, calm and relaxed, man. HEAD: a traumatic, normocephalic. EYES: e mundo, perrla, anicteric, conjugate. EARS: n ormal. NOSE: s eptum intact. ORAL CAVITY: E dentulous maxilla. NECK/THYROID: n o jugular venous distention, no carotid bruit, thyroid normal. LYMPH NODES: n o enlarged lymph nodes,spleen Not palpable.? SKIN: n o suspicious lesions, anicteric. HEART: n o clicks, gallops, murmurs, or rubs, regular rhythm, S1, S2 normal, no s3, or vascular bruits. LUNGS: c lear to auscultation . BREASTS: no masses palpable bilaterally. ABDOMEN: n o ascites, no guarding or rigidity, Herniorrhaphy scar right groin,, soft, nontender, nondistended, no rebound tenderness, Liver edge palpable spleen not palpable. RECTAL EXAM: n ot examined. MUSCULOSKELETAL: e xtremities unremarkable, no clubbing, cyanosis or edema. PERIPHERAL PULSES: n ormal. NEUROLOGIC: a lert and oriented, cranial nerves 2-12 grossly intact, deep tendon reflexes 2+ symmetrical, motor strength normal upper and lower extremities, sensory exam intact. PSYCH: a lert, oriented, cognitive function intact, cooperative with exam, good eye contact, mood/affect full range, speech clear, thought process logical, goal directed. - : E ardrum:Looks good, Mouth: Denture fits OK, Skin: Looks good, Lungs: Normal, Spleen: Normal. Assessment: * Assessment: 1. P ancytopenia - D61.818 (Primary) N otes :His pancytopenia is mild. It is very likely due to mild splenomegaly. Records from [facility] document a history of portal hypertension and ascites and cirrhosis. An ultrasound has been done to measure the current spleen size. Observation without treatment is indicated. 2 . S plenomegaly - R16.1 N otes :An ultrasound of the abdomen to measure the size of the spleen to evaluate the pancytopenia for hypersplenism has been ordered. 3 . M ucormycosis - B46.5 N otes :The osteomyelitis of the right jaw has resolved and is no longer an active problem. 4 . O ther cirrhosis of liver - K74.69 N otes :He has a known diagnosis of nonalcoholic cirrhosis which in the past has been complicated by portal hypertension and esophageal varices. 5 . T ype 2 diabetes mellitus without complication, without long-term current use of insulin - E11.9 N otes :His diabetes has been treated and seems to be stable. A current A1c is not available. 6 . S tage 3 chronic kidney disease, unspecified whether stage 3a or 3b CKD - N18.30 N otes :His renal function has been stable and is under the care of primary care. 7 . A symptomatic cholelithiasis - K80.20 N otes :Ultrasound of the abdomen to measure the spleen has been ordered which will also study the gallbladder. 8 . R ight inguinal hernia - K40.90 N otes :This was repaired at [facility] in March 2023. It is currently asymptomatic. Plan: * Treatment: 2. S plenomegaly I maging: US ABD * Procedure Codes: * Preventive Medicine: DM Care Plan: P atient Lifestyle Goals P atient wants to be able to manage diabetes without too much effort. T reatment Goals H bA1C < 7.0, Blood Sugars less than < 115. B arriers n o barriers. S elf-Managment Goals S top drinking juice and/or soda, replace with more water. * Follow Up: T o be scheduled (Reason: To discuss ultrasound results) * Images: * Sign off status: Completed true * Provider: Anmol Medeiros MD Date: 1 Generated for Printi ng/Donyg/eTransmitting on: 11/16/2024 05:11 PM EST History and Physical Notes * HPI (History of Present Illness) Category Sub-Category Detail Notes COVID-19 Screening Questions Have you had any new onset fever, chills, cough, congestion, sore throat, shortness of breath, muscle aches?: No Have you been exposed to the virus withi n the last 10 days?: No Have you travelled internationally in [facility] last 10 days?: No Have you been exposed to COVID-19 in the past?: Yes Examination Category Sub-Category Detail Notes General Examination GENERAL APPEARANCE: pleasant , well nourished, well developed, in no acute distress, calm and relaxed, man HEAD: atraumatic, normocep halic EYES: eomi, perrla, anicte luz elena, conjugate EARS: normal NOSE: septum intact NECK/THYROID: no jugular venous di stention, no carotid bruit, thyroid normal HEART: no clicks, gallops, murmurs, or rubs, regular rhythm, S1, S2 normal, no s3, or vascular bruits LUNGS: clear to auscultatio n ABDOMEN: no ascites, no guard ing or rigidity, Herniorrhaphy scar right groin,, soft, nontender, nondistended, no rebound tenderness, Liver edge palpable spleen not palpable NEUROLOGIC: alert and oriented, cranial nerves 2-12 grossly intact, deep tendon reflexes 2+ symmetrical, motor strength normal upper and lower extremities, sensory exam intact SKIN: no suspicious lesion s, anicteric PERIPHERAL PULSES: normal BREASTS: no masses palpable b ilaterally MUSCULOSKELETAL: extremities unremark able, no clubbing, cyanosis or edema LYMPH NODES: no enlarged lymph no jean-claude,spleen Not palpable RECTAL EXAM: not examined PSYCH: alert, oriented, cog nitive function intact, cooperative with exam, good eye contact, mood/affect full range, speech clear, thought process logical, goal directed ORAL CAVITY: Edentulous maxilla
--- NOTE | 2025-09-15 13:13 | A.OFFPC_ITS ---
Vital Signs 09/15/25 13:14 Height 5 ft 10 in Weight 146 lb 8 oz BMI 21.0 BP 104/66 Blood Pressure Location Rt brachial Position Sitting Respiration 16 Pulse 75 Pulse Source Pulse Oximeter Temp 97.5 F Temp Source Temporal Artery Scan Pulse Oximetry (%) 96 Oxygen Delivery Method Room Air Intake Visit Reasons: CHAIM from [place]-requests Jermaine- needs A1C!! Last Chalker Required: No Accompanied by: Daughter Allergies No Known Allergies Allergy (Verified 09/15/25 13:14) Medication List - Last Reconciled 09/15/25 by Fredy Dean MD alcohol swabs (Alcohol Prep Pads) pad topical DAILY blood sugar diagnostic (FreeStyle Lite Strips) As directed carvedilol 3.125 mg PO BID codeine-guaifenesin 10-100 mg/5 mL 5 mL PO Q6H PRN FreeStyle Elysia 3 Plus Sensor (blood-glucose sensor) every 15 days NS FreeStyle Elysia 3 Hazel (blood-glucose,stretcher operator,cont) As directed NS furosemide 20 mg PO BID gabapentin 300 mg PO BEDTIME insulin glargine (Lantus Solostar U-100 Insulin) 6 units subcut BEDTIME lancets (FreeStyle Lancets) As directed pantoprazole 40 mg PO QAM pen needle, diabetic (Fara 2nd Gen Pen Needle) As directed sitz bath As directed Tobacco use date assessed: 06/09/25 Dental Screening Dental Screen Date: 06/09/25 HPI HPI Comments History of Present Illness Details History of Present Illness The patient is a 54 year old male presenting for management of multiple chronic conditions. He has a history of diabetes, diagnosed when his HbA1c was 12.3 after he presented with mucormycosis. The mucormycosis required significant debridement of his right upper jaw, resulting in the placement of a prosthesis and causing legal blindness. For his diabetes, he was on Tresiba for about a year but was non-compliant and stopped the medication on his own approximately 1.5 years ago. Despite this, his glycemic control has been good recently, with a last HbA1c of 5.5 and a 90-day GMI of 5.7. He currently takes 6 units of insulin at night. The patient also has a history of liver cirrhosis with esophageal varices, for which he underwent an endoscopy with banding. He follows with a [facility] roenterologist, Dr. Javier, and had a virtual appointment within the last 10 days. His liver enzymes (AST/ALT) have been chronically elevated for the past 20 years. His other chronic conditions include hypertension managed with carvedilol, stage 3 chronic kidney disease likely secondary to diabetes, peripheral neuropathy treated with gabapentin, and GERD treated with pantoprazole. His kidney function has been stable with a creatinine of 1.1-1.4. He reports a dry rash and sinus issues. Medical History: - Type 2 diabetes mellitus, initially di agnosed with an HbA1c of 12.3. - History of mucormycosis, complicated b y legal blindness. - Liver cirrhosis with esophageal varice s, status post-endoscopy with banding. - Hypertension. - Stage 3 chronic kidney disease, stable . - Peripheral neuropathy. - Gastroesophageal reflux disease (GERD) . - Xerosis (dry skin). - History of significant weight loss (70 pounds) with subsequent regain. Surgical History: - Debridement of the right upper jaw wit h placement of a prosthesis. - Esophagogastroduodenoscopy (EGD) with variceal banding. Medications: - Furosemide 20 mg twice daily. - Carvedilol 3.125 mg twice daily for hy pertension and variceal prophylaxis. - Gabapentin 300 mg at night for neuropa thy. - Insulin 6 units at night. - Pantoprazole 40 mg every morning for a atul reflux. Diagnostic Results: - Labs: Last HbA1c in June ar was 5.5%. - Labs: Initial HbA1c at time of diabete s diagnosis was 12.3%. - Labs: Creatinine has been stable at 1. 1-1.4 mg/dL. - Labs: AST and ALT have been chronicall y elevated for the last 20 years. - Tests and Diagnostics: Glucose Managem ent Indicator (GMI) for the past 90 days is 5.7%. - Tests and Diagnostics: Past EGD reveal ed varices which were subsequently banded. Social History - The patient is legally blind. - He has a history of medication non-com pliance, having stopped Tresiba on his own for about a year and a half. - The patient's specialists for his comp myrna conditions are located in [place]. [facility] Medical History (Updated 09/15/25 @ 13:50 by Fredy Dean MD) Xerosis of skin GERD without esophagitis Peripheral neuropathy Primary hypertension Stage 3 chronic kidney disease due to diabetes mellitus Vitamin D deficiency Cirrhosis of liver Hilar enlargement Endobronchial mass H/O gastroesophageal reflux (GERD) Surgical History History of colonoscopy (~11/2020) History of right inguinal hernia repair (04/21/23) History of back surgery H/O excision of mass (03/24/15) Status post excision of lipoma (04/22/19) History of esophagogastroduodenoscopy (EGD) (02/13/12) H/O hemorrhoidectomy (02/13/12) H/O hernia repair (1999) Hx of tonsillectomy (1998) Family History Father No problems noted. Mother CVD (cardiovascular disease) Stroke Diabetes mellitus Brother Diabetes mellitus Sister Diabetes mellitus Social History Household Members: Spouse and Family Housing: House Are you a primary child care provider to a significant other at home: No Alcohol intake: never Patient Tobacco Use Status: Never used Tobacco e-Cigarette/Vaping Use: Never Used Second Hand Smoke Exposure: No service: No Current occupational status: disabled Current occupational exposures/hazards: No Cognitive needs: Yes (cane) Hearing needs: No Vision needs: Yes (legally blind) Questionnaire Thrive Questionnaire Date Thrive assessed: 06/06/25 AUDIT C Alcohol Use Questionnaire (AUDIT-C) 1. How often do you have a drink containing alcohol?: Never 3. How often do you have six or more drinks on one occasion?: Never Total Score: 0 CHANTE-7 AMB Questionnaire CHANTE-7 Date CHANTE - 7 assessed: 06/09/25 Source: Developed by Drs. Po Call, Shanice Rojo, Sam Correa and colleagues, with an educational charity from [employer]. Review of Systems Narrative Review of Systems - Constitutional: Denies any acute complaints. - Eyes: Reports he is legally blind. - ENT: Reports sinus issues. - Gastrointestinal: Reports history of acid reflux. - Integumentary: Reports a dry rash on both sides. - Neurological: Reports peripheral neuropathy. All systems reviewed & are unremarkable except as reviewed in HPI and above Physical exam (Primary Care) Vital Signs: Last Vital Signs Temp 97.5 F 09/15/25 13:14 Pulse 75 09/15/25 13:14 Resp 16 09/15/25 13:14 BP 104/66 09/15/25 13:14 Pulse Ox 96 09/15/25 13:14 Oxygen Delivery Method Room Air 09/15/25 13:14 BMI result Body Mass Index 21.0 Tobacco/Smoking Status: Tobacco use Status Tobacco use date assessed 06/09/25 09/15/25 13:20 Patient Tobacco Use Status Never used Tobacco 09/15/25 13:20 e-Cigarette/Vaping Use Never Used 09/15/25 13:20 Thrive Assessment: Date of Thrive Assessment Date Thrive assessed 06/06/25 09/15/25 13:20 Narrative Physical Exam General: +Alert and oriented, Well nourished, No acute distress. Eye: Pupils are equal, round and reactive to light, Intact accommodation, Extraocular movements are intact, Normal conjunctiva, Legally blind. HENT: Normocephalic, Atraumatic, Tympanic membranes are clear, Normal hearing, Oral mucosa is moist, No pharyngeal erythema, Ear canals patent. Respiratory: Lungs CTA bilaterally, No wheeze, Respirations are non-labored. Cardiovascular: Regular rate, Regular rhythm, S1 auscultated, S2 auscultated, No murmur, Good pulses equal in all extremities, Normal peripheral perfusion, No edema. Gastrointestinal: Soft, Non-tender, Non-distended, Normal bowel sounds, No organomegaly, History of varices. Musculoskeletal: Normal range of motion, Normal strength, No tenderness, No swelling, No deformity, Normal gait. Integumentary: Warm, Dry, Effie, Intact, Dry rash (xerosis). Neurologic: Alert, Oriented, Normal sensory, Normal motor function, No focal defects, Cranial Nerves II-XII are grossly intact, Normal deep tendon reflexes. Psychiatric: Cooperative, Appropriate mood & affect, Normal judgment. Coding Level of Care Code Est Pt Level 4 (60460) Add On Problem Visit Only Diagnoses Insulin dependent type 2 diabetes mellitus E11.9; Z79.4 Liver cirrhosis secondary to nonalcoholic steatohepatitis (BAEZ) K75.81; K74.69 Hepatic cirrhosis type: due to BAEZ Stage 3 chronic kidney disease due to diabetes mellitus E11.22; N18.30 Primary hypertension I10 Peripheral polyneuropathy G62.9 Peripheral neuropathy type: polyneuropathy, unspecified GERD without esophagitis K21.9 Xerosis of skin L85.3 Assessment & Plan Assessment & Plan (1) Insulin dependent type 2 diabetes mellitus: Comment: - The patient's diabetes is well-controlled, with a recent HbA1c of 5.5% and a 90-day GMI of 5.7%. - This is in the context of a history of significant insulin non-adherence. - Plan is to continue emphasizing the importance of glycemic control, especially given his history of mucormycosis. - Will continue insulin 6 units at night. - Ordered labs to check A1c and Vitamin D. Refilled prescriptions for insulin and glucose monitor sensors. 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 - He follows with his GI specialist and will continue to do so for monitoring, including periodic EGD for screening. - His elevated liver enzymes are a chronic issue. - Will continue carvedilol. Code(s): K74.60 - Unspecified cirrhosis of liver Category: Medical Qualifiers: Hepatic cirrhosis type: due to BAEZ Qualified Code(s): K75.81 - Nonalcoholic steatohepatitis (BAEZ); K74.69 - Other cirrhosis of liver (3) Stage 3 chronic kidney disease due to diabetes mellitus: Comment: - This is stable and likely secondary to diabetes. - A nephrology consult is not indicated at this time. - Plan involves continued monitoring of renal function and emphasis on tight control of blood pressure and blood sugar, as well as adequate hydration. Code(s): E11.22 - Type 2 diabetes mellitus with diabetic chronic kidney disease; N18.30 - Chronic kidney disease, stage 3 unspecified Category: Medical (4) Primary hypertension: Comment: - Blood pressure is well-controlled on current therapy. - Plan is to continue carvedilol 3.125 mg twice daily, which also provides benefit for his varices. - Refilled prescription. Code(s): I10 - Essential (primary) hypertension Category: Medical (5) Peripheral neuropathy: Comment: - Managed with gabapentin 300 mg at night. - Plan is to continue current medication. Code(s): G62.9 - Polyneuropathy, unspecified Category: Medical Qualifiers: Peripheral neuropathy type: polyneuropathy, unspecified Qualified Code(s): G62.9 - Polyneuropathy, unspecified (6) GERD without esophagitis: Comment: - Managed with pantoprazole 40 mg daily. - Plan is to continue and refill this medication. Code(s): K21.9 - Gastro-esophageal reflux disease without esophagitis Category: Medical (7) Xerosis of skin: Comment: - Patient has a dry rash. - Plan is to recommend bjnj-ydu-yomrkke options such as hydrocortisone cream or moisturizing creams like CeraVe or Vaseline. Code(s): L85.3 - Xerosis cutis Category: Medical Plan: Health Maintenance: - Discussed importance of controlling blood sugar and blood pressure to slow progression of chronic kidney disease. - Advised patient to drink ample amounts of fluid. - The patient needs to continue regular follow-up with his specialists, including GI for esophageal varices screening, as well as ENT and neurology. - Ordered screening labs including HbA1c and Vitamin D. Patient was informed and verbally consented to the use of an ambient scribe for clinic note documentation during this visit. Plan I reviewed the patient's extensive and complex medical history with him and his family. We discussed his history of mucormycosis and I emphasized that diligent blood sugar control is crucial to prevent recurrence, noting his recent labs show good control. We discussed his stable stage 3 chronic kidney disease, and I explained that a nephrology referral is not needed at this time, but that continued monitoring and management of his blood pressure and diabetes are paramount. I also explained the dual benefit of his carvedilol medication for both his blood pressure and his liver varices. For his rash, I recommended conservative treatment with iavg-lda-jbjjsbl creams. I refilled several of his medications and provided instructions for having his pharmacy contact my office for any other prescriptions needed. I ordered labs for him to complete and reiterated the plan for continued follow-up with his various specialists. 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 - I have refilled your prescriptions for insulin, insulin pump sensors, Coreg (carvedilol), and pantoprazole. - For any other medications that need to be refilled, please have your pharmacy fax a request to our office. - For your dry skin rash, you can try an rptc-yox-rlvtvry hydrocortisone cream or a good moisturizing cream like Vaseline or CeraVe. - It is very important to keep your blood sugar and blood pressure well- controlled to protect your kidneys. - Make sure to drink plenty of fluids. - Please go to the lab to have your blood drawn for the tests we ordered, which include an A1c and a vitamin D level. - Continue to follow up with all of your specialists, including your liver doctor (Gastroenterology).
[2025-09-15 13:14] VITALS: BP 104/66; PULSE 75; RESP 16; TEMP 36.4; O2SAT 96; BMI 21.0
--- OUTSIDE RECORDS SUMMARY | 2025-09-15 17:10 | XMS_ITS | Encounter Summary ---
Author Organization [facility] Address [address] [place] [phone] Phone Care Team Providers Care Sewing Line Baler Name Role Phone Jb Stewart MD Primary Care Provider Ailyn García MD Primary Care Provider [phone] Encounter Details Date Type Department Care Team (Late st Contact Info) Description 05/20/2024 Procedure Pass [facility] Endoscopy Admitting Dept Virtual Department [address] [place] [id number] Social History Tobacco Use Types Packs/Day Years [...] Care Team (Late st Contact Info) Description 10/11/2025 3:30 PM EST Office Visit [facility] [address] [facility] [address] [place] [address] Marco Macedo MD, MS [address] [place] [address] [email or web address] 11/17/2025 1:00 PM EST Nutrition [facility] Diabetes [facility] [address] [place] [phone] Dolores Fuller LDN [address] [place] [address] [email or web address] 01/16/2026 11:20 AM EDT Office Visit [facility] [address] [place] [phone] Nora Gomes MD [address] [address] [email or web address] 02/28/2026 9:00 AM EDT Appointment [address] [address] Aldo Aguilar MD [address] [place] [address] [email or web address] 03/14/2026 2:30 PM EDT Office Visit [facility] [address] [facility], 5th [place] [address] Aldo Aguilar MD [address] [place] [address] [email or web address] documented as of this encounter Visit Diagnoses Not on filedocumented in this encounter Additional Health Concerns Infection Onset Date Last Indicated Resolved Time MRSA 08/04/2024 08/04/2024 documented as of this encounter Care Teams Sewing Line Baler Relationship Specialty Start Date End Date Jb Stewart MD [address] [place] [address] [place] [id number] PCP - General Internal Medicine 04/29/22 04/03/25 Ailyn García MD [address] [place] [address] [place] [address] PCP - General Internal Medicine 04/04/25 documented as of this encounter Additional Source Comments The information contained in this document represents components of the legal health record. It is not the complete legal health record.[facility]
--- OUTSIDE RECORDS SUMMARY | 2025-09-15 17:10 | XMS_ITS | Encounter Summary ---
Author Organization [facility] Address [address] [place] [address] Phone Care Team Providers Care Log Deckman Name Role Phone Jb Stewart MD Primary Care Provider Ailyn García MD Primary Care Provider [phone] Encounter Details Date Type Department Care Team (Late st Contact Info) Description 07/27/2024 Procedure Pass [facility] Endoscopy Admitting Dept Virtual Department [address] [place] [id number] Social History Tobacco Use Types Packs/Day Years [...] Description 10/11/2025 3:30 PM EST Office Visit [facility] [address] [facility] [address] [place] [address] Marco Macedo MD, MS [address] [place] [address] [email or web address] 11/17/2025 1:00 PM EST Nutrition [facility] Diabetes [facility] [address] [place] [phone] Dolores Fuller LDN [address] [place] [address] [email or web address] 01/16/2026 11:20 AM EDT Office Visit [facility]ology [facility] [address] [place] [phone] Nora Gomes MD [address] [address] [email or web address] 02/28/2026 9:00 AM EDT Appointment [address] [address] Aldo Aguilar MD [address] [place] [address] [email or web address] 03/14/2026 2:30 PM EDT Office Visit [facility] [address] [facility], 5th [place] [address] Aldo Aguilar MD [address] [place] [address] [email or web address] documented as of this encounter Visit Diagnoses Not on filedocumented in this encounter Additional Health Concerns Infection Onset Date Last Indicated Resolved Time MRSA 08/04/2024 08/04/2024 documented as of this encounter Care Teams Log Deckman Relationship Specialty Start Date End Date Jb Stewart MD [address] [place] [address] [place] [id number] PCP - General Internal Medicine 04/29/22 04/03/25 Ailyn García MD [address] [place] [address] [place] [address] PCP - General Internal Medicine 04/04/25 documented as of this encounter Additional Source Comments The information contained in this document represents components of the legal health record. It is not the complete legal health record.[facility]
--- OUTSIDE RECORDS SUMMARY | 2025-09-15 17:10 | XMS_ITS | Encounter Summary ---
Author Organization [facility] Address [address] [place] [address] Phone Care Team Providers Care Latin Dance Instructor Name Role Phone bJ Stewatr MD Primary Care Provider Ailyn García MD Primary Care Provider Encounter Details Date Type Department Care Team (Late st Contact Info) Description 12/03/2022 Procedure Pass [facility] 4 ENDO DEPT [address] [facility], [address] [place] [address] Social History Tobacco Use Types Packs/Day Years [...] Description 10/11/2025 3:30 PM EST Office Visit [facility] [address] [place] [address] [address] [place] [address] Marco Macedo MD, MS [address] [place] [address] [email or web address] 11/17/2025 1:00 PM EST Nutrition [facility] Diabetes [facility] [address] [place] [phone] Dolores Fuller LDN [address] [address] [email or web address] 01/16/2026 11:20 AM EDT Office Visit [facility] [address] [place] [phone] Nora Gomes MD [address] [address] [email or web address] 02/28/2026 9:00 AM EDT Appointment [address] [address] Aldo Aguilar MD [address] [place] [address] [email or web address] 03/14/2026 2:30 PM EDT Office Visit [facility] [address] [place] [address], [address] [place] [address] Aldo Aguilar MD [address] [place] [address] [email or web address] documented as of this encounter Visit Diagnoses Not on filedocumented in this encounter Additional Health Concerns Infection Onset Date Last Indicated Resolved Time MRSA 08/04/2024 08/04/2024 documented as of this encounter Care Teams Latin Dance Instructor Relationship Specialty Start Date End Date Jb Stewart MD [address] [place] [address] Dr VannyoKIM head [id number] PCP - General Internal Medicine 04/29/22 04/03/25 Ailyn García MD [address] [place] [address] [place] [address] PCP - General Internal Medicine 04/04/25 documented as of this encounter Additional Source Comments The information contained in this document represents components of the legal health record. It is not the complete legal health record.[facility]
--- OUTSIDE RECORDS SUMMARY | 2025-09-15 17:10 | XMS_ITS | Encounter Summary ---
Author Organization [facility] Address [address] [place] [address] [place] [address] Phone Care Team Providers Care Nuclear Equipment Research Engineer Name Role Phone Jb Stewart MD Primary Care Provider Ailyn García MD Primary Care Provider Encounter Details Date Type Department Care Team (Late st Contact Info) Description 08/03/2024 Procedure Pass [facility], [address] [address] Social History Tobacco Use Types Packs/Day Years [...] 08/03/2024 11:41 AM Kenn Williamson RN * [place] Suicide Severity Rating Scale (Screener/Recent Self-Report) Question [...] Description 10/11/2025 3:30 PM EST Office Visit [facility] 243 [facility] [place] [address] Marco Macedo MD, MS 243 [place] [address] [email or web address] 11/17/2025 1:00 PM EST Nutrition [facility] Diabetes [facility] 40 [place] [address] Dolores Fuller LDN [address] [address] [email or web address] 01/16/2026 11:20 AM EDT Office Visit [facility] Endocrinology Clinic 40 [place] [phone] Nora Gomes MD 22 [facility] 3rd [place] [address] [email or web address] 02/28/2026 9:00 AM EDT Appointment [address] [address] Aldo Aguilar MD [address] [place] [address] [email or web address] 03/14/2026 2:30 PM EDT Office Visit [facility] 55 [facility], 5th [place] [address] Aldo Aguilar MD [address] [place] [address] [email or web address] documented as of this encounter Visit Diagnoses Not on filedocumented in this encounter Additional Health Concerns Infection Onset Date Last Indicated Resolved Time MRSA 08/04/2024 08/04/2024 documented as of this encounter Care Teams Nuclear Equipment Research Engineer Relationship Specialty Start Date End Date Jb Stewart MD [address] [place] [address] [place] [address] PCP - General Internal Medicine 04/29/22 04/03/25 Ailyn García MD [address] [place] [address] Dr [place], KIM [address] PCP - General Internal Medicine 04/04/25 documented as of this encounter Additional Source Comments The information contained in this document represents components of the legal health record. It is not the complete legal health record.[facility]
--- OUTSIDE RECORDS SUMMARY | 2025-09-15 17:10 | XMS_ITS | Encounter Summary ---
Author Organization [facility] Address [address] [place] [address] [place] [address] Phone Care Team Providers Care School Bus Dispatcher Name Role Phone Jb Stewart MD Primary Care Provider Ailyn García MD Primary Care Provider Encounter Details Date Type Department Care Team (Late st Contact Info) Description 08/03/2024 Procedure Pass [facility], Ct Scan - [address] [address] Social History Tobacco Use Types Packs/Day Years [...] 08/03/2024 11:41 AM Kenn Williamson RN * [place] Suicide Severity Rating Scale (Screener/Recent Self-Report) Question [...] Description 10/11/2025 3:30 PM EST Office Visit [facility] 243 [facility] 9th [place] [address] Marco Macedo MD, MS 243 [place] [address] [email or web address] 11/17/2025 1:00 PM EST Nutrition [facility] Diabetes [facility] [address] [place] [phone] Dolores Fuller LDN [address] [address] [email or web address] 01/16/2026 11:20 AM EDT Office Visit [facility] 40 [place] [phone] Nora Gomes MD [address] [address] [email or web address] 02/28/2026 9:00 AM EDT Appointment [address] [address] Aldo Aguilar MD [address] [place] [address] [email or web address] 03/14/2026 2:30 PM EDT Office Visit [facility] [address] [place] [address], 5th [place] [address] Aldo Aguilar MD [address] [place] [address] [email or web address] documented as of this encounter Visit Diagnoses Not on filedocumented in this encounter Additional Health Concerns Infection Onset Date Last Indicated Resolved Time MRSA 08/04/2024 08/04/2024 documented as of this encounter Care Teams School Bus Dispatcher Relationship Specialty Start Date End Date Jb Stewart MD [address] [place] [address] [place] [address] PCP - General Internal Medicine 04/29/22 04/03/25 Ailyn García MD [address] [place] [address] [place] [address] PCP - General Internal Medicine 04/04/25 documented as of this encounter Additional Source Comments The information contained in this document represents components of the legal health record. It is not the complete legal health record.[facility]
--- OUTSIDE RECORDS SUMMARY | 2025-09-15 17:10 | XMS_ITS | Encounter Summary ---
Author Organization [facility] Address [address] [place] [address] Phone Care Team Providers Care Account Solutions Analyst Name Role Phone Jb Stewart MD Primary Care Provider Ailyn García MD Primary Care Provider Encounter Details Date Type Department Care Team (Late st Contact Info) Description 08/25/2022 Procedure Pass [facility], Ct Scan - [address] [address] Social History Tobacco Use Types Packs/Day Years [...] 5:55 AM EST Romi Martin RN * [place] Suicide Severity Rating Scale (Screener/Recent Self-Report) Question Answer Date of Assessment Author 1. Wish to be (Past 1 Month) No 08/25/2022 5:55 AM Thomas Cheung RN 2. Non-Specific Active Suici mary Thoughts (Past 1 Month) No 08/25/2022 5:55 AM Dominick Cheung, STEVE 6. Suicidal Behavior (Lifetime) No 5:55 AM Romi Cheung RN documented as of this encounter Plan of Treatment Upcoming Encounters Date Type Department Care Team (Late st Contact Info) Description 10/11/2025 3:30 PM EST [facility] [address] [place] [address] [place] [address] Marco Macedo MD, MS 243 [place] [address] [email or web address] 11/17/2025 1:00 PM EST Nutrition [facility] Diabetes Clinic 40 [place] [phone] Dolores Fuller LDN [address] [place] [address] 01/16/2026 11:20 AM EDT Office Visit [facility] Endocrinology Clinic 40 [place] [phone] Nora Gomes MD [address] [address] 02/28/2026 9:00 AM EDT Appointment [facility] 30 [place] [address] Aldo Aguilar MD [address] [place] [address] [email or web address] 03/14/2026 2:30 PM EDT Office Visit [facility] 55 [facility], 5th [place] [address] Aldo Aguilar MD 55 [facility] 456 [place] [address] [email or web address] documented as of this encounter Visit Diagnoses Not on filedocumented in this encounter Additional Health Concerns Infection Onset Date Last Indicated Resolved Time MRSA 08/04/2024 08/04/2024 documented as of this encounter Care Teams Account Solutions Analyst Relationship Specialty Start Date End Date Jb Stewart MD [address] [place] [address] [place] [address] PCP - General Internal Medicine 04/29/22 04/03/25 Ailyn García MD [address] [place] [address] [place] [address] PCP - General Internal Medicine 04/04/25 documented as of this encounter Additional Source Comments The information contained in this document represents components of the legal health record. It is not the complete legal health record.[facility]
--- OUTSIDE RECORDS SUMMARY | 2025-09-15 17:10 | XMS_ITS | Encounter Summary ---
Author Organization [facility] Address [address] [place] [address] [place] [address] Phone Care Team Providers Care Industrial Arts Teacher Name Role Phone Jb Stewart MD Primary Care Provider Ailyn García MD Primary Care Provider Encounter Details Date Type Department Care Team (Late st Contact Info) Description 08/03/2024 Procedure Pass [facility], Ct Scan - [address] [address] Social History Tobacco Use Types Packs/Day Years [...] 08/03/2024 11:41 AM Kenn Williamson RN * [place] Suicide Severity Rating Scale (Screener/Recent Self-Report) Question [...] Description 10/11/2025 3:30 PM EST Office Visit [facility] 243 [facility] 9th [place] [address] Marco Macedo MD, MS 243 [place] [address] [email or web address] 11/17/2025 1:00 PM EST Nutrition [facility] Diabetes [facility] [address] [place] [phone] Dolores Fuller LDN [address] [address] [email or web address] 01/16/2026 11:20 AM EDT Office Visit [facility] End[facility] Clinic 40 [place] [phone] Nora Gomes MD [address] [address] [email or web address] 02/28/2026 9:00 AM EDT Appointment [address] [address] Aldo Aguilar MD [address] [place] [address] [email or web address] 03/14/2026 2:30 PM EDT Office Visit [facility] [address] [place] [address], 5th [place] [address] Aldo Aguilar MD [address] [place] [address] [email or web address] documented as of this encounter Visit Diagnoses Not on filedocumented in this encounter Additional Health Concerns Infection Onset Date Last Indicated Resolved Time MRSA 08/04/2024 08/04/2024 documented as of this encounter Care Teams Industrial Arts Teacher Relationship Specialty Start Date End Date Jb Stewart MD [address] [place] [address] [place] [address] PCP - General Internal Medicine 04/29/22 04/03/25 Ailyn García MD [address] [place] [address] [place] [address] PCP - General Internal Medicine 04/04/25 documented as of this encounter Additional Source Comments The information contained in this document represents components of the legal health record. It is not the complete legal health record.[facility]
--- OUTSIDE RECORDS SUMMARY | 2025-09-15 17:10 | XMS_ITS | Encounter Summary ---
Author Organization [facility] Address [address] [place] [address] Phone Care Team Providers Care Conductor Orchestra Name Role Phone Jb Stewart MD Primary Care Provider Ailyn García MD Primary Care Provider Encounter Details Date Type Department Care Team (Late st Contact Info) Description 01/09/2023 Procedure Pass [facility], Ct Scan - [address] [address] Social History Tobacco Use Types Packs/Day Years [...] 9:05 PM EDT Gaston Duarte RN * [place] Suicide Severity Rating Scale (Screener/Recent Self-Report) Question [...] Description 10/11/2025 3:30 PM EST Office Visit [facility] [address] [place] [address] 9[place] [address] Marco Macedo MD, MS 243 [place] [address] [email or web address] 11/17/2025 1:00 PM EST Nutrition [facility] Diabetes Clinic 40 [place] [phone] Dolores Fuller LDN [address] [place] [address] 01/16/2026 11:20 AM EDT Office Visit [facility] Endocrinology Clinic 40 [place] [phone] Nora Gomes MD [address] [address] 02/28/2026 9:00 AM EDT Appointment [facility] 30 [place] [address] Aldo Aguilar MD [address] [place] [address] [email or web address] 03/14/2026 2:30 PM EDT Office Visit [facility] 55 [facility], 5th [place] [address] Aldo Aguilar MD 55 [facility] 456 [place] [address] [email or web address] documented as of this encounter Visit Diagnoses Not on filedocumented in this encounter Additional Health Concerns Infection Onset Date Last Indicated Resolved Time MRSA 08/04/2024 08/04/2024 documented as of this encounter Care Teams Conductor Orchestra Relationship Specialty Start Date End Date Jb Stewart MD [address] [place] [address] [place] [address] PCP - General Internal Medicine 04/29/22 04/03/25 Ailyn García MD [address] [place] [address] [place] [address] PCP - General Internal Medicine 04/04/25 documented as of this encounter Additional Source Comments The information contained in this document represents components of the legal health record. It is not the complete legal health record.[facility]
--- OUTSIDE RECORDS SUMMARY | 2025-09-15 17:10 | XMS_ITS | Encounter Summary ---
Author Organization [facility] Address [address] [place] [address] [place] [address] Phone Care Team Providers Care Clinical Case Manager Name Role Phone Jb Stewart MD Primary Care Provider Ailyn García MD Primary Care Provider Encounter Details Date Type Department Care Team (Late st Contact Info) Description 08/03/2024 Procedure Pass [facility], Ct Scan - [address] [address] Social History Tobacco Use Types Packs/Day Years [...] 08/03/2024 11:41 AM Kenn Williamson RN * [place] Suicide Severity Rating Scale (Screener/Recent Self-Report) Question [...] Description 10/11/2025 3:30 PM EST Office Visit [facility] 243 [facility] 9th [place] [address] Marco Macedo MD, MS 243 [place] [address] [email or web address] 11/17/2025 1:00 PM EST Nutrition [facility] Diabetes [facility] [address] [place] [phone] Dolores Fuller LDN [address] [address] [email or web address] 01/16/2026 11:20 AM EDT Office Visit [facility] Endocrinology Clinic 40 [place] [phone] Nora Gomes MD [address] [address] [email or web address] 02/28/2026 9:00 AM EDT Appointment [address] [address] Aldo Aguilar MD [address] [place] [address] [email or web address] 03/14/2026 2:30 PM EDT Office Visit [facility] [address] [place] [address], 5th [place] [address] Aldo Aguilar MD [address] [place] [address] [email or web address] documented as of this encounter Visit Diagnoses Not on filedocumented in this encounter Additional Health Concerns Infection Onset Date Last Indicated Resolved Time MRSA 08/04/2024 08/04/2024 documented as of this encounter Care Teams Clinical Case Manager Relationship Specialty Start Date End Date Jb Stewart MD [address] [place] [address] [place] [address] PCP - General Internal Medicine 04/29/22 04/03/25 Ailyn García MD [address] [place] [address] [place] [address] PCP - General Internal Medicine 04/04/25 documented as of this encounter Additional Source Comments The information contained in this document represents components of the legal health record. It is not the complete legal health record.[facility]
--- OUTSIDE RECORDS SUMMARY | 2025-09-15 17:11 | XMS_ITS | Encounter Summary ---
Author Organization [facility] Address [address] [place] [address] Phone Care Team Providers Care [facility] Office Supervisor Name Role Phone Pop Adler MD Primary Care Provider [phone] Pop Adler MD Primary Care Provider [phone] Jb Stewart MD Primary Care Provider Ye Batista MD Primary Care Provider Ye Batista MD Primary Care Provider [phone] Jb Stewart MD Primary Care Provider Ye Batista MD Primary Care Provider [phone] Unknown, Unknown Primary Care Provider Jb Hood MD Primary Care Provider Ailyn García MD Primary Care Provider [phone] Encounter Details Date Type Department Care Team (Late st Contact Info) Description 09/13/2020 Procedure Pass [facility] Imaging - RF/IR [address] [place] [address] Social History Tobacco Use Types Packs/Day Years [...] Description 10/11/2025 3:30 PM EST Office Visit [facility] 243 [facility] 9th [place] [address] Marco Macedo MD, MS 243 [place] [address] [email or web address] [email or web address] 11/17/2025 1:00 PM EST Nutrition [facility] Diabetes [facility] 40 [place] [address] Dolores Fuller LDN [address] [place] [address] [email or web address] 01/16/2026 11:20 AM EDT Office Visit [facility] Endocrinology Clinic 40 [place] [address] Nora Gomes MD [address] [address] [email or web address] 02/28/2026 9:00 AM EDT Appointment [facility] 30 [place] [address] Aldo Aguilar MD [address] [place] [address] [email or web address] 03/14/2026 2:30 PM EDT Office Visit [facility] [address] [place] [address], 5th [place] [address] Aldo Aguilar MD [address] [place] [address] [address] [place] [address] [email or web address] documented as of this encounter Visit Diagnoses Not on filedocumented in this encounter Additional Health Concerns Infection Onset Date Last Indicated Resolved Time CoV-Risk 02/04/2022 02/04/2022 02/15/2022 1:24 AM EDT MRSA 08/04/2024 08/04/2024 documented as of this encounter Care Teams [facility] Office Supervisor Relationship Specialty Start Date End Date Pop Adler MD [address] [place] [address] Dr STEVENS [facility] [place] [address] PCP - General Internal Medicine 09/11/20 12/05/20 Pop Adler MD [address] [place] [address] Dr STEVENS [address] [place] [address] PCP - General Internal Medicine 04/03/21 04/24/21 Jb Stewart MD [address] [place] [address] Dr STEVENS [facility] [address] PCP - General Internal Medicine 04/25/21 12/09/21 Ye Batista MD 40 [place] [address] [email or web address] PCP - General Internal Medicine 12/10/21 12/16/21 Ye Batista MD 40 [place] [address] [email or web address] PCP - General Internal Medicine 12/17/21 12/17/21 Jb Stewart MD [address] [place] [address] [place] [address] PCP - General Internal Medicine 12/18/21 12/24/21 Ye Batista MD [address] [place] [address] [email or web address] PCP - General Internal Medicine 12/25/21 04/01/22 Unknown, Kaveh, PCP - General 04/02/22 04/28/22 Jb Stewart MD [address] [place] [address] [place] [address] PCP - General Internal Medicine 04/29/22 04/03/25 Ailyn García MD [address] [place] [address] [place] [address] PCP - General Internal Medicine 04/04/25 documented as of this encounter Additional Source Comments The information contained in this document represents components of the legal health record. It is not the complete legal health record.[facility]
--- OUTSIDE RECORDS SUMMARY | 2025-09-15 17:11 | XMS_ITS | Patient Health Record ---
Author Organization [facility] Address [address] [place] [address] Care Team Providers Care Brine Purifier Name Role Phone Terry (RETIRED) Jb QUARLES Primary Care Provide r Unavailable Po Tapia Unavailable [phone] Allergies No Known Allergies Reason For Referral No Information Medications Medication SIG (Take, Route, Frequency, Duration) Notes Start Date End Date Status GaviLAX 17 GM/SCOOP Powder Oral; Duration: 30 Active Eliquis 5 MG Tablet Oral; Duration: 30 Active Alcohol Swabs - Pad as directed Active Bisacodyl 10 MG Suppository Rectal; Duration: 30 Active Calcium Carbonate 1250 (500 Ca) MG Tablet Chewable 1 tablet with food Orally Twice a day; Duration: 30 day(s) Active Vitamin D (Ergocalciferol) 50 MCG (2000 UT) Capsule Oral; Duration: 30 Acti ve Thiamine HCl 100 MG Tablet Oral; Duration: 30 Active Loratadine 10 MG Tablet 1 tablet Orally Once a day; Duration: 30 day(s) Active Minocycline HCl 100 MG Capsule 1 capsule Orally Once a day; Duration: 10 day(s) Active Pantoprazole Sodium 40 MG Tablet Delayed Release Oral; Duration: 90 Active Multi Vitamin - Tablet 1 tablet Orally O nce a day; Duration: 30 day(s) Active metFORMIN HCl 500 MG Tablet Oral; Duration: 90 Not-Takin g/PRN Simethicone 80 MG Tablet Chewable 1 tablet after meals and at bedtime as needed Orally Four times a day Active Ursodiol 300 MG Capsule Oral; Duration: 30 Active Sodium Chloride 6 % Nebulization Solution as directed Inhalation Active Thera M Plus - Tablet TAKE 1 TABLET BY G TUBE ROUTE NIGHTLY. Oral; Duration: 30 Active traMADol HCl 50 MG Tablet 1 tablet as needed Orally Once a day Active Furosemide 20 MG Tablet 3 TABLETS BY G T UBE ROUTE DAILY Oral; Duration: 30 Active Chlorhexidine Gluconate 0.12 % Solution as directed Mouth/Throat Active Cresemba 186 MG Capsule Oral; Duration: 30 Active Acetaminophen 325 MG Tablet 1 tablet as needed Orally every 4 hrs Active Ciprofloxacin HCl 500 MG Tablet Oral; Duration: 30 Active Famotidine 20 MG Tablet Oral; Duration: 30 Active Immunizations Vaccine Route Administration Date Status Comme nts Influenza Unknown 02/11/2023 Refused Social History Tobacco Use: Social History Observation Description Date Details (start date - stop date) Never Smoker NA - NA Social History Drugs/Alcohol: Social Info Question Answer Notes Alcohol Screen Did you have a drink containing alcohol in the past year? 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 The patient descr ibes a diagnosis of fatty liver with cirrhosis on that basis. He describes a previous liver biopsy. He has had issues with ascites and underwent a large-volume paracentesis as recently as 02/06/2023. He is followed by Dr. Aldo Aguilar at [facility]. He does not have a local GI MD nor Product Applications Engineer. 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 This was done at [facility]. 2022 Hernia left inguinal Hemorrhoids-Dr. Bal.
--- OUTSIDE RECORDS SUMMARY | 2025-09-15 17:11 | XMS_ITS | Encounter Summary ---
Author Organization [facility] Address [address] [place] [address] Phone Care Team Providers Care Complaint Clerk Name Role Phone Pop Adler MD Primary Care Provider [phone] Pop Adler MD Primary Care Provider [phone] Jb Stewart MD Primary Care Provider Ye Batista MD Primary Care Provider [phone] Ye Batista MD Primary Care Provider [phone] Jb Stewart MD Primary Care Provider Ye Batista MD Primary Care Provider [phone] Unknown, Unknown Primary Care Provider Jb Hood MD Primary Care Provider Ailyn García MD Primary Care Provider [phone] Encounter Details Date Type Department Care Team (Late st Contact Info) Description 10/05/2020 Procedure Pass [facility] Periop [address] [place] [address] Social History Tobacco Use Types Packs/Day Years [...] Description 10/11/2025 3:30 PM EST Office Visit [facility] [address] [facility] [address]th [place] [address] Marco Macedo MD, MS [address] [place] [address] [email or web address] 11/17/2025 1:00 PM EST Nutrition [facility] Diabetes [facility] [address] [place] [phone] Dolores Fuller LDN [address] [place] [address] [email or web address] 01/16/2026 11:20 AM EDT Office Visit [facility] [address] [place] [phone] Nora Gomes MD [address] [address] [email or web address] 02/28/2026 9:00 AM EDT Appointment [address] [address] Aldo Aguilar MD [address] [place] [address] [email or web address] 03/14/2026 2:30 PM EDT Office Visit [facility] [address] [place] [address], [address] [place] [address] Aldo Aguilar MD [address] [place] [address] [address] [place] [address] [email or web address] documented as of this encounter Visit Diagnoses Not on filedocumented in this encounter Additional Health Concerns Infection Onset Date Last Indicated Resolved Time CoV-Risk 02/04/2022 02/04/2022 02/15/2022 1:24 AM EDT MRSA 08/04/2024 08/04/2024 documented as of this encounter Care Teams Complaint Clerk Relationship Specialty Start Date End Date Pop Adler MD [address] [place] [address] [place] [address] PCP - General Internal Medicine 09/11/20 12/05/20 Pop Adler MD [address] [place] [address] [place] [address] PCP - General Internal Medicine 04/03/21 04/24/21 Jb Stewart MD [address] [place] [address] Dr [place] [facility] [place] [address] PCP - General Internal Medicine 04/25/21 12/09/21 Ye Batista MD [address] [place] [address] [email or web address] PCP - General Internal Medicine 12/10/21 12/16/21 Ye Batista MD [address] [place] [address] [email or web address] PCP - General Internal Medicine 12/17/21 12/17/21 Jb Stewart MD [address] [place] [address] [place] [address] PCP - General Internal Medicine 12/18/21 12/24/21 Ye Batista MD [address] [place] [address] [email or web address] PCP - General Internal Medicine 12/25/21 04/01/22 Unknown, Kaveh, MD PCP - General 04/02/22 04/28/22 Jb Stewart MD [address] [place] [address] [place] [address] PCP - General Internal Medicine 04/29/22 04/03/25 Ailyn García MD [address] [place] [address] [place] [address] PCP - General Internal Medicine 04/04/25 documented as of this encounter Additional Source Comments The information contained in this document represents components of the legal health record. It is not the complete legal health record.[facility]
--- OUTSIDE RECORDS SUMMARY | 2025-09-15 17:11 | XMS_ITS | Encounter Summary ---
Author Organization [facility] Address [address] [place] [address] [place] [address] Phone Care Team Providers Care Plywood Patcher Name Role Phone Jb Stewart MD Primary Care Provider Ailyn García MD Primary Care Provider [phone] Encounter Details Date Type Department Care Team (Late st Contact Info) Description 08/03/2024 Transcribe Orders [facility] Specimen Processing [address] [place] [address] Jb Stewart MD [address] [place] [address] [place] [address] Social History Tobacco Use Types Packs/Day Years [...] 08/03/2024 11:41 AM Kenn Williamson RN * Sigurd Suicide Severity Rating Scale (Screener/Recent Self-Report) Question [...] Upcoming Encounters Date Type Department Care Team ([facility] st Contact Info) Description 10/11/2025 3:30 PM EST Office Visit [facility] [address] [place] [address] [address] [place] [address] Marco Macedo MD, MS [address] [place] [address] [email or web address] 11/17/2025 1:00 PM EST Nutrition [facility] Diabetes [facility] [address] [place] [address] Dolores Fuller LDN [address] [address] [email or web address] 01/16/2026 11:20 AM EDT Office Visit [facility] Endocrinology [facility] [address] [place] [phone] Nora Gomes MD [address] [address] [email or web address] 02/28/2026 9:00 AM EDT Appointment [address] [address] Aldo Aguilar MD [address] [place] [address] [email or web address] 03/14/2026 2:30 PM EDT Office Visit [facility] [place] [facility] [address] [place] [address], [address] [place] [address] Aldo Aguilar MD [address] [place] [address] [email or web address] documented as of this encounter Visit Diagnoses Not on filedocumented in this encounter Additional Health Concerns Infection Onset Date Last Indicated Resolved Time MRSA 08/04/2024 08/04/2024 documented as of this encounter Care Teams Plywood Patcher Relationship Specialty Start Date End Date Jb Stewart MD [address] [place] [address] [place] [address] PCP - General Internal Medicine 04/29/22 04/03/25 Ailyn García MD [address] [place] [address] [place] [address] PCP - General Internal Medicine 04/04/25 documented as of this encounter Additional Source Comments The information contained in this document represents components of the legal health record. It is not the complete legal health record.[facility]
--- OUTSIDE RECORDS SUMMARY | 2025-09-15 17:11 | XMS_ITS | Patient Health Record ---
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 Po Acevedo III Unavailable Allergies Allergen (clinical drug ingredient) Drug/Non Drug Allergy documented on EMR Reaction Allergy Type Onset Date Status No Known Drug Allergy Unknown Drug Allergy Active Reason For Referral No Information Medications Medication [...] Status W/U Status Risk Notes Problem Pancytopenia (748625681) Pancytopenia (D61.818) Active confirmed His pancytopenia is mild. It is very likely due to mild splenomegaly. Records from [facility] document a history of portal hypertension and ascites and cirrhosis. An ultrasound has been done to measure the current spleen size. Observation without treatment is indicated. Problem 80722429 Secondary esophageal varices without bleeding (I85.10) Active confirmed Problem Other cirrhosis of liver (K74.69) Active confirmed He has a known diagnosis of nonalcoholic cirrhosis which in the past has been complicated by portal hypertension and esophageal varices. Problem 04045683 Portal hypertension (K76.6) Active confirmed Problem 265015481 Environmental allergies (Z91.09) Active confirmed Problem 112283911 Right inguinal hernia (K40.90) Active confirmed This was repaired at [facility] in March 2023. It is currently asymptomatic. Problem 027768504 Type 2 diabetes mellitus without complication, without long-term current use of insulin (E11.9) Active confirmed His diabetes has been treated and seems to be stable. A current A1c is not available. Problem 404366993 Chronic GERD (K21.9) Active confirmed Problem 82626203 Polyp of colon, unspecified part of colon, unspecified type (K63.5) Active confirmed Problem 030243405 Stage 3 chronic kidney disease, unspecified whether stage 3a or 3b CKD (N18.30) Active confirmed His renal function has been stable and is under the care of primary care. Problem 562079786 Asymptomatic cholelithiasis (K80.20) Active confirmed Ultrasound of the abdomen to measure the spleen has been ordered which will also study the gallbladder. 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 Problem 43336468 Legally blind (H54.8) Active confirmed Plan Of Treatment Pending Test Test Name Order Date 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.818 mucor osteomyelitis right maxilla 2022 Hepatic cirrhosis secondary to steatosis Portal hypertension 2022 [facility] Esophageal varices 2022 [facility] NIDDM CKD Allergies Colonic polyps 2020 Cholelithiasis 2022 [facility] Peripheral neuropathy ED Legally blind Cholelithiasis Splenomegaly 12.6 cm June 2024 Right inguinal hernia, repair March 2023 [facility] Surgical History Surgery Date(Month/Year) Right inguinal herniorrhaphy 2022 Colonoscopy positive for polyps 2020 Right maxillary biopsy 2022 Herniorrhaphy 2022 Back surgery 2019 Hospitalization History Reason Date(Month/Year) The patient was hospitalized for eight months due to Mucor osteomyelitis of the right maxilla
--- OUTSIDE RECORDS SUMMARY | 2025-09-15 17:11 | XMS_ITS | Clinical Summary ---
Author Organization [facility] Address [address] [place] [phone] Phone Care Team Providers Care Grip Assembler Name Role Phone Ailyn García MD Primary Care Provider Allergies No known active allergies Medications blood-glucose meter,continuou s (FREESTYLE ROBERT 3 READER) MiscIndications :Type 2 diabetes mellitus with peripheral neuropathy Use as directed to monitor glucose 1 each 4 Active furosemide (LASIX) 20 MG tabletIndicatio ns:Encounter for monitoring diuretic therapy Take 1 tablet (20 mg total) by mouth daily. 30 tablet 2 4 Active spironolactone (ALDACTONE) 50 MG tabletIndicatio ns:Encounter for monitoring diuretic therapy Take 1 tablet (50 mg total) by mouth daily. 30 tablet 2 4 Active Additional Information Patient not taking.Reported on 08/30/2025 carvedilol (COREG) 3.125 MG tablet Take 1 [...] glargine 100 unit/mL (3 mL) InPn injection penIndications: Type 2 diabetes mellitus with peripheral neuropathy Inject 6 Units under the skin nightly at bedtime. 15 mL 1 5 Active blood-glucose sensor (FREESTYLE ROBERT 3 PLUS SENSOR) DeviIndications :Type 2 diabetes mellitus with peripheral neuropathy Use as directed to monitor glucose, change every 15 days 6 each 3 5 Active alcohol PadMIndications :Type 2 diabetes mellitus with peripheral neuropathy Apply 1 Application topically daily. To clean insulin injection site 100 each 3 5 Active FREESTYLE 28 gauge lancetsIndicati ons:Type 2 diabetes mellitus with peripheral neuropathy Inject 1 each under the skin every morning. 100 each 3 5 Active FREESTYLE LITE Strp stripsIndicatio ns:Type 2 diabetes mellitus with peripheral neuropathy Inject 1 each under the skin every morning. 100 strip 3 5 Active BD GEE 2ND GEN PEN NEEDLE 32 gauge x 5/32 NdleIndications :Type 2 diabetes mellitus with peripheral neuropathy Inject 1 each as directed every morning. 100 each 3 5 Active pantoprazole (PROTONIX) 40 MG tabletIndicatio ns:Gastroesopha geal reflux disease Take 1 tablet (40 mg total) by mouth every morning. 90 tablet 5 10/11/19 26 Active Active Problems Problem Noted Date Diagnosed Date [...] Date(s) Administered COVID-19 Moderna Spikevax Vaccine 12+ ([id number]) 07/18/2023 COVID-19 Moderna Vaccine, mRNA, PF 11/11/2020, [...] and managed by ENT and ID at [facility], now transferring his care here for insurance purposes and in anticipation of liver transplant evaluation. To summarize his pertinent history, Mr Meeks had uncontrolled diabetes (peak A1c was ~12% in 08/2022; A1c in 04/2021 was ~8% but patient and daughter report not being aware of a diagnosis of DM at the time). He and his went on a cultural uatsdin trip to [place], [place], [place] in 07/2022 and towards the end of the trip he started experiencing right maxillary swelling and numbness. 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 He was counseled to continue isavuconazole. 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 Saad was concerned his infection was [...] here and his understanding was that the neuro-recycle driver was saying that the isavuconazole could be [...] truly worse, he should go to the [facility] either today or at any point for further rapid workup. We would not be able to get an MRI before his travel to [facility] and realistically if we thought this was [...] locally for that. In speaking with the neuro-recycle driver he thought that perhaps the optic neuropathy [...] restart isavuconazole. He will follow-up with the neuro-recycle driver in January and they may do genetic screening for optic neuropathy at that point, we reviewed the chart together and it does not look like it was sent after the last visit. He will follow-up with the ENT at [facility] in 2 weeks. He is asking if he can have surgery to repair the defect in his mouth, but my understanding is that cannot do that while he is on antifungal therapy. I certainly would not do it now while he has been off antifungal therapy. I will ask for follow-up to be booked with me when he has other [facility] appointments in the near future, after he returns from [facility]. I gave them several copies of my business card to ensure that they have the correct phone numbers to call if they have questions. May 10, 2024 He came to a visit with me today. He has missed multiple visits with me over the past few months. His daughter brought him today. He reports that he had a wonderful trip back to [place]. No health issues. I am glad to [...] several times in person and then by [place] messaging that if things were to worsen [...] here and his understanding was that the neuro-recycle driver was saying that the isavuconazole could be [...] to them. They plan on going to [facility] in a month where he will be [...] truly worse, he should go to the [facility] either today or at any point for further rapid workup. We would not be able to get an MRI before his travel to [facility] and realistically if we thought this was progressive mucormycosis that should be done on a more urgent basis and we can do as an outpatient. He expressed a clear understanding. I expressed concern about the ability to get a long course of isavuconazole as insurance might not cover for his entire time in [facility] and they should plan ahead for that by talking to the insurance company. He tells me that his diabetes has been under much better control and he is being followed by a nurse locally for that. In speaking with the neuro-recycle driver he thought that perhaps the optic neuropathy [...] restart isavuconazole. He will follow-up with the neuro-recycle driver in January and they may do genetic screening for optic neuropathy at that point, we reviewed the chart together and it does not look like it was sent after the last visit. He will follow-up with the ENT at [facility] in 2 weeks. He is asking if he can have surgery to repair the defect in his mouth, but my understanding is that cannot do that while he is on antifungal therapy. I certainly would not do it now while he has been off antifungal therapy. 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 intermediate current use of insulin Resolved Problems Problem [...] Lactic acidosis 08/03/2024 08/06/2024 Acute hyperkalemia 08/03/2024 Low back pain 08/03/2020 03/28/2023 Elevated LFTs 09/25/2020 Encounters Date Type Department Care Team Description 09/08/2025 9:46 AM EST - 09/08/2025 11:59 PM EST Hospital Encounter [facility], Ultrasound - [address] [address] Aldo Aguilar MD Discharge Disposition: Home or Self Care 08/30/2025 3:00 PM EST Telemedicine [facility] [address] [place] [address], 5th [place] [address] Aldo Aguilar MD Fatty liver (Primary Dx); Cirrhosis of liver with ascites, unspecified hepatic cirrhosis type; Secondary esophageal varices without bleeding 08/23/2025 Refill [facility] [address] [place] [phone] Angy Zambrano PA-C Medication Refill 07/12/2025 Refill [facility] [address] [place] [phone] Angy Zambrano PA-C Medication Refill from Last 3 Months Immunizations Immunization Administration [...] Description 10/11/2025 3:30 PM EST Office Visit [facility] [address] [facility] [address] [place] [address] Marco Macedo MD, MS [address] [place] [address] [email or web address] 11/17/2025 1:00 PM EST Nutrition [facility] [address] [place] [phone] Dolores Fuller, SAMANTHA [address] [address] [email or web address] 01/16/2026 11:20 AM EDT Office Visit [facility] [address] [place] [phone] Nora Gomes MD [address] [address] [email or web address] 02/28/2026 9:00 AM EDT Appointment [facility] [address] [place] [address] Aldo Aguilar MD [address] [place] [address] [address] [place] [address] [email or web address] 03/14/2026 2:30 PM EDT Office Visit [facility] [address] [facility], 5th [place] [address] Aldo Aguilar MD 55 [facility] [address] [place] [address] [email or web address] Health Maintenance Due Date Last Done Comments Adult Td,Tdap Booster 1970 DEPRESSION SCREENING 1980 COLOGUARD 2013 FOBT 2013 SIGMOIDOSCOPY 2013 VIRTUAL COLONOSCOPY 2013 RSV VACCINE (1 - Risk 50-74 years 1-dose series) 2018 ZOSTER VACCINES (2 of 2) 12/16/2021 10/21/2021 FIT TEST 02/08/2024 02/07/2023 INFLUENZA VACCINE (#1) 2025 , 07/18/2023, 10/21/2021, Additional history exists DIABETIC EYE EXAM 05/10/2025 05/10/2024, , 05/10/2024, Additional history exists COVID-19 VACCINE ( season) 2025 07/18/2023, 03/28/2023, 10/20/2021, Additional history exists HEMOGLOBIN A1C 07/08/2025 01/06/2025, 11/0 01/2024, 07/18/2023, Additional history exists URINE MICROALBUMIN/CREATININE RATIO 08/05/2025 08/05/2024, 01/28/2023, 01/13/2023, Additional history exists LIPID PANEL 08/11/2025 08/11/2024, 04/25/2021 BLOOD PRESSURE 11/23/2025 05/23/2025 COLONOSCOPY 03/21/2033 03/21/2023, 12/07/2020 COLORECTAL CANCER SCREENING 03/21/2033 MENINGOCOCCAL VACCINES (ACWY) Aged Out 09/03/2016, 03/28/2010 No longer eligibl e based on patient's age to complete this topic HEPATITIS C SCREENING Completed 03/11/2023 , 03/11/2023, 10/28/2022, Additional history exists HIV ONE-TIME SCREENING (18-65 YEARS) Completed 03/28/2023 [...] Procedure Name Priority Date/Time Associated Diagnosis Comments US ABDOMEN COMPLETE (ADULT) Routine 09/08/2025 10:54 AM EST Fatty liver Cirrhosis of liver with ascites, unspecified hepatic cirrhosis type Secondary esophageal varices without bleeding AFP (NON-MATERNAL SPECIMENS) Routine 09/08/2025 10:44 AM EST Fatty liver Cirrhosis of liver with ascites, unspecified hepatic cirrhosis type Secondary esophageal varices without bleeding PT-INR Routine 09/08/2025 10:44 AM EST Fatty liver Cirrhosis of liver with ascites, unspecified hepatic cirrhosis type Secondary esophageal varices without bleeding COMPREHENSIVE METABOLIC PANEL (CMP) Routine 09/08/2025 10:44 AM EST Fatty liver Cirrhosis of liver with ascites, unspecified hepatic cirrhosis type Secondary esophageal varices without bleeding CBC Routine 09/08/2025 10:44 AM EST Fatty liver Cirrhosis of liver with ascites, unspecified hepatic cirrhosis type Secondary esophageal varices without bleeding POCT HEMOGLOBIN A1C Routine 01/06/2025 1 0:21 AM EDT Type 2 diabetes mellitus with hyperglycemia, without long-term current use of insulin LIPID PANEL Routine 08/11/2024 3:46 AM EST MICROALBUMIN/CREATININ E RATIO, RANDOM URINE Routine 08/05/2024 4:27 PM EST ENDOSCOPY, COLON 03/21/2023 8:51 AM EDT HEPATITIS B SURFACE ANTIGEN Routine 03/11/2023 10:03 AM EDT Cirrhosis of liver without ascites, unspecified hepatic cirrhosis type Nonspecific abnormal results of liver function study Heme positive stool FECAL IMMUNOCHEMICAL BLOOD TEST X1 (FIT) Routine 02/07/2023 3:59 PM EDT Elevated alkaline phosphatase level from Last 3 Months or Most Recently Relevant to Health Maintenance Results * US ABDOMEN COMPLETE (ADULT) (09/08/2025 10:54 AM EST) Anatomical Region Laterality Modality Abdomen Ultrasound 09/08/2025 11:4 0 AM EST Impressions 09/08/2025 11:42 AM EST 1. Cirrhotic hepatic morphology without sonographic evidence for suspicious hepatic lesion. 2. Gallstones, without evidence for acute cholecystitis. 3. No biliary ductal dilatation. 4. No ascites. Narrative 09/08/2025 11:42 AM EST US ABDOMEN COMPLETE (ADULT) Referring clinician's provided indication for this examination in Epic: Cirrhosis; Liver disease, chronic, HCC screening TECHNIQUE: Abdominal Ultrasound Complete. COMPARISON: Prior studies, including 02/28/2025 FINDINGS: Liver: Heterogeneous hepatic parenchyma with nodular hepatic contour. Main Portal Vein: Patent with normal direction of flow. Gallbladder: Gallstones, without evidence for acute cholecystitis. Hunter's Sign: Negative. Biliary: No intrahepatic or extrahepatic biliary ductal dilatation. The common bile duct measures 4 mm. Pancreas: Incompletely visualized. Spleen: The spleen is nonenlarged, measuring 11.1 cm. Kidneys: The right kidney measures 10.1 cm. The left kidney measures 11.3 cm. No hydronephrosis. No sonographic evidence for solid renal mass or shadowing stone. Aorta: Normal, where visualized sonographically. IVC: Normal intrahepatic segment. Procedure Note Venkatesh Gonzalez MD - 09/08/2025 US ABDOMEN COMPLETE (ADULT) Referring clinician's provided indication for this examination in Epic:Cirrhosis; Liver disease, chronic, HCC screening TECHNIQUE: Abdominal Ultrasound Complete. COMPARISON: Prior studies, including 02/28/2025 FINDINGS: Liver: Heterogeneous hepatic parenchyma with nodular hepatic contour. Main Portal Vein: Patent with normal direction of flow. Gallbladder: Gallstones, without evidence for acute cholecystitis. Hunter's Sign: Negative. Biliary: No intrahepatic or extrahepatic biliary ductal dilatation. The common bile duct measures 4 mm. Pancreas: Incompletely visualized. Spleen: The spleen is nonenlarged, measuring 11.1 cm. Kidneys: The right kidney measures 10.1 cm. The left kidney measures 11.3cm. No hydronephrosis. No sonographic evidence for solid renal mass orshadowing stone. Aorta: Normal, where visualized sonographically. IVC: Normal intrahepatic segment. IMPRESSION: 1. Cirrhotic hepatic morphology without sonographic evidence forsuspicious hepatic lesion. 2. Gallstones, without evidence for acute cholecystitis. 3. No biliary ductal dilatation. 4. No ascites. us Aldo Aguilar MD IMG US ABDOMEN Final Re sult * (ABNORMAL) Comprehensive Metabolic Panel (CMP) (09/08/2025 10:44 AM EST) Sodium 141 136 - 145 mmol/L 09/08/2025 1:15 PM [facility] Potassium 5.2(H) 3.4 - 5.1 mmol/L 09/08/2025 1:15 PM [facility] Chloride 108(H) 98 - 107 mmol/L 09/08/2025 1:15 PM [facility] CO2 24 20 - 31 mmol/L 09/08/2025 1:15 PM [facility] BUN 18 6 - 23 mg/dL 09/08/2025 1:15 PM [facility] Creatinine 1.10 0.60 - 1.30 mg/dL 09/08/2025 1:15 PM [facility] Glucose 98 70 - 99 mg/dL 09/08/2025 1:15 PM [facility] Calcium 9.8 8.5 - 10.5 mg/dL 09/08/2025 1:15 PM [facility] AST 66(H) <40 U/L 09/08/2025 1:15 PM [facility] ALT 66(H) <50 U/L 09/08/2025 1:15 PM [facility] Alkaline Phosphatase 259(H) 40 - 130 U/L 09/08/2025 1:15 PM [facility] Bilirubin, Total 1.7(H) 0.0 - 1.2 mg/dL 09/08/2025 1:15 PM [facility] Total Protein 7.0 6.4 - 8.3 g/dL 09/08/2025 1:15 PM [facility] Albumin 4.1 3.5 - 5.2 g/dL 09/08/2025 1:15 PM [facility] Globulin 2.9 1.9 - 4.1 g/dL 09/08/2025 1:15 PM [facility] eGFR 79 >59 mL/min/1.7 3m2 09/08/2025 1:15 PM [facility] Comment:Estimated glomerular filtration rate calculated using the CKD-EPI refit equation. Anion Gap 9 3 - 17 mmol/L 09/08/2025 1:15 PM [facility] Blood (Blood) Venipuncture / Unknown 09/08/2025 10:44 AM EST 09/08/2025 11:27 AM EST Aldo Aguilar MD LAB BLOOD BKR ORDERABLES Final Result Performing Organization Address City/[facility]/ZIP Co de Phone Number [address] [address] * (ABNORMAL) Alpha-Fetoprotein (AFP), Non-Maternal Specimens (09/08/2025 10:44 AM EST) AFP (Non-Maternal) 10.9(H) <=8.3 ng/mL 09/08/2025 12:36 PM EST [facility] Blood (Blood) Venipuncture / Unknown 09/08/2025 10:44 AM EST 09/08/2025 11:25 AM EST Narrative [facility] - 09/08/2025 12:36 PM EST Test performed by Bill electrochemiluminescent immunoassay (ECLIA). Results obtained by assays using different manufacturers or methods may not be comparable and cannot be used interchangeably for patient monitoring. Aldo Aguilar MD LAB BLOOD BKR ORDERABLES Final Result Performing Organization Address [facility]/ZIP Co de Phone Number [address] [address] * PT-INR (09/08/2025 10:44 AM EST) PT 11.3 10.0 - 13.0 sec 09/08/2025 11:45 AM [facility] INR 0.9 0.9 - 1.1 09/08/2025 11:45 AM [facility] Comment:Therapeutic Range 2. 0 - 3.5 Blood (Blood) Venipuncture / Unknown 09/08/2025 10:44 AM EST 09/08/2025 11:24 AM EST us Aldo Aguilar MD LAB BLOOD BKR ORDERABLES Final Result Performing Organization Address City/State/[facility] Co de Phone Number [address] [address] * (ABNORMAL) CBC (09/08/2025 10:44 AM EST) WBC 3.78(L) 4.00 - 11.00 K/uL 09/08/2025 11:48 AM [facility] RBC 4.62 4.50 - 5.90 M/uL 09/08/2025 11:48 AM [facility] Hemoglobin 12.0(L) 13.5 - 17.5 g/dL 09/08/2025 11:48 AM [facility] Hematocrit 38.4(L) 41.0 - 53.0 % 09/08/2025 11:48 AM [facility] MCV 83.1 80.0 - 100.0 fL 09/08/2025 11:48 AM [facility] MCH 26.0(L) 27.0 - 31.0 pg 09/08/2025 11:48 AM [facility] MCHC 31.3(L) 32.0 - 36.0 g/dL 09/08/2025 11:48 AM [facility] PLT 77(L) 150 - 450 K/uL 09/08/2025 11:48 AM [facility] Comment:Microscopic estimate : Platelets decreased. MPV 09/08/2025 11:48 AM [facility] Comment:Not Measured: RDW-CV 15.8(H) 11.5 - 14.5 % 09/08/2025 11:48 AM EST [facility] Absolute NRBC 0.00 <=0.00 K cells/uL 09/08/2025 11:48 AM EST [facility] NRBC 0.0 <=0.0 /100 WBCs 09/08/2025 11:48 AM EST [facility] Blood (Blood) Venipuncture / Unknown 09/08/2025 10:44 AM EST 09/08/2025 11:24 AM EST us Aldo Aguilar MD LAB BLOOD BKR ORDERABLES Final Result Performing Organization Address City/State/[facility] Co de Phone Number [address] [address] * (ABNORMAL) POCT Hemoglobin A1c (01/06/2025 10:21 AM EDT) Hemoglobin A1c 5.9(A) 4.2 - 5.6 % Other 01/06/2025 10:2 1 AM EDT us Lianet Richardson MD LAB POCT ENTER/EDIT ORDERABLES Final Result * (ABNORMAL) Lipid panel (08/11/2024 3:46 AM EST) HDL 77 mg/dL [facility] Comment: Interpretation <40 mg/dL: Low HDL cholesterol (major risk factor for CHD) Greater than or equal to 60 mg/dL: High HDL cholesterol ( negative risk factor for CHD) HDL - cholesterol is affected by a number of factors, e.g. smoking, excerise, hormones, sex and age. CHOLESTEROL 221 0 - 240 mg/dL [facility] TRIGLYCERIDES 93 30 - 160 mg/dL [facility] LDL 125 50 - 129 mg/dL [facility] Comment: LDL levels in terms of risk for coronary heart disease: <100 mg/dL: Optimal 100-129 mg/dL: Near or above optimal 130-159 mg/dL: Borderline high 160-189 mg/dL: High >190 mg/dL: Very High CARDIAC RISK RATIO 2.9(L) 3.4 - 5.0 [facility] Blood 08/11/2024 3:46 AM EST 08/11/2024 3:57 AM EST us Filipe Nguyen VENEER JOINTER LAB BLOOD BKR ORDERABLES Final R esult Performing Organization Address [facility] Co de Phone Number [address] [address] * Microalbumin/creatinine ratio, random urine (08/05/2024 4:27 PM EST) URINE MICROALBUMIN <1.2 0 - 2.3 mg/dL [facility] URINE CREATININE 54 mg/dL [facility] MICROALB/CRE RATIO NOT CALCULATED 0 - 20 mg/g Cre [facility] Comment:due to Microalbumin <1.2 Urine (Urine) 08/05/2024 4:2 7 PM EST 08/05/2024 4:48 PM EST us Andrews Cagle MD LAB URINE ORDERABLES Final R esult Performing Organization Address [facility] Co de Phone Number [address] [address] * ENDOSCOPY, COLON (03/21/2023 8:51 AM EDT) Narrative Transcriptions Ty Rod MD - 03/21/2023 8:51 AM EDT [facility] Patient Name: Gayle Grady MD:: TY ROD MD, Procedure Date: 03/21/2023 8:51 AM Date of : 1970 Age: 52 Admit Type: Outpatient Gender: Male Room: [facility] 04 Referring MD: ALDO MCKEON Exam Type: Colonoscopy [...] 8:51 AM Procedure Code(s): --- Professional --- 97497, Colonoscopy, flexible; diagnostic, including collection of specimen(s) by brushing or washing, when performed (separateprocedure) --- Technical --- 13521, Colonoscopy, flexible; diagnostic, including collection of specimen(s) by brushing or washing, when performed (separateprocedure) Diagnosis Code(s): --- Professional --- K63.89, Other specified diseases of intestine R19.5, Other fecal abnormalities D50.0, 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 All rights reserved. The codes documented in this report are preliminary and upon data capture clerk reviewmay be revised to meet current compliance requirements. Procedure Date: 03/21/2023 8:51:[address] [place] [address] us Aldo Aguilar MD GI PROCEDURE ORDERABLES Final Result * Hepatitis B surface antigen (03/11/2023 10:03 AM EDT) HBV SURFACE ANTIGEN NON-REACTI VE NON-REACTI VE [facility] Blood 03/11/2023 10:0 3 AM EDT 03/11/2023 10:08 AM EDT us Shanice Elias VENEER JOINTER LAB BLOOD BKR ORDERABLES Final Result [address] [address] * (ABNORMAL) Fecal immunochemical test x1 (FIT) (02/07/2023 3:59 PM EDT) Immuno Fecal Occult Positive(A ) Negative [facility] Stool (Stool) 02/07/2023 3:5 9 PM EDT 02/07/2023 4:01 PM EDT Shanice Elias NP LAB BODY FLUIDS AND STOOL ORDERABLES Final Result Performing Organization Address City/State/[facility] Co de Phone Number [facility] [address] [place] [address] from Last 3 Months or Most Recently Relevant to Health Maintenance Additional Health Concerns Infection Onset Date Last Indicated MRSA 08/04/2024 08/04/2024 Insurance ACO ACO ACO ACO ACO ALLIANCE ACO Advance Directives For more information, please contact: [phone] (9AM - 5PM [facility], Friday-Friday) Documents on File Type Date Recorded Patient Contracts Intern Expl anation Healthcare Proxy 08/09/2024 4:16 PM [...] Agent (Proxy form on file) Care Teams Grip Assembler Relationship Specialty Start Date End Date Ailyn García MD [address] [place] [address] Dr [place], KIM [address] PCP - General Internal Medicine 04/04/25 Additional Source Comments The information contained in this document represents components of the legal health record. It is not the complete legal health record.[facility]
--- OUTSIDE RECORDS SUMMARY | 2025-09-15 17:11 | XMS_ITS | Encounter Summary ---
Author Organization [facility] Address [address] [place] [address] [place] [address] Phone Care Team Providers Care Wedding Decorator Name Role Phone Jb Stewart MD Primary Care Provider Ailyn García MD Primary Care Provider [phone] Encounter Details Date Type Department Care Team (Late st Contact Info) Description 08/10/2024 Procedure Pass [facility], Ct Scan - [address] [address] Social History Tobacco Use Types Packs/Day Years [...] Author No Risk Indicated 08/10/2024 5:54 PM Bridget Traore RN * [place] Suicide Severity Rating Scale (Screener/Recent Self-Report) Question Answer Date of Assessment Author 1. Wish to be (Past 1 Month) No 024 5:54 PM Bridget Traore, STEVE 2. Non-Specific Active Suici mary Thoughts (Past 1 Month) No 08/10/2024 5:54 PM Bridget Traore, RN 6. Suicidal Behavior (Lifetime) No 5:54 PM Bridget Traore, RN documented as of this encounter Plan of Treatment Upcoming Encounters Date Type Department Care Team (Late st Contact Info) Description 10/11/2025 3:30 PM EST Office Visit [facility] 243 [facility] 9th [place] [address] Marco Macedo MD, MS 243 [place] [address] [email or web address]. [email or web address] 11/17/2025 1:00 PM EST Nutrition [facility] Diabetes [facility] [address] [place] [phone] Dolores Fuller LDN [address] [address] [email or web address] 01/16/2026 11:20 AM EDT Office Visit [facility] Endocrinology [facility] 40 [place] [phone] Nora Gomes MD [address] [address] [email or web address] 02/28/2026 9:00 AM EDT Appointment [address] [address] Aldo Aguilar MD [address] [place] [address] [email or web address] 03/14/2026 2:30 PM EDT Office Visit [facility] [address] [place] [address], 5th [place] [address] Aldo Aguilar MD [address] [place] [address] [email or web address] documented as of this encounter Visit Diagnoses Not on filedocumented in this encounter Additional Health Concerns Infection Onset Date Last Indicated Resolved Time MRSA 08/04/2024 08/04/2024 documented as of this encounter Care Teams Wedding Decorator Relationship Specialty Start Date End Date Jb Stewart MD [address] [place] [address] [place] [address] PCP - General Internal Medicine 04/29/22 04/03/25 Ailyn García MD [address] [place] [address] [place] [address] PCP - General Internal Medicine 04/04/25 documented as of this encounter Additional Source Comments The information contained in this document represents components of the legal health record. It is not the complete legal health record.[facility]
--- OUTSIDE RECORDS SUMMARY | 2025-09-15 17:11 | XMS_ITS | Encounter Summary ---
Author Organization [facility] Address [address] [place] [address] [place] [address] Phone Care Team Providers Care Assembler Body Name Role Phone Jb Stewart MD Primary Care Provider Ailyn García MD Primary Care Provider Encounter Details Date Type Department Care Team (Late st Contact Info) Description 08/11/2024 Procedure Pass [facility], [address] [address] Social History Tobacco Use Types Packs/Day Years [...] Description 10/11/2025 3:30 PM EST Office Visit [facility] [address] [place] [address] Marco Macedo MD, MS 243 [place] [address] [email or web address] 11/17/2025 1:[address] [facility] Diabetes [facility] 40 [place] [address] Dolores Fuller LDN 22 [facility], [address] [place] [address] 01/16/2026 11:20 AM EDT Office Visit [facility] Endocrinology Clinic 40 [place] [address] Nora Gomes MD 22 [facility] 3rd [place] [address] [email or web address] 02/28/2026 9:00 AM EDT Appointment [facility] 30 [place] [address] Aldo Aguilar MD 55 [facility] 456 [place] [address] [email or web address] 03/14/2026 2:30 PM EDT Office Visit [facility] 55 [facility], 5th [place] [address] Aldo Aguilar MD [address] [address] [email or web address] documented as of this encounter Visit Diagnoses Not on filedocumented in this encounter Additional Health Concerns Infection Onset Date Last Indicated Resolved Time MRSA 08/04/2024 08/04/2024 documented as of this encounter Care Teams Assembler Body Relationship Specialty Start Date End Date Jb Stewart MD [address] [place] [address] [place] [address] PCP - General Internal Medicine 04/29/22 04/03/25 Ailyn García MD [address] [place] [address] [place] [address] PCP - General Internal Medicine 04/04/25 documented as of this encounter Additional Source Comments The information contained in this document represents components of the legal health record. It is not the complete legal health record.[facility]
--- OUTSIDE RECORDS SUMMARY | 2025-09-15 17:11 | XMS_ITS | Encounter Summary ---
Author Organization [facility] Address [address] [place] [address] [place] [address] Phone Care Team Providers Care Mallet Cutter Name Role Phone Ailyn García MD Primary Care Provider Encounter Details Date Type Department Care Team (Late st Contact Info) Description 04/04/2025 Procedure Pass [facility] Endoscopy Admitting Dept Virtual Department [address] [place] [address] Social History Tobacco Use Types Packs/Day Years [...] Description 10/11/2025 3:30 PM EST Office Visit [facility] 243 [facility] 9th [place] [address] Marco Macedo MD, MS 243 [place] [address] [email or web address] 11/17/2025 1:00 PM EST Nutrition [facility] Diabetes [facility] 40 [place] [phone] Dolores Fuller LDN [address] [address] [email or web address] 01/16/2026 11:20 AM EDT Office Visit [facility] Endocrinology [facility] 40 [facility] [place] [phone] Nora Gomes MD [address] [address] [email or web address] 02/28/2026 9:00 AM EDT Appointment [address] [address] Aldo Aguilar MD [address] [place] [address] [email or web address] 03/14/2026 2:30 PM EDT Office Visit [facility] [address] [place] [address], 5th [place] [address] Aldo Aguilar MD [address] [place] [address] [email or web address] documented as of this encounter Visit Diagnoses Not on filedocumented in this encounter Additional Health Concerns Infection Onset Date Last Indicated Resolved Time MRSA 08/04/2024 08/04/2024 documented as of this encounter Care Teams Mallet Cutter Relationship Specialty Start Date End Date Ailyn García MD [address] [place] [address] [place] [address] PCP - General Internal Medicine 04/04/25 documented as of this encounter Additional Source Comments The information contained in this document represents components of the legal health record. It is not the complete legal health record.[facility]
--- OUTSIDE RECORDS SUMMARY | 2025-09-15 17:11 | XMS_ITS | Encounter Summary ---
Author Organization [facility] Address [address] [place] [address] [place] [address] Phone Care Team Providers Care Green Plumber Name Role Phone Jb Stewart MD Primary Care Provider Ailyn García MD Primary Care Provider Encounter Details Date Type Department Care Team (Late st Contact Info) Description 04/07/2023 Procedure Pass [facility], [facility] 243 [place] [address] Social History Tobacco Use Types Packs/Day Years [...] 12:[address] RN * [place] Suicide Severity Rating Scale (Screener/Recent Self-Report) Question Answer Date of Assessment Author 1. Wish to be (Past 1 Month) No 023 12:36 PM EDT Hazel Yeung RN 2. Non-Specific Active Suici mary Thoughts (Past 1 Month) No 04/07/2023 12:36 PM EDT Melani Yeung, STEVE 6. Suicidal Behavior (Lifetime) No 12:36 PM EDT Hazel Yeung RN documented as of this encounter Plan of Treatment Upcoming Encounters Date Type Department Care Team (Late st Contact Info) Description 10/11/2025 3:30 PM EST Office Visit [facility] [address] [place] [address] Marco Macedo MD, MS [address] [place] [address] [email or web address] 11/17/2025 1:00 PM EST Nutrition [facility] Diabetes Clinic 40 [place] [phone] Dolores Fuller LDN [address] [place] [address] 01/16/2026 11:20 AM EDT Office Visit [facility] Endocrinology Clinic 40 [place] [phone] Nora Gomes MD [address] [place] [address] [email or web address] 02/28/2026 9:00 AM EDT Appointment [facility], [address] [address] Aldo Aguilar MD [address] [place] [address] [email or web address] 03/14/2026 2:30 PM EDT Office Visit [facility] 55 [facility], 5th [place] [address] Aldo Aguilar MD 55 [facility] 456 [place] [address] [email or web address] documented as of this encounter Visit Diagnoses Not on filedocumented in this encounter Additional Health Concerns Infection Onset Date Last Indicated Resolved Time MRSA 08/04/2024 08/04/2024 documented as of this encounter Care Teams Green Plumber Relationship Specialty Start Date End Date Jb Stewart MD [address] [place] [address] [place] [address] PCP - General Internal Medicine 04/29/22 04/03/25 Ailyn García MD [address] [place] [address] [place] [address] PCP - General Internal Medicine 04/04/25 documented as of this encounter Additional Source Comments The information contained in this document represents components of the legal health record. It is not the complete legal health record.[facility]
--- OUTSIDE RECORDS SUMMARY | 2025-09-15 17:11 | XMS_ITS | Encounter Summary ---
Author Organization [facility] Address [address] [place] [address] Phone Care Team Providers Care Mica Plate Layer Name Role Phone Pop Adler MD Primary Care Provider [phone] Pop Adler MD Primary Care Provider [phone] Jb Stewart MD Primary Care Provider Ye Batista MD Primary Care Provider Ye Batista MD Primary Care Provider [phone] Jb Stewart MD Primary Care Provider Ye Batista MD Primary Care Provider [phone] Unknown, Unknown Primary Care Provider Jb Hood MD Primary Care Provider Ailyn García MD Primary Care Provider [phone] Encounter Details Date Type Department Care Team (Late st Contact Info) Description 10/05/2020 Procedure Pass [facility] 75 [place] [address] Social History Tobacco Use Types Packs/Day Years [...] Hospital [facility] 243 [facility] 9th [place] [address] Marco Macedo MD, MS 243 [place] [address] [email or web address]. [email or web address] 11/17/2025 1:00 PM EST Nutrition [facility] Diabetes [facility] 40 [place] [address] Dolores Fuller LDN [address] [place] [address] [email or web address] 01/16/2026 11:20 AM EDT Office Visit [facility] Endocrinology Clinic 40 [place] [phone] Nora Gomes MD [address] [address] [email or web address] 02/28/2026 9:00 AM EDT Appointment [facility] 30 [place] [address] Aldo Aguilar MD [address] [place] [address] [email or web address] 03/14/2026 2:30 PM EDT Office Visit [facility] [address] [place] [address], 5th [place] [address] Aldo Aguilar MD 55 [facility] 456 [place] [address] [email or web address] documented as of this encounter Visit Diagnoses Not on filedocumented in this encounter Additional Health Concerns Infection Onset Date Last Indicated Resolved Time CoV-Risk 02/04/2022 02/04/2022 02/15/2022 1:24 AM EDT MRSA 08/04/2024 08/04/2024 documented as of this encounter Care Teams Mica Plate Layer Relationship Specialty Start Date End Date Pop Adler MD [address] [place] [address] [place] [address] PCP - General Internal Medicine 09/11/20 12/05/20 Pop Adler MD [address] [place] [address] [place] [address] PCP - General Internal Medicine 04/03/21 04/24/21 Jb Stewart MD [address] [place] [address] Dr [place] [address] PCP - General Internal Medicine 04/25/21 12/09/21 Ye Batista MD 40 [place] [address] [email or web address] PCP - General Internal Medicine 12/10/21 12/16/21 Ye Batista MD 40 [place] [address] [email or web address] PCP - General Internal Medicine 12/17/21 12/17/21 Jb Stewart MD [address] [place] [address] [place] [address] PCP - General Internal Medicine 12/18/21 12/24/21 Ye Batista MD [address] [place] [address] [email or web address] PCP - General Internal Medicine 12/25/21 04/01/22 Unknown, Kaveh, PCP - General 04/02/22 04/28/22 Jb Stewart MD [address] [place] [address] [place] [address] PCP - General Internal Medicine 04/29/22 04/03/25 Ailyn García MD [address] [place] [address] [place] [address] PCP - General Internal Medicine 04/04/25 documented as of this encounter Additional Source Comments The information contained in this document represents components of the legal health record. It is not the complete legal health record.[facility]
--- OUTSIDE RECORDS SUMMARY | 2025-09-15 17:11 | XMS_ITS | Encounter Summary ---
Author Organization [facility] Address [address] [place] [address] Phone Care Team Providers Care Relay Man Name Role Phone Jb Stewart MD Primary Care Provider Ailyn García MD Primary Care Provider [phone] Encounter Details Date Type Department Care Team (Late st Contact Info) Description 03/21/2023 Procedure Pass [facility] Endoscopy Admitting Dept Virtual Department [address] [place] [address] Social History Tobacco Use Types Packs/Day Years [...] Hospital [facility] 243 [facility] 9th [place] [address] Marco Macedo MD, MS 243 [place] [address] [email or web address]. [facility] 11/17/2025 1:00 PM EST Nutrition [facility] Diabetes [facility] 40 [place] [address] Dolores Fuller LDN [address] [place] [address] [email or web address] 01/16/2026 11:20 AM EDT Office Visit [facility] Endocrinology Clinic 40 [place] [phone] Nora Gomes MD [address] [address] [email or web address] 02/28/2026 9:00 AM EDT Appointment [address] [address] Aldo Aguilar MD [address] [place] [address] [email or web address] 03/14/2026 2:30 PM EDT Office Visit [facility] 55 [facility], 5th [place] [address] Aldo Aguilar MD [address] [place] [address] [email or web address] documented as of this encounter Visit Diagnoses Not on filedocumented in this encounter Additional Health Concerns Infection Onset Date Last Indicated Resolved Time MRSA 08/04/2024 08/04/2024 documented as of this encounter Care Teams Relay Man Relationship Specialty Start Date End Date Jb Stewart MD [address] [place] [address] [place] [address] PCP - General Internal Medicine 04/29/22 04/03/25 Ailyn García MD [address] [place] [address] [place] [address] PCP - General Internal Medicine 04/04/25 documented as of this encounter Additional Source Comments The information contained in this document represents components of the legal health record. It is not the complete legal health record.[facility]
--- OUTSIDE RECORDS SUMMARY | 2025-09-15 17:12 | XMS_ITS | Encounter Summary ---
Author Organization [facility] Address [address] [place] [address] [place] [address] Phone Care Team Providers Care Instrumentation Chemist Name Role Phone Jb Stewart MD Primary Care Provider Ailyn García MD Primary Care Provider [phone] Encounter Details Date Type Department Care Team (Late st Contact Info) Description 09/06/2024 Procedure Pass [facility] Endoscopy Admitting Dept Virtual Department [address] [place] [address] Social History Tobacco Use Types Packs/Day Years [...] is your housing situation today? I have mcaey matthews 08/11/2024 How many times have you [...] Description 10/11/2025 3:30 PM EST Office Visit [facility] 243 [facility] 9th [place] [address] Marco Macedo MD, MS 243 [place] [address] [email or web address] 11/17/2025 1:00 PM EST Nutrition [facility] Diabetes [facility] 40 [place] [address] Dolores Fuller LDN [address] [address] [email or web address] 01/16/2026 11:20 AM EDT Office Visit [facility] Endocrinology [facility] 40 [place] [phone] Nora Gomes MD [address] [address] [email or web address] 02/28/2026 9:00 AM EDT Appointment [address] [address] Aldo Aguilar MD [address] [place] [address] [email or web address] 03/14/2026 2:30 PM EDT Office Visit [facility] [address] [place] [address], 5th [place] [address] Aldo Aguilar MD [address] [place] [address] [email or web address] documented as of this encounter Visit Diagnoses Not on filedocumented in this encounter Additional Health Concerns Infection Onset Date Last Indicated Resolved Time MRSA 08/04/2024 08/04/2024 documented as of this encounter Care Teams Instrumentation Chemist Relationship Specialty Start Date End Date Jb Stewart MD [address] [place] [address] [place] [address] PCP - General Internal Medicine 04/29/22 04/03/25 Ailyn García MD [address] [place] [address] [place] [address] PCP - General Internal Medicine 04/04/25 documented as of this encounter Additional Source Comments The information contained in this document represents components of the legal health record. It is not the complete legal health record.[facility]
--- OUTSIDE RECORDS SUMMARY | 2025-09-15 17:12 | XMS_ITS | Encounter Summary ---
Author Organization [facility] Address [address] [place] [address] Phone Care Team Providers Care Eyelet Maker Name Role Phone Jb Stewart MD Primary Care Provider Ailyn García MD Primary Care Provider Encounter Details Date Type Department Care Team (Late st Contact Info) Description 10/07/2023 Procedure Pass [facility], [address] [address] Social History Tobacco Use Types Packs/Day Years [...] Description 10/11/2025 3:30 PM EST Office Visit [facility]us [facility] 243 [facility] 9th [place] [address] Marco Macedo MD, MS 243 [place] [address] [email or web address] 11/17/2025 1:00 PM EST Nutrition [facility] Diabetes [facility] 40 [place] [address] Dolores Fuller LDN [address] [address] [email or web address] 01/16/2026 11:20 AM EDT Office Visit [facility] Endocrinology Clinic 40 [place] [address] Nora Gomes MD [address] [address] [email or web address] 02/28/2026 9:00 AM EDT Appointment [facility] 30 [place] [address] Aldo Aguilar MD [address] [place] [address] 456 [place] [address] TANIA@[email or web address] 03/14/2026 2:30 PM EDT Office Visit [facility] 55 [facility], 5th [place] [address] Aldo Aguilar MD 55 [facility] 456 [place] [address] [email or web address] documented as of this encounter Visit Diagnoses Not on filedocumented in this encounter Additional Health Concerns Infection Onset Date Last Indicated Resolved Time MRSA 08/04/2024 08/04/2024 documented as of this encounter Care Teams Eyelet Maker Relationship Specialty Start Date End Date Jb Stewart MD [address] [place] [address] [place] [address] PCP - General Internal Medicine 04/29/22 04/03/25 Ailyn García MD [address] [place] [address] [place] [address] PCP - General Internal Medicine 04/04/25 documented as of this encounter Additional Source Comments The information contained in this document represents components of the legal health record. It is not the complete legal health record.[facility]
--- OUTSIDE RECORDS SUMMARY | 2025-09-15 17:12 | XMS_ITS | Encounter Summary ---
Author Organization [facility] Address [address] [place] [address] [place] [address] Phone Care Team Providers Care Alcoholism Worker Name Role Phone Jb Stewart MD Primary Care Provider Ailyn García MD Primary Care Provider Reason for Referral * MRI/CAT Scan - Closed Specialty Diagnoses / Procedures Referred By Radha greer Referred To Contact Radiology Diagnoses Unspecified mycosis Procedures MRI Face CHG MRI, FACE, NECK, COMBO Po Dey MD [address], [address] [address] Phone: tel: fax: mailto:[email or web address] Referral ID Status Reason Start Date Expiration Date Visits Re quested Visits Authorized [id number] Closed 11/01/2024 12/31/2024 1 1 Encounter Details Date Type Department Care Team (Latest Contact Info) Description 11/01/2024 Transcribe Orders [address] [address] Po Dey MD [address], [address] [place] [address] [email or web address] Unspecified mycosis (Primary Dx) Social History [...] Description 10/11/2025 3:30 PM EST Office Visit [facility] [address] [place] [address] Marco Macedo MD, MS [address] [place] [address] [email or web address] 11/17/2025 1:00 PM EST Nutrition [facility] [address] [place] [phone] Dolores Fuller LDN [address] [place] [address] 01/16/2026 11:20 AM EDT Office Visit [facility] [address] [place] [phone] Nora Gomes MD [address] [place] [address] [phone] 02/28/2026 9:00 AM EDT Appointment [address] [phone] Aldo Aguilar MD 55 [facility] 456 [place] [address] [email or web address] 03/14/2026 2:30 PM EDT Office Visit [facility] 55 [facility], 5th [place] [address] Aldo Aguilar MD 55 [facility] 456 [place] [address] [email or web address] documented as of this encounter Results * [...] documented as of this encounter Care Teams Alcoholism Worker Relationship Specialty Start Date End Date Jb Stewart MD [address] [place] [address] [place] [address] PCP - General Internal Medicine 04/29/22 04/03/25 Ailyn García MD [address] [place] [address] [place] [address] PCP - General Internal Medicine 04/04/25 documented as of this encounter Additional Source Comments The information contained in this document represents components of the legal health record. It is not the complete legal health record.[facility]
--- OUTSIDE RECORDS SUMMARY | 2025-09-15 17:12 | XMS_ITS | Encounter Summary ---
Author Organization [facility] Address [address] [place] [address] Phone Care Team Providers Care Parquet Floor Layer Name Role Phone Pop Adler MD Primary Care Provider [phone] Jb Stewart MD Primary Care Provider Ye Batista MD Primary Care Provider Ye Batista MD Primary Care Provider Jb Stewart MD Primary Care Provider Ye Batista MD Primary Care Provider Unknown, Unknown Primary Care Provider Jb Hood MD Primary Care Provider Ailyn García MD Primary Care Provider [phone] Encounter Details Date Type Department Care Team (Late st Contact Info) Description 03/21/2021 Procedure Pass [facility] [address] [place] [address] Social History Tobacco Use Types Packs/Day Years [...] Description 10/11/2025 3:30 PM EST Office Visit [facility] 243 [facility] 9th [place] [address] Marco Macedo MD, MS 243 [place] [address] [email or web address] 11/17/2025 1:00 PM EST Nutrition [facility] Diabetes [facility] 40 [place] [phone] Dolores Fuller LDN [address] [place] [address] [email or web address] 01/16/2026 11:20 AM EDT Office Visit [facility] 40 [place] [phone] Nora Gomes MD [address] [address] [email or web address] 02/28/2026 9:00 AM EDT Appointment [facility] 30 [place] [address] Aldo Aguilar MD [address] [place] [address] [email or web address] 03/14/2026 2:30 PM EDT Office Visit [facility] [address] [place] [address], 5[address] [place] [address] Aldo Aguilar MD 55 [facility] 456 [place] [address] [email or web address] documented as of this encounter Visit Diagnoses Not on filedocumented in this encounter Additional Health Concerns Infection Onset Date Last Indicated Resolved Time CoV-Risk 02/04/2022 02/04/2022 02/15/2022 1:24 AM EDT MRSA 08/04/2024 08/04/2024 documented as of this encounter Care Teams Parquet Floor Layer Relationship Specialty Start Date End Date Pop Adler MD [address] [place] [address] [place] [address] PCP - General Internal Medicine 04/03/21 04/24/21 Jb Stewart MD [address] [place] [address] [place] [address] PCP - General Internal Medicine 04/25/21 12/09/21 Ye Batista MD 40 [place] [address] [email or web address] PCP - General Internal Medicine 12/10/21 12/16/21 Ye Batista MD 40 [place] [address] [email or web address] PCP - General Internal Medicine 12/17/21 12/17/21 Jb Stewart MD [address] [place] [address] [place] [address] PCP - General Internal Medicine 12/18/21 12/24/21 Ye Batista MD 40 [place] [address] [email or web address] PCP - General Internal Medicine 12/25/21 04/01/22 Unknown, Kaveh, PCP - General 04/02/22 04/28/22 Jb Stewart MD [address] [place] [address] [place] [address] PCP - General Internal Medicine 04/29/22 04/03/25 Ailyn García MD [address] [place] [address] [place] [address] PCP - General Internal Medicine 04/04/25 documented as of this encounter Additional Source Comments The information contained in this document represents components of the legal health record. It is not the complete legal health record.[facility]
--- OUTSIDE RECORDS SUMMARY | 2025-09-15 17:12 | XMS_ITS | Encounter Summary ---
Author Organization [facility] Address [address] [place] [address] [place] [address] Phone Care Team Providers Care Electric Stop Installer Name Role Phone Jb Stewart MD Primary Care Provider Ailyn García MD Primary Care Provider Encounter Details Date Type Department Care Team (Late st Contact Info) Description 04/07/2023 Ophth Exam [facility] [address] [place] [address] Amada Stratton MD [address] [place] [address] [email or web address] Social History Tobacco Use Types Packs/Day Years [...] 12:[address] RN * [place] Suicide Severity Rating Scale (Screener/Recent Self-Report) Question [...] Description 10/11/2025 3:30 PM EST Office Visit [facility] [address] [place] [address] [place] [address] Marco Macedo MD, MS [address] [place] [address] [email or web address] 11/17/2025 1:00 PM EST Nutrition [facility] Diabetes [address] [phone] Dolores Fuller LDN 22 [facility], [address] [place] [address] 01/16/2026 11:20 AM EDT Office Visit [facility]ology [facility] 40 [facility] [place] [address] Nora Gomes MD 22 [facility] 3rd [place] [address] [email or web address] 02/28/2026 9:00 AM EDT Appointment [address] [address] Aldo Aguilar MD 55 [facility] 456 [place] [address] [email or web address] 03/14/2026 2:30 PM EDT Office Visit [facility] 55 [facility], 5th [place] [address] Aldo Aguilar MD 55 [facility] 456 [place] [address] [email or web address] documented as of this encounter Visit Diagnoses Not on filedocumented in this encounter Additional Health Concerns Infection Onset Date Last Indicated Resolved Time MRSA 08/04/2024 08/04/2024 documented as of this encounter Care Teams Electric Stop Installer Relationship Specialty Start Date End Date Jb Stewart MD [address] [place] [address] [place] [address] PCP - General Internal Medicine 04/29/22 04/03/25 Ailyn García MD [address] [place] [address] [place] [address] PCP - General Internal Medicine 04/04/25 documented as of this encounter Additional Source Comments The information contained in this document represents components of the legal health record. It is not the complete legal health record.[facility]
--- OUTSIDE RECORDS SUMMARY | 2025-09-15 17:12 | XMS_ITS | Encounter Summary ---
Author Organization [facility] Address [address] [place] [phone] Phone Care Team Providers Care Senior Military Analyst Name Role Phone Pop Adler MD Primary Care Provider Jb Stewart MD Primary Care Provider Ye Batista MD Primary Care Provider Ye Batista MD Primary Care Provider Jb Stewart MD Primary Care Provider Ye Batista MD Primary Care Provider Unknown, Unknown Primary Care Provider Jb Hood MD Primary Care Provider Ailyn García MD Primary Care Provider [phone] Encounter Details Date Type Department Care Team (Late st Contact Info) Description 03/27/2021 Procedure Pass [facility] [address] [place] [address] Social History Tobacco Use Types [...] Description 10/11/2025 3:30 PM EST Office Visit [facility] 243 [facility] 9th [place] [address] Marco Macedo MD, MS [address] [place] [address] [email or web address] 11/17/2025 1:00 PM EST Nutrition [facility] 40 [place] [phone] Dolores Fuller LDN [address] [address] [email or web address] 01/16/2026 11:20 AM EDT Office Visit [facility] 40 [place] [address] Nora Gomes MD [address] [address] [email or web address] 02/28/2026 9:00 AM EDT Appointment [facility] 30 [place] [address] Aldo Aguilar MD [address] [place] [address] [email or web address] 03/14/2026 2:30 PM EDT Office Visit [facility] [address] [place] [address], 5th [place] [address] Aldo Aguilar MD 55 [facility] BLK [address] [place] [address] [email or web address] documented as of this encounter Visit Diagnoses Not on filedocumented in this encounter Additional Health Concerns Infection Onset Date Last Indicated Resolved Time CoV-Risk 02/04/2022 02/04/2022 02/15/2022 1:24 AM EDT MRSA 08/04/2024 08/04/2024 documented as of this encounter Care Teams Senior Military Analyst Relationship Specialty Start Date End Date Pop Adler MD [address] [place] [address] Dr STEVENS [facility] [place] [address] PCP - General Internal Medicine 04/03/21 04/24/21 Jb Stewart MD [address] [place] [address] [place] [address] PCP - General Internal Medicine 04/25/21 12/09/21 Ye Batista MD [address] [place] [address] [email or web address] PCP - General Internal Medicine 12/10/21 12/16/21 Ye Batista MD [address] [place] [address] [email or web address] PCP - General Internal Medicine 12/17/21 12/17/21 Jb Stewart MD [address] [place] [address] [place] [address] PCP - General Internal Medicine 12/18/21 12/24/21 Ye Batista MD [address] [place] [address] [email or web address] PCP - General Internal Medicine 12/25/21 04/01/22 Unknown, Kaveh, PCP - General 04/02/22 04/28/22 Jb Stewart MD [address] [place] [address] [place] [address] PCP - General Internal Medicine 04/29/22 04/03/25 Ailyn García MD [address] [place] [address] [place] [address] PCP - General Internal Medicine 04/04/25 documented as of this encounter Additional Source Comments The information contained in this document represents components of the legal health record. It is not the complete legal health record.[facility]
--- OUTSIDE RECORDS SUMMARY | 2025-09-15 17:12 | XMS_ITS | Encounter Summary ---
Author Organization [facility] Address [address] [place] [address] Phone Care Team Providers Care Vp Packaging Name Role Phone Jb Stewart MD Primary Care Provider Ailyn García MD Primary Care Provider Encounter Details Date Type Department Care Team (Latest Contact Info) Description 11/13/2023 Transcribe Orders Virtual Department 30 [place] [address] Shanice Elias, [place]IR[place] 10 [place] [address] Hepatic cirrhosis, unspecified hepatic cirrhosis type, unspecified [...] [facility] [address] [place] [address] 9[place] [address] Marco Macedo MD, MS 243 [place] [address] [email or web address] 11/17/2025 1:00 PM EST Nutrition [facility] 40 [place] [phone] Dolores Fuller LDN [address] [place] [address] [email or web address] 01/16/2026 11:20 AM EDT Office Visit [facility] 40 [place] [phone] Nora Gomes MD [address] [address] 02/28/2026 9:00 AM EDT Appointment [address] [address] Aldo Aguilar MD [address] [place] [address] [email or web address] 03/14/2026 2:30 PM EDT Office Visit [facility] [address] [place] [address], 5th [place] [address] Aldo Aguilar MD [address] [place] [address] 456 [place] [address] [email or web address] documented as of this encounter Results [...] for this examination in Epic:Outside Radiology Order; cirrhosis TECHNIQUE: US Abdominal limited right upper quadrant. COMPARISON: MRI CHOLANGIOPANCREATOGRAPHY (MRCP) WITH AND WITHOUT [id number] FINDINGS: Liver: Cirrhotic morphology/echotexture. No suspicious focal lesion. Main Portal Vein: Patent with normal direction of flow. Gallbladder: Layering echogenic shadowing gallstones. No abnormalgallbladder distention. Borderline nonspecific gallbladder wall thickeningmay be reactive to liver disease. Biliary: No intrahepatic or extrahepatic biliary ductal dilatation. The common bile duct measures 4 mm. IMPRESSION: No suspicious focal hepatic lesion. Cirrhotic liver. Cholelithiasis. Shanice Elias RN RADIATION ONCOLOGY IMG US ABDOMEN Final Res ult documented [...] documented as of this encounter Care Teams Vp Packaging Relationship Specialty Start Date End Date Jb Stewart MD [address] [place] [address] [place] [address] PCP - General Internal Medicine 04/29/22 04/03/25 Ailyn García MD [address] [place] [address] [place] [address] PCP - General Internal Medicine 04/04/25 documented as of this encounter Additional Source Comments The information contained in this document represents components of the legal health record. It is not the complete legal health record.[facility]
--- OUTSIDE RECORDS SUMMARY | 2025-09-15 17:12 | XMS_ITS | Encounter Summary ---
Author Organization [facility] Address [address] [place] [address] Phone Care Team Providers Care Headend Technician Name Role Phone Jb Stewart MD Primary Care Provider Ailyn García MD Primary Care Provider Encounter Details Date Type Department Care Team (Latest Contact Info) Description 03/11/2023 Transcribe Orders [facility] Phleb Kaelyn [address] [address] Shanice Elias, [place]IR[place] 10 [place] [address] Cirrhosis of liver without ascites, unspecified hepatic [...] Description 10/11/2025 3:30 PM EST Office Visit [facility] [address] [place] [address] [address] [address] Marco Macedo MD, MS 243 [place] [address] [email or web address] 11/17/2025 1:00 PM EST Nutrition [facility] 40 [place] [phone] Dolores Fuller LDN [address] [place] [address] 01/16/2026 11:20 AM EDT Office Visit [facility] Endocrinology Clinic 40 [place] [phone] Nora Gomes MD [address] [address] 02/28/2026 9:00 AM EDT Appointment [facility] 30 [place] [address] Aldo Aguilar MD [address] [place] [address] [email or web address] 03/14/2026 2:30 PM EDT Office Visit [facility] 55 [facility], 5th [place] [address] Aldo Aguilar MD 55 [facility] 456 [place] [address] [email or web address] documented as of this encounter Results * Vitamin B12 (03/11/2023 10:03 AM EDT) VITAMIN B12 775 232 - 1,245 pg/mL [facility] Blood 03/11/2023 10:0 3 AM EDT 03/11/2023 10:08 AM EDT us Shanice Elias NP LAB BLOOD BKR ORDERABLES Final Result Performing Organization Address City/[facility]/ZIP Co de Phone Number [address] [address] * Ferritin (03/11/2023 10:03 AM EDT) FERRITIN 156 30 - 400 ug/L [facility] Blood 03/11/2023 10:0 3 AM EDT 03/11/2023 10:08 AM EDT us Shanice Elias NP LAB BLOOD BKR ORDERABLES Final Result [address] [address] * Folate (03/11/2023 10:03 AM EDT) FOLIC ACID 18.9 4.2 - 19.9 ng/mL [facility] Blood 03/11/2023 10:0 3 AM EDT 03/11/2023 10:08 AM EDT Shanice Elias NP LAB BLOOD BKR ORDERABLES Final Result Performing Organization Address City/[facility]/ZIP Co de Phone Number [address] [address] * Iron and iron binding capacity (03/11/2023 10:03 AM EDT) IRON 85 45 - 160 ug/dL [facility] IRON BINDING CAPACITY 376 228 - 428 ug/dL [facility] TRANSFERRIN SATURAT. 23 20 - 55 % [facility] Blood 03/11/2023 10:0 3 AM EDT 03/11/2023 10:08 AM EDT us Shanice Elias NP LAB BLOOD BKR ORDERABLES Final Result Performing Organization Address [facility] Co de Phone Number [address] [address] * Hepatitis B surface antibody (03/11/2023 10:03 AM EDT) HBV SURFACE ANTIBODY Negative [facility] Comment: Unvaccinated: Negative Vaccinated: Positive Blood 03/11/2023 10:0 3 AM EDT 03/11/2023 10:08 AM EDT us Shanice Elias NP LAB BLOOD BKR ORDERABLES Final Result Performing Organization Address [facility]/ZIP Co de Phone Number [address] [address] * Hepatitis B surface antigen (03/11/2023 10:03 AM EDT) HBV SURFACE ANTIGEN NON-REACTI VE NON-REACTI VE [facility] Blood 03/11/2023 10:0 3 AM EDT 03/11/2023 10:08 AM EDT Shanice Elias NP LAB BLOOD BKR ORDERABLES Final Result Performing Organization Address City/[facility]/ZIP Co de Phone Number [address] [address] * Hepatitis B core antibody, total (03/11/2023 10:03 AM EDT) HEP B CORE AB, TOT NON-REACTI VE NON-REACTI VE [facility] Blood 03/11/2023 10:0 3 AM EDT 03/11/2023 10:08 AM EDT us Shanice Elias FORGING ROLL OPERATOR LAB BLOOD BKR ORDERABLES Final Result [address] [address] * (ABNORMAL) GGT (Gamma glutamyl transferase) (03/11/2023 10:03 AM EDT) GGT 1,172(H) 11 - 51 U/L [facility] Blood 03/11/2023 10:0 3 AM EDT 03/11/2023 10:08 AM EDT Shanice Elias NP LAB BLOOD BKR ORDERABLES Final Result Performing Organization Address City/[facility]/ZIP Co de Phone Number [address] [address] * (ABNORMAL) C-Reactive Protein (03/11/2023 10:03 AM EDT) Pathologist [facility] C REACTIVE PROTEIN 7.5(H) 0.0 - 4.0 mg/L [facility] Blood 03/11/2023 10:0 3 AM EDT 03/11/2023 10:08 AM EDT Shanice Elias NP LAB BLOOD BKR ORDERABLES Final Result Performing Organization Address City/[facility]/ZIP Co de Phone Number [address] [address] * (ABNORMAL) Comprehensive metabolic panel (03/11/2023 10:03 AM EDT) SODIUM 133 133 - 146 mmol/L [facility] POTASSIUM 4.7 3.3 - 5.1 mmol/L [facility] CHLORIDE 95(L) 96 - 108 mmol/L [facility] CO2 25 21 - 35 mmol/L [facility] BUN 40(H) 6 - 19 mg/dL [facility] CREATININE 1.60(H) 0.5 - 1.5 mg/dL [facility] GLUCOSE 101(H) 70 - 99 mg/dL [facility] ALBUMIN 4.0 3.9 - 4.8 g/dL [facility] TOTAL PROTEIN 7.1 6.5 - 8.0 g/dL [facility] CALCIUM 9.5 8.4 - 10.3 mg/dL [facility] ALKALINE PHOSPHATASE 798(HH) 39 - 117 U/L [facility] Comment: Critical value: Results called to and read back by: DR TY MILLS [id number] JC TOTAL BILIRUBIN 0.6 0.0 - 1.2 mg/dL [facility] AST 99(H) 0 - 37 U/L [facility] ALT 49(H) 0 - 40 U/L [facility] GLOBULIN 3.1 1 - 4.8 g/dL [facility] EGFR 51(L) >59 mL/min/1.7 3m2 [facility] Comment:Estimated glomerular filtration rate calculated using the CKD-EPI refit equation. ANION GAP 18 10 - 20 mmol/L [facility] Blood 03/11/2023 10:0 3 AM EDT 03/11/2023 10:08 AM EDT us Shanice Elias NP LAB BLOOD BKR ORDERABLES Final Result [facility] 30 [place], [place] [phone] * (ABNORMAL) CBC (03/11/2023 10:03 AM EDT) WBC 3.44(L) 4.00 - 11.00 K/uL [facility] RBC 2.93(L) 4.23 - 5.82 M/uL [facility] HGB 9.8(L) 13.4 - 17.5 g/dL [facility] HCT 30.4(L) 37.0 - 51.0 % [facility] PLT 262 140 - 430 K/uL [facility] MCV 103.8(H) 78.0 - 97.0 [facility] MCH 33.4(H) 25.0 - 33.0 pg [facility] MCHC 32.2 32.0 - 36.0 g/dL [facility] RDW 15.0 11.0 - 15.0 % [facility] MPV 10.5 8.4 - 12.8 [facility] Blood 03/11/2023 10:0 3 AM EDT 03/11/2023 10:08 AM EDT Shanice Elias FORGING ROLL OPERATOR LAB BLOOD BKR ORDERABLES Final Result Performing Organization Address [facility]/ZIP Co de Phone Number [facility] 30 [place] [address] * Anti-Mitochondrial Antibody (AMA) (03/11/2023 10:03 AM EDT) MITOCHONDRIAL AB NEGATIVE AT 1:20 [facility] Comment: Sridhar Oliver M.D., Director Clinical Immunology Laboratory [id number] Normal: Negative at 1:20 Blood 03/11/2023 10:0 3 AM EDT 03/11/2023 10:08 AM EDT Shanice Elias NP LAB BLOOD ORDERABLES Shelley l Result [facility] 55 [place] [address] * Smooth Muscle Antibody (03/11/2023 10:03 AM EDT) SMOOTH MUSCLE AB POSITIVE AT 1:40 [facility] Comment: Sridhar Oliver M.D., Director Clinical Immunology Laboratory [id number] Normal: Negative at 1:20 Blood 03/11/2023 10:0 3 AM EDT 03/11/2023 10:08 AM EDT us Shanice Elias FORGING ROLL OPERATOR LAB BLOOD ORDERABLES Shelley l Result [facility] 55 [place] [address] * (ABNORMAL) Antinuclear antibody (JOHN) (03/11/2023 10:03 AM EDT) JOHN SCREEN ON HEP 2 Positive(A ) Negative [facility] Comment:An JOHN Titer has bee n reflexed. The results will follow. Blood 03/11/2023 10:0 3 AM EDT 03/11/2023 10:08 AM EDT Shanice Elias FORGING ROLL OPERATOR LAB BLOOD BKR ORDERABLES Final Result Performing Organization Address City/[facility]/ZIP Co de Phone Number [facility] 30 [place] [address] documented in this encounter Visit Diagnoses Diagnosis Cirrhosis of liver without ascites, unspecified hepatic cirrhosis type- Primary Nonspecific abnormal results of liver function study Heme positive stool Nonspecific abnormal finding in stool contents documented in this encounter Additional Health Concerns Infection Onset Date Last Indicated Resolved Time MRSA 08/04/2024 08/04/2024 documented as of this encounter Care Teams Headend Technician Relationship Specialty Start Date End Date Jb Stewart MD [address] [place] [address] [place] [address] PCP - General Internal Medicine 04/29/22 04/03/25 Ailyn García MD [address] [place] [address] [place] [address] PCP - General Internal Medicine 04/04/25 documented as of this encounter Additional Source Comments The information contained in this document represents components of the legal health record. It is not the complete legal health record.[facility]
--- OUTSIDE RECORDS SUMMARY | 2025-09-15 17:12 | XMS_ITS | Encounter Summary ---
Author Organization [facility] Address [address] [place] [address] Phone Care Team Providers Care Cellular Biologist Name Role Phone Jb Stewart MD Primary Care Provider Ailyn García MD Primary Care Provider [phone] Encounter Details Date Type Department Care Team (Late st Contact Info) Description 06/20/2023 Procedure Pass [facility] 30 [place] [address] Social History Tobacco Use Types Packs/Day Years [...] Description 10/11/2025 3:30 PM EST Office Visit [facility] 243 [facility] 9th [place] [address] Marco Macedo MD, MS 243 [place] [address] [email or web address] 11/17/2025 1:00 PM EST Nutrition [facility] Diabetes [facility] 40 [place] [phone] Dolores Fuller LDN [address] [place] [address] [email or web address] 01/16/2026 11:20 AM EDT Office Visit [facility] Endocrinology Clinic 40 [place] [phone] Noar Gomes MD [address] [address] [email or web address] 02/28/2026 9:00 AM EDT Appointment [facility] 30 [place] [address] Aldo Aguilar MD [address] [place] [address] [email or web address] 03/14/2026 2:30 PM EDT Office Visit [facility] 55 [facility], 5th [place] [address] Aldo Aguilar MD [address] [place] [address] [email or web address] documented as of this encounter Visit Diagnoses Not on filedocumented in this encounter Additional Health Concerns Infection Onset Date Last Indicated Resolved Time MRSA 08/04/2024 08/04/2024 documented as of this encounter Care Teams Cellular Biologist Relationship Specialty Start Date End Date Jb Stewart MD [address] [place] [address] [place] [address] PCP - General Internal Medicine 04/29/22 04/03/25 Ailyn García MD [address] [place] [address] [place] [address] PCP - General Internal Medicine 04/04/25 documented as of this encounter Additional Source Comments The information contained in this document represents components of the legal health record. It is not the complete legal health record.[facility]
--- OUTSIDE RECORDS SUMMARY | 2025-09-15 17:12 | XMS_ITS | Encounter Summary ---
Author Organization [facility] Address [address] [place] [address] [place] [address] Phone Care Team Providers Care Blood Bank Credit Clerk Name Role Phone Jb Stewart MD Primary Care Provider Ailyn García MD Primary Care Provider [phone] Encounter Details Date Type Department Care Team (Late st Contact Info) Description 09/07/2024 Procedure Pass [facility] 30 [place] [address] Social History Tobacco Use Types Packs/Day Years [...] [facility] 243 [facility] 9[place], [place] [address] Marco Macedo MD, MS 243 [place] [address] [email or web address] 11/17/2025 1:00 PM EST Nutrition [facility] Diabetes [facility] 40 [place] [address] Dolores Fuller LDN [address] [address] [email or web address] 01/16/2026 11:20 AM EDT Office Visit [facility] Endocrinology [facility] 40 [place] [phone] Nora Gomes MD [address] [address] [email or web address] 02/28/2026 9:00 AM EDT Appointment [address] [address] Aldo Aguilar MD [address] [place] [address] [email or web address] 03/14/2026 2:30 PM EDT Office Visit [facility] [address] [place] [address], 5th [place] [address] Aldo Aguilar MD [address] [place] [address] [email or web address] documented as of this encounter Visit Diagnoses Not on filedocumented in this encounter Additional Health Concerns Infection Onset Date Last Indicated Resolved Time MRSA 08/04/2024 08/04/2024 documented as of this encounter Care Teams Blood Bank Credit Clerk Relationship Specialty Start Date End Date Jb Stewart MD [address] [place] [address] [place] [address] PCP - General Internal Medicine 04/29/22 04/03/25 Ailyn García MD [address] [place] [address] [place] [address] PCP - General Internal Medicine 04/04/25 documented as of this encounter Additional Source Comments The information contained in this document represents components of the legal health record. It is not the complete legal health record.[facility]
--- OUTSIDE RECORDS SUMMARY | 2025-09-15 17:12 | XMS_ITS | Encounter Summary ---
Author Organization [facility] Address [address] [place] [address] [place] [address] Phone Care Team Providers Care Seat Joiner Name Role Phone Jb Stewart MD Primary Care Provider Ailyn García MD Primary Care Provider Encounter Details Date Type Department Care Team ([facility] st Contact Info) Description 09/03/2024 Transcribe Orders [facility] Phleb Kaelyn 10 [facility] 2nd [place] [address] Shanice Elias NP 10 [place] [address] Social History Tobacco Use Types Packs/Day Years [...] Description 10/11/2025 3:30 PM EST Office Visit [facility] 243 [facility] 9th [place] [address] Marco Macedo MD, MS 243 [place] [address] [email or web address] 11/17/2025 1:00 PM EST Nutrition [facility] Diabetes [facility] 40 [place] [address] Dolores Fuller LDN [address] [address] [email or web address] 01/16/2026 11:20 AM EDT Office Visit [facility] Endocrinology [facility] 40 [place] [phone] Nora Gomes MD [address] [address] [email or web address] 02/28/2026 9:00 AM EDT Appointment [facility] 30 [place] [address] Aldo Aguilar MD [address] [place] [address] [email or web address] 03/14/2026 2:30 PM EDT Office Visit [facility] [address] [place] [address], 5th [place] [address] Aldo Aguilar MD [address] [place] [address] [email or web address] documented as of this encounter Visit Diagnoses Not on filedocumented in this encounter Additional Health Concerns Infection Onset Date Last Indicated Resolved Time MRSA 08/04/2024 08/04/2024 documented as of this encounter Care Teams Seat Joiner Relationship Specialty Start Date End Date Jb Stewart MD [address] [place] [address] [place] [address] PCP - General Internal Medicine 04/29/22 04/03/25 Ailyn García MD [address] [place] [address] [place] [address] PCP - General Internal Medicine 04/04/25 documented as of this encounter Additional Source Comments The information contained in this document represents components of the legal health record. It is not the complete legal health record.[facility]
--- OUTSIDE RECORDS SUMMARY | 2025-09-15 17:12 | XMS_ITS | Encounter Summary ---
Author Organization [facility] Address [address] [place] [address] Phone Care Team Providers Care Home Health Lvn Name Role Phone Jb Stewart MD Primary Care Provider Ye Batista MD Primary Care Provider [phone] Ye Batista MD Primary Care Provider Jb Stewart MD Primary Care Provider Ye Batista MD Primary Care Provider [phone] Unknown, Unknown Primary Care Provider Jb Hood MD Primary Care Provider Ailyn García MD Primary Care Provider [phone] Reason for Visit * Reason Comments Medication Refill Encounter Details Date Type Department Care Team (Late st Contact Info) Description 09/04/2021 Refill [facility] 60 [place] [address] Caty Flynn PA-C 60 [place] [address] [email or web address] Medication Refill Social History Tobacco Use Types [...] Description 10/11/2025 3:30 PM EST Office Visit [facility] [address] [place] [address] 9[place], [place] [address] Marco Macedo MD, MS 243 [place] [address] [email or web address] 11/17/2025 1:00 PM EST Nutrition [facility] 40 [place] [address] Dolores Fuller LDN [address] [place] [address] 01/16/2026 11:20 AM EDT Office Visit [facility] Endocrinology [facility] 40 [place] [phone] Nora Gomes MD [address] [address] 02/28/2026 9:00 AM EDT Appointment [facility] 30 [place] [address] Aldo Aguilar MD [address] [place] [address] [email or web address] 03/14/2026 2:30 PM EDT Office Visit [facility] 55 [facility], 5th [place] [address] Aldo Aguilar MD 55 [facility] [place] [facility] 456 [place] [address] [email or web address] documented as of this encounter Visit Diagnoses Not on filedocumented in this encounter Additional Health Concerns Infection Onset Date Last Indicated Resolved Time CoV-Risk 02/04/2022 02/04/2022 02/15/2022 1:24 AM EDT MRSA 08/04/2024 08/04/2024 documented as of this encounter Care Teams Home Health Lvn Relationship Specialty Start Date End Date Jb Stewart MD [address] [place] [address] [place] [address] PCP - General Internal Medicine 04/25/21 12/09/21 Ye Batista MD [address] [place] [address] [email or web address] PCP - General Internal Medicine 12/10/21 12/16/21 Ye Batista MD [address] [place] [address] [email or web address] PCP - General Internal Medicine 12/17/21 12/17/21 Jb Stewart MD [address] [place] [address] [place] [address] PCP - General Internal Medicine 12/18/21 12/24/21 Ye Batista MD [address] [place] [address] [email or web address] PCP - General Internal Medicine 12/25/21 04/01/22 Unknown, Kaveh, PCP - General 04/02/22 04/28/22 Jb Stewart MD [address] [place] [address] [place] [address] PCP - General Internal Medicine 04/29/22 04/03/25 Ailyn García MD [address] [place] [address] [place] [address] PCP - General Internal Medicine 04/04/25 documented as of this encounter Additional Source Comments The information contained in this document represents components of the legal health record. It is not the complete legal health record.[facility]
--- OUTSIDE RECORDS SUMMARY | 2025-09-15 17:12 | XMS_ITS | Encounter Summary ---
Author Organization [facility] Address [address] [place] [address] [place] [address] Phone Care Team Providers Care Pattern Scratcher Name Role Phone Jb Stewart MD Primary Care Provider Ailyn García MD Primary Care Provider Encounter Details Date Type Department Care Team (Late st Contact Info) Description 11/12/2023 Ophth Exam [facility] 243 [place] [address] Real Bass MD 330 [place] [address] [email or web address] Social History Tobacco Use Types Packs/Day Years [...] 12:07 PM EST Bam Prado RN * [place] Suicide Severity Rating Scale (Screener/Recent Self-Report) Question [...] 10/11/2025 3:30 PM EST Office Visit [facility] [address] [place] [address] Marco Macedo MD, MS 243 [place] [address] [email or web address] 11/17/2025 1:00 PM EST Nutrition [facility] Diabetes [facility] 40 [place] [phone] Dolores Fuller, SAMANTHA 22 [facility], [address] [place] [address] 01/16/2026 11:20 AM EDT Office Visit [facility]ology [facility] 40 [place] [phone] Nora Gomes MD 22 [facility] 3rd [place] [address] [email or web address] 02/28/2026 9:00 AM EDT Appointment [facility], [address] [address] Aldo Aguilar MD 55 [facility] 456 [place] [address] [email or web address] 03/14/2026 2:30 PM EDT Office Visit [facility] 55 [facility], 5th [place] [address] Aldo Aguilar MD 55 [facility] 456 [place] [address] [email or web address] documented as of this encounter Visit Diagnoses Not on filedocumented in this encounter Additional Health Concerns Infection Onset Date Last Indicated Resolved Time MRSA 08/04/2024 08/04/2024 documented as of this encounter Care Teams Pattern Scratcher Relationship Specialty Start Date End Date Jb Stewart MD [address] [place] [address] [place] [address] PCP - General Internal Medicine 04/29/22 04/03/25 Ailyn García MD [address] [place] [address] [place] [address] PCP - General Internal Medicine 04/04/25 documented as of this encounter Additional Source Comments The information contained in this document represents components of the legal health record. It is not the complete legal health record.[facility]
--- OUTSIDE RECORDS SUMMARY | 2025-09-15 17:12 | XMS_ITS | Encounter Summary ---
Author Organization [facility] Address [address] [place] [address] Phone Care Team Providers Care Registered Representative Name Role Phone Jb Stewart MD Primary Care Provider Ye Batista MD Primary Care Provider Unknown, Unknown Primary Care Provider Jb Hood MD Primary Care Provider Ailyn García MD Primary Care Provider [phone] Encounter Details Date Type Department Care Team (Late st Contact Info) Description 12/20/2021 Procedure Pass [facility] [address] [facility], 4th [place] [address] Social History Tobacco Use Types Packs/Day Years [...] Description 10/11/2025 3:30 PM EST Office Visit [facility] 243 [facility] 9th [place] [address] Marco Macedo MD, MS 243 [place] [address] [email or web address] 11/17/2025 1:00 PM EST Nutrition [facility] Diabetes [facility] 40 [place] [address] Dolores Fuller LDN [address] [address] [email or web address] 01/16/2026 11:20 AM EDT Office Visit [facility] 40 [place] [phone] Nora Gomes MD [address] [address] [email or web address] 02/28/2026 9:00 AM EDT Appointment [address] [address] Aldo Aguilar MD [address] [place] [address] [email or web address]@[email or web address] 03/14/2026 2:30 PM EDT Office Visit [facility] 55 [facility], 5th [place] [address] Aldo Aguilar MD [address] [place] [address] [email or web address] documented as of this encounter Visit Diagnoses Not on filedocumented in this encounter Additional Health Concerns Infection Onset Date Last Indicated Resolved Time CoV-Risk 02/04/2022 02/04/2022 02/15/2022 1:24 AM EDT MRSA 08/04/2024 08/04/2024 documented as of this encounter Care Teams Registered Representative Relationship Specialty Start Date End Date Jb Stewart MD [address] [place] [address] [place] [address] PCP - General Internal Medicine 12/18/21 12/24/21 Ye Batista MD [address] [place] [address] [email or web address] PCP - General Internal Medicine 12/25/21 04/01/22 Unknown, Kaveh, PCP - General 04/02/22 04/28/22 Jb Stewart MD [address] [place] [address] [place] [address] PCP - General Internal Medicine 04/29/22 04/03/25 Ailyn García MD [address] [place] [address] [place] [address] PCP - General Internal Medicine 04/04/25 documented as of this encounter Additional Source Comments The information contained in this document represents components of the legal health record. It is not the complete legal health record.[facility]
--- OUTSIDE RECORDS SUMMARY | 2025-09-15 17:12 | XMS_ITS | Encounter Summary ---
Author Organization [facility] Address [address] [place] [address] Phone Care Team Providers Care Clothing Consultant Name Role Phone Jb Stewart MD Primary Care Provider Ailyn García MD Primary Care Provider [phone] Encounter Details Date Type Department Care Team (Late st Contact Info) Description 08/05/2023 Procedure Pass [facility], [address] [address] Social History Tobacco Use Types Packs/Day Years [...] Description 10/11/2025 3:30 PM EST Office Visit [facility] 243 [facility] 9th [place] [address] Marco Macedo MD, MS 243 [place] [address] [email or web address]. [facility] 11/17/2025 1:00 PM EST Nutrition [facility] Diabetes [facility] 40 [place] [address] Dolores Fuller LDN [address] [address] [email or web address] 01/16/2026 11:20 AM EDT Office Visit [facility] 40 [place] [phone] Nora Gomes MD [address] [address] [email or web address] 02/28/2026 9:00 AM EDT Appointment [facility] 30 [place] [address] Aldo Aguilar MD [address] [place] [address] 456 [place] [address] [email or web address] 03/14/2026 2:30 PM EDT Office Visit [facility] 55 [facility], 5th [place] [address] Aldo Aguilar MD 55 [facility] 456 [place] [address] [email or web address] documented as of this encounter Visit Diagnoses Not on filedocumented in this encounter Additional Health Concerns Infection Onset Date Last Indicated Resolved Time MRSA 08/04/2024 08/04/2024 documented as of this encounter Care Teams Clothing Consultant Relationship Specialty Start Date End Date Jb Stewart MD [address] [place] [address] [place] [address] PCP - General Internal Medicine 04/29/22 04/03/25 Ailyn García MD [address] [place] [address] [place] [address] PCP - General Internal Medicine 04/04/25 documented as of this encounter Additional Source Comments The information contained in this document represents components of the legal health record. It is not the complete legal health record.[facility]
--- OUTSIDE RECORDS SUMMARY | 2025-09-15 17:12 | XMS_ITS | Encounter Summary ---
Author Organization [facility] Address [address] [place] [address] [place] [address] Phone Care Team Providers Care Complaint Clerk Name Role Phone Jb Stewart MD Primary Care Provider Ailyn García MD Primary Care Provider [phone] Encounter Details Date Type Department Care Team (Late st Contact Info) Description 11/01/2024 Procedure Pass [address] [place] [address] Social History Tobacco Use Types Packs/Day Years [...] Description 10/11/2025 3:30 PM EST Office Visit [facility] 243 [facility] 9th [place] [address] Marco Macedo MD, MS 243 [place] [address] [email or web address] 11/17/2025 1:00 PM EST Nutrition [facility] Diabetes [facility] 40 [place] [address] Dolores Fuller LDN [address] [address] [email or web address] 01/16/2026 11:20 AM EDT Office Visit [facility] Endocrinology [facility] 40 [place] [phone] Nora Gomes MD [address] [address] [email or web address] 02/28/2026 9:00 AM EDT Appointment [address] [address] Aldo Aguilar MD [address] [place] [address] [email or web address] 03/14/2026 2:30 PM EDT Office Visit [facility] [address] [place] [address], 5th [place] [address] Aldo Aguilar MD [address] [place] [address] [email or web address] documented as of this encounter Visit Diagnoses Not on filedocumented in this encounter Additional Health Concerns Infection Onset Date Last Indicated Resolved Time MRSA 08/04/2024 08/04/2024 documented as of this encounter Care Teams Complaint Clerk Relationship Specialty Start Date End Date Jb Stewart MD [address] [place] [address] [place] [address] PCP - General Internal Medicine 04/29/22 04/03/25 Ailyn García MD [address] [place] [address] [place] [address] PCP - General Internal Medicine 04/04/25 documented as of this encounter Additional Source Comments The information contained in this document represents components of the legal health record. It is not the complete legal health record.[facility]
--- OUTSIDE RECORDS SUMMARY | 2025-09-15 17:12 | XMS_ITS | Encounter Summary ---
Author Organization [facility] Address [address] [place] [address] [place] [address] Phone Care Team Providers Care Utility Gelatin Maker Name Role Phone Jb Stewart MD Primary Care Provider Ye Batista MD Primary Care Provider Ye Batista MD Primary Care Provider Jb Stewart MD Primary Care Provider Ye Batista MD Primary Care Provider [phone] Unknown, Unknown Primary Care Provider Jb Hood MD Primary Care Provider Ailyn García MD Primary Care Provider [phone] Encounter Details Date Type Department Care Team (Late st Contact Info) Description 04/25/2021 Procedure Pass MRI, [facility] - [address], [address] [place] [address] Social History Tobacco Use Types [...] Description 10/11/2025 3:30 PM EST Office Visit [facility] 243 [facility] 9th [place] [address] Marco Macedo MD, MS 243 [place] [address] [email or web address] 11/17/2025 1:00 PM EST Nutrition [facility] Diabetes [facility] 40 [place] [address] Dolores Fuller LDN [address] [address] [email or web address] 01/16/2026 11:20 AM EDT Office Visit [facility] Endocrinology Clinic 40 [place] [phone] Noar Gomes MD [address] [address] [email or web address] 02/28/2026 9:00 AM EDT Appointment [facility] 30 [place] [address] Aldo Aguilar MD [address] [place] [address] TANIA@[email or web address] 03/14/2026 2:30 PM EDT Office Visit [facility] [address] [place] [address], 5th [place] [address] Aldo Aguilar MD [address] [place] [address] [email or web address] .[email or web address] documented as of this encounter Visit Diagnoses Not on filedocumented in this encounter Additional Health Concerns Infection Onset Date Last Indicated Resolved Time CoV-Risk 02/04/2022 02/04/2022 02/15/2022 1:24 AM EDT MRSA 08/04/2024 08/04/2024 documented as of this encounter Care Teams Utility Gelatin Maker Relationship Specialty Start Date End Date Jb Stewart MD [address] [place] [address] [place] [address] PCP - General Internal Medicine 04/25/21 12/09/21 Ye Batista MD 40 [place] [address] [email or web address] PCP - General Internal Medicine 12/10/21 12/16/21 Ye Batista MD 40 [place] [address] [email or web address] PCP - General Internal Medicine 12/17/21 12/17/21 Jb Stewart MD [address] [place] [address] [place] [address] PCP - General Internal Medicine 12/18/21 12/24/21 Ye Batista MD [address] [place] [address] [email or web address] PCP - General Internal Medicine 12/25/21 04/01/22 Unknown, Kaveh, PCP - General 04/02/22 04/28/22 Jb Stewart MD [address] [place] [address] [place] [address] PCP - General Internal Medicine 04/29/22 04/03/25 Ailny García MD [address] [place] [address] [place] [address] PCP - General Internal Medicine 04/04/25 documented as of this encounter Additional Source Comments The information contained in this document represents components of the legal health record. It is not the complete legal health record.[facility]
--- OUTSIDE RECORDS SUMMARY | 2025-09-15 17:12 | XMS_ITS | Encounter Summary ---
Author Organization [facility] Address [address] [place] [address] Phone Care Team Providers Care Refrigeration Specialist Name Role Phone Jacki Echavarria MD Primary Care Provider Mele Sepulveda MD Primary Care Provide r Pop Adler MD Primary Care Provider [phone] Pop Adler MD Primary Care Provider [phone] Jb Stewart MD Primary Care Provider Ye Batista MD Primary Care Provider [phone] Ye Batista MD Primary Care Provider Jb Stewart MD Primary Care Provider Ye Batista MD Primary Care Provider [phone] Unknown, Unknown Primary Care Provider Jb Hood MD Primary Care Provider Ailyn García MD Primary Care Provider [phone] Reason for Referral * Consultation (Within 1 month) - Closed Specialty Diagnoses / Procedures Referred By Radha greer Referred To Contact Gastroenterology Diagnoses Elevated LFTs Aldo Aguilar MD Phone: tel: fax: mailto:[email or web address] [address] Phone: tel: Referral ID Status Reason Start Date Expiration Date Visits Re quested Visits Authorized [id number] Closed 07/18/2020 07/18/2021 1 1 Encounter Details Date Type Department Care Team (Latest Contact Info) Description 07/18/2020 Transcribe Orders [facility] 55 [facility], 5th [place] [address] Aldo Aguilar MD [address] [place] [address] [email or web address] Elevated LFTs (Primary Dx) Social History [...] Hospital [facility] 243 [facility] 9th [place] [address] Marco Macedo MD, MS 243 [place] [address] [email or web address] 11/17/2025 1:00 PM EST Nutrition [facility] Diabetes [facility] 40 [place] [address] Dolores Fuller, SAMANTHA 22 [facility], 1st [place] [address] [email or web address] 01/16/2026 11:20 AM EDT Office Visit [facility] Endocrinology Clinic 40 [place] [address] Nora Gomes MD 22 [facility] 3rd [place] [address] [email or web address] 02/28/2026 9:00 AM EDT Appointment [address] [address] Aldo Aguilar MD [address] [address] [email or web address] 03/14/2026 2:30 PM EDT Office Visit [facility] 55 [facility], 5th [place] [address] Aldo Aguilar MD [address] [place] [address] [email or web address] Scheduled Referrals Name Type Priority Associated Diagnoses Order Schedule Ambulatory referral to [facility] Gastroenterology (Consult Requests Only) Outpatient Referral Routine Elevated LFTs Ordered: 07/18/2020 documented as of this encounter Visit Diagnoses Diagnosis Elevated LFTs- Primary Other abnormal blood chemistry documented in this encounter Additional Health Concerns Infection Onset Date Last Indicated Resolved Time CoV-Risk 02/04/2022 02/04/2022 02/15/2022 1:24 AM EDT MRSA 08/04/2024 08/04/2024 documented as of this encounter Care Teams Refrigeration Specialist Relationship Specialty Start Date End Date Jacki Echavarria MD [address] [place] [address] PCP - General Internal Medicine 07/14/20 08/16/20 Mele Sepulveda MD [address] [place] [address] PCP - General Internal Medicine 08/17/20 09/10/20 Pop Adler MD [address] [place] [address] [place] [address] PCP - General Internal Medicine 09/11/20 12/05/20 Pop Adler MD [address] [place] [address] [place] [address] PCP - General Internal Medicine 04/03/21 04/24/21 Jb Stewart MD [address] [place] [address] [place] [address] PCP - General Internal Medicine 04/25/21 12/09/21 Ye Batista MD 40 [place] [address] [email or web address] PCP - General Internal Medicine 12/10/21 12/16/21 Ye Batista MD [address] [place] [address] [email or web address] PCP - General Internal Medicine 12/17/21 12/17/21 Jb Stewart MD [address] [place] [address] [place] [address] PCP - General Internal Medicine 12/18/21 12/24/21 Ye Batista MD [address] [place] [address] [email or web address] PCP - General Internal Medicine 12/25/21 04/01/22 Unknown, Kaveh, PCP - General 04/02/22 04/28/22 Jb Stewart MD [address] [place] [address] [place] [address] PCP - General Internal Medicine 04/29/22 04/03/25 Ailyn García MD [address] [place] [address] [place] [address] PCP - General Internal Medicine 04/04/25 documented as of this encounter Additional Source Comments The information contained in this document represents components of the legal health record. It is not the complete legal health record.[facility]
--- OUTSIDE RECORDS SUMMARY | 2025-09-15 17:12 | XMS_ITS | Encounter Summary ---
Author Organization [facility] Address [address] [place] [address] Phone Care Team Providers Care Egg Producer Name Role Phone Jb Stewart MD Primary Care Provider Ailyn García MD Primary Care Provider [phone] Encounter Details Date Type Department Care Team (Late st Contact Info) Description 07/23/2023 Procedure Pass [facility] 30 [place] [address] Social History Tobacco Use Types Packs/Day Years [...] Description 10/11/2025 3:30 PM EST Office Visit [facility] 243 [facility] 9th [place] [address] Marco Macedo MD, MS 243 [place] [address] [email or web address] 11/17/2025 1:00 PM EST Nutrition [facility] Diabetes [facility] 40 [place] [address] Dolores Fuller LDN [address] [place] [address] [email or web address] 01/16/2026 11:20 AM EDT Office Visit [facility] 40 [place] [phone] Nora Gomes MD [address] [address] [email or web address] 02/28/2026 9:00 AM EDT Appointment [facility] 30 [place] [address] Aldo Aguilar MD [address] [place] [address] TANIA@[email or web address] 03/14/2026 2:30 PM EDT Office Visit [facility] 55 [facility], 5th [place] [address] Aldo Aguilar MD [address] [place] [address] [email or web address] documented as of this encounter Visit Diagnoses Not on filedocumented in this encounter Additional Health Concerns Infection Onset Date Last Indicated Resolved Time MRSA 08/04/2024 08/04/2024 documented as of this encounter Care Teams Egg Producer Relationship Specialty Start Date End Date Jb Stewart MD [address] [place] [address] [place] [address] PCP - General Internal Medicine 04/29/22 04/03/25 Ailyn García MD [address] [place] [address] [place] [address] PCP - General Internal Medicine 04/04/25 documented as of this encounter Additional Source Comments The information contained in this document represents components of the legal health record. It is not the complete legal health record.[facility]
--- OUTSIDE RECORDS SUMMARY | 2025-09-15 17:12 | XMS_ITS | Encounter Summary ---
Author Organization [facility] Address [address] [place] [address] Phone Care Team Providers Care Ice Cream Truck Driver Name Role Phone Jb Stewart MD Primary Care Provider Ailyn García MD Primary Care Provider Encounter Details Date Type Department Care Team (Late st Contact Info) Description 02/06/2023 Procedure Pass [facility] 30 [place] [address] Social History Tobacco Use Types Packs/Day Years [...] Description 10/11/2025 3:30 PM EST Office Visit [facility] 243 [facility] 9th [place] [address] Marco Macedo MD, MS 243 [place] [address] [email or web address] 11/17/2025 1:00 PM EST Nutrition [facility] Diabetes [facility] 40 [place] [address] Dolores Fuller LDN [address] [address] [email or web address] 01/16/2026 11:20 AM EDT Office Visit [facility] Endocrinology Clinic 40 [place] [phone] Nora Gomes MD [address] [address] [email or web address] 02/28/2026 9:00 AM EDT Appointment [address] [address] Aldo Aguilar MD [address] [place] [address] TANIA@[email or web address] 03/14/2026 2:30 PM EDT Office Visit [facility] 55 [facility], 5th [place] [address] Aldo Aguilar MD [address] [place] [address] [email or web address] documented as of this encounter Visit Diagnoses Not on filedocumented in this encounter Additional Health Concerns Infection Onset Date Last Indicated Resolved Time MRSA 08/04/2024 08/04/2024 documented as of this encounter Care Teams Ice Cream Truck Driver Relationship Specialty Start Date End Date Jb Stewart MD [address] [place] [address] [place] [address] PCP - General Internal Medicine 04/29/22 04/03/25 Ailyn García MD [address] [place] [address] [place] [address] PCP - General Internal Medicine 04/04/25 documented as of this encounter Additional Source Comments The information contained in this document represents components of the legal health record. It is not the complete legal health record.[facility]
--- OUTSIDE RECORDS SUMMARY | 2025-09-15 17:12 | XMS_ITS | Encounter Summary ---
Author Organization [facility] Address [address] [place] [address] Phone Care Team Providers Care Form Setter Helper Name Role Phone Jb Stewart MD Primary Care Provider Ailyn García MD Primary Care Provider [phone] Encounter Details Date Type Department Care Team (Late st Contact Info) Description 03/03/2023 Procedure Pass [facility] 30 [place] [address] Social History Tobacco Use Types Packs/Day Years [...] Description 10/11/2025 3:30 PM EST Office Visit [facility] 243 [facility] 9th [place] [address] Marco Macedo MD, MS 243 [place] [address] [email or web address] 11/17/2025 1:00 PM EST Nutrition [facility] Diabetes [facility] 40 [place] [address] Dolores Fuller LDN [address] [place] [address] [email or web address] 01/16/2026 11:20 AM EDT Office Visit [facility] Endocrinology Clinic 40 [place] [phone] Nora Gomes MD [address] [address] [email or web address] 02/28/2026 9:00 AM EDT Appointment [facility] 30 [place] [address] Aldo Aguilar MD [address] [place] [address] [email or web address] 03/14/2026 2:30 PM EDT Office Visit [facility] 55 [facility], 5th [place] [address] Aldo Aguilar MD [address] [place] [address] [email or web address] documented as of this encounter Visit Diagnoses Not on filedocumented in this encounter Additional Health Concerns Infection Onset Date Last Indicated Resolved Time MRSA 08/04/2024 08/04/2024 documented as of this encounter Care Teams Form Setter Helper Relationship Specialty Start Date End Date Jb Stewart MD [address] [place] [address] [place] [address] PCP - General Internal Medicine 04/29/22 04/03/25 Ailyn García MD [address] [place] [address] [place] [address] PCP - General Internal Medicine 04/04/25 documented as of this encounter Additional Source Comments The information contained in this document represents components of the legal health record. It is not the complete legal health record.[facility]
--- OUTSIDE RECORDS SUMMARY | 2025-09-15 17:12 | XMS_ITS | Encounter Summary ---
Author Organization [facility] Address [address] [place] [address] Phone Care Team Providers Care Enterprise Systems Manager Name Role Phone Pop Adler MD Primary Care Provider Jb Stewart MD Primary Care Provider Ye Batista MD Primary Care Provider Ye Batista MD Primary Care Provider Jb Stewart MD Primary Care Provider Ye Batista MD Primary Care Provider Unknown, Unknown Primary Care Provider Jb Hood MD Primary Care Provider Ailyn García MD Primary Care Provider [phone] Encounter Details Date Type Department Care Team (Late st Contact Info) Description 12/07/2020 Procedure Pass [facility] ENDO DEPT 55 [facility], 4th [place] [address] Social History Tobacco Use Types Packs/Day Years [...] Health [facility] 243 [facility] 9th [place] [address] Marco Macedo MD, MS 243 [place] [address] [email or web address] 11/17/2025 1:00 PM EST Nutrition [facility] Diabetes [facility] 40 [place] [address] Dolores Fuller LDN [address] [address] [email or web address] 01/16/2026 11:20 AM EDT Office Visit [facility] Endocrinology Clinic 40 [place] [address] Nora Gomes MD 22 [facility] 3rd [place] [address] 02/28/2026 9:00 AM EDT Appointment [facility] 30 [place] [address] Aldo Aguilar MD [address] [place] [address] [email or web address] 03/14/2026 2:30 PM EDT Office Visit [facility] [address] [place] [address], 5th [place] [address] Aldo Aguilar MD [address] [facility] [facility] [address] [place] [address] [email or web address] documented as of this encounter Visit Diagnoses Not on filedocumented in this encounter Additional Health Concerns Infection Onset Date Last Indicated Resolved Time CoV-Risk 02/04/2022 02/04/2022 02/15/2022 1:24 AM EDT MRSA 08/04/2024 08/04/2024 documented as of this encounter Care Teams Enterprise Systems Manager Relationship Specialty Start Date End Date Pop Adler MD [address] [place] [address] Dr STEVENS [facility] [place] [address] PCP - General Internal Medicine 04/03/21 04/24/21 Jb Stewart MD [address] [place] [address] [place] [address] PCP - General Internal Medicine 04/25/21 12/09/21 Ye Batista MD [address] [place] [address] [email or web address] PCP - General Internal Medicine 12/10/21 12/16/21 Ye Batista MD [address] [place] [address] [email or web address] PCP - General Internal Medicine 12/17/21 12/17/21 Jb Stewart MD [address] [place] [address] [place] [address] PCP - General Internal Medicine 12/18/21 12/24/21 Ye Batista MD [address] [place] [address] [email or web address] PCP - General Internal Medicine 12/25/21 04/01/22 Unknown, Kaveh, PCP - General 04/02/22 04/28/22 Jb Stewart MD [address] [place] [address] [place] [address] PCP - General Internal Medicine 04/29/22 04/03/25 Ailyn García MD [address] [place] [address] [place] [address] PCP - General Internal Medicine 04/04/25 documented as of this encounter Additional Source Comments The information contained in this document represents components of the legal health record. It is not the complete legal health record.[facility]
--- OUTSIDE RECORDS SUMMARY | 2025-09-15 17:12 | XMS_ITS | Encounter Summary ---
Author Organization [facility] Address [address] [place] [address] Phone Care Team Providers Care Shoder Filler Name Role Phone Jb Stewart MD Primary Care Provider Ailyn García MD Primary Care Provider [phone] Encounter Details Date Type Department Care Team (Late st Contact Info) Description 02/09/2024 Procedure Pass [facility] Endoscopy Admitting Dept Virtual Department [address] [place] [address] Social History Tobacco Use Types Packs/Day Years [...] Center [facility] 243 [facility] 9th [place] [address] Marco Macedo MD, MS 243 [place] [address] [email or web address] 11/17/2025 1:00 PM EST Nutrition [facility] Diabetes [facility] 40 [place] [address] Dolores Fuller LDN [address] [place] [address] [email or web address] 01/16/2026 11:20 AM EDT Office Visit [facility] Endocrinology Clinic 40 [place] [address] Nora Gomes MD [address] [address] [email or web address] 02/28/2026 9:00 AM EDT Appointment [address] [address] Aldo Aguilar MD [address] [place] [address] [email or web address] [email or web address] 03/14/2026 2:30 PM EDT Office Visit [facility] 55 [facility], 5th [place] [address] Aldo Aguilar MD [address] [place] [address] [email or web address] [email or web address] documented as of this encounter Visit Diagnoses Not on filedocumented in this encounter Additional Health Concerns Infection Onset Date Last Indicated Resolved Time MRSA 08/04/2024 08/04/2024 documented as of this encounter Care Teams Shoder Filler Relationship Specialty Start Date End Date Jb Stewart MD [address] [place] [address] [place] [address] PCP - General Internal Medicine 04/29/22 04/03/25 Ailyn García MD [address] [place] [address] [place] [address] PCP - General Internal Medicine 04/04/25 documented as of this encounter Additional Source Comments The information contained in this document represents components of the legal health record. It is not the complete legal health record.[facility]
--- OUTSIDE RECORDS SUMMARY | 2025-09-15 17:12 | XMS_ITS | Encounter Summary ---
Author Organization [facility] Address [address] [place] [address] Phone Care Team Providers Care Yeast Pumper Name Role Phone Jb Stewart MD Primary Care Provider Ye Batista MD Primary Care Provider Ye Batista MD Primary Care Provider Jb Stewart MD Primary Care Provider Ye Batista MD Primary Care Provider Unknown, Unknown Primary Care Provider Jb Hood MD Primary Care Provider Ailyn García MD Primary Care Provider [phone] Encounter Details Date Type Department Care Team (Late st Contact Info) Description 09/11/2021 Procedure Pass [facility] 75 [place], [place] [phone] Social History Tobacco Use Types Packs/Day Years [...] Description 10/11/2025 3:30 PM EST Office Visit [facility] 243 [facility] 9th [place] [address] Marco Macedo MD, MS 243 [place] [address] [email or web address] 11/17/2025 1:00 PM EST Nutrition [facility] Diabetes [facility] 40 [place] [address] Dolores Fuller LDN [address] [address] [email or web address] 01/16/2026 11:20 AM EDT Office Visit [facility] Endocrinology Clinic 40 [place] [address] Nora Gomes MD [address] [address] [email or web address] [email or web address] 02/28/2026 9:00 AM EDT Appointment [facility] 30 [place] [address] Aldo Aguilar MD [address] [place] [address] [email or web address] 03/14/2026 2:30 PM EDT Office Visit [facility] [address] [place] [address], 5th [place] [address] Aldo Aguilar MD [address] [place] [address] [email or web address] documented as of this encounter Visit Diagnoses Not on filedocumented in this encounter Additional Health Concerns Infection Onset Date Last Indicated Resolved Time CoV-Risk 02/04/2022 02/04/2022 02/15/2022 1:24 AM EDT MRSA 08/04/2024 08/04/2024 documented as of this encounter Care Teams Yeast Pumper Relationship Specialty Start Date End Date Jb Stewart MD [address] [place] [address] [place] [address] PCP - General Internal Medicine 04/25/21 12/09/21 Ye Batista MD 40 [place] [address] [email or web address] PCP - General Internal Medicine 12/10/21 12/16/21 Ye Batista MD [address] [place] [address] [email or web address] PCP - General Internal Medicine 12/17/21 12/17/21 Jb Stewart MD [address] [place] [address] [place] [address] PCP - General Internal Medicine 12/18/21 12/24/21 Ye Batista MD [address] [place] [address] [email or web address] PCP - General Internal Medicine 12/25/21 04/01/22 Unknown, Kaveh, PCP - General 04/02/22 04/28/22 Jb Stewrat MD [address] [place] [address] [place] [address] PCP - General Internal Medicine 04/29/22 04/03/25 Ailyn García MD [address] [place] [address] [place] [address] PCP - General Internal Medicine 04/04/25 documented as of this encounter Additional Source Comments The information contained in this document represents components of the legal health record. It is not the complete legal health record.[facility]
--- OUTSIDE RECORDS SUMMARY | 2025-09-15 17:12 | XMS_ITS | Encounter Summary ---
Author Organization [facility] Address [address] [place] [address] Phone Care Team Providers Care Blow Mold Operator Name Role Phone Jb Stewart MD Primary Care Provider Ailyn García MD Primary Care Provider Encounter Details Date Type Department Care Team (Late st Contact Info) Description 02/10/2023 Procedure Pass [facility] Endoscopy Admitting Dept Virtual Department [address] [place] [address] Social History Tobacco Use Types Packs/Day Years [...] Description 10/11/2025 3:30 PM EST Office Visit [facility] 243 [facility] 9th [place] [address] Marco Macedo MD, MS 243 [place] [address] [email or web address] [email or web address] 11/17/2025 1:00 PM EST Nutrition [facility] Diabetes [facility] 40 [place] [address] Dolores Fuller LDN [address] [address] [email or web address] 01/16/2026 11:20 AM EDT Office Visit [facility] Endocrinology Clinic 40 [place] [address] Nora Gomes MD [address] [address] [email or web address] 02/28/2026 9:00 AM EDT Appointment [address] [address] Aldo Aguilar MD [address] [place] [address] [email or web address] 03/14/2026 2:30 PM EDT Office Visit [facility] 55 [facility], 5th [place] [address] Aldo Aguilar MD [address] [place] [address] [email or web address]@[email or web address] documented as of this encounter Visit Diagnoses Not on filedocumented in this encounter Additional Health Concerns Infection Onset Date Last Indicated Resolved Time MRSA 08/04/2024 08/04/2024 documented as of this encounter Care Teams Blow Mold Operator Relationship Specialty Start Date End Date Jb Stewart MD [address] [place] [address] [place] [address] PCP - General Internal Medicine 04/29/22 04/03/25 Ailyn García MD [address] [place] [address] [place] [address] PCP - General Internal Medicine 04/04/25 documented as of this encounter Additional Source Comments The information contained in this document represents components of the legal health record. It is not the complete legal health record.[facility]
--- OUTSIDE RECORDS SUMMARY | 2025-09-15 17:12 | XMS_ITS | Encounter Summary ---
Author Organization [facility] Address [address] [place] [address] Phone Care Team Providers Care Classified Copy Control Clerk Name Role Phone Jb Stewart MD Primary Care Provider Ailyn García MD Primary Care Provider Encounter Details Date Type Department Care Team (Late st Contact Info) Description 02/05/2023 Procedure Pass [facility], [address] [address] Social History Tobacco Use Types Packs/Day Years [...] Description 10/11/2025 3:30 PM EST Office Visit [facility] 243 [facility] 9th [place] [address] Marco Macedo MD, MS 243 [place] [address] [email or web address] 11/17/2025 1:00 PM EST Nutrition [facility] Diabetes [facility] 40 [place] [address] Dolores Fuller LDN [address] [address] [email or web address] 01/16/2026 11:20 AM EDT Office Visit [facility] Endocrinology Clinic 40 [place] [address] Nora Gomes MD [address] [address] [email or web address] 02/28/2026 9:00 AM EDT Appointment [address] [address] Aldo Aguilar MD [address] [place] [address] [email or web address]@[email or web address] 03/14/2026 2:30 PM EDT Office Visit [facility] 55 [facility], 5th [place] [address] Aldo Aguilar MD [address] [place] [address] [email or web address]@[email or web address] documented as of this encounter Visit Diagnoses Not on filedocumented in this encounter Additional Health Concerns Infection Onset Date Last Indicated Resolved Time MRSA 08/04/2024 08/04/2024 documented as of this encounter Care Teams Classified Copy Control Clerk Relationship Specialty Start Date End Date Jb Stewart MD [address] [place] [address] [place] [address] PCP - General Internal Medicine 04/29/22 04/03/25 Ailyn García MD [address] [place] [address] [place] [address] PCP - General Internal Medicine 04/04/25 documented as of this encounter Additional Source Comments The information contained in this document represents components of the legal health record. It is not the complete legal health record.[facility]
--- OUTSIDE RECORDS SUMMARY | 2025-09-15 17:12 | XMS_ITS | Encounter Summary ---
Author Organization [facility] Address [address] [place] [address] Phone Care Team Providers Care Special Needs Tutor Name Role Phone Jb Stewart MD Primary Care Provider Ye Batista MD Primary Care Provider [phone] Ye Batista MD Primary Care Provider Jb Stewart MD Primary Care Provider Ye Batista MD Primary Care Provider Unknown, Unknown Primary Care Provider Jb Hood MD Primary Care Provider Ailyn García MD Primary Care Provider [phone] Encounter Details Date Type Department Care Team (Late st Contact Info) Description 08/13/2021 Procedure Pass [facility] Periop 75 [place] [address] Social History Tobacco Use Types Packs/Day Years [...] Description 10/11/2025 3:30 PM EST Office Visit [facility] 243 [facility] 9th [place] [address] Marco Macedo MD, MS 243 [place] [address] [email or web address] 11/17/2025 1:00 PM EST Nutrition [facility] Diabetes [facility] [place] [facility] 40 [place] [address] Dolores Fuller LDN [address] [place] [address] [email or web address] 01/16/2026 11:20 AM EDT Office Visit [facility] Endocrinology Clinic 40 [place] [address] Nora Gomes MD [address] [address] [email or web address] 02/28/2026 9:00 AM EDT Appointment [facility] 30 [place] [address] Aldo Aguilar MD [address] [place] [address] TANIA@[email or web address] [email or web address] 03/14/2026 2:30 PM EDT Office Visit [facility] 55 [facility], 5th [place] [address] Aldo Aguilar MD [address] [place] [address] TANIA@[email or web address] documented as of this encounter Visit Diagnoses Not on filedocumented in this encounter Additional Health Concerns Infection Onset Date Last Indicated Resolved Time CoV-Risk 02/04/2022 02/04/2022 02/15/2022 1:24 AM EDT MRSA 08/04/2024 08/04/2024 documented as of this encounter Care Teams Special Needs Tutor Relationship Specialty Start Date End Date Jb Stewart MD [address] [place] [address] [place] [address] PCP - General Internal Medicine 04/25/21 12/09/21 Ye Batista MD [address] [place] [address] [email or web address] PCP - General Internal Medicine 12/10/21 12/16/21 Ye Batista MD 40 [place] [address] [email or web address] PCP - General Internal Medicine 12/17/21 12/17/21 Jb Stewart MD [address] [place] [address] [place] [address] PCP - General Internal Medicine 12/18/21 12/24/21 Ye Batista MD [address] [place] [address] PCP - General Internal Medicine 12/25/21 04/01/22 Unknown, Kaveh, PCP - General 04/02/22 04/28/22 Jb Stewart MD [address] [place] [address] [place] [address] PCP - General Internal Medicine 04/29/22 04/03/25 Ailyn García MD [address] [place] [address] [place] [address] PCP - General Internal Medicine 04/04/25 documented as of this encounter Additional Source Comments The information contained in this document represents components of the legal health record. It is not the complete legal health record.[facility]
--- OUTSIDE RECORDS SUMMARY | 2025-09-15 17:12 | XMS_ITS | Encounter Summary ---
Author Organization [facility] Address [address] [place] [address] Phone Care Team Providers Care Journeyman Pressman Name Role Phone Jb Stewart MD Primary Care Provider Ailyn García MD Primary Care Provider [phone] Encounter Details Date Type Department Care Team (Late st Contact Info) Description 04/17/2023 Procedure Pass [facility] 30 [place] [address] Social History Tobacco Use Types Packs/Day Years [...] Hospital [facility] 243 [facility] 9th [place] [address] Marco Macedo MD, MS 243 [place] [address] [email or web address] 11/17/2025 1:00 PM EST Nutrition [facility] Diabetes [facility] 40 [place] [address] Dolores Fuller LDN [address] [place] [address] [email or web address] 01/16/2026 11:20 AM EDT Office Visit [facility] Endocrinology Clinic 40 [place] [address] Nora Gomes MD [address] [address] [email or web address] 02/28/2026 9:00 AM EDT Appointment [facility] 30 [place] [address] Aldo Aguilar MD [address] [place] [address] TANIA@[email or web address] [email or web address] 03/14/2026 2:30 PM EDT Office Visit [facility] 55 [facility], 5th [place] [address] Aldo Aguilar MD [address] [place] [address] [email or web address]@[email or web address] [email or web address] [place] documented as of this encounter Visit Diagnoses Not on filedocumented in this encounter Additional Health Concerns Infection Onset Date Last Indicated Resolved Time MRSA 08/04/2024 08/04/2024 documented as of this encounter Care Teams Journeyman Pressman Relationship Specialty Start Date End Date Jb Stewart MD [address] [place] [address] [place] [address] PCP - General Internal Medicine 04/29/22 04/03/25 Ailyn García MD [address] [place] [address] [place] [address] PCP - General Internal Medicine 04/04/25 documented as of this encounter Additional Source Comments The information contained in this document represents components of the legal health record. It is not the complete legal health record.[facility]
--- OUTSIDE RECORDS SUMMARY | 2025-09-15 17:12 | XMS_ITS | Encounter Summary ---
Author Organization [facility] Address [address] [place] [address] Phone Care Team Providers Care Air Transportation Provider Name Role Phone Jb Stewart MD Primary Care Provider Ye Batista MD Primary Care Provider Ye Batista MD Primary Care Provider Jb Stewart MD Primary Care Provider Ye Batista MD Primary Care Provider Unknown, Unknown Primary Care Provider Jb Hood MD Primary Care Provider Ailyn García MD Primary Care Provider [phone] Encounter Details Date Type Department Care Team (Late st Contact Info) Description 10/18/2021 Telephone [facility] [address] [address] Nilay [email or web address] Social History Tobacco Use Types Packs/Day Years [...] [facility] 243 [facility] 9th [place] [address] Marco Macedo MD, MS 243 [place] [address] [email or web address] 11/17/2025 1:00 PM EST Nutrition [facility] 40 [place] [phone] Dolores Fuller LDN [address] [place] [address] [email or web address] 01/16/2026 11:20 AM EDT Office Visit [facility] 40 [place] [phone] Nora Gomes MD [address] [address] 02/28/2026 9:00 AM EDT Appointment [facility] 30 [place] [address] Aldo Aguilar MD [address] [place] [address] [email or web address] 03/14/2026 2:30 PM EDT Office Visit [facility] [address] [place] [address], 5th [place] [address] Aldo Aguilar MD 55 [facility] BLK 456 [place] [address] [email or web address] documented as of this encounter Visit Diagnoses Not on filedocumented in this encounter Additional Health Concerns Infection Onset Date Last Indicated Resolved Time CoV-Risk 02/04/2022 02/04/2022 02/15/2022 1:24 AM EDT MRSA 08/04/2024 08/04/2024 documented as of this encounter Care Teams Air Transportation Provider Relationship Specialty Start Date End Date Jb Stewart MD [address] [place] [address] [place] [address] PCP - General Internal Medicine 04/25/21 12/09/21 Ye Batista MD [address] [place] [address] [email or web address] PCP - General Internal Medicine 12/10/21 12/16/21 Ye Batista MD [address] [place] [address] [email or web address] PCP - General Internal Medicine 12/17/21 12/17/21 Jb Stewart MD [address] [place] [address] [place] [address] PCP - General Internal Medicine 12/18/21 12/24/21 Ye Batista MD [address] [place] [address] [email or web address] PCP - General Internal Medicine 12/25/21 04/01/22 Unknown, Kaveh, PCP - General 04/02/22 04/28/22 Jb Stewart MD [address] [place] [address] [place] [address] PCP - General Internal Medicine 04/29/22 04/03/25 Ailyn García MD [address] [place] [address] [place] [address] PCP - General Internal Medicine 04/04/25 documented as of this encounter Additional Source Comments The information contained in this document represents components of the legal health record. It is not the complete legal health record.[facility]
--- OUTSIDE RECORDS SUMMARY | 2025-09-15 17:12 | XMS_ITS | Encounter Summary ---
Author Organization [facility] Address [address] [place] [address] [place] [phone] Phone Care Team Providers Care Auto Technician Name Role Phone Jb Stewart MD Primary Care Provider Ailyn García MD Primary Care Provider Encounter Details Date Type Department Care Team (Late st Contact Info) Description 11/12/2023 Procedure Pass [facility] [address] [place] [address] Social History Tobacco Use Types Packs/Day Years [...] 12:07 PM EST Bam Prado, STEVE * [place] Suicide Severity Rating Scale (Screener/Recent Self-Report) Question [...] [facility] [address] [place] [address] Marco Macedo MD, MS 243 [place] [address] [email or web address] 11/17/2025 1:00 PM EST Nutrition [facility] 40 [place] [phone] Dolores Fuller LDN [address] [place] [address] 01/16/2026 11:20 AM EDT Office Visit [facility] 40 [place] [phone] Nora Gomes MD [address] [place] [address] 02/28/2026 9:00 AM EDT Appointment [facility] 30 [place] [address] Aldo Aguilar MD [address] [facility] 456 [place] [address] [email or web address] 03/14/2026 2:30 PM EDT Office Visit [facility] 55 [facility], 5th [place] [address] Aldo Aguilar MD 55 [facility] 456 [place] [address] [email or web address] documented as of this encounter Visit Diagnoses Not on filedocumented in this encounter Additional Health Concerns Infection Onset Date Last Indicated Resolved Time MRSA 08/04/2024 08/04/2024 documented as of this encounter Care Teams Auto Technician Relationship Specialty Start Date End Date Jb Stewart MD [address] [place] [address] [place] [address] PCP - General Internal Medicine 04/29/22 04/03/25 Aliyn García MD [address] [place] [address] [place] [address] PCP - General Internal Medicine 04/04/25 documented as of this encounter Additional Source Comments The information contained in this document represents components of the legal health record. It is not the complete legal health record.[facility]
--- OUTSIDE RECORDS SUMMARY | 2025-09-15 17:13 | XMS_ITS | Encounter Summary ---
Author Organization [facility] Address [address] [place] [address] Phone Care Team Providers Care Cotton Breeder Name Role Phone Jb Stewart MD Primary Care Provider Ye Batista MD Primary Care Provider Ye Batista MD Primary Care Provider Jb Stewart MD Primary Care Provider Ye Batista MD Primary Care Provider [phone] Unknown, Unknown Primary Care Provider Jb Hood MD Primary Care Provider Ailyn García MD Primary Care Provider [phone] Encounter Details Date Type Department Care Team (Late st Contact Info) Description 11/05/2021 Procedure Pass [facility] [address] [place] [address] Social History Tobacco Use Types Packs/Day Years [...] 10/11/2025 3:30 PM EST Office Visit [facility] 243 [facility] 9th [place] [address] Marco Macedo MD, MS 243 [place] [address] [email or web address] [email or web address] [email or web address] 11/17/2025 1:00 PM EST Nutrition [facility] 40 [place] [phone] Dolores Fuller LDN [address] [place] [address] [email or web address] 01/16/2026 11:20 AM EDT Office Visit [facility] 40 [place] [phone] Nora Gomes MD [address] [address] [email or web address] 02/28/2026 9:00 AM EDT Appointment [facility] 30 [place] [address] Aldo Aguilar MD [address] [place] [address] [email or web address] 03/14/2026 2:30 PM EDT Office Visit [facility] 55 [facility], 5th [place] [address] Aldo Aguilar MD [address] [place] [address] [email or web address] documented as of this encounter Visit Diagnoses Not on filedocumented in this encounter Additional Health Concerns Infection Onset Date Last Indicated Resolved Time CoV-Risk 02/04/2022 02/04/2022 02/15/2022 1:24 AM EDT MRSA 08/04/2024 08/04/2024 documented as of this encounter Care Teams Cotton Breeder Relationship Specialty Start Date End Date Jb Stewart MD [address] [place] [address] [place] [address] PCP - General Internal Medicine 04/25/21 12/09/21 Ye Batista MD [address] [place] [address] [email or web address] PCP - General Internal Medicine 12/10/21 12/16/21 Ye Batista MD 40 [place] [address] PCP - General Internal Medicine 12/17/21 12/17/21 Jb Stewart MD [address] [place] [address] [place] [address] PCP - General Internal Medicine 12/18/21 12/24/21 Ye Batista MD [address] [place] [address] PCP - General Internal Medicine 12/25/21 04/01/22 Unknown, Kaveh, PCP - General 04/02/22 04/28/22 Jb Stewart MD [address] [place] [address] [place] [address] PCP - General Internal Medicine 04/29/22 04/03/25 Ailyn García MD [address] [place] [address] [place] [address] PCP - General Internal Medicine 04/04/25 documented as of this encounter Additional Source Comments The information contained in this document represents components of the legal health record. It is not the complete legal health record.[facility]
== END 2025-09-15 13:46 | disposition home or self-care (01) ==
LOC: HO.HMCHD 13:08
PROVIDERS: PCP Internal Medicine; Visit Provider Student in an Organized Health Care Education/Training Program
DX: E11.22 Type 2 diabetes mellitus with diabetic chronic kidney disease (principal); Z79.4 Long term (current) use of insulin; K75.81 Nonalcoholic steatohepatitis (NASH); K74.69 Other cirrhosis of liver; N18.30 Chronic kidney disease, stage 3 unspecified; I10 Essential (primary) hypertension; G62.9 Polyneuropathy, unspecified; K21.9 Gastro-esophageal reflux disease without esophagitis; L85.3 Xerosis cutis

== ENCOUNTER 2025-09-15 13:08 | Outpatient (REF) | payer OTHER, SELFPAY ==
--- OUTSIDE RECORDS SUMMARY | 2025-09-15 18:06 | XMS_ITS | Data Portability ---
Author Organization [place] - [facility], Allergy Address [address] [address] Care Team Providers Care Rabbit Breeder Name Role Phone MaluREGINA DESAI Primary Care Provider Assessment Encounter Date Assessment Date Assessment LastModified by Organization Details LastModified Time 05/04/2025 05/04/2025 Saad presents as a follow-up for IFS, status post right endoscopic sinus surgery and right maxillectomy in 2022. He has been stable since. FFL was performed today which showed well-healed mucosa and postsurgical changes on the right. Most recent MRI (03/2025) without evidence of recurrence was reviewed today as noted in the HPI with the patient - Stable exam today - Patient would like to follow-up in 3 months for recheck, does not need FFL at that visit - Patient aware to call with any new onset symptoms of facial paresthesias, vision changes, sinus pain or pressure [email or web address] Not available 05/04/2025 11:56:08 Plan of Treatment Reminders Order Date Submit Date Provider Last Modified By Organization Details Last Modified Time Details Appointments FOLLOW UP 2024 02:30P Ally Corea MD Not available Not available Not available Lab None recorded. Referral None recorded. Procedures None recorded. Surgeries None recorded. Imaging MRI, sinuses, w/ contrast - urgent. hx of invasive fungal sinusitis s/p surgery (not recent), with new symptoms. Please evaluate for invasive fungal sinusitis 2024 025 [facility], [address] [facility], [place], [address], 11/04/2024 12:44:06 Medication Orders None recorded. Patient TargetsNo targets recorded. Patient InstructionsNo instructions recorded. Reason for Referral None Reported. Results Created Date Observation Date Name Description Value Unit Range Abnormal Flag Note LastModifiedBy Organization Detail LastModifiedTime 11/04/1911/02/2024 MRI, sinus es, w/ contr ast No observ ation record ed. [email or web address] [facility] [address] [place] [address] , [place], [address], 11/04/2024 13:54:21 11/10/19 25 MRI, sinus es, w/ contr ast No observ ation record ed. [email or web address] [facility] [address] [place] [address], [id number], 11/10/2024 08:11:00 11/10/19 25 MRI, sinus es, w/ contr ast No observ ation record ed. [email or web address] [facility] [address] [place] [address], [address], 11/11/2024 10:06:42 11/10/19 25 11/02/2024 MRI, brain , w/wo contr ast No observ ation record ed. [email or web address] Not Available 10/30 11:17:07 Result Notes None recorded. 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 Active 2023 BYRON KEE MD [address] [place] [address], [facility] [place], [place], [address] , [facility] - [facility] 4 10:11:27 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 BYRON KEE MD [address] [facility],[place] [address], [place], [address] , [place] - [facility] 4 10:18:24 Chronic pansinusi tis 54955828 Active 2023 BYRON KEE MD [address] [facility],[place] [address], [facility] [place], [address] , [place] - [facility] 4 10:19:22 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 Procedures Surgical History Date Name Laterality Status Provider Name and Address Organization Details Recorded Time 08/08/2025 Nasal Endo DDx_DHL cancelled Aldo Francis DO [address] [facility],[place] [address], [place], [address], [facility] - [facility] 08/08/2025 12:34:05 05/04/2025 Nasal Endo DDx_DHL completed Aldo Francis DO [address] [facility],[address], [address], [facility] - [facility] 05/04/2025 11:54:12 11/01/2024 NasalEndosc opy_DP completed BYRON KEE MD [address] [facility],[address], [address], [facility] - [facility] 11/01/2024 11:12:53 04/23/2024 NasalEndosc opy_DP completed BYRON KEE MD [address] [facility],[address], [address], [facility] - [facility] 04/23/2024 10:17:48 Imaging Results None recorded. Procedure Notes None recorded. Medical Equipment None Reported. Medications Name Sig Start Date Stop Date Status Note LastModified by Organization Details LastModified Time multivita min tablet TAKE 1 TABLET BY MOUTH EVERY DAY active Not Available Not Available No t Available cyclobenz aprine 10 mg tablet TAKE 1 TABLET BY MOUTH AT BEDTIME NEEDED active Not Available Not Available No t Available amoxicill in 500 mg capsule TAKE 1 CAPSULE BY MOUTH 3 TIMES A DAY active Not Available Not Available No t Available metformin 500 mg tablet TAKE 1 TABLET BY MOUTH TWICE A DAY active Not Available Not Available No t Available nystatin 100,000 unit/mL oral suspensio n TAKE 15 ML BY MOUTH SWISH AND SWALLOW FOUR TIMES A DAY active Not Available Not Available No t Available acetamino phen 325 mg tablet active Medicati on ID: [id number] B rand Name: acetamin ophen Se nd Method: E-Prescr ibed Sub s Allowed: subs OK Medic ationGen ericName : acetamin ophen Not Available Not Available Not Available doxycycli ne hyclate 100 mg capsule TAKE 1 CAPSULE BY MOUTH TWICE A DAY FOR 7 DAYS 04/26 completed Not Available Not Available Not Available loperamid e 2 mg capsule active Medicati on ID: [id number] B rand Name: loperami de Send Method: E-Prescr ibed Sub s Allowed: subs OK Medic ationGen ericName : loperami de Not Available Not Available Not Available Lidocaine Viscous 2 % mucosal solution TAKE 1/2 TABLESPO ONFUL MIX WITH 3 OZ OF WATER GARGLE AND SPIT EVERY 2 HOURS NEEDED active Not Available Not Available No t Available benzonata te 200 mg capsule TAKE 1 CAPSULE BY MOUTH THREE TIMES A DAY FOR COUGH FOR 7 DAYS active Not Available Not Available No t Available senna 8.6 mg tablet TAKE 2 TABLETS BY MOUTH ONCE A DAY AT BEDTIME NEEDED FOR CONSTIPA TION active Not Available Not Available No t Available sucralfat e 1 gram tablet TAKE 1 TABLET BY MOUTH THREE TIMES A DAY NEEDED OK TO CRUSH AND USE WITH ICE CHIPS active Not Available Not Available No t Available FreeStyle Lancets 28 gauge USE TO CHECK BLOOD SUGAR ONCE EVERY MORNING. active Not Available Not Available No t Available ondansetr on HCl 4 mg tablet active Medicati on ID: [id number] B rand Name: ondanset ruthie HCl Send Method: E-Prescr ibed Sub s Allowed: subs OK Medic ationGen ericName : ondanset ruthie HCl Not Available Not Available Not Available prednison e 20 mg tablet TAKE 2 TABLETS BY MOUTH EVERY DAY FOR 5 DAYS active Not Available Not Available No t Available cyanocoba sudarshan (vit B-12) 1,000 mcg tablet active Medicati on ID: [id number] B rand Name: cyanocob alamin (vitamin B-12) Se nd Method: E-Prescr ibed Sub s Allowed: subs OK Medic ationGen ericName : cyanocob alamin (vitamin B-12) Not Available Not Available Not Available thiamine HCl (vitamin B1) 100 mg tablet active Medicati on ID: [id number] B rand Name: thiamine HCl (vitamin B1) Send Method: E-Prescr ibed Sub s Allowed: subs OK Medic ationGen ericName : thiamine HCl (vitamin B1) Not Available Not Available Not Available ciproflox acin 500 mg tablet active Medicati on ID: [id number] B rand Name: ciproflo xacin HCl Send Method: E-Prescr ibed Sub s Allowed: subs OK Medic ationGen ericName : ciproflo xacin HCl Not Available Not Available Not Available sildenafi l 100 mg tablet TAKE 1 TABLET(S ) BY MOUTH NEEDED active Not Available Not Available No t Available carvedilo l 3.125 mg tablet TAKE 1 TABLET BY MOUTH TWICE A DAY WITH MEALS active Not Available Not Available No t Available famotidin e 20 mg tablet active Medicati on ID: [id number] B rand Name: famotidi ne Send Method: E-Prescr ibed Sub s Allowed: subs OK Medic ationGen ericName : famotidi ne Not Available Not Available Not Available prednisol one acetate 1 % eye drops,nisa pension INSTILL 1 DROP INTO RIGHT EYE FOUR TIMES A DAY FOR 2 WEEKS active Not Available Not Available No t Available magnesium oxide 400 mg (241.3 mg magnesium ) tablet active Medicati on ID: [id number] B rand Name: magnesiu m oxide Se nd Method: E-Prescr ibed Sub s Allowed: subs OK Medic ationGen ericName : magnesiu m oxide Not Available Not Available Not Available sodium bicarbona te 650 mg tablet TAKE 1 TABLET (650 MG TOTAL) BY MOUTH 3 (THREE) TIMES A DAY active Not Available Not Available No t Available benzonata te 100 mg capsule TAKE 1 CAPSULE BY MOUTH THREE TIMES A DAY NEEDED FOR COUGH active Not Available Not Available No t Available pantopraz ole 40 mg tablet,de layed release TAKE 1 TABLET BY MOUTH EVERY DAY IN THE MORNING active Not Available Not Available No t Available ursodiol 300 mg capsule active Medicati on ID: [id number] B rand Name: ursodiol Send Method: E-Prescr ibed Sub s Allowed: subs OK Medic ationGen ericName : ursodiol Not Available Not Available Not Available docusate sodium 100 mg capsule TAKE 1 CAPSULE BY MOUTH TWICE A DAY NEEDED FOR CONSTIPA TION active Not Available Not Available No t Available gabapenti n 300 mg capsule TAKE 1 CAPSULE BY MOUTH TWICE A DAY active Not Available Not Available No t Available Banophen 25 mg capsule active Medicati on ID: [id number] B rand Name: Banophen Send Method: E-Prescr ibed Sub s Allowed: subs OK Medic ationGen ericName : Banophen Not Available Not Available Not Available folic acid 1 mg tablet active Medicati on ID: [id number] B rand Name: folic acid Sen d Method: E-Prescr ibed Sub s Allowed: subs OK Medic ationGen ericName : folic acid Not Available Not Available Not Available hydroxyzi ne HCl 25 mg tablet TAKE 1 TABLET BY MOUTH TWICE A DAY active Not Available Not Available No t Available codeine 10 mg-guaife nesin 100 mg/5 mL oral liquid TAKE 5 ML BY MOUTH EVERY 6 HOURS NEEDED FOR COLD SYMPTOMS active Not Available Not Available No t Available furosemid e 20 mg tablet TAKE 1 TABLET BY MOUTH EVERY DAY FOR 90 DAYS active Not Available Not Available No t Available levofloxa jolanta 750 mg tablet TAKE 1 TABLET BY MOUTH EVERY DAY FOR 10 DAYS 04/26 completed Not Available Not Available Not Available spironola ctone 50 mg tablet TAKE 1 TABLET BY MOUTH EVERY DAY FOR 90 DAYS active Not Available Not Available No t Available Lotemax 0.5 % eye drops,nisa pension INSTILL 1 DROP INTO BOTH EYES 3 TIMES A DAY active Not Available Not Available No t Available Senna Plus 8.6 mg-50 mg tablet active Medicati on ID: [id number] B rand Name: Senna Plus Sen d Method: E-Prescr ibed Sub s Allowed: subs OK Medic ationGen ericName : Senna Plus Not Available Not Available Not Available cholestyr amine (with sugar) 4 gram powder for susp in a packet TAKE 1 PACKET BY MOUTH 2 TIMES A DAY. active Not Available Not Available No t Available Alcohol Prep Pads APPLY 1 APPLICAT ION TOPICALL Y DAILY. TO CLEAN INSULIN INJECTIO N SITE active Not Available Not Available No t Available metoprolo l tartrate 25 mg tablet TAKE 1 TABLET BY MOUTH TWICE A DAY active Not Available Not Available No t Available FreeStyle Lite Strips INJECT 1 EACH UNDER THE SKIN EVERY MORNING. active Not Available Not Available No t Available Lantus Solostar U-100 Insulin 100 unit/mL (3 mL) subcutane ous pen INJECT 6 UNITS UNDER THE SKIN NIGHTLY AT BEDTIME. active Not Available Not Available No t Available FreeStyle Red House Lite kit USE DIRECTED . active Not Available Not Available No t Available Gavilax 17 gram/dose oral powder active Medicati on ID: [id number] B rand Name: Gavilax Send Method: E-Prescr ibed Sub s Allowed: subs OK Medic ationGen ericName : Gavilax Not Available Not Available Not Available Purelax 17 gram oral powder packet active Medicati on ID: [id number] B rand Name: Purelax Send Method: E-Prescr ibed Sub s Allowed: subs OK Medic ationGen ericName : Purelax Not Available Not Available Not Available Eliquis 5 mg tablet active Medicati on ID: [id number] B rand Name: Eliquis Send Method: E-Prescr ibed Sub s Allowed: subs OK Medic ationGen ericName : Eliquis Not Available Not Available Not Available posaconaz ole 100 mg tablet,de layed release active Medicati on ID: [id number] B rand Name: posacona zole Sen d Method: E-Prescr ibed Sub s Allowed: subs OK Medic ationGen ericName : posacona zole Not Available Not Available Not Available Thera M Plus (ferrous fumarate) 9 mg iron-400 mcg tablet active Medicati on ID: [id number] B rand Name: Thera M Plus (ferrous fumarat) Send Method: E-Prescr ibed Sub s Allowed: subs OK Medic ationGen ericName : Thera M Plus (ferrous fumarat) Not Available Not Available Not Available Cresemba 186 mg capsule TAKE 2 CAPSULES (372 MG TOTAL) BY MOUTH DAILY. active Not Available Not Available No t Available ergocalci ferol (vitamin D2) 50 mcg (2,000 unit) capsule active Medicati on ID: [id number] B rand Name: ergocalc iferol (vitamin D2) Send Method: E-Prescr ibed Sub s Allowed: subs OK Medic ationGen ericName : ergocalc iferol (vitamin D2) Not Available Not Available Not Available insulin glargine- yfgn (U-100) 100 unit/mL (3 mL) subcutane ous pen INJECT 5 UNITS UNDER THE SKIN NIGHTLY AT BEDTIME. active Not Available Not Available No t Available Paxlovid 300 mg (150 mg x 2)-100 mg tablets in a dose pack TAKE 3 TABLETS BY MOUTH TWICE A DAY FOR 5 DAYS active Not Available Not Available No t Available glipizide 2.5 mg tablet TAKE 1 TAB BY MOUTH DAILY BEFORE BREAKFAS T. active Not Available Not Available No t Available FreeStyle Elysia 3 [place] USE DIRECTED TO MONITOR GLUCOSE active Not Available Not Available No t Available FreeStyle Elysia 3 Plus Sensor device USE DIRECTED TO MONITOR GLUCOSE, CHANGE EVERY 15 DAYS active Not Available Not Available No t Available Fara 2nd Gen Pen Needle 32 gauge x 5/32 INJECT 1 PEN NEEDLE EACH DIRECTED EVERY MORNING. active Not Available Not Available No t Available Vitals Date Recorded Body height Body mass index (BMI) Body weight Provider Name and Address Organization Details Last Updated DateTime 11/01/2024 167.64 cm 24.2 kg/m2 94482.86 g Casi Lauren [place] [facility] 11/01/2024 10:15:56 Date Recorded Body height Body mass index (BMI) Body weight Provider Name and Address Organization Details Last Updated DateTime 04/23/2024 167.64 cm 24.2 kg/m2 56844.86 g Casi Lauren [place] [facility] 04/23/2024 09:56:40 Date Recorded Body height Body mass index (BMI) Body weight Provider Name and Address Organization Details Last Updated DateTime 05/04/2025 167.64 cm 24.2 kg/m2 55981.86 g Casi Lauren [place] [facility] 05/04/2025 11:24:50 Social History None recorded. Functional Status None recorded. Mental Status None recorded. Family History Nothing Reported. Medical History No medical history recorded. Past Encounters Encounter ID Performer Location Encounter Start Date Encounter Closed Date Diagnosis/Indication Diagnosis SNOMED-CT Code Diagnosis ICD10 Code Diagnosis IMO Codes Diagnosis Note [id number] BYRON KEE MD [facility] on [address] [place] [address], [place] [address] 04/23/2024 09:45:08 04/23/2024 13:59:09 Invasive fungal sinusitis 407711563 B49 history of. No sign of invasive disease today. mucosa is normal. F/u 3 months for routine surveillan ce. 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 continue gabapentin Chronic pansinusitis 888 21745 J32.4 not present today [id number] BYRON KEE MD [facility] on [address] [place] [address], [place] [address] 11/01/2024 10:06:32 11/01/2024 11:10:52 Invasive fungal sinusitis 223791891 B49 history of. No sign of necrdosis today but mucosa is pale. Given his history I will try to obtain an urgent MRI to exclude invasive fungal disease. I will expedite and call him with results. If his symptoms worsen I told him to go to the ER. F/u 6 months for routine surveillan ce if MRI is negative. Atypical facial pain 713 36145 G50.1 not present today. continue gabapentin Chronic pansinusitis 888 23454 J32.4 not present today [id number] Aldo Francis DO [facility] [address] [address] 05/04/2025 11:17:09 05/04/2025 11:49:02 Invasive fungal sinusitis 056146447 B49 Atypical facial pain 713 42074 G50.1 Chronic pansinusitis 888 68581 J32.4 Oroantral fistula 933372 004 J32.0 58007 Health Concerns Section Related Observation LastModified by Organization Detai ls LastModified Time None Recorded Concern Status LastModified by Organization Details LastModified Time None Recorded Advance Directives Directive None Recorded Payers Insurance Date Sequence Insurance Name Policy Number Policy Rodriguez Covered Member ID Rodriguez Member ID Guarantor Name 08/05/2025 1 [employer] (MEDICAID REPLACEMENT - HMO) DARRIUS Meeks [id number] Saad Meeks 05/04/2025 1 [facility] PL[facility] (MEDICAID HMO) [id number] Saad Meeks [id number] Saad Meeks Notes Date Note Type Note Provider Name and Address Organization Details Recorded Time 04/23/2024 text/html ROS as noted in the [facility] sinus [id number] yo male here for f/u for invasive fungal infection of the sinus. Had 4 surgeries by OMFS and ENT including removal of part of jaw and part of sinus in [place]. OnCresemba. Hx of HBO with associated visual loss. Saw retina specialist in [place]. Nasal endo was reassuring after the last visit however given his pain I suggested urgent imaging. He went to [facility] and had an MRI (I don't have access to report) but he said there was no change and his pain was not related to sinusitis and subsequently since the last visit it has resolved. BYRON KEE MD [address] [place] [address], [address], [place] - [facility] 04/23/2024 10:20:10 11/01/2024 text/html ROS as noted in the [facility] sinus [id number] yo male here for f/u for invasive fungal infection of the sinus. Had 4 surgeries by OMFS and ENT including removal of part of jaw and part of sinus in [place]. He has stopped Cresemba. Hx of HBO with associated visual loss. He has felt some heaviness in his right cheek for the past 4 weeks but he denies pain. BYRON KEE MD [address] [place] [address],[address], [address], [facility] - [facility] 11/01/2024 11:15:44 05/04/2025 text/html ROS as noted in the HPI Saad is a pleasant 54-year-old male who presents with his today for follow-up of invasive fungal sinusitis. 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 Interval Hx: The patient endorses some ongoing right nasal drip and excessive spitting from this. No facial numbness or paresthesias, no new vision changes or mental status changes. A MRI of the March/2025, was personally reviewed and interpreted by me with the following findings: Evidence of prior right maxillectomy and right sided sinus surgery. Normal enhancement of nasal mucosa. Agree with the radiology team there is some slight enhancement along foramen rotundum but appears to be stable. I do not see any evidence of necrosis or contrast loss. The report was viewed and pertinent findings were discussed with the patient. Reviewed note from Dr. Kee 11/01/2024: 54 yo male here for f/u for invasive fungal infection of the sinus. Had 4 surgeries by OMFS and ENT including removal of part of jaw and part of sinus in [place]. He has stopped Cresemba. Hx of HBO with associated visual loss. He has felt some heaviness in his right cheek for the past 4 weeks but he denies pain. Aldo Francis, [address] [facility],[place] [address], [place], [address], [facility] - [facility] 05/04/2025 11:58:27
== END 2025-09-15 13:09 | disposition home or self-care (01) ==
LOC: HO.LAB 13:08
PROVIDERS: PCP Internal Medicine; Visit Provider Student in an Organized Health Care Education/Training Program
DX: E11.22 Type 2 diabetes mellitus with diabetic chronic kidney disease (principal); I12.9 Hypertensive chronic kidney disease with stage 1 through stage 4 chronic kidney disease, or unspecified chronic kidney disease; N18.30 Chronic kidney disease, stage 3 unspecified; E55.9 Vitamin D deficiency, unspecified; K75.81 Nonalcoholic steatohepatitis (NASH); K74.69 Other cirrhosis of liver; G62.9 Polyneuropathy, unspecified; K21.9 Gastro-esophageal reflux disease without esophagitis; L85.3 Xerosis cutis; Z79.4 Long term (current) use of insulin
CPT/HCPCS: 36415; 82306; 83036; 99212